=== PATIENT | male | born 1950 | race Caucasian/White ===

== ENCOUNTER 2022-11-12 08:00 | Outpatient (CLI) | payer MEDICARE, MEDICAID ==
[2022-11-12 20:06] LABS: BILIRUBIN,URINE NEGATIVE (NEGATIVE); GLUCOSE, URINE (UA) >=1000 mg/dL (NEGATIVE); KETONES,URINE (UA) NEGATIVE (NEGATIVE); LEUKOCYTE ESTERASE, URINE NEGATIVE (NEGATIVE); NITRITE,URINE NEGATIVE (NEGATIVE); OCCULT BLOOD,URINE NEGATIVE (NEGATIVE); PH,URINE 6.5 PH (5.0-7.5); PROTEIN,URINE NEGATIVE (NEGATIVE); UROBILINOGEN,URINE 0.2 (NORMAL) E.U./dL (NORMAL)
[2022-11-12 20:11] LABS: CLARITY,URINE CLEAR (CLEAR)
[2022-11-12 20:20] LABS: AMORPHOUS SEDIMENT,UR Rare /LPF; BACTERIA,URINE Rare /HPF (None Seen); RBC,URINE None Seen /HPF (0-5); SQUAMOUS EPITHELIAL CELL,UR NONE SEEN (<= Few); WBC,URINE 0-3 /HPF (0-3)
== END 2022-11-12 23:59 | disposition home or self-care (01) ==
LOC: LAB.S 08:00
PROVIDERS: ATTEND Internal Medicine
DX: R35.0 Frequency of micturition (principal)
CPT/HCPCS: 81001; 87086

== ENCOUNTER 2023-12-14 08:00 | Outpatient (CLI) | payer MEDICAID, MEDICARE | END 2023-12-14 23:59 | disposition home or self-care (01) | LOC: LAB.S 08:00 | PROVIDERS: ATTEND Physician Assistant | DX: R35.1 Nocturia (principal) | CPT/HCPCS: 87086 ==

== ENCOUNTER 2025-03-17 02:59 | Inpatient (IN) ==
[2025-03-17 03:23] LABS: HCT - HEMATOCRIT 24.1 % (42.0-52.0); HGB - HEMOGLOBIN 7.5 g/dL (14.0-18.0); MEAN PLATELET VOLUME 9.4 fL (7.4-11.4); NRBC ABSOLUTE COUNT (AUTO) 0.00 x10^3/uL; NUCLEATED RED BLOOD CELLS AUTO 0.0 /100WBC; PLT - PLATELET COUNT 701 10^3/uL (130-450); RED CELL DISTRIBUTION WIDTH 14.2 % (12.0-15.0)
--- NOTE | 2025-03-17 03:23 | ED Physician Documentation ---
History of Present Illness Stated complaint Stated Complaint: LEG PAIN Chief complaint Chief Complaint: Trauma Ext Additonal information Additional information: Mr. Tillman is a 75-year-old male who denies any previous diagnoses, states that he is otherwise healthy. No blood thinner use. Lives at assisted living facility/independent living nearby. He states that tonight he was getting up from going to the bathroom when he stood up from the toilet slipped backwards and fell. He states that he struck his right lower extremity, on the raised tile barrier of the shower nearby. He denies hitting his head, he did not lose consciousness. He is not endorsing any neck pain back pain, headache, visual changes. He is endorsing significant pain in his posterior right lower extremity with minimal manipulation. Patient states that his only significant medical problem lately has been ongoing diarrhea for very long time, which is why he was up going about him in the first place. He denies dark tarry stools, bloody stools. He denies any urination changes recently. Tonight he states that he otherwise had been in his baseline state of health, with no recent chest pain, shortness of breath, fever, chills, abdominal pain. He rates his pain when he moves his right lower extremity as a 8 out of 10. He has never injured this right lower extremity before. Patient was brought in by ambulance. They note that he was hypertensive, and had a blood sugar in the 200s but otherwise state that he had reassuring vital signs, was alert and oriented x 3, mentating normally with GCS of 15. Apparently at assisted living facility they attempted to stand him up, patient was unable to do so due to pain, therefore they called EMS. Review of Systems Status of ROS: See HPI Meds/Allgy Home Medications Ambulatory Orders Medication Instructions Recorded Confirmed No Known Home Medications 03/17/2502/21 Allergies Allergies Allergy/AdvReac Type Severity Reaction Status Date / Time No Known Drug Allergies Allergy Verified 03/17/25 03:20 [facility] Active Problems All Active Problems (Updated 03/17/25 @ 08:13 by Tylor Campbell MD) Cachexia (Acute) Anemia (Chronic) Leg pain, right (Acute) Ground-level fall (Acute) Medical History Medical History (Updated 03/17/25 @ 08:13 by Tylor Campbell MD) Insomnia Urinary incontinence Skin cancer No pertinent past medical history Surgical History Surgical History No pertinent past surgical history Social History Social History Smoking Status: Unknown if ever smoked Do you feel safe in your home environment?: Yes History of physical, verbal, emotional, or financial abuse?: No Exam Exam Vital Signs: Vital Signs x48h Temp Pulse Resp BP Pulse Ox 03/17/25 05:20 85 16 160/74 H 97 03/17/25 03:51 82 181/88 H 100 03/17/25 03:20 79 16 160/84 H 99 03/17/25 03:17 36.7 C 90 18 180/92 H 98 Constitutional Resting in examination bed no acute distress. Appears cachectic. No diaphoresis. Mildly pale. HENMT normocephalic, head/scalp atraumatic, external ears normal, EACs normal and TMs normal bilaterally Eyes PERRL, conjunctivae normal and visual acuity normal Neck/C-Spine cervical spine nontender, cervical full ROM noted and supple Chest inspection of chest normal and palpation of chest normal Respiratory Clear breath sounds bilaterally, no increased respiratory effort. No wheeze, no rhonchi Cardiovascular normal heart rate noted, regular rhythm noted, no murmur and peripheral pulses 2+ throughout No murmurs, regular rate and rhythm. Hypertensive. Normal S1-S2. Gastrointestinal abdomen soft to palpation, nontender to palpation and nontender to percussion Genitourinary no CVA tenderness Back/Pelvis spine normal to inspection, no thoracic spine tenderness, no lumbar spine tenderness, thoracic spine ROM normal, lumbar spine ROM normal and no paraspinal muscle tenderness noted Extremities Significant tenderness palpation in the posterior right hip, posterior right femur. No overlying skin changes, obvious swelling/deformities. The right leg is not foreshortened or externally/internally rotated. Neurovascular intact distal to the area of injury. Intact DP and PT pulses in bilateral lower extremities. 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 II-XII intact, no focal motor deficit noted, no sensory deficits noted and GCS 15 Psychiatry mental status grossly normal and oriented x3 Skin Mild pallor Results Vitals Vitals: Vital Signs - 24 hr 03/17/25 03:17 03/17/25 03:20 03/17/25 03:51 Temperature 36.7 C Temperature Source Temporal Artery Scan Pulse Rate 90 79 82 Respiratory Rate 18 16 Blood Pressure 180/92 H 160/84 H 181/88 H O2 Saturation 98 99 100 O2 Source Room air Room air Room air Pain Intensity 10 10 03/17/25 03:58 03/17/25 04:27 03/17/25 04:28 Temperature Temperature Source Pulse Rate Respiratory Rate Blood Pressure O2 Saturation O2 Source Pain Intensity 8 8 8 03/17/25 04:57 03/17/25 05:20 03/17/25 06:14 Temperature Temperature Source Pulse Rate 85 Respiratory Rate 16 Blood Pressure 160/74 H O2 Saturation 97 O2 Source Room air Pain Intensity 8 7 Oxygen O2 Source Room air Labs Labs: Laboratory Tests 03/17/25 03:17 WBC 9.0 RBC 3.27 L Hgb 7.5 L Hct 24.1 L MCV 73.7 L MCH 22.9 L MCHC 31.1 L RDW 14.2 Plt Count 701 H MPV 9.4 Neut # (Auto) 7.0 H Lymph # (Auto) 1.2 L [place] # (Auto) 0.3 Eos # (Auto) 0.1 Baso # (Auto) 0.0 Absolute Nucleated RBC 0.00 Nucleated RBC % 0.0 Sodium 135 Potassium 3.8 Chloride 100 L Carbon Dioxide 28 Anion Gap 7.0 BUN 13 Creatinine 0.5 L Estimated GFR (MDRD) 162 Glucose 256 H Calcium 10.8 H Iron < 10 L TIBC 361 % Saturation TNP Transferrin 258 Total Bilirubin 0.4 AST 15 ALT 17 Alkaline Phosphatase 103 Total Protein 7.2 Albumin 3.6 Globulin 3.6 Albumin/Globulin Ratio 1.0 PD Medical Decision Making ED course ED course: Assessment: Patient is a 75-year-old male arrives to the ER with concerns for significant pain in his right lower extremity after he sustained a ground-level fall at assisted living facility. He states he did not hit his head or lose consciousness, and mostly endorses pain in his posterior lateral right hip as well as his right posterior mid thigh. He states that he takes no medications, and tells me initially that he is healthy. On further questioning he states that he has had an unintentional precipitous drop in his weight, he states that 2 years ago he was 280 pounds, currently he weighs about 130 pounds. He thinks he lost roughly 30 to 50 pounds over the summer. He is endorsing chronic diarrh ea. Denies dark tarry stools or bloody stools. DDx: Includes but not limited to, femur fracture, femoral neck fracture, hip dislocation, acetabular fracture, pelvic ring fracture, skull fracture, tr aumatic subarachnoid hemorrhage, subdural hemorrhage, C-spine fracture, C-spine ligamentous injury, rib fracture, etc. Patient is cachectic, appears frail, pale. Considered failure to thrive, underl wu cancer, malnutrition, anemia. Workup: CBC with hemoglobin of 7.5, no leukocytosis, appears grossly anemic. Platelets 700. Iron less than 10, TIBC 361. Transferrin 258. CMP with grossly normal electrolytes apart from glucose 256. My bedside interpretation of the x-rays of his pelvis, femur, right knee are notable for significant arthritis in the right knee and diminished joint space, no evidence of fracture in the midshaft or hip, likely osteoarthritis in the right hip. At time of my signout pending formal reads from radiology. CT head and CT C-spine unremarkable per radiologist report. Prior to signout due to concern of possible underlying malignancy, failure to thrive, CT chest and abdomen were ordered. Treatment: Fentanyl, Dilaudid Discussion: So far his traumatic workup appears negative for acute injury, though he continues to endorse significant pain in his right leg. Patient was handed off to Dr. Oseguera, awaiting radiologic interpretation of his imaging. I am concerned about this patient's overall health, as he is pale, cachectic. He is endorsing unintentional weight loss, chronic diarrhea. I offered him a bedside rectal exam, which patient refused after I explained the benefits of doing so, to see if he is having GI bleeding. Therefore I ordered CTs of his chest and abdomen to look for potential mass, other sources of bleeding or anemia. Patient will likely need to be admitted for failure to thrive, though is pending further imaging results and workup. Patient handed off to Dr. Oseguera. Disposition: ER, pending further workup Discharge Plan Discharge Condition: Stable Clinical Impression: Ground-level fall, Leg pain, right, Anemia, Cachexia Prescriptions: No Action No Known Home Medications Print Language: Italian Stand Alone Forms: PCP List
[2025-03-17 03:41] LABS: ALT ALANINE AMINOTRANSFERASE 17.0 IU/L (10-60); AST ASPARTATE AMINOTRANSFERASE 15.0 IU/L (10-42); BUN - BLOOD UREA NITROGEN 13.0 mg/dL (6-20); CARBON DIOXIDE - CO2 28.0 mmol/L (21-32); CREATININE 0.5 mg/dL (0.6-1.3); GFR - MDRD 162.0 (>89)
[2025-03-17] MEDS: fentaNYL 100 MCG/2 ML VIAL IVP PRN (03:58)
[2025-03-17] MEDS ORDERED: HYDROmorphone 1 MG/ML CARPUJECT ONE (04:26)
[2025-03-17] MEDS: HYDROmorphone 0.5 MG/0.5 ML SYRINGE IVP STA ×2 (04:27→10:22)
[2025-03-17] MEDS: HYDROmorphone 1 MG/ML CARPUJECT IVP STA (06:14)
--- NOTE | 2025-03-17 08:03 | XRAY Report ---
PROCEDURE: XR Chest 1V INDICATIONS: mild traumatic chest pain after glf TECHNIQUE: One view of the chest was acquired. COMPARISON: None. FINDINGS: Surgical changes and devices: None. Lungs and pleura: No pleural effusions or pneumothorax. No consolidation. Mediastinum: Mediastinal contours appear normal. Heart size is normal. Bones and chest wall: No suspicious bony lesions. No displaced rib fracture. Overlying soft tissues appear unremarkable. IMPRESSION: No acute cardiopulmonary process. No displaced rib fracture or pneumothorax. Findings are concordant with preliminary interpretation provided by [facility]. Reviewed by: Ham Hawkins MD on 03/17/2025 8:00 AM PDT Approved by: Ham Hawkins MD on 03/17/2025 8:00 AM PDT Station ID: [email or web address]
--- NOTE | 2025-03-17 08:04 | XRAY Report ---
PROCEDURE: XR Femur 2+V RT INDICATIONS: right lower extremity pain afer glf TECHNIQUE: 1 views of the femur were acquired. COMPARISON: None. FINDINGS: 1 oblique view of the distal femur was obtained. There is no displaced femoral fracture in the [id number]. Vascular calcifications. IMPRESSION: No displaced femoral fracture in the [id number]. Findings are concordant with preliminary interpretation provided by [facility]. Reviewed by: Ham Hawkins MD on 03/17/2025 8:00 AM PDT Approved by: Ham Hawkins MD on 03/17/2025 8:00 AM PDT Station ID: [email or web address]
--- NOTE | 2025-03-17 08:06 | XRAY Report ---
PROCEDURE: XR Hip w/Pelvis 2-3V RT INDICATIONS: right lower extremity pain after fall TECHNIQUE: AP pelvis with lateral view(s) of the hip(s). COMPARISON: None. FINDINGS: Bones: Diffuse osseous demineralization. No dislocation. No displaced fracture. Moderate degenerative arthrosis of both hips. Normal alignment the pubic symphysis and bilateral sacroiliac joints. Degenerative disc disease in the inferior lumbar spine. Soft tissues: No suspicious soft tissue calcifications or masses. IMPRESSION: No displaced fracture. If there remains a high clinical concern for fracture, consider cross-sectional imaging. Moderate degenerative arthrosis of both hips. Reviewed by: Ham Hawkins MD on 03/17/2025 8:03 AM PDT Approved by: Ham Hawkins MD on 03/17/2025 8:03 AM PDT Station ID: [email or web address]
--- NOTE | 2025-03-17 08:07 | XRAY Report ---
PROCEDURE: XR Knee 4+V RT INDICATIONS: pain in RLE after fall TECHNIQUE: views of the knee(s) were acquired. COMPARISON: None. FINDINGS: Bones: Diffuse osseous demineralization. No fracture or dislocation. Tricompartmental degenerative arthrosis Soft tissues: Small knee joint effusion. Meniscal chondrocalcinosis and vascular calcifications.. IMPRESSION: No acute bony abnormality. Findings are concordant with preliminary interpretation provided by [facility]. Reviewed by: Ham Hawkins MD on 03/17/2025 8:04 AM PDT Approved by: Ham Hawkins MD on 03/17/2025 8:04 AM PDT Station ID: [email or web address]
--- NOTE | 2025-03-17 08:21 | CT Report ---
PROCEDURE: CT Head WO INDICATIONS: ground level fall TECHNIQUE: CT of the head was performed, without intravenous contrast. Reformats: Coronal and sagittal. For radiation dose reduction, the following was used: automated exposure control, adjustment of mA and/or kV according to patient size. COMPARISON: None. FINDINGS: Image quality: Diagnostic. CSF spaces: Basal cisterns are patent. No extra-axial fluid collections. Ventricles are normal in size and shape. Brain: No midline shift. No intracranial mass effect or hemorrhage. Wolfe- white matter interface is normal. Age appropriate volume loss and periventricular white matter hypoattenuation, likely chronic ischemic change. Right frontal ellington radiata encephalomalacia extends through the anterior limb and genu of the internal capsule. Skull and face: Calvarium and visualized facial bones are intact, without suspicious lesions. Sinuses: Visualized sinuses and mastoids are clear. IMPRESSION: No acute intracranial pathology. Findings are concordant with preliminary interpretation provided by [facility]. Reviewed by: Ham Hawkins MD on 03/17/2025 8:17 AM PDT Approved by: Ham Hawkins MD on 03/17/2025 8:17 AM PDT Station ID: [email or web address]
--- NOTE | 2025-03-17 08:24 | CT Report ---
PROCEDURE: CT Cervical Spine WO INDICATIONS: Ground level fall TECHNIQUE: Noncontrast images acquired from the skull base to the T4 level. Sagittal and coronal reformats were then constructed. For radiation dose reduction, the following was used: automated exposure control, adjustment of mA and/or kV according to patient size. COMPARISON: None. FINDINGS: Image quality: Excellent. Bones: No fractures or dislocations. Visualized superior ribs are intact. Degenerative grade 1 anterolisthesis of C4 on C5 and degenerative grade 1 retrolisthesis of C5 on C6. Degenerative grade 1 anterolisthesis of C7 on T1. Multilevel degenerative disc osteophyte complex these, which are most notable at C5-6 and result in mild spinal canal stenosis due to posteriorly directed osteophytosis. Moderate facet joint degenerative arthrosis at C2-3 on the left and C3-4 and C4-5 on the right. Soft tissues: Prevertebral soft tissues are normal in thickness. No paravertebral hematomas. No apical pneumothoraces. IMPRESSION: No acute, displaced fracture or traumatic subluxation. Findings are concordant with preliminary interpretation provided by [facility]. Reviewed by: Ham Hawkins MD on 03/17/2025 8:21 AM PDT Approved by: Ham Hawkins MD on 03/17/2025 8:21 AM PDT Station ID: [email or web address]
--- NOTE | 2025-03-17 09:20 | CT Report ---
PROCEDURE: CT Chest W INDICATIONS: 30 lb weight loss, cachectic, looking for cancer CONTRAST: Omni 300 100mL TECHNIQUE: After the administration of intravenous contrast, a CT scan of the chest was performed. Images were recorded and evaluated at appropriate window settings. Reformats: axial MIP of the chest, coronal and sagittal. For radiation dose reduction, the following was used: automated exposure control, adjustment of mA and/or kV according to patient size. COMPARISON: Correlation is made with the accompanying imaging. FINDINGS: Image quality: Diagnostic. Chest wall and lower neck: No thyroid nodule which requires sonographic follow up. No breast mass. No axillary or supraclavicular adenopathy by size. Lungs and pleura: No consolidation. No pleural effusions. No pneumothorax. No suspicious pulmonary nodules which require follow up. Mediastinum: Heart size is normal. No pericardial effusion. No large vessel abnormality. No mediastinal adenopathy by size criteria. Moderate to severe coronary calcification is seen. Bones: At the T11 level, there is a subacute appearing fracture anteriorly, with 40 to 50% loss of height anteriorly. At the T12 level, there is a significant appearing central compression deformity, with 50% loss of height centrally. Mild dextroconvex scoliotic curvature is seen. A few sites of bony sclerosis can be seen involving the ribs, right more than left. Upper Abdomen: Please see the accompanying abdominal CT report. IMPRESSION: No suspicious pulmonary masses are seen. No enlarged lymph nodes are seen. A few sites of bony sclerosis can be seen involving ribs, right more than left. Metastatic disease is suspected, although differential diagnosis includes prior fractures. Subacute appearing T11 and T12 compression deformities are seen. No karla findings of pathologic fracture are seen. Reviewed by: Joe Pineda MD on 03/17/2025 8:17 AM RAYNA Approved by: Joe Pineda MD on 03/17/2025 8:17 AM RAYNA Station ID: [email or web address]
--- NOTE | 2025-03-17 09:25 | CT Report ---
PROCEDURE: CT Abdomen/Pelvis W INDICATIONS: possible GI bleed/vs malignancy CONTRAST: Omni 300 100mL TECHNIQUE: After the administration of intravenous contrast, a CT scan of the abdomen and pelvis was performed. Images were recorded and evaluated at appropriate window settings. Reformats: coronal and sagittal. For radiation dose reduction, the following was used: automated exposure control, adjustment of mA and/or kV according to patient size. COMPARISON: Correlation is made with the accompanying imaging. FINDINGS: Image quality: Diagnostic. Lower chest: Please see the accompanying chest CT report. Liver: No solid mass. Gallbladder: Within normal limits. Biliary tree: No intrahepatic or extrahepatic dilation, accounting for age. Spleen: No splenomegaly. Pancreas: No pancreatic ductal dilation. Adrenals: No adrenal nodule. Kidneys and ureters: No hydronephrosis. No renal cystic lesion which requires follow up. No solid mass. Stomach, bowel and peritoneum: There is a rectal mass seen, with a prominent exophytic component, measuring at least 5.3 x 6.1 x 5.5 cm. Surrounding inflammatory change can be seen, yet without karla findings of perforation or abscess. Diverticulosis can be seen, without karla findings of active diverticulitis. Moderate generalized wall thickening can be seen throughout the colon. No dilated loops of small bowel are seen. The stomach is relatively decompressed at the time of this study, limiting its evaluation. Lymph nodes: No central or retroperitoneal adenopathy. Vessels: No infrarenal aortic aneurysm. Patent portal vein. Atherosclerotic calcification is seen. Hypertrophied pelvic vessels are seen, with hypertrophy of the left gonadal vein. PELVIS Reproductive organs: Unremarkable. Bladder: No abnormal wall thickening. Pelvic lymph nodes: No pelvic adenopathy by size criteria. Bones: No aggressive osseous abnormality. Subacute appearing fractures can be seen in T11 and T12. Degenerative changes are seen throughout, which are worst involving the lumbar spine. Other: No significant ventral or inguinal hernia. IMPRESSION: There is a rectal mass seen, with a prominent exophytic component, measuring up to 6.1 cm. This is highly suspicious for malignancy. No karla findings of metastatic disease can be seen. Generalized wall thickening can be seen throughout the colon, which is attributed to colitis. Hypertrophied pelvic vessels are seen, with hypertrophy of the left gonadal vein. Subacute appearing fractures of T11 and T12 can be seen, though without karla findings of pathologic fracture. Reviewed by: Joe Pineda MD on 03/17/2025 8:22 AM RAYNA Approved by: Joe Pineda MD on 03/17/2025 8:22 AM RAYNA Station ID: [email or web address]
[2025-03-17] MEDS: KETOROLAC 15 MG/ML VIAL IVP STA (10:22)
[2025-03-17 12:13] LABS: GLUCOSE, URINE (UA) 500 mg/dL (NEGATIVE); KETONES,URINE (UA) 15 mg/dL (NEGATIVE); OCCULT BLOOD,URINE TRACE-INTACT (NEGATIVE)
[2025-03-17 12:14] LABS: AMORPHOUS SEDIMENT,UR Few /LPF; SQUAMOUS EPITHELIAL CELL,UR RARE Squamous (<= Few)
--- NOTE | 2025-03-17 13:41 | ED Physician Documentation ---
ED Addendum Addendum Addendum: Care of the patient was assumed by me at change of shift. Pending further labs and CT reports. He was still having a lot of pain in his back and over towards the right hip area. X-rays and CT scan of the pelvis and right upper leg had not shown any fractures. Lumbar films showed a subacute T11 and T12 compression fractures. He states he had fallen a few weeks ago with some mild back pain but was not very debilitating. He is having significant pain in the hip and back now. He did receive multiple doses of pain medication over several hours. He is still unable to get up and walk with a walker due to the pain in the back and right thigh. He does have significant weight loss recently. He has ongoing diarrhea for weeks or months. CT scan did show some colitis. We can obtain a stool culture and look for bacterial causes. Also can check a stool calprotectin to wonder about autoimmune. Additionally his CT scan and showing a rectal mass approximately 6 cm in diameter. I talked with Dr. Mabry who is on for surgery who will come and evaluate the patient. If this is close enough at the rectum that it can be filled digitally then he can obtain a transrectal biopsy. The patient has significant anemia and is very low in iron. Presumption would be poor dietary intake as his sister and patient both state he has been mostly getting calories through protein supplements like Ensure or and his diet has been meager at [place]. At this point the patient is having a new fall with injury and likely either a worsening of a recent compression fracture or a new compression fracture. He will likely need to be hospitalized for intractable pain of this and co ncurrently further evaluation of the rectal mass and the anemia which would not in themselves necessitate hospitalization but can be done concurrently. I did discuss these findings and updates with the patient and also his sister who is in the room who is his power of tax attorney. Discharge Plan Discharge Patient Disposition: ED Place in Observation Condition: Stable Clinical Impression: Ground-level fall, Leg pain, right, Cachexia, Rectal mass, Intractable back pain Compression fracture of vertebral column Qualifiers: Encounter type: initial encounter Fracture of vertebra location: thoracic Thoracic vertebra fracture level: T12 Qualified Code(s): S22.080A - Wedge compression fracture of T11-T12 vertebra, initial encounter for closed fracture Anemia, iron deficiency Qualifiers: Iron deficiency anemia type: inadequate dietary iron intake Qualified Code(s): D50.8 - Other iron deficiency anemias Prescriptions: No Action No Known Home Medications Print Language: [place] Stand Alone Forms: PCP List
[2025-03-17] MEDS: oxyCODONE 5 MG TABLET PO STA (14:02)
[2025-03-17 15:17] LABS: ESTIMATED AVERAGE GLUCOSE 212 mg/dL (70-100); HEMOGLOBIN A1c% 9.0 % (4.27-6.07)
--- NOTE | 2025-03-17 16:36 | CONSULTATION NOTE ---
Referring Provider Name of Referring Provider:: Dr. Eliel Oseguera Consult Date: 03/17/25 Chief Complaint Chief Complaint Chief Complaint: Rectal mass very concerning for malignancy seen on CT scan - diarrhea History of Present Illness Admitted From Admitted From:: [facility] History Obtained From Records Reviewed: Yes History obtained from: Patient, chart. Dr. Oseguera Exam Limitations: Patient's profound deconditioning and weight loss History of Present Illness HPI Comment/Other: Dr. Eliel Oseguera asked that I see this unfortunate 75 year old male on consultation after a panscan CT revealed "There is a rectal mass seen, with a prominent exophytic component, measuring up to 6.1 cm. This is highly suspicious for malignancy. No karla findings of metastatic disease can be seen. Generalized wall thickening can be seen throughout the colon, which is attributed to colitis. Hypertrophied pelvic vessels are seen, with hypertrophy of the left gonadal vein. Subacute appearing fractures of T11 and T12 can be seen, though without karla findings of pathologic fracture." The patient states that he has lost about 150 pounds in the past year to year and a half going from 285 pounds to his 132 pounds today. He has noted a feeling of something in his rectum for much of this time with diarrhea and occasional blood per rectum. He denies any previous colon evaluation including colonoscopy, sigmoidoscopy, proctoscopy, barium enema or CT colonography. He states that he has been seen in the walk-in clinic in [place] occasionally with the most recent visit "a couple of months ago." Review of the chart shows a paucity of data but he has been seen by Karan Mora and Letty Thornton in the past. PFS Active Problems All Active Problems (Updated 03/17/25 @ 13:35 by Eliel Oseguera MD) Intractable back pain (Acute) Anemia, iron deficiency (Acute) Rectal mass (Acute) Compression fracture of vertebral column (Acute) Cachexia (Acute) Leg pain, right (Acute) Ground-level fall (Acute) Medical History Medical History (Updated 03/17/25 @ 13:35 by Eliel Oseguera MD) Insomnia Urinary incontinence Skin cancer No pertinent past medical history Surgical History Surgical History No pertinent past surgical history Social History Social History Smoking Status: Unknown if ever smoked Do you feel safe in your home environment?: Yes History of physical, verbal, emotional, or financial abuse?: No POLST Patient has POLST: No Meds/Allgy Home Medications Ambulatory Orders Medication Instructions Recorded Confirmed No Known Home Medications 03/17/2502/21 Allergies Allergies Allergy/AdvReac Type Severity Reaction Status Date / Time No Known Drug Allergies Allergy Verified 03/17/25 03:20 Results Lab Results 03/17/25 03:17 03/17/25 03:17 Other Lab Results: Lab Results x24hrs 03/17/25 03/17/25 Range/Units 11:25 03:17 WBC 9.0 (4.8-10.8) x10^3/uL RBC 3.27 L (4.70-6.10) 10^6/uL Hgb 7.5 L (14.0-18.0) g/dL Hct 24.1 L (42.0-52.0) % MCV 73.7 L (80.0-94.0) fL MCH 22.9 L (27.0-31.0) pg MCHC 31.1 L (32.0-36.0) g/dL RDW 14.2 (12.0-15.0) % Plt Count 701 H (130-450) 10^3/uL MPV 9.4 (7.4-11.4) fL Neut # (Auto) 7.0 H (1.5-6.6) 10^3/uL Lymph # (Auto) 1.2 L (1.5-3.5) 10^3/uL [place] # (Auto) 0.3 (0.0-1.0) 10^3/uL Eos # (Auto) 0.1 (0.0-0.7) 10^3/uL Baso # (Auto) 0.0 (0.0-0.1) 10^3/uL Absolute Nucleated RBC 0.00 x10^3/uL Nucleated RBC % 0.0 /100WBC Sodium 135 (135-145) mmol/L Potassium 3.8 (3.5-4.5) mmol/L Chloride 100 L (101-111) mmol/L Carbon Dioxide 28 (21-32) mmol/L Anion Gap 7.0 (6-13) BUN 13 (6-20) mg/dL Creatinine 0.5 L (0.6-1.3) mg/dL Estimated GFR (MDRD) 162 (>89) Glucose 256 H (74-104) mg/dL Estimat Average Glucose 212 H (70-100) mg/dL Hemoglobin A1c % 9.0 H (4.27-6.07) % Calcium 10.8 H (8.5-10.3) mg/dL Iron < 10 L (50-212) ug/dL TIBC 361 (250-450) ug/dL % Saturation TNP Transferrin 258 (203-362) mg/dL Total Bilirubin 0.4 (0.2-1.0) mg/dL AST 15 (10-42) IU/L ALT 17 (10-60) IU/L Alkaline Phosphatase 103 (42-121) IU/L Total Protein 7.2 (6.4-8.9) g/dL Albumin 3.6 (3.2-5.5) g/dL Globulin 3.6 (2.1-4.2) g/dL Albumin/Globulin Ratio 1.0 (1.0-2.2) Urine Color YELLOW Urine Clarity CLEAR (CLEAR) Urine pH 7.0 (5.0-7.5) PH Ur Specific [place] 1.010 (1.002-1.030) Urine Protein TRACE (NEGATIVE) mg/dL Urine Glucose (UA) 500 H (NEGATIVE) mg/dL Urine Ketones 15 H (NEGATIVE) mg/dL Urine Occult Blood TRACE-INTACT (NEGATIVE) Urine Nitrite NEGATIVE (NEGATIVE) Urine Bilirubin NEGATIVE (NEGATIVE) Urine Urobilinogen 0.2 (NORMAL) (NORMAL) E.U./dL Ur Leukocyte Esterase NEGATIVE (NEGATIVE) Urine RBC 0-5 (0-5) /HPF Urine WBC 4-5 (0-3) /HPF Ur Squamous Epith Cells RARE Squamous (<= Few) Amorphous Sediment Few /LPF Urine Bacteria Rare (None Seen) /HPF Urine Mucus Few Strands Ur Microscopic Review INDICATED Urine Culture Comments NOT INDICATED Review of Systems Going through a 14 point review of systems it became quickly apparent that my review of systems was diffusely positive but it was difficult getting the patient to talk. The review included CONSTITUTIONAL, HEENT, SKIN, CARDIOVASCULAR, RESPIRATORY, GASTROINTESTINAL, GENITOURINARY, NEUROLOGICAL, MUSCULOSKELETAL, HEMATOLOGIC, LYMPHATICS, PSYCHIATRIC, ENDOCRINOLOGIC, and ALLERGIES. Exam Exam Vital Signs: Vital Signs x48h Pulse Resp BP Pulse Ox 03/17/25 15:43 93 20 148/71 H 99 General: 75-year old profoundly cachectic male, appears much older than stated age, deconditioned, wearing adult diapers, uncomfortable HEENT: Normocephalic, atraumatic, extraocular movement intact, mucous membranes pink and dry, sclera anicteric and not injected, tongue midline Neck: Supple without pain on palpation, mass or bruit Cardiac: Regular rate and rhythm without rub, gallop, or murmur Chest: Clear to auscultation bilaterally Abdomen: Soft, nontender, normoactive bowel sounds, no hepatomegaly, no splenomegaly, scaphoid abdomen Genitourinary: Deferred Rectal: External examination reveals a pedunculated skin mass on his RIGHT buttock measuring 5 cm in diameter, skin thickening at the anus, mostly soft large fungating mass at 6 cm from the anal verge, with the aid of a water soluble lubricant I inserted a Ronguer next to my examing finger and I biopsied the mass Extremities: No gross neurovascular problem, no clubbing or cyanosis Gait: I did not have the patient get off the guerney but he is generally weak Psychiatric: Alert and oriented to person place and time, asks and answers questions appropriately, mood and affect appropriate but he is not interested in talking, uncomfortable Conclusion/Plan Problem List (1) Rectal mass: (2) Anemia, iron deficiency: Qualifiers: Iron deficiency anemia type: inadequate dietary iron intake Qualified Code(s): D50.8 - Other iron deficiency anemias (3) Cachexia: Plan This rectal mass is certainly malignant and is responsible for his weight loss and anemia. I have biopsied the mass and the patient tolerated the procedure well. This was done to expedite the diagnosis with minimal patient discomfort and waiting. Further treatment will obviously depend on the pathology, staging, comorbidities, potential treament options (with an eye to what the patient can tolerate and importantly what the patient wants). We will follow in the off chance that the patient's rectum obstructs and a diverting colostomy is desired. Note that typically if a patient has good nutrition and minimal comorbidities this would be treated with preoperative chemotherapy and radiation therapy prior to resection. This is not the case with this patient. As an aside this case should be placed on Tumor Board for discussion. I thank Dr. Oseguera very much for the opportunity to participate in this patient's care. Lab Results 03/17/25 03:17 03/17/25 03:17
--- NOTE | 2025-03-17 17:01 | ED Physician Documentation ---
ED Addendum Addendum Addendum: Care from Dr. Oseguera at 3 PM shift change. Briefly this is 75-year-old gentleman with intractable pain after a fall and also a new diagnosis of rectal mass which I am told the surgeon came and biopsied in the department. He was boarding his beds were full on the floor but I was notified approximately 5 PM that beds were opened up and spoke at that time with Dr. Hanson for observation. Discharge Plan Discharge Patient Disposition: ED Place in Observation Condition: Stable Clinical Impression: Ground-level fall, Leg pain, right, Cachexia, Rectal mass, Intractable back pain Compression fracture of vertebral column Qualifiers: Encounter type: initial encounter Fracture of vertebra location: thoracic Thoracic vertebra fracture level: T12 Qualified Code(s): S22.080A - Wedge compression fracture of T11-T12 vertebra, initial encounter for closed fracture Anemia, iron deficiency Qualifiers: Iron deficiency anemia type: inadequate dietary iron intake Qualified Code(s): D50.8 - Other iron deficiency anemias Prescriptions: No Action No Known Home Medications Print Language: Stateless Stand Alone Forms: PCP List
--- NOTE | 2025-03-17 17:03 | HISTORY & PHYSICAL EXAMINATION ---
Chief Complaint Chief Complaint Chief Complaint: Intractable pain History of Present Illness Admitted From Admitted From:: [facility] History Obtained From Records Reviewed: EMR History obtained from: Patient Exam Limitations: Poor historian History of Present Illness HPI Comment/Other: Patient is a 75-year-old male with no past medical history who presents after ground-level fall. He states he slipped on the floor, and landed on his buttocks. He has had pain in his right hip, right groin region since. When asked further about underlying medical conditions, he endorses chronic diarrhea which has worsened in the last few months. He also states that he has had a more than 100 pound weight loss over the last year. He does not see a primary care provider regularly. He has never had a colonoscopy. He is not up-to-date on any of his cancer screenings. Up until a few years ago, he lived with his nephew who he states suffers from mental health challenges. Patient endorses no past medical history. He states he takes no medications. He has no known drug allergies. He has never had any surgeries. He drinks beer occasionally. He denies any tobacco use. He smokes marijuana almost daily. 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 His next of kin and DPOA that he wants us to contact is his sister, Oscar Stiles. Her number is [phone]. Meds/Allgy Home Medications Ambulatory Orders Medication Instructions Recorded Confirmed No Known Home Medications 03/17/2502/21 Allergies Allergies Allergy/AdvReac Type Severity Reaction Status Date / Time No Known Drug Allergies Allergy Verified 03/17/25 03:20 [facility] Active Problems All Active Problems (Updated 03/17/25 @ 18:10 by Randy Hanson MD) Closed T12 fracture (Acute) Closed T11 fracture (Acute) Intractable back pain (Acute) Anemia, iron deficiency (Acute) Rectal mass (Acute) Compression fracture of vertebral column (Acute) Cachexia (Acute) Leg pain, right (Acute) Ground-level fall (Acute) Medical History Medical History (Updated 03/17/25 @ 18:10 by Randy Hanson MD) Insomnia Urinary incontinence Skin cancer No pertinent past medical history Surgical History Surgical History No pertinent past surgical history Social History Social History Smoking Status: Unknown if ever smoked Do you feel safe in your home environment?: Yes History of physical, verbal, emotional, or financial abuse?: No POLST Patient has POLST: No Review of Systems Constitutional Reports: Fatigue, Chills, Malaise, Weakness, Night sweats, Poor appetite and Weight loss; Denies: Fever Eyes Denies: Pain, Irritation, Blurry vision, Vision loss or Diplopia Ears, nose, mouth, and throat Denies: Ear pain, Hearing loss, Tinnitus, Nose bleeds or Nasal discharge Cardiovascular Denies: Irregular heart rate, chest pain, palpitations, edema, Syncope or shortness of breath with exertion Respiratory Denies: Shortness of breath, Cough or Sputum production Gastrointestinal Reports: Poor appetite, Diarrhea, Rectal pain and Change in stool character; Denies: Abdominal pain, Abdominal distention, Nausea, Vomiting, Heartburn or Constipation Genitourinary Denies: Painful urination, Urinary frequency or Urinary urgency Musculoskeletal Reports: Back pain and Extremity pain; Denies: Extremity swelling or Joint pain Integumentary/Breast Denies: Rash, Itching, Dryness, Redness or Skin pain Neurological Reports: General weakness and Dizziness; Denies: Headache, Weakness in extremities, Numbness in extremities or Abnormal gait Psychiatric Denies: Depression, Anxiety, Mood swings or Panic attacks Endocrine Reports: Fatigue; Denies: Excessive urination or Excessive thirst Hematologic/Lymphatic Reports: Anemia and Easy bruising; Denies: Easy bleeding Allergic/Immunologic Denies: Hives, Tongue swelling or Facial swelling Prior Level of Functionality: Lives in assisted living facility. Uses walker. Exam Exam Vital Signs: Vital Signs x48h Pulse Resp BP Pulse Ox 03/17/25 17:31 92 19 157/85 H 99 03/17/25 15:43 93 20 148/71 H 99 Constitutional abnormal general appearance (disheveled), (chronically ill), (appears older than stated age) and (frail appearing), no apparent distress, abnormal body habitus (cachectic) and (thin) and level of alertness abnormal HENMT normocephalic, head/scalp atraumatic and hearing grossly normal bilaterally Temporal wasting. Cachectic appearance. Multiple seborrheic keratosis noted on scalp and forehead. Eyes PERRL, EOMs intact bilaterally and conjunctivae normal Neck/C-Spine visual inspection normal, trachea midline and cervical spine nontender Chest inspection of chest normal Respiratory breath sounds equal bilaterally, normal respiratory effort, clear to auscultation bilaterally, no wheezes, no rales and no retractions Cardiovascular normal heart rate noted, regular rhythm noted, no gallop, no rub and no murmur Gastrointestinal abdomen normal to inspection, abdomen soft to palpation, nontender to palpation and normoactive bowel sounds Genitourinary no CVA tenderness Back/Pelvis thoracic spine tenderness noted and lumbar spine tenderness noted Extremities normal to inspection, normal to palpation, no tenderness and full ROM Neurology no movement abnormality noted and no focal motor deficit noted Psychiatry mental status grossly normal, oriented x3, thought process abnormality noted (confused), cooperative, affect normal and psychomotor abnormality noted (slow) Skin Right buttock has a mass, 4-5 cm in appearace, pedunculated, grape like, skin colored. Full rectal exam deferred per patient's request. Conclusion/Plan Problem List (1) Intractable back pain: (2) Ground-level fall: (3) Closed T11 fracture: Qualifiers: Encounter type: initial encounter Fracture morphology: unspecified fracture morphology Qualified Code(s): S22.089A - Unspecified fracture of T11- T12 vertebra, initial encounter for closed fracture (4) Closed T12 fracture: Plan: Patient presented with intractable back pain after ground level fall. Subacute appearing T11 and T12 compression deformities are seen. Concern for pathological fractures (multiple areas of bony sclerosis are noted in the ribs, concerning for metastates). In the ER, despite 4 doses of IV Dilaudid, he continues to have severe pain. Continue multimodal pain control. Scheduled Tylenol, oxycodone for moderate pain, Dilaudid for severe pain. Palliative care consult - this patient will likely need [facility] pain management strategies. Qualifiers: Encounter type: initial encounter Fracture morphology: unspecified fracture morphology Qualified Code(s): S22.089A - Unspecified fracture of T11- T12 vertebra, initial encounter for closed fracture (5) Cachexia: (6) Rectal mass: (7) Anemia, iron deficiency: Plan: Patient presents with unexplained weight loss, cachexia, chronic diarrhea. Has large rectal mass. Biopsied by general surgery. Pathology pending. 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 Palliative care has been consulted for pain management. Qualifiers: Iron deficiency anemia type: inadequate dietary iron intake Qualified Code(s): D50.8 - Other iron deficiency anemias Lab Results 03/17/25 03:17 03/17/25 03:17 Diagnostic Imaging Results Diagnostic Imaging Results: positive Final report reviewed Core Measures Anticipated LOS I expect patient to be DC'd or transferred within 96 hours.: Yes DVT/VTE - Prophylaxis VTE/DVT Device ordered at admit?: Yes VTE/DVT Prophylaxis med ordered at admit?: No Not Ordered - Medical Reason: Contraindicated Stroke - Rehab Assessment Rehab services assessment to be ordered?: No Not Ordered - Medical Reason: Not indicated AMI - Statin at Admit Aspirin Prescribed on Admit: No Not Ordered - Medical Reason: Not indicated
[2025-03-17] MEDS ORDERED: ONDANSETRON ODT 4 MG TABLET TL PRN (17:26)
[2025-03-17] MEDS ORDERED: SODIUM CHLORIDE FLUSH 0.9% 10 ML SYRINGE IVP PRN (17:26)
[2025-03-17] MEDS ORDERED: ONDANSETRON 4 MG/2 ML VIAL IVP PRN (17:26)
[2025-03-17] MEDS: LACTATED RINGERS 1,000 ML IV SCH (18:01)
[2025-03-17] MEDS ORDERED: KETOROLAC 15 MG/ML VIAL IVP SCH (19:00)
[2025-03-17] MEDS: ACETAMINOPHEN 500 MG TABLET PO SCH (21:39)
[2025-03-17] MEDS: INSULIN LISPRO 300 UNIT/3 ML PEN SUBQ SCH (21:41)
[2025-03-18] MEDS: SODIUM CHLORIDE FLUSH 0.9% 10 ML SYRINGE IVP SCH (01:02)
[2025-03-18] MEDS: HYDROmorphone 0.5 MG/0.5 ML SYRINGE IVP PRN (02:10)
--- NOTE | 2025-03-18 07:32 | PROVIDER PROGRESS NOTE ---
Subjective General Admit Date: 03/17/25 Exam Exam Vital Signs: Vital Signs x48h Temp Pulse Resp BP Pulse Ox 03/18/25 04:28 98.1 F 77 18 138/68 H 98 03/17/25 23:57 98.4 F 89 18 143/81 H 97 Impression/Plan Problem List (1) Intractable back pain: (2) Ground-level fall: (3) Closed T11 fracture: Qualifiers: Encounter type: initial encounter Fracture morphology: unspecified fracture morphology Qualified Code(s): S22.089A - Unspecified fracture of T11- T12 vertebra, initial encounter for closed fracture (4) Closed T12 fracture: Qualifiers: Encounter type: initial encounter Fracture morphology: unspecified fracture morphology Qualified Code(s): S22.089A - Unspecified fracture of T11- T12 vertebra, initial encounter for closed fracture (5) Cachexia: (6) Rectal mass: (7) Anemia, iron deficiency: Qualifiers: Iron deficiency anemia type: inadequate dietary iron intake Qualified Code(s): D50.8 - Other iron deficiency anemias Plan 75 y/o M admitted after ground level fall for back pain, found to have rectal mass on CT. 1. GLF, back pain - T11, T12 fractures (subacute in nature) with 40-50% height loss and significant pain - patient also has possible sclerotic lesions in ribs bilaterally R>L (mets vs old fractures) 2. Rectal mass - biopsied in ED, path pending, suspect malignancy - no obvious metastatic disease on imaging - he has had chronic diarrhea, but does not have obstructive symptoms at this time - typical treatment for a rectal cancer involves neoadjuvant chemotherapy, but patient is very debilitated at this time. 3. Anemia - likely due to #1
[2025-03-18 08:02] LABS: MEAN PLATELET VOLUME 9.9 fL (7.4-11.4); PLT - PLATELET COUNT 590.0 10^3/uL (130-450); RED CELL DISTRIBUTION WIDTH 14.3 % (12.0-15.0)
[2025-03-18 08:08] LABS: HCT - HEMATOCRIT 19.4 % (42.0-52.0); HGB - HEMOGLOBIN 6.1 g/dL (14.0-18.0)
[2025-03-18 08:21] LABS: ALT ALANINE AMINOTRANSFERASE 12.0 IU/L (10-60); AST ASPARTATE AMINOTRANSFERASE 11.0 IU/L (10-42); BUN - BLOOD UREA NITROGEN 13.0 mg/dL (6-20); CARBON DIOXIDE - CO2 28.0 mmol/L (21-32); CREATININE 0.4 mg/dL (0.6-1.3); GFR - MDRD 209.0 (>89)
--- NOTE | 2025-03-18 08:47 | Palliative Care ---
HPI Visit Location: other location (inpatient) Chief Complaint Chief Complaint: weakness; anemia; rectal mass; weight loss History Obtained From Records Reviewed: ED; Hospitalist; imaging; labs History obtained from: patient; supplemented by sister Exam Limitations: patient with severe STM defictis History of Present Illness HPI: This is a 75-year-old gentleman who has had very little medical care, and presents to palliative care for support. Patient presented to the emergency room, when he had fallen, and fell backwards. His most significant pain per his report is his right leg, with weightbearing, also though noted grimacing when moved him in bed, mostly his subacute thoracic compression fractures. Patient does admit to memory issues, and is somewhat challenged to put together a code piece of history. Patient had been living in [place], had been having more and more weight loss, inertia, not able to make meals or follow through on eating. His sister convinced him to go to [facility] to be able to get better care and feeding. He has been there about 2 months, reports he has been having weight loss over a few years, but more acutely over this last year. Patient reports his most bothersome symptom has been diarrhea, has noted he has had dark stools, but is not noted any blood. He was quite surprised he was going to be needing a blood transfusion. Patient with very poor recall of what happened yesterday in the emergency room, discussed that they had discovered a rectal mass and had done biopsy, with most likely a cancer diagnosis. We also discussed the role of a blood transfusion, to be able to "fill them up", as he is quite low, most likely adding to his weakness and his lethargy. Patient denies any acute pain, other than when he had a collision with the bathroom floor, when asked about his weight loss. He reports for a while he was happy because he been obese most of his life, PEDIATRIC NURSE would be asking how he is losing although his weight, but does understand he is in poor health and fragile now. Was able to meet with his sister later, reports he has been having deterioration in his health, both patient and sister are aware of his memory issues, but sister concern regarding his lack of insight. He reports he has seen a "Dr. Negron" at [facility], has only been prescribed loperamide, and has been waiting over a month for a GI referral. Is very much interested in helping him get established with a primary care through [place]. Patient reports he has been drinking lots of Ensure, has not been eating, has had anorexia. He reports he does drink 1-2 beers daily, sisters never seen him drunk or feels that is problematic at this point. 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 Meds/Allgy Home Medications Ambulatory Orders Medication Instructions Recorded Confirmed loperamide 2 mg tablet 2 mg PO PRN PRN loose stool 03/18/25 03/18/25 Allergies Allergies Allergy/AdvReac Type Severity Reaction Status Date / Time No Known Drug Allergies Allergy Verified 03/17/25 03:20 Palliative Care Performance Status Performance status: Patient has been declining over several years and more acutely over the last several months, with the hope of placement and [facility] he would do better with nutrition and oversight. Patient has had a couple falls there already including 1 that brought him to the ED. Palliative Care Discussion: Discussion included helping patient navigate through current situation, and discern understanding. We did discuss about the seriousness of his illness, and we are currently "in the twilight zone" as we work through what we call staging for his rectal mass. Had initial conversation with him by himself, to help parse this out, then follow-up with his sister regarding concerns of his current situation. He did say he is starting to realize how sick he is. He has never been much to pursue any health care, he reports this is related to he feels pretty good "most of the time". He is able to verbalize though his health has deteriorated and is hopeful to be able to feel better. He is somewhat distressed by his declining cognitive status as well. His sister has been helping him navigate, and is his DPOA. Counseling regarding the role of palliative care, the need to get a establish with primary care provider/oncology. Will need to get PCP or oncology to facilitate palliative care referral. Also discussed if patient needing after evaluation transition to SNF, for rehab stay to continue to get stronger. We are hoping that transfusion will help, but patient is quite fragile and debilitated. Patient recently just transition caseworkers from [facility] to [place], whom they have not had contact with yet. Reassured if went to SNF for skilled stay, would be able to keep apt. at [place]. Impression Impression: This is a 75-year-old gentleman who presents with failure to thrive, with weight loss, cognitive and functional decline, history of falls, and now with rectal mass. Patient presents with severe anemia, most likely contributing to his weakness and symptom burden. Patient minimally connected to healthcare, longstanding history of this. Palliative care providing support and establishing rapport to support patient through serious illness trajectory. Vitals Vital Signs 03/17/25 03:17 03/17/25 03:20 03/17/25 03:51 03/17/25 05:20 03/17/25 15:43 03/17/25 17:31 03/17/25 18:00 03/17/25 18:47 03/17/25 20:00 03/17/25 23:57 03/18/25 04:28 03/18/25 07:58 03/18/25 11:40 03/18/25 11:45 03/18/25 12:05 03/18/25 15:56 03/18/25 16:50 03/18/25 18:13 Height 5 ft 7 in 5 ft 7 in 5 ft 7 in Weight 132 lb 4.438 oz 119 lb 0.794 oz 119 lb 0.794 oz BMI 18.7 BP 180/92 H 160/84 H 181/88 H 160/74 H 148/71 H 157/85 H 172/96 H 140/77 H 143/81 H 138/68 H 137/74 H 135/60 H 129/56 L 132/66 H 136/64 H 171/86 H Respiration 18 16 16 20 19 17 18 18 18 16 18 20 20 18 14 Pulse 90 79 82 85 93 92 95 85 89 77 81 76 77 77 79 74 Temp 98.1 F 98.1 F 98.2 F 98.4 F 98.1 F 98.8 F 98.4 F 98.1 F 98.1 F 98.1 F 98.1 F Temp Source Temporal Artery Scan Temporal Artery Scan Temporal Artery Sc an Temporal Artery Scan Temporal Artery Scan Temporal Artery Scan Temporal Arter y Scan Temporal Artery Scan Temporal Artery Scan Temporal Artery Scan Temporal Artery Scan Pulse Oximetry 98 99 100 97 99 99 100 96 97 98 98 98 98 97 98 10 0 PFSH Active Problems All Active Problems (Updated 03/18/25 @ 18:46 by FORTINO Saldana) Counseling regarding advanced care planning and goals of care (Acute) Closed T12 fracture (Acute) Closed T11 fracture (Acute) Intractable back pain (Acute) Anemia, iron deficiency (Acute) Rectal mass (Acute) Compression fracture of vertebral column (Acute) Cachexia (Acute) Leg pain, right (Acute) Ground-level fall (Acute) Medical History Medical History (Updated 03/18/25 @ 18:46 by FORTINO Saldana) Insomnia Urinary incontinence Skin cancer No pertinent past medical history Surgical History Surgical History No pertinent past surgical history Social History Social History (Updated 03/18/25 @ 18:25 by FORTINO Saldana) Smoking Status: Unknown if ever smoked Do you dip or chew tobacco?: No Do you vape?: No Living arrangement: Assisted living Living Condition: Alone Support Person: Yes Living Situation Details: Recently moved to [place]; is there under Medicaid Has a Durable Power of Bulk Sealer Operator for Health Care?: Yes Name / Relationship: Carmina Ribeiro [phone] DPOA on file?: Yes Level: Independent Physical - Functional Details: Functional status has been declining Do you feel safe in your home environment?: Yes History of physical, verbal, emotional, or financial abuse?: No ETOH Use: Beer Frequency: Daily Number of drinks/day: 1 Substance Use: cannabis (any form) Retired: 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 POLST Patient has POLST: No Review of Systems Status of ROS: See HPI Constitutional Reports: Fatigue, Weakness, Weight loss and Change in sleep pattern Ears, nose, mouth, and throat Reports: Hearing loss Cardiovascular Reports: shortness of breath with exertion; Denies: edema Respiratory Reports: Shortness of breath Gastrointestinal Reports: Diarrhea and Feeling full early Musculoskeletal Reports: Joint pain (right knee pain) Integumentary/Breast Reports: Dryness Neurological Reports: Pre-existing deficit, Memory problems and Behavioral changes Psychiatric Reports: Depression Endocrine Reports: Fatigue Hematologic/Lymphatic Reports: Anemia Exam Exam Vital Signs: Vital Signs x48h Temp Pulse Resp BP Pulse Ox 03/18/25 07:58 98.8 F 81 16 137/74 H 98 03/18/25 04:28 98.1 F 77 18 138/68 H 98 Constitutional Cachetic in appearance; able to engage in conversation HENMT dentition abnormal Eyes no scleral icterus Respiratory mild breathlessness with conversation Gastrointestinal no ascites Back/Pelvis Painful with movement in bed Extremities Difficulty with moving right knee/leg Psychiatry orientation abnormal (disoriented to time) and memory abnormal (short term memory loss) Skin Pale Assessment & Plan Assessment & Plan (1) Rectal mass: Code(s): K62.89 - Other specified diseases of anus and rectum Plan: Patient will need further staging and workup, did reach out to cancer navigator, will also need PCP to help navigate.Counseling to sister and patient regarding often "the what next" as far as evaluation, treatment options most likely limited given his ECOG and frailty, but could possible receive modified tx for palliation. Patient denies any obstructive symptoms currently. (2) Anemia, iron deficiency: Code(s): D50.9 - Iron deficiency anemia, unspecified Plan: Counseling regarding role of transfusion for supporting quality of life, as well as improving symptoms. Patient needing very simple explanations and rationale, appreciates effort of team. Qualifiers: Iron deficiency anemia type: inadequate dietary iron intake Qualified Code(s): D50.8 - Other iron deficiency anemias (3) Leg pain, right: Assessment: Patient pain is multifactorial, but perceives most acute pain in his right knee. Patient would benefit from physical therapy evaluation, in agreement with acetaminophen 100,000 mg 3 times daily scheduled, as well as oxycodone as needed 5 mg every 4-6 hours. Patient denies any rectal pain or discomfort. Code(s): M79.604 - Pain in right leg (4) Ground-level fall: Assessment: This is most likely multifactorial, given his anemia, muscle wasting, difficulty with balance, and cognitive status. Patient may benefit either from SNF stay or home health services on discharge for physical therapy and Occupational Therapy. Code(s): W18.30XA - Fall on same level, unspecified, initial encounter (5) Cachexia: Assessment: Patient with significant weight loss, cachexia, resulting in most likely nutritional deficiencies as well as muscle mass loss. Patient with very little interest in eating, though does report sometimes ravenous and has severe hunger attacks. 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 (6) Counseling regarding advanced care planning and goals of care: Assessment: Reviewed patient's understanding of illness, given his cognitive deficits has been difficult for him to navigate, but does understand the seriousness of his current condition. Patient does have good support from his sister, who does have DPOA and can help him with decision making, of note patient most likely does not have full decision-making capacity, but cannot do so with support from his sister. Code(s): Z71.89 - Other specified counseling Plan: Would recommend OT evaluation for cognitive status. Plan Palliative care will follow course, and transition to outpatient setting. Sister did provide copy of DPOA, will further pursue POLST with next visit.
[2025-03-18] MEDS ORDERED: ENOXAPARIN 40 MG/0.4 ML SYRINGE SUBQ SCH (09:00)
--- NOTE | 2025-03-18 09:27 | PROVIDER PROGRESS NOTE ---
Subjective Subjective Subjective: Patient is a 75-year-old male with no past medical history who presents with pain after a fall. He has had progressive weakness, failure to thrive, chronic diarrhea, as well as over 100 pound weight loss in the last year. Found to have rectal mass, which was biopsied. Persistent anemia. This morning, he states that he is feeling better. His pain is now localized to his right leg, as opposed to his back. He is receiving oxycodone as needed. He only required 1 dose of IV Dilaudid overnight. Will see if he can manage with just enteral pain medications today. He denies any blood in his stool recently. He does state that he has had some dark stools at home. He appreciated palliative care consultation in conversation. He is understandably overwhelmed with everything going on, but states that he will take it one day at a time. Current Medications Current Medications Current Medications: Current Medications Generic Name Dose Route Start Last Admin Trade Name Freq PRN Reason Stop Dose Admin Acetaminophen 1,000 mg 03/17/25 22:00 03/18/25 05:54 Acetaminophen 500 Mg Tablet PO 1,000 mg TID JUJU Administration Lactated Ringer's 1,000 mls @ 100 mls/hr 03/17/25 18:00 03/18/25 04:39 Lr IV 100 mls/hr .Q10H JUJU Administration Insulin Human Lispro 1 - 5 unit 03/17/25 21:00 03/18/25 09:24 Insulin Lispro 300 Unit/3 Ml Pen SUBQ 2 unit 0800,1200,1700,2100 JUJU Administration Protocol Ondansetron HCl 4 mg 03/17/25 17: Ondansetron Odt 4 Mg Tablet TL Q6HR PRN Nausea / Vomiting Ondansetron HCl 4 mg 03/17/25 17:26 Ondansetron 4 Mg/2 Ml Vial IVP Q6HR PRN Nausea / Vomiting Oxycodone HCl 5 mg 03/17/25 17:26 Oxycodone 5 Mg Tablet PO Q4HR PRN Pain 5 to 7 Sodium Chloride 10 ml 03/17/25 17:26 Sodium Chloride Flush 0.9% 10 Ml Syringe IVP PRN PRN NEEDED PER PROVIDER ORDERS Sodium Chloride 10 ml 03/18/25 01:00 03/18/25 01:02 Sodium Chloride Flush 0.9% 10 Ml Syringe IVP 10 ml 0100,0900,1700 JUJU Administration Objective Vital Signs/Intake & Output Reviewed Vital Signs: Yes Vital Signs: Vital Signs x48h Temp Pulse Resp BP Pulse Ox 03/18/25 07:58 98.8 F 81 16 137/74 H 98 03/18/25 04:28 98.1 F 77 18 138/68 H 98 Intake & Output: Intake & Output 03/15/25 03/16/25 03/17/25 03/18/25 23:59 23:59 23:59 23:59 Intake Total 50 / 50 1000 / 1000 Output Total 250 / 250 150 / 150 Balance -200 / -200 850 / 850 Weight (kg) 54 kg 54 kg Objective Comments/Other: Constitutional abnormal general appearance (disheveled), (chronically ill), (appears older than stated age) and (frail appearing), no apparent distress, abnormal body habitus (cachectic) and (thin) and level of alertness abnormal HENMT normocephalic, head/scalp atraumatic and hearing grossly normal bilaterally Temporal wasting. Cachectic appearance. Multiple seborrheic keratosis noted on scalp and forehead. Eyes PERRL, EOMs intact bilaterally and conjunctivae normal Neck/C-Spine visual inspection normal, trachea midline and cervical spine nontender Chest inspection of chest normal Respiratory breath sounds equal bilaterally, normal respiratory effort, clear to auscultation bilaterally, no wheezes, no rales and no retractions Cardiovascular normal heart rate noted, regular rhythm noted, no gallop, no rub and no murmur Gastrointestinal abdomen normal to inspection, abdomen soft to palpation, nontender to palpation and normoactive bowel sounds Genitourinary no CVA tenderness Back/Pelvis thoracic spine tenderness noted and lumbar spine tenderness noted Extremities normal to inspection, normal to palpation, no tenderness and full ROM Neurology no movement abnormality noted and no focal motor deficit noted Psychiatry mental status grossly normal, oriented x3, thought process abnormality noted (confused), cooperative, affect normal and psychomotor abnormality noted (slow) Skin Right buttock has a mass, 4-5 cm in appearace, pedunculated, grape like, skin colored. Full rectal exam deferred per patient's request. Lab Results 03/18/25 07:41 03/18/25 07:41 Other Labs: Lab Results x24hrs 03/18/25 03/18/25 03/18/25 Range/Units 08:33 07:42 07:41 WBC 9.8 (4.8-10.8) x10^3/uL RBC 2.67 L (4.70-6.10) 10^6/uL Hgb 6.1 L* (14.0-18.0) g/dL Hct 19.4 L* (42.0-52.0) % MCV 72.7 L (80.0-94.0) fL MCH 22.8 L (27.0-31.0) pg MCHC 31.4 L (32.0-36.0) g/dL RDW 14.3 (12.0-15.0) % Plt Count 590 H (130-450) 10^3/uL MPV 9.9 (7.4-11.4) fL Sodium 135 (135-145) mmol/L Potassium 3.3 L (3.5-4.5) mmol/L Chloride 102 (101-111) mmol/L Carbon Dioxide 28 (21-32) mmol/L Anion Gap 5.0 L (6-13) BUN 13 (6-20) mg/dL Creatinine 0.4 L (0.6-1.3) mg/dL Estimated GFR (MDRD) 209 (>89) Glucose 215 H (74-104) mg/dL POC Whole Bld Glucose 199 (70-100) mg/dL Estimat Average Glucose (70-100) mg/dL Hemoglobin A1c % (4.27-6.07) % Calcium 9.9 (8.5-10.3) mg/dL Magnesium 1.7 (1.7-2.3) mg/dL Total Bilirubin 0.4 (0.2-1.0) mg/dL AST 11 (10-42) IU/L ALT 12 (10-60) IU/L Alkaline Phosphatase 80 (42-121) IU/L Total Protein 5.9 L (6.4-8.9) g/dL Albumin 3.0 L (3.2-5.5) g/dL Globulin 2.9 (2.1-4.2) g/dL Albumin/Globulin Ratio 1.0 (1.0-2.2) Carcinoembryonic Ag 76.0 ng/mL Urine Color Urine Clarity (CLEAR) Urine pH (5.0-7.5) PH Ur Specific [place] (1.002-1.030) Urine Protein (NEGATIVE) mg/dL Urine Glucose (UA) (NEGATIVE) mg/dL Urine Ketones (NEGATIVE) mg/dL Urine Occult Blood (NEGATIVE) Urine Nitrite (NEGATIVE) Urine Bilirubin (NEGATIVE) Urine Urobilinogen (NORMAL) E.U./dL Ur Leukocyte Esterase (NEGATIVE) Urine RBC (0-5) /HPF Urine WBC (0-3) /HPF Ur Squamous Epith Cells (<= Few) Amorphous Sediment /LPF Urine Bacteria (None Seen) /HPF Urine Mucus Ur Microscopic Review Urine Culture Comments 03/17/25 03/17/25 03/17/25 Range/Units 21:36 11:25 03:17 WBC (4.8-10.8) x10^3/uL RBC (4.70-6.10) 10^6/uL Hgb (14.0-18.0) g/dL Hct (42.0-52.0) % MCV (80.0-94.0) fL MCH (27.0-31.0) pg MCHC (32.0-36.0) g/dL RDW (12.0-15.0) % Plt Count (130-450) 10^3/uL MPV (7.4-11.4) fL Sodium (135-145) mmol/L Potassium (3.5-4.5) mmol/L Chloride (101-111) mmol/L Carbon Dioxide (21-32) mmol/L Anion Gap (6-13) BUN (6-20) mg/dL Creatinine (0.6-1.3) mg/dL Estimated GFR (MDRD) (>89) Glucose (74-104) mg/dL POC Whole Bld Glucose 275 (70-100) mg/dL Estimat Average Glucose 212 H (70-100) mg/dL Hemoglobin A1c % 9.0 H (4.27-6.07) % Calcium (8.5-10.3) mg/dL Magnesium (1.7-2.3) mg/dL Total Bilirubin (0.2-1.0) mg/dL AST (10-42) IU/L ALT (10-60) IU/L Alkaline Phosphatase (42-121) IU/L Total Protein (6.4-8.9) g/dL Albumin (3.2-5.5) g/dL Globulin (2.1-4.2) g/dL Albumin/Globulin Ratio (1.0-2.2) Carcinoembryonic Ag ng/mL Urine Color YELLOW Urine Clarity CLEAR (CLEAR) Urine pH 7.0 (5.0-7.5) PH Ur Specific [place] 1.010 (1.002-1.030) Urine Protein TRACE (NEGATIVE) mg/dL Urine Glucose (UA) 500 H (NEGATIVE) mg/dL Urine Ketones 15 H (NEGATIVE) mg/dL Urine Occult Blood TRACE-INTACT (NEGATIVE) Urine Nitrite NEGATIVE (NEGATIVE) Urine Bilirubin NEGATIVE (NEGATIVE) Urine Urobilinogen 0.2 (NORMAL) (NORMAL) E.U./dL Ur Leukocyte Esterase NEGATIVE (NEGATIVE) Urine RBC 0-5 (0-5) /HPF Urine WBC 4-5 (0-3) /HPF Ur Squamous Epith Cells RARE Squamous (<= Few) Amorphous Sediment Few /LPF Urine Bacteria Rare (None Seen) /HPF Urine Mucus Few Strands Ur Microscopic Review INDICATED Urine Culture Comments NOT INDICATED Assessment/Plan Problem List (1) Anemia, iron deficiency: Qualifiers: Iron deficiency anemia type: inadequate dietary iron intake Qualified Code(s): D50.8 - Other iron deficiency anemias (2) Rectal mass: (3) Cachexia: Impression: Patient presents with unexplained weight loss, cachexia, chronic diarrhea. Has large rectal mass. Biopsied by general surgery. Pathology pending. 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 This morning, patient's hemoglobin has dropped from 7.5 on admission to 6.1. 1 unit packed red blood cells ordered, will have to on hold if needed. Iron studies reviewediron levels less than 10, TIBC 361, transferrin is 258, and ferritin levels of 35. Consistent with iron deficiency anemia although slight elevation in ferritin may be attributed to anemia of chronic disease. One unit PRBCs ordered. Continue to trend. Transfuse for hemoblogin >7. General surgery will follow peripherally - per their documentation, they will follow in the off chance that the patient's rectum obstructs and a diverting colostomy is desired. Typically treated with neoadjuvant chemotherapy but patient has a very poor ECOG performance status and will likely not be a candidate for chemotherapy. (4) Intractable back pain: (5) Ground-level fall: (6) Closed T11 fracture: Qualifiers: Encounter type: initial encounter Fracture morphology: unspecified fracture morphology Qualified Code(s): S22.089A - Unspecified fracture of T11- T12 vertebra, initial encounter for closed fracture (7) Closed T12 fracture: Impression: Patient presented with intractable back pain after ground level fall. Subacute appearing T11 and T12 compression deformities are seen. Concern for pathological fractures (multiple areas of bony sclerosis are noted in the ribs, concerning for metastates). In the ER, despite 4 doses of IV Dilaudid, he continues to have severe pain. Continue multimodal pain control. Scheduled Tylenol, oxycodone ordered for moderate pain. He only received one dose of IV pain medications overnight. Palliative care consult - this patient will likely need jail pain management strategies as well as going assistance with this new probable cancer diagnosis. Appreciate time and reccomendations. PT also consulted. Qualifiers: Encounter type: initial encounter Fracture morphology: unspecified fracture morphology Qualified Code(s): S22.089A - Unspecified fracture of T11- T12 vertebra, initial encounter for closed fracture
[2025-03-18] MEDS: POTASSIUM CHLORIDE 20 MEQ TABLET PO ONE (11:11)
--- NOTE | 2025-03-18 11:43 | PHARMACY PROGRESS NOTE ---
Best Possible Medication History Admit Date and Time: 03/17/25 1701 Home Medications Medication Instructions Recorded Confirmed Type loperamide 2 mg tablet 2 mg PO PRN PRN loose stool 03/18/25 03/18/25 History Processed by: Pharmacy (Medication reconciliation completed by pharmacy techAdrienne green) Medications reviewed in ED?: No Medication History completed: Yes Patient Interview: Completed Secondary Source(s): Insurance records [facility] Statement: As the person ultimately responsible for medication therapy, providers are able to order a medication from an existing home medication list in [facility] via the "Reconcile Routine" prior to Confirmation of that medication by family support worker. Such practice is discouraged except when the physician, in their clinical judgment, deems that a medical need exists for a medication without regard to previous use.
[2025-03-18 16:30] LABS: HCT - HEMATOCRIT 26.7 % (42.0-52.0); HGB - HEMOGLOBIN 8.2 g/dL (14.0-18.0)
[2025-03-18] MEDS: oxyCODONE 5 MG TABLET PO PRN (17:07)
[2025-03-18] MEDS: PANTOPRAZOLE 40 MG TABLET PO SCH (17:07)
[2025-03-18] MEDS: MULTIVITAMIN W/MINERALS TABLET PO SCH (17:07)
[2025-03-18] MEDS: INSULIN LISPRO 300 UNIT/3 ML PEN SUBQ SCH (17:24)
[2025-03-18] MEDS: DOCUSATE SODIUM 250 MG CAPSULE PO SCH (21:31)
[2025-03-19 04:45] LABS: HCT - HEMATOCRIT 24.0 % (42.0-52.0); HGB - HEMOGLOBIN 7.6 g/dL (14.0-18.0); MEAN PLATELET VOLUME 10.3 fL (7.4-11.4); PLT - PLATELET COUNT 633.0 10^3/uL (130-450); RED CELL DISTRIBUTION WIDTH 14.6 % (12.0-15.0)
[2025-03-19 05:03] LABS: ALT ALANINE AMINOTRANSFERASE 11.0 IU/L (10-60); AST ASPARTATE AMINOTRANSFERASE 11.0 IU/L (10-42); BUN - BLOOD UREA NITROGEN 14.0 mg/dL (6-20); CARBON DIOXIDE - CO2 28.0 mmol/L (21-32); CREATININE 0.4 mg/dL (0.6-1.3); GFR - MDRD 209.0 (>89)
--- NOTE | 2025-03-19 08:48 | PROVIDER PROGRESS NOTE ---
Subjective Prog Note Date Prog Note Date: 03/19/25 Prog Note Time: 08:48 Subjective Subjective: Patient doing reasonably well this morning. Has been eating breakfast. Difficulty with his dentition and eating martins this morning. His blood sugars have been quite elevated. Receiving more insulin today. Worked with PT today. Discussed with them his management. He continues to be quite debilitated. They are recommending SNF for discharge, but notes that he has severe mobility issues with his right lower extremity, he was unable to bear weight. Because of this we got repeat imaging of his right lower extremity. Pending read, but no overt displaced fracture. No overt fracture seen on CT abdomen pelvis from the last few days which includes his right hip. Patient denies any fevers or chills. Denies any karla rectal bleeding. Feeling reasonably well. Current Medications Current Medications Current Medications: Current Medications Generic Name Dose Route Start Last Admin Trade Name Freq PRN Reason Stop Dose Admin Acetaminophen 1,000 mg 03/17/25 22:00 03/19/25 06:32 Acetaminophen 500 Mg Tablet PO 1,000 mg TID JUJU Administration Docusate Sodium 250 - 500 mg 03/18/25 21:00 03/18/25 21:31 Docusate Sodium 250 Mg Capsule PO Not Given DAILY JUJU Lactated Ringer's 1,000 mls @ 100 mls/hr 03/17/25 18:00 03/19/25 05:43 Lr IV 100 mls/hr .Q10H JUJU Administration Insulin Glargine-yfgn 10 unit 03/19/25 09:00 Insulin Glargine-Yfgn 300 Unit/3 Ml Pen SUBQ QDBREAKFAST JUJU Insulin Human Lispro 1 - 9 unit 03/18/25 17:00 03/18/25 21:33 Insulin Lispro 300 Unit/3 Ml Pen SUBQ 7 unit 0800,1200,1700,2100 JUJU Administration Protocol Multivitamins/Minerals 1 tab 03/18/25 17:00 03/18/25 17:07 Multivitamin W/Minerals Tablet PO 1 tab DAILYWM JUJU Administration Ondansetron HCl 4 mg 03/17/25 17:26 Ondansetron Odt 4 Mg Tablet TL Q6HR PRN Nausea / Vomiting Ondansetron HCl 4 mg 03/17/25 17:26 Ondansetron 4 Mg/2 Ml Vial IVP Q6HR PRN Nausea / Vomiting Oxycodone HCl 5 mg 03/17/25 17:26 03/19/25 00:20 Oxycodone 5 Mg Tablet PO 5 mg Q4HR PRN Administration Pain 5 to 7 Pantoprazole Sodium 40 mg 03/18/25 16:00 03/19/25 06:31 Pantoprazole 40 Mg Tablet PO 40 mg BIDAC JUJU Administration Polyethylene Glycol 17 gm 03/19/25 09:00 Polyethylene Glycol 3350 17 Gm Packet PO DAILY JUJU Sodium Chloride 10 ml 03/17/25 17:26 Sodium Chloride Flush 0.9% 10 Ml Syringe IVP PRN PRN NEEDED PER PROVIDER ORDERS Sodium Chloride 10 ml 03/18/25 01:00 03/19/25 00:14 Sodium Chloride Flush 0.9% 10 Ml Syringe IVP 10 ml 0100,0900,1700 JUJU Administration Objective Vital Signs/Intake & Output Reviewed Vital Signs: Yes Vital Signs: Vital Signs x48h Temp Pulse Resp BP Pulse Ox 03/19/25 08:00 36.4 C L 107 H 18 175/99 H 98 03/19/25 04:00 36.3 C L 107 H 16 188/111 H 99 Intake & Output: Intake & Output 03/16/25 03/17/25 03/18/25 03/19/25 23:59 23:59 23:59 23:59 Intake Total 50 / 50 3187 / 3187 1000 / 1000 Output Total 250 / 250 1010 / 1010 1100 / 1100 Balance -200 / -200 2177 / 2177 -100 / -100 Weight (kg) 54 kg 54 kg Objective Comments/Other: GEN: Frail, cachectic. HEENT: NC/AT, normal appearance of external ears and nose. Hearing baseline. Cardiac: Regular rate and rhythm, no murmurs. Pulm: Lungs CTA bilaterally, no cough, no wheezes. Normal effort on room air Abdomen: Soft, nontender, nondistended. Neuro: Face symmetric, CN II through XII intact grossly. No focal deficits. Psych: Mood euthymic, affect congruent. Poor insight. Lab Results 03/19/25 04:07 03/19/25 04:07 Other Labs: Lab Results x24hrs 03/19/25 03/19/25 03/18/25 Range/Units 07:34 04:07 20:52 WBC 11.5 H (4.8-10.8) x10^3/uL RBC 3.22 L (4.70-6.10) 10^6/uL Hgb 7.6 L (14.0-18.0) g/dL Hct 24.0 L (42.0-52.0) % MCV 74.5 L (80.0-94.0) fL MCH 23.6 L (27.0-31.0) pg MCHC 31.7 L (32.0-36.0) g/dL RDW 14.6 (12.0-15.0) % Plt Count 633 H (130-450) 10^3/uL MPV 10.3 (7.4-11.4) fL Sodium 135 (135-145) mmol/L Potassium 3.5 (3.5-4.5) mmol/L Chloride 100 L (101-111) mmol/L Carbon Dioxide 28 (21-32) mmol/L Anion Gap 7.0 (6-13) BUN 14 (6-20) mg/dL Creatinine 0.4 L (0.6-1.3) mg/dL Estimated GFR (MDRD) 209 (>89) Glucose 382 H (74-104) mg/dL POC Whole Bld Glucose 386 303 (70-100) mg/dL Calcium 10.0 (8.5-10.3) mg/dL Magnesium 1.7 (1.7-2.3) mg/dL Ferritin (23.9-336.2) ng/mL Total Bilirubin 0.3 (0.2-1.0) mg/dL AST 11 (10-42) IU/L ALT 11 (10-60) IU/L Alkaline Phosphatase 92 (42-121) IU/L Total Protein 6.1 L (6.4-8.9) g/dL Albumin 3.0 L (3.2-5.5) g/dL Globulin 3.1 (2.1-4.2) g/dL Albumin/Globulin Ratio 1.0 (1.0-2.2) Carcinoembryonic Ag ng/mL Blood Type Blood Type Recheck Antibody Screen Crossmatch IS Only 03/18/25 03/18/25 03/18/25 Range/Units 16:41 16:22 11:19 WBC (4.8-10.8) x10^3/uL RBC (4.70-6.10) 10^6/uL Hgb 8.2 L (14.0-18.0) g/dL Hct 26.7 L (42.0-52.0) % MCV (80.0-94.0) fL MCH (27.0-31.0) pg MCHC (32.0-36.0) g/dL RDW (12.0-15.0) % Plt Count (130-450) 10^3/uL MPV (7.4-11.4) fL Sodium (135-145) mmol/L Potassium (3.5-4.5) mmol/L Chloride (101-111) mmol/L Carbon Dioxide (21-32) mmol/L Anion Gap (6-13) BUN (6-20) mg/dL Creatinine (0.6-1.3) mg/dL Estimated GFR (MDRD) (>89) Glucose (74-104) mg/dL POC Whole Bld Glucose 241 240 (70-100) mg/dL Calcium (8.5-10.3) mg/dL Magnesium (1.7-2.3) mg/dL Ferritin (23.9-336.2) ng/mL Total Bilirubin (0.2-1.0) mg/dL AST (10-42) IU/L ALT (10-60) IU/L Alkaline Phosphatase (42-121) IU/L Total Protein (6.4-8.9) g/dL Albumin (3.2-5.5) g/dL Globulin (2.1-4.2) g/dL Albumin/Globulin Ratio (1.0-2.2) Carcinoembryonic Ag ng/mL Blood Type Blood Type Recheck Antibody Screen Crossmatch IS Only 03/18/25 03/18/25 Range/Units 08:33 07:41 WBC (4.8-10.8) x10^3/uL RBC (4.70-6.10) 10^6/uL Hgb (14.0-18.0) g/dL Hct (42.0-52.0) % MCV (80.0-94.0) fL MCH (27.0-31.0) pg MCHC (32.0-36.0) g/dL RDW (12.0-15.0) % Plt Count (130-450) 10^3/uL MPV (7.4-11.4) fL Sodium (135-145) mmol/L Potassium (3.5-4.5) mmol/L Chloride (101-111) mmol/L Carbon Dioxide (21-32) mmol/L Anion Gap (6-13) BUN (6-20) mg/dL Creatinine (0.6-1.3) mg/dL Estimated GFR (MDRD) (>89) Glucose (74-104) mg/dL POC Whole Bld Glucose (70-100) mg/dL Calcium (8.5-10.3) mg/dL Magnesium (1.7-2.3) mg/dL Ferritin 35.2 (23.9-336.2) ng/mL Total Bilirubin (0.2-1.0) mg/dL AST (10-42) IU/L ALT (10-60) IU/L Alkaline Phosphatase (42-121) IU/L Total Protein (6.4-8.9) g/dL Albumin (3.2-5.5) g/dL Globulin (2.1-4.2) g/dL Albumin/Globulin Ratio (1.0-2.2) Carcinoembryonic Ag 76.0 ng/mL Blood Type O POSITIVE Blood Type Recheck O POSITIVE Antibody Screen NEGATIVE Crossmatch IS Only See Detail Assessment/Plan Problem List (1) Rectal mass: (2) Cachexia: Impression: Stable, pending pathology. Presented with unplanned unexplained weight loss, cachexia, chronic diarrhea. Found to have a large rectal mass which was biopsied by general surgery on 03/17. 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 Continues to have bowel function. Possibility he may need diverting colostomy if he obstructs from his rectal mass given its size. - Iron deficiency anemia as below - Pending pathology from biopsy - Will need outpatient follow-up with oncology - Continue daily miralax - Surgery following peripherally. (3) Anemia, iron deficiency: Impression: Hemoglobin stable. Has not required transfusion since 12/16. Had an episode of anemia requiring transfusion on 03/18. Found to have iron deficiency, ferritin 35. Likely mix of MAGDALENA and anemia of chronic disease. - Monitor hemoglobin in a.m., transfuse for Hgb less than 7 - Started oral iron Qualifiers: Iron deficiency anemia type: inadequate dietary iron intake Qualified Code(s): D50.8 - Other iron deficiency anemias (4) Counseling regarding advanced care planning and goals of care: (5) Intractable back pain: (6) Closed T11 fracture: Qualifiers: Encounter type: initial encounter Fracture morphology: unspecified fracture morphology Qualified Code(s): S22.089A - Unspecified fracture of T11- T12 vertebra, initial encounter for closed fracture (7) Leg pain, right: (8) Ground-level fall: (9) Closed T12 fracture: Impression: Presented following a ground-level fall. Has persistent right hip pain as well as persistent back pain. Found on imaging to have subacute appearing T11 and T12 compression deformities. Multiple areas of bony sclerosis of the ribs. Possible metastatic lesions in the spine contributing to his compression fractures. When working with PT on 03/19, he was unable to bear weight to his right lower extremity. Repeated imaging does not show any overt fractures. - Repeat x-ray of hips today - Continue scheduled Tylenol, as needed oxycodone - Lidocaine patch - Await final read of right hip x-ray, but WBAT for now - PT recommending SNF Qualifiers: Encounter type: initial encounter Fracture morphology: unspecified fracture morphology Qualified Code(s): S22.089A - Unspecified fracture of T11- T12 vertebra, initial encounter for closed fracture
[2025-03-19] MEDS: INSULIN GLARGINE-YFGN 300 UNIT/3 ML PEN SUBQ SCH (08:55)
[2025-03-19] MEDS: INSULIN LISPRO 300 UNIT/3 ML PEN SUBQ SCH ×4 (09:30→19:09)
--- NOTE | 2025-03-19 12:59 | PT Plan of Care ---
PT Plan of Care Physical Therapy Plan of Care: Diagnosis Diagnosis GLF c T11-12 compression fx's Diagnosis rectal mass Referring Provider Randy Hanson Patient Status Inpatient Chief Complaint Chief Complaint pain, limited mobility Onset of Chief Complaint [place] Medical History (Updated 03/18/25 @ 18:46 by FORTINO Saldana) Insomnia Urinary incontinence Skin cancer No pertinent past medical history Surgical History (Updated 03/17/25 @ 03:21 by Myriam Chance RN) No pertinent past surgical history Balance/ Functional Results Sitting Balance Fair Standing Balance Poor Assessment Assessment Pt is a 75yo M referred for PT eval d/t GLF with intractable back pain. Found to have T11-12 compression fx's and rectal mass. At baseline pt is ambulatory with SPC but has had increased falls recently. Please see med record for further hx, cleared for eval by hospitalist. Upon PT eval, pt agreeable to participate though reports concerns about pain. Some pain at rest, moderate pain with bed mobility and severe pain when standing. Requires modAx1 overall for supine to sit and STS transfers. Requires FWW and unable to WB on RLE, keeping R foot elevated off ground and reports 7-9/10 pain. D/t pain, HTN and tachycardia, pt assisted to supine with modAx1-2. PT advised nsg use 2 person assist for transfers and no ambulation yet. Spoke with hospitalist regarding pain severity and requested WBing update. Given pain, limited mobility, and WBing limitations, pt will benefit from continued PT in acute setting to progress activity tolerance. When medically clear, PT rec dc to SNF with FWW vs wc use pending WBing status. Goals Improve bed mobility to: Modified Independent Improve supine to sit to: Modified Independent Improve sit to stand to: Minimal Assist Improve pivot transfer ability Minimal Assist to: Improve sit to supine to: Contact Guard Improve gait ability to: CGA Assistive Device Used: Front Wheeled Walker Improve Sitting Balance to: Good Improve Standing Balance to: Fair PT Plan of Care Frequency 1-2x/day Duration Until discharge Discharge Recommendations Discharge Location Group Home Facility Other tbd Transport Needs at Discharge B.[facility] Other BLS d/t inability to sit upright, subacute fx's
--- NOTE | 2025-03-19 17:00 | Palliative Care ---
Vitals Vital Signs 03/17/25 03:17 03/17/25 03:20 03/17/25 03:51 03/17/25 05:20 03/17/25 15:43 03/17/25 17:31 03/17/25 18:00 03/17/25 18:47 03/17/25 20:00 03/17/25 23:57 03/18/25 04:28 03/18/25 07:58 03/18/25 11:40 03/18/25 11:45 03/18/25 12:05 03/18/25 15:56 03/18/25 16:50 03/18/25 18:13 03/18/25 20:00 03/19/25 00:00 03/19/25 04:00 03/19/25 08:00 03/19/25 11:00 03/19/25 12:00 03/19/25 15:54 03/19/25 17:00 Height 5 ft 7 in 5 ft 7 in 5 ft 7 in 5 ft 7 in Weight 132 lb 4.438 oz 119 lb 0.794 oz 119 lb 0.794 oz 119 lb 0.794 oz BMI 18.7 18.7 BP 180/92 H 160/84 H 181/88 H 160/74 H 148/71 H 157/85 H 172/96 H 140/77 H 143/81 H 138/68 H 137/74 H 135/60 H 129/56 L 132/66 H 136/64 H 171/86 H 160/85 H 170/93 H 188/111 H 175/99 H 152/96 H 126/76 172/86 H Respiration 18 16 16 20 19 17 18 18 18 16 18 20 20 18 14 16 1 6 16 18 18 16 Pulse 90 79 82 85 93 92 95 85 89 77 81 76 77 77 79 74 87 95 107 H 107 H 114 H 95 96 Temp 98.1 F 98.1 F 98.2 F 98.4 F 98.1 F 98.8 F 98.4 F 98.1 F 98.1 F 98.1 F 98.1 F 97.9 F 98.1 F 97.3 F L 97.5 F L 97.9 F 98.6 F Temp Source Temporal Artery Scan Temporal Artery Scan Temporal Artery Sc an Temporal Artery Scan Temporal Artery Scan Temporal Artery Scan Temporal Arter y Scan Temporal Artery Scan Temporal Artery Scan Temporal Artery Scan Temporal Artery Scan Temporal Artery Scan Temporal Artery Scan Temporal Artery Scan Temporal Artery Scan Temporal Artery Scan Temporal Artery Scan Pulse Oximetry 98 99 100 97 99 99 100 96 97 98 98 98 98 97 98 10 0 98 97 99 98 97 97 Meds/Allgy Home Medications Ambulatory Orders Medication Instructions Recorded Confirmed loperamide 2 mg tablet 2 mg PO PRN PRN loose stool 03/18/25 03/18/25 Allergies Allergies Allergy/AdvReac Type Severity Reaction Status Date / Time No Known Drug Allergies Allergy Verified 03/17/25 03:20 CC HPI Visit Location: other location ([facility]) Chief Complaint Chief Complaint: right hip pain; weakness; rectal mass; depression History Obtained From Records Reviewed: hospitalist; labs; imaging History obtained from: patient Exam Limitations: STM deficits though improved from yesterday Palliative Care Performance Status Performance status: Patient has been declining over several years and more acutely over the last several months, with the hope of placement and [place] he would do better with nutrition and oversight. Patient has had a couple falls there already including 1 that brought him to the ED. Patient aware he is not "in condition" to be able to care for himself at [facility], has not been out of be here, pain with weight bearing has seen PT. Discussed with patient most likely path would be for SNF for rehab until stronger. Palliative Care Discussion: Met with patient one-on-one today. Reviewed again information and addressed questions as patient is feeling a little clearer today, though does admit still with cognitive deficits. Reports his quality of life has been fairly dramatically altered over the last couple years, could not tell me exactly any specific events, suspect both possible dementia component and or depression. He has very poor short-term memory/recall regarding what led him up to his current state. Counseling provided regarding questions about presumed cancer, we discussed the continuum of care and the concern regarding his fragile state. We discussed if patient wanting to move forward on treatment options, would need to see medical oncology and navigate options and reviewed the continuum of care including comfort care. Attempted to call his sister, confirmed number in chart and on whiteboard, is saying phone number not available. He though did say he talked to her earlier, and she was not planning on coming in. Will try again tomorrow.Would like to complete POLST before patient transitions to SNF, but would like sister to participate in conversation. Surrogate decision maker discussion done?: Yes PFSH Active Problems All Active Problems (Updated 03/18/25 @ 18:46 by FORTINO Saldana) Counseling regarding advanced care planning and goals of care (Acute) Closed T12 fracture (Acute) Closed T11 fracture (Acute) Intractable back pain (Acute) Anemia, iron deficiency (Acute) Rectal mass (Acute) Compression fracture of vertebral column (Acute) Cachexia (Acute) Leg pain, right (Acute) Ground-level fall (Acute) Medical History Medical History (Updated 03/18/25 @ 18:46 by FORTINO Saldana) Insomnia Urinary incontinence Skin cancer No pertinent past medical history Surgical History Surgical History No pertinent past surgical history Social History Social History (Updated 03/18/25 @ 18:25 by FORTINO Saldana) Smoking Status: Unknown if ever smoked Do you dip or chew tobacco?: No Do you vape?: No Living arrangement: Assisted living Living Condition: Alone Support Person: Yes Living Situation Details: Recently moved to [facility]; is there under Medicaid Has a Durable Power of Automotive Accessory Installer for Health Care?: Yes Name / Relationship: Carmina Ribeiro [phone] DPOA on file?: Yes Level: Independent Home Mobility Equipment: Cane Physical - Functional Details: Functional status has been declining Do you feel safe in your home environment?: Yes History of physical, verbal, emotional, or financial abuse?: No ETOH Use: Beer Frequency: Daily Number of drinks/day: 1 Substance Use: cannabis (any form) Retired: 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 POLST Patient has POLST: No Review of Systems Status of ROS: See HPI Constitutional Reports: Fatigue, Weakness, Changes in appetite or eating habits, Poor appetite and Weight loss; Denies: Fever or Chills Ears, nose, mouth, and throat Reports: Hearing loss, Hoarseness and Other (poor dentition) Cardiovascular Reports: shortness of breath when lying down; Denies: edema Respiratory Reports: SOB with exertion; Denies: Cough Gastrointestinal Reports: Diarrhea Musculoskeletal Reports: Joint pain (right hip pain), Limited range of motion, Stiffness, Muscle pain and Muscle weakness Neurological Reports: Memory problems Psychiatric Reports: Depression, Anxiety, Loss of interest and Memory loss Endocrine Reports: Fatigue and Other (patient not aware any blood sugar problems prior to admit) Hematologic/Lymphatic Reports: Anemia Exam Exam Vital Signs: Vital Signs x48h Temp Pulse Pulse Resp BP BP Pulse Ox 03/19/25 15:54 98.6 F 96 16 172/86 H 97 03/19/25 12:00 97.9 F 95 18 126/76 97 03/19/25 11:00 114 H 152/96 H Constitutional Cachetic in appearance; able to engage in conversation [facility] dentition abnormal Eyes no scleral icterus Respiratory mild breathlessness with conversation Gastrointestinal no ascites Back/Pelvis Painful with movement in bed Extremities Difficulty with moving right knee/leg Psychiatry orientation abnormal (disoriented to time) and memory abnormal (short term memory loss) Skin Pale Impression Impression: This is a 75-year-old gentleman who presents with failure to thrive, with weight loss, cognitive and functional decline, history of falls, and now with rectal mass. Patient presented with severe anemia still low, most likely contributing to his weakness and symptom burden. Patient feeling a "little clearer" after transfusion, fluids, and able to eat better here. Patient minimally connected to healthcare, longstanding history of this. Patient beginning to come to some understanding of the seriousness of his situation. Palliative care providing support and establishing rapport to support patient through serious illness trajectory. Assessment & Plan Assessment & Plan (1) Rectal mass: Code(s): K62.89 - Other specified diseases of anus and rectum Plan: Patient will need further staging and workup, did reach out to cancer navigator, she is available Tuesday for assistance, will also need PCP to help navigate. Reviewed again the implications and broad stroke overview of what staging, and next steps for considering if treatment options, also introduced concerns with his poor health treatment may be limited and the choice of supportive / hospice care as options too. Patient is very fatalistic in his presentation and distrust of the medical system in our conversation. (2) Leg pain, right: Assessment: Patient pain is multifactorial, but perceives most acute pain in his right hip vs knee today. Had another hip xray done, curious of outcome.. Patient will benefit from working physical therapy , in agreement with acetaminophen 1,000 mg 3 times daily scheduled, as well as oxycodone as needed 5 mg every 4-6 hours. Patient denies any rectal pain or discomfort. Code(s): M79.604 - Pain in right leg Plan: Counseling with patient regarding needing to ask for PRN oxycodone, setting expectations will not take away pain, goal to decrease "turn down the volume" and to have him be able to move more comfortably in the bed, he is hoping to be able to transfer to chair soon for meals, dislikes scrunching to eat on abd. (3) Ground-level fall: Assessment: This is most likely multifactorial, given his anemia, muscle wasting, difficulty with balance, and cognitive status. Patient may benefit either from SNF stay or home health services on discharge for physical therapy and Occupational Therapy. Code(s): W18.30XA - Fall on same level, unspecified, initial encounter (4) Cachexia: Assessment: Patient with significant weight loss, cachexia, resulting in most likely nutritional deficiencies as well as muscle mass loss. Patient with very little interest in eating though appreciates hospital food here and particularly whole milk, though does report sometimes ravenous and has severe hunger attacks. 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 Follow up with hospitalist on recommendation. (5) Counseling regarding advanced care planning and goals of care: Assessment: Reviewed patient's understanding of illness, given his cognitive deficits has been difficult for him to navigate, but does understand the seriousness of his current condition. Patient does have good support from his sister, who does have DPOA and can help him with decision making, of note patient most likely does not have full decision-making capacity, but cannot do so with support from his sister. Code(s): Z71.89 - Other specified counseling Plan: Would recommend OT evaluation for cognitive status. Will try and meet with sister patient tomorrow for further goals of care and to complete POLST for discharge. Plan Palliative care will follow course, and transition to outpatient setting. Sister did provide copy of DPOA, will further pursue POLST with next visit.
[2025-03-19] MEDS: MIRTAZAPINE 15 MG TABLET PO SCH (21:23)
[2025-03-20 04:41] LABS: HCT - HEMATOCRIT 24.5 % (42.0-52.0); HGB - HEMOGLOBIN 7.4 g/dL (14.0-18.0); MEAN PLATELET VOLUME 10.4 fL (7.4-11.4); NRBC ABSOLUTE COUNT (AUTO) 0.00 x10^3/uL; NUCLEATED RED BLOOD CELLS AUTO 0.0 /100WBC; PLT - PLATELET COUNT 658 10^3/uL (130-450); RED CELL DISTRIBUTION WIDTH 15.1 % (12.0-15.0)
--- NOTE | 2025-03-20 07:31 | PROVIDER PROGRESS NOTE ---
Subjective Prog Note Date Prog Note Date: 03/20/25 Prog Note Time: 07:28 Subjective Subjective: WBC inexplicably elevated this morning. 16.7 up from 11.5 yesterday.. Neutrophilic predominance at 14.2. Has remained afebrile. Tmax 37. Notably has been on scheduled Tylenol. BP 152/92. Pulse 95. Blood glucoses have normalized somewhat today. Feel like he is on a good regimen. Of note he has quite painful right hip with evidence of degenerative changes. His x-ray from yesterday still not read. On rereview today, I do question whether there is an anterior fracture seen on the lateral view. Interestingly not present on his CT scan on my read. I will call Ortho today. He is nonweightbearing for now to the right lower extremity. I met with the patient and his sister at bedside today. I described my concern that he likely has metastatic cancer, complicated by pathologic fracture, now with severe deconditioning and cachexia. His path to the meaningful recovery from this disease process is quite narrow. He would need to get stronger at rehab, have viable oncologic treatment options, tolerated those well, not have progression of his disease in the meantime necessitating diverting colostomy, and even then if he has metastatic disease these treatments would only be palliative. I made a fairly strong recommendation for consideration of transitioning to comfort measures only. His sister was visibly shaken by this information. She is still processing his acute decompensation. They both feel that he is historically a "healthy" william. She openly invited ongoing dialogue, and said that she would be back tomorrow. [facility] conversations ongoing. Current Medications Current Medications Current Medications: Current Medications Generic Name Dose Route Start Last Admin Trade Name Yanivq PRN Reason Stop Dose Admin Acetaminophen 1,000 mg 03/17/25 22:00 03/20/25 06:18 Acetaminophen 500 Mg Tablet PO 1,000 mg TID JUJU Administration Docusate Sodium 250 - 500 mg 03/18/25 21:00 03/19/25 08:52 Docusate Sodium 250 Mg Capsule PO 250 mg DAILY JUJU Administration Ferrous Sulfate 325 mg 03/20/25 08:00 Ferrous Sulfate 325 Mg Tablet PO DAILYWM JUJU Insulin Glargine-yfgn 20 unit 03/20/25 08:00 Insulin Glargine-Yfgn 300 Unit/3 Ml Pen SUBQ QDBREAKFAST JUJU Insulin Human Lispro 10 unit 03/19/25 17:00 03/19/25 19:08 Insulin Lispro 300 Unit/3 Ml Pen SUBQ 10 unit TIDWM JUJU Administration Insulin Human Lispro 3 - 11 unit 03/19/25 17:00 03/19/25 21:22 Insulin Lispro 300 Unit/3 Ml Pen SUBQ 7 unit 0800,1200,1700,2100 JUJU Administration Protocol Lidocaine 1 patch 03/20/25 09:00 Lidocaine Patch 4% TOP DAILY JUJU Mirtazapine 15 mg 03/19/25 21:00 03/19/25 21:23 Mirtazapine 15 Mg Tablet PO 15 mg QPM JUJU Administration Multivitamins/Minerals 1 tab 03/18/25 17:00 03/19/25 08:53 Multivitamin W/Minerals Tablet PO 1 tab DAILYWM JUJU Administration Ondansetron HCl 4 mg 03/17/25 17:26 Ondansetron Odt 4 Mg Tablet TL Q6HR PRN Nausea / Vomiting Ondansetron HCl 4 mg 03/17/25 17:26 Ondansetron 4 Mg/2 Ml Vial IVP Q6HR PRN Nausea / Vomiting Oxycodone HCl 5 mg 03/17/25 17:26 03/20/25 06:25 Oxycodone 5 Mg Tablet PO 5 mg Q4HR PRN Administration Pain 5 to 7 Pantoprazole Sodium 40 mg 03/18/25 16:00 03/20/25 06:18 Pantoprazole 40 Mg Tablet PO 40 mg BIDAC JUJU Administration Polyethylene Glycol 17 gm 03/19/25 09:00 03/19/25 08:54 Polyethylene Glycol 3350 17 Gm Packet PO 17 gm DAILY JUJU Administration Sodium Chloride 10 ml 03/17/25 17:26 Sodium Chloride Flush 0.9% 10 Ml Syringe IVP PRN PRN NEEDED PER PROVIDER ORDERS Sodium Chloride 10 ml 03/18/25 01:00 03/19/25 23:35 Sodium Chloride Flush 0.9% 10 Ml Syringe IVP 10 ml 0100,0900,1700 JUJU Administration Objective Vital Signs/Intake & Output Reviewed Vital Signs: Yes Vital Signs: Vital Signs x48h Temp Pulse Resp BP Pulse Ox 03/20/25 04:09 36.7 C 95 16 152/92 H 97 03/19/25 23:38 36.7 C 98 16 142/83 H 97 Intake & Output: Intake & Output 03/17/25 03/18/25 03/19/25 03/20/25 23:59 23:59 23:59 23:59 Intake Total 50 / 50 3187 / 3187 2426 / 2426 Output Total 250 / 250 1010 / 1010 1750 / 1750 375 / 375 Balance -200 / -200 2177 / 2177 676 / 676 -375 / -375 Weight (kg) 54 kg 54 kg 54 kg Objective Comments/Other: GEN: Frail, cachectic. HEENT: NC/AT, normal appearance of external ears and nose. Hearing baseline. Cardiac: Regular rate and rhythm, no murmurs. Pulm: Lungs CTA bilaterally, no cough, no wheezes. Normal effort on room air Abdomen: Soft, nontender, nondistended. Neuro: Face symmetric, CN II through XII intact grossly. No focal deficits. Psych: Mood euthymic, affect congruent. Poor insight. Lab Results 03/20/25 04:07 03/20/25 04:07 Other Labs: Lab Results x24hrs 03/20/25 03/19/25 03/19/25 Range/Units 04:07 20:58 16:40 WBC 16.7 H (4.8-10.8) x10^3/uL RBC 3.21 L (4.70-6.10) 10^6/uL Hgb 7.4 L (14.0-18.0) g/dL Hct 24.5 L (42.0-52.0) % MCV 76.3 L (80.0-94.0) fL MCH 23.1 L (27.0-31.0) pg MCHC 30.2 L (32.0-36.0) g/dL RDW 15.1 H (12.0-15.0) % Plt Count 658 H (130-450) 10^3/uL MPV 10.4 (7.4-11.4) fL Neut # (Auto) 14.2 H (1.5-6.6) 10^3/uL Lymph # (Auto) 1.5 (1.5-3.5) 10^3/uL [place] # (Auto) 0.7 (0.0-1.0) 10^3/uL Eos # (Auto) 0.2 (0.0-0.7) 10^3/uL Baso # (Auto) 0.1 (0.0-0.1) 10^3/uL Absolute Nucleated RBC 0.00 x10^3/uL Nucleated RBC % 0.0 /100WBC POC Whole Bld Glucose 230 333 (70-100) mg/dL 03/19/25 03/19/25 Range/Units 11:47 07:34 WBC (4.8-10.8) x10^3/uL RBC (4.70-6.10) 10^6/uL Hgb (14.0-18.0) g/dL Hct (42.0-52.0) % MCV (80.0-94.0) fL MCH (27.0-31.0) pg MCHC (32.0-36.0) g/dL RDW (12.0-15.0) % Plt Count (130-450) 10^3/uL MPV (7.4-11.4) fL Neut # (Auto) (1.5-6.6) 10^3/uL Lymph # (Auto) (1.5-3.5) 10^3/uL [place] # (Auto) (0.0-1.0) 10^3/uL Eos # (Auto) (0.0-0.7) 10^3/uL Baso # (Auto) (0.0-0.1) 10^3/uL Absolute Nucleated RBC x10^3/uL Nucleated RBC % /100WBC POC Whole Bld Glucose 405 386 (70-100) mg/dL Assessment/Plan Problem List (1) Rectal mass: (2) Cachexia: Impression: Stable, pending pathology. No acute changes. Presented with unplanned unexplained weight loss, cachexia, chronic diarrhea. Found to have a large rectal mass which was biopsied by general surgery on 03/17. 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 Continues to have bowel function. Possibility he may need diverting colostomy if he obstructs from his rectal mass given its size. - Ongoing goals of care conversation, plan to meet with family again on 03/21 - Will need POLST completed - Iron deficiency anemia as below - Pending pathology from biopsy - Will need outpatient follow-up with oncology - Continue daily miralax - Surgery following peripherally. (3) Type 2 diabetes mellitus: Impression: Improved on regimen below. His blood glucoses have remained in range today. T2DM is a new diagnosis for this patient. A1c was elevated on admission at 9.0. Blood sugars have remained persistently elevated in the 200-300 range. Started him on long-acting and mealtime insulin today 03/19. Have been increasing dosage as his blood sugars have remained difficult to control. Received glargine 10 units every morning today - Glargine 15 units every morning - Lispro before every meal 10 units with MD REYNOSO - Starting mirtazapine 03/19, tolerating well. - Ideally would not discharge on insulin, consider SGLT2i plus metformin (4) Anemia, iron deficiency: Impression: Hemoglobin has been downtrending. Last transfusion 03/18. Had an episode of anemia requiring transfusion on 03/18. Found to have iron deficiency, ferritin 35. Likely mix of MAGDALENA and anemia of chronic disease. - Monitor hemoglobin in a.m., transfuse for Hgb less than 7 - Continue iron supplementation Qualifiers: Iron deficiency anemia type: inadequate dietary iron intake Qualified Code(s): D50.8 - Other iron deficiency anemias (5) Intractable back pain: (6) Closed T11 fracture: Qualifiers: Encounter type: initial encounter Fracture morphology: unspecified fracture morphology Qualified Code(s): S22.089A - Unspecified fracture of T11- T12 vertebra, initial encounter for closed fracture (7) Leg pain, right: (8) Ground-level fall: (9) Closed T12 fracture: Impression: Still pending read from his x-ray yesterday, but it does appear that there is an acute fracture to his right femur. Presented following a ground-level fall. Has persistent right hip pain as well as persistent back pain. Found on imaging to have subacute appearing T11 and T12 compression deformities. Multiple areas of bony sclerosis of the ribs. Possible metastatic lesions in the spine contributing to his compression fractures. When working with PT on 03/19, he was unable to bear weight to his right lower extremity. Repeated imaging does not show any overt fractures. - I will reach out to orthopedics tomorrow morning regarding suspected femur fracture - Follow-up formal read of hip x-ray - Continue scheduled Tylenol, as needed oxycodone - Lidocaine patch - Nonweightbearing to the right lower extremity - PT recommending SNF, Pending choicing Qualifiers: Encounter type: initial encounter Fracture morphology: unspecified fracture morphology Qualified Code(s): S22.089A - Unspecified fracture of T11- T12 vertebra, initial encounter for closed fracture (10) Leukocytosis: Impression: Patient with leukocytosis for 2 days in a row now. Unclear etiology. Has not fevered. Not septic otherwise. Eating and drinking well. Denies dysuria. No ronchi on exam. This may just be secondary to his malignancy, but it feels unusual that it would pop up now. - Will get a UA, blood cultures with tomorrow's labs, chest x-ray - Monitor off antibiotics (11) Counseling regarding advanced care planning and goals of care:
[2025-03-20 08:49] LABS: BUN - BLOOD UREA NITROGEN 20.0 mg/dL (6-20); CARBON DIOXIDE - CO2 26.0 mmol/L (21-32); CREATININE 0.3 mg/dL (0.6-1.3); GFR - MDRD 291.0 (>89)
[2025-03-20] MEDS: INSULIN GLARGINE-YFGN 300 UNIT/3 ML PEN SUBQ SCH ×2 (09:21→09:34)
[2025-03-20] MEDS: FERROUS SULFATE 325 MG TABLET PO SCH (09:24)
[2025-03-20] MEDS: INSULIN LISPRO 300 UNIT/3 ML PEN SUBQ SCH (11:33)
--- NOTE | 2025-03-20 14:43 | MISCELLANEOUS PROVIDER NOTE ---
Miscellaneous Provider Note - Note: Met briefly with patient and sister, patient is feeling much more comfortable sitting up in chair. Patient still with needing extra emphasis on information share, sister aware she will be asked to make decisions regarding next steps for placement etc. Please contact her directly in context of choicing SNFs ets. They are hoping he will end up in [facility] to be able to provide more support and visit. We discussed process with NON LICENSED OPERATOR to choice, and facility needs to have openings and "fit". Did have conversaton today with oncology team at [facility], aware of patient and pending pathology, patient is quite frail, in context of this immunotherapy would be more likely an option, if an option based on multiple factors. Available for further support and conversation, sister and will be back tomorrow. Agreed to follow up with next plan.
[2025-03-21 03:22] LABS: CRYSTALS,URINE 0-2 Triple Phosphate /LPF; GLUCOSE, URINE (UA) NEGATIVE (NEGATIVE); KETONES,URINE (UA) NEGATIVE (NEGATIVE); OCCULT BLOOD,URINE NEGATIVE (NEGATIVE); SQUAMOUS EPITHELIAL CELL,UR RARE Squamous (<= Few)
[2025-03-21 05:29] LABS: HCT - HEMATOCRIT 23.3 % (42.0-52.0); HGB - HEMOGLOBIN 7.3 g/dL (14.0-18.0); MEAN PLATELET VOLUME 10.3 fL (7.4-11.4); NRBC ABSOLUTE COUNT (AUTO) 0.00 x10^3/uL; NUCLEATED RED BLOOD CELLS AUTO 0.0 /100WBC; PLT - PLATELET COUNT 603 10^3/uL (130-450); RED CELL DISTRIBUTION WIDTH 15.7 % (12.0-15.0)
[2025-03-21 05:48] LABS: BUN - BLOOD UREA NITROGEN 23.0 mg/dL (6-20); CARBON DIOXIDE - CO2 26.0 mmol/L (21-32); CREATININE 0.4 mg/dL (0.6-1.3); GFR - MDRD 209.0 (>89)
--- NOTE | 2025-03-21 07:47 | ADVANCE CARE PLANNING NOTE ---
Advance Care Planning Planning Encounter Date: 03/21/25 Time: 14:28 Diagnosis for Encounter (1) Rectal mass: (2) Cachexia: (3) Type 2 diabetes mellitus: (4) Anemia, iron deficiency: Qualifiers: Iron deficiency anemia type: inadequate dietary iron intake Qualified Code(s): D50.8 - Other iron deficiency anemias (5) Intractable back pain: (6) Closed T11 fracture: Qualifiers: Encounter type: initial encounter Fracture morphology: unspecified fra cture morphology Qualified Code(s): S22.089A - Unspecified fracture of T11-T12 vertebra, initial encounter for closed fracture (7) Leg pain, right: (8) Ground-level fall: (9) Closed T12 fracture: Qualifiers: Encounter type: initial encounter Fracture morphology: unspecified fracture morphology Qualified Code(s): S22.089A - Unspecified fracture of T11- T12 vertebra, initial encounter for closed fracture (10) Leukocytosis: (11) Counseling regarding advanced care planning and goals of care: Encounter Additional Discussion: Had nice conversation with the patient, his sister and [id number] at bedside as well. We reviewed again his extensive case. He has a large rectal mass. He has had profound weight loss over the last year. He has otherwise unexplained anemia. His large mass was biopsied by general surgery on 03/17. At the time of our conversation pathology was pending. His CEA is elevated to 76. There is concern that this represents metastatic can cer. He has findings which are concerning for bony metastases on his imaging. No clear lymph node involvement otherwise. He has a seemingly pathological fracture of his right femur, but unclear if this is due to malnutrition versus malignant involvement. With his deconditioning, there is concern that he would not tolerate chemotherapy which would be neoadjuvant prior to treating any malignancy. Targeted therapies may be an option for him after brief conversation between palliative and oncology. This will be dependent on his pathology. Unfortunately his pathology came back as nondiagnostic for any particular malignancy. I tried to describe the patient's possible treatment past broadly. A full treatment path would involve going to rehab and getting stronger to the point where he can come in for chemotherapy neoadjuvantly followed by possible resection depending on whether there is metastatic spread. He may or may not tolerate that and any malignancy could potentially spread in the interim. Alternative pathway was discussed including hospice care. The patient could be kept comfortable, round level once. He would not be in the hospital as much. His symptoms could be manage. His biggest concern right now is pain in his right hip, described below. He did discuss possible DWD. He was unfamiliar with any [place] laws regarding this. Patient does have a right intertrochanteric femur fracture. Regardless of whether he chooses a treatment or palliative approach, treatment of this fracture will help his quality of life. He is agreeable to pursuing operative repair of his fracture. He agrees regardless that resuscitative measures are likely not beneficial to him. We discussed this at length. He is DNR during this hospitalization and filled out a POLST with palliative care following my visit. Selective treatments otherwise. He wishes to pursue ongoing workup. - POLST completed, DNR selective treatment - Patient is DNR this hospitalization - Working with orthopedics to repair hip fracture - Will plan to discharge to SNF for ongoing rehabilitation - Continue treating profound malnutrition - Will need further workup for differentiation of his rectal mass. Code Status: Do Not Attempt Resuscitation Time spent on advance care plannin
--- NOTE | 2025-03-21 07:53 | PROVIDER PROGRESS NOTE ---
Subjective Prog Note Date Prog Note Date: 03/21/25 Prog Note Time: 07:47 Subjective Subjective: WBC down trended from yesterday 13.4 down from 16.7. His urine does not look infected. Chest x-ray has an unusual consolidation along the right middle lobe and demonstrate some bony sclerotic changes, but these look more malignant than infectious. He has no cough or shortness of breath. He has an unusual nodule in the left perihilar region as well. Was not demonstrated on the CT scan from a couple days ago, suspect it is just an en face vessel. Pending formal read. His vital signs remained stable. Blood pressure 150/82. Normal respiratory rate and pulse. Satting high 90s on room air. Has remained afebrile. He does have a clear fracture in his right femur. Discussed his case with orthopedic surgery today. They are actually amenable to attempting repair even if it may be a palliative repair. Tentatively plan for tomorrow. No results from pathology yet. Long conversation with the patient today again explaining his condition and broadly describing the possible treatment pathways. See separate ACP note. Current Medications Current Medications Current Medications: Current Medications Generic Name Dose Route Start Last Admin Trade Name Romie PRN Reason Stop Dose Admin Acetaminophen 1,000 mg 03/17/25 22:00 03/21/25 06:20 Acetaminophen 500 Mg Tablet PO 1,000 mg TID JUJU Administration Docusate Sodium 250 - 500 mg 03/18/25 21:00 03/20/25 09:20 Docusate Sodium 250 Mg Capsule PO Not Given DAILY JUJU Ferrous Sulfate 325 mg 03/20/25 08:00 03/20/25 09:24 Ferrous Sulfate 325 Mg Tablet PO 325 mg DAILYWM JUJU Administration Insulin Glargine-yfgn 15 unit 03/20/25 09:00 03/20/25 09:21 Insulin Glargine-Yfgn 300 Unit/3 Ml Pen SUBQ 15 unit [id number] JUJU Administration Insulin Human Lispro 10 unit 03/19/25 17:00 03/20/25 17:04 Insulin Lispro 300 Unit/3 Ml Pen SUBQ 10 unit TIDWM JUJU Administration Insulin Human Lispro 1 - 9 unit 03/20/25 12:00 03/20/25 21:11 Insulin Lispro 300 Unit/3 Ml Pen SUBQ 3 unit 0800,1200,1700,2100 JUJU Administration Protocol Lidocaine 1 patch 10/29/25 09:00 03/20/25 09:23 Lidocaine Patch 4% TOP 1 patch DAILY JUJU Administration Mirtazapine 15 mg 03/19/25 21:00 03/20/25 21:33 Mirtazapine 15 Mg Tablet PO Not Given QPM JUJU Multivitamins/Minerals 1 tab 03/18/25 17:00 03/20/25 09:24 Multivitamin W/Minerals Tablet PO 1 tab DAILYWM JUJU Administration Ondansetron HCl 4 mg 03/17/25 17:26 Ondansetron Odt 4 Mg Tablet TL Q6HR PRN Nausea / Vomiting Ondansetron HCl 4 mg 03/17/25 17:26 Ondansetron 4 Mg/2 Ml Vial IVP Q6HR PRN Nausea / Vomiting Oxycodone HCl 5 mg 03/17/25 17:26 03/21/25 05:17 Oxycodone 5 Mg Tablet PO 5 mg Q4HR PRN Administration Pain 5 to 7 Pantoprazole Sodium 40 mg 03/18/25 16:00 03/21/25 06:20 Pantoprazole 40 Mg Tablet PO 40 mg BIDAC JUJU Administration Polyethylene Glycol 17 gm 03/19/25 09:00 03/20/25 09:20 Polyethylene Glycol 3350 17 Gm Packet PO Not Given DAILY JUJU Sodium Chloride 10 ml 03/17/25 17:26 Sodium Chloride Flush 0.9% 10 Ml Syringe IVP PRN PRN NEEDED PER PROVIDER ORDERS Sodium Chloride 10 ml 03/18/25 01:00 03/20/25 23:32 Sodium Chloride Flush 0.9% 10 Ml Syringe IVP 10 ml 0100,0900,1700 JUJU Administration Objective Vital Signs/Intake & Output Reviewed Vital Signs: Yes Vital Signs: Vital Signs x48h Temp Pulse Resp BP Pulse Ox 03/21/25 00:00 36.6 C 89 16 150/82 H 98 Intake & Output: Intake & Output 03/18/25 03/19/25 03/20/25 03/21/25 23:59 23:59 23:59 23:59 Intake Total 3187 / 3187 2426 / 2426 970 / 970 Output Total 1010 / 1010 1750 / 1750 675 / 675 200 / 200 Balance 2177 / 2177 676 / 676 295 / 295 -200 / -200 Weight (kg) 54 kg 54 kg Objective Comments/Other: GEN: Frail, cachectic. HEENT: NC/AT, normal appearance of external ears and nose. Hearing baseline. Cardiac: Regular rate and rhythm, no murmurs. Pulm: Lungs CTA bilaterally, no cough, no wheezes. Normal effort on room air Abdomen: Soft, nontender, nondistended. Neuro: Face symmetric, CN II through XII intact grossly. No focal deficits. Psych: Mood euthymic, affect congruent. Poor insight. Lab Results 03/21/25 05:19 03/21/25 05:19 Other Labs: Lab Results x24hrs 03/21/25 03/21/25 03/20/25 Range/Units 05:19 02:52 16:48 WBC 13.4 H (4.8-10.8) x10^3/uL RBC 3.11 L (4.70-6.10) 10^6/uL Hgb 7.3 L (14.0-18.0) g/dL Hct 23.3 L (42.0-52.0) % MCV 74.9 L (80.0-94.0) fL MCH 23.5 L (27.0-31.0) pg MCHC 31.3 L (32.0-36.0) g/dL RDW 15.7 H (12.0-15.0) % Plt Count 603 H (130-450) 10^3/uL MPV 10.3 (7.4-11.4) fL Neut # (Auto) 10.9 H (1.5-6.6) 10^3/uL Lymph # (Auto) 1.5 (1.5-3.5) 10^3/uL Pine # (Auto) 0.6 (0.0-1.0) 10^3/uL Eos # (Auto) 0.3 (0.0-0.7) 10^3/uL Baso # (Auto) 0.1 (0.0-0.1) 10^3/uL Absolute Nucleated RBC 0.00 x10^3/uL Nucleated RBC % 0.0 /100WBC Sodium 136 (135-145) mmol/L Potassium 3.7 (3.5-4.5) mmol/L Chloride 104 (101-111) mmol/L Carbon Dioxide 26 (21-32) mmol/L Anion Gap 6.0 (6-13) BUN 23 H (6-20) mg/dL Creatinine 0.4 L (0.6-1.3) mg/dL Estimated GFR (MDRD) 209 (>89) Glucose 156 H (74-104) mg/dL POC Whole Bld Glucose 168 (70-100) mg/dL Calcium 9.7 (8.5-10.3) mg/dL Urine Color YELLOW Urine Clarity CLEAR (CLEAR) Urine pH 6.0 (5.0-7.5) PH Ur Specific Hamilton 1.015 (1.002-1.030) Urine Protein 30 H (NEGATIVE) mg/dL Urine Glucose (UA) NEGATIVE (NEGATIVE) mg/dL Urine Ketones NEGATIVE (NEGATIVE) mg/dL Urine Occult Blood NEGATIVE (NEGATIVE) Urine Nitrite NEGATIVE (NEGATIVE) Urine Bilirubin NEGATIVE (NEGATIVE) Urine Urobilinogen 0.2 (NORMAL) (NORMAL) E.U./dL Ur Leukocyte Esterase NEGATIVE (NEGATIVE) Urine RBC 0-5 (0-5) /HPF Urine WBC 0-3 (0-3) /HPF Ur Squamous Epith Cells RARE Squamous (<= Few) Urine Crystals 0-2 Triple Phosphate /LPF Urine Bacteria Rare (None Seen) /HPF Urine Culture Comments NOT INDICATED 03/20/25 03/20/25 03/20/25 Range/Units 11:18 07:49 04:07 WBC (4.8-10.8) x10^3/uL RBC (4.70-6.10) 10^6/uL Hgb (14.0-18.0) g/dL Hct (42.0-52.0) % MCV (80.0-94.0) fL MCH (27.0-31.0) pg MCHC (32.0-36.0) g/dL RDW (12.0-15.0) % Plt Count (130-450) 10^3/uL MPV (7.4-11.4) fL Neut # (Auto) (1.5-6.6) 10^3/uL Lymph # (Auto) (1.5-3.5) 10^3/uL Pine # (Auto) (0.0-1.0) 10^3/uL Eos # (Auto) (0.0-0.7) 10^3/uL Baso # (Auto) (0.0-0.1) 10^3/uL Absolute Nucleated RBC x10^3/uL Nucleated RBC % /100WBC Sodium 134 L (135-145) mmol/L Potassium 3.3 L (3.5-4.5) mmol/L Chloride 102 (101-111) mmol/L Carbon Dioxide 26 (21-32) mmol/L Anion Gap 6.0 (6-13) BUN 20 (6-20) mg/dL Creatinine 0.3 L (0.6-1.3) mg/dL Estimated GFR (MDRD) 291 (>89) Glucose 140 H (74-104) mg/dL POC Whole Bld Glucose 187 169 (70-100) mg/dL Calcium 10.0 (8.5-10.3) mg/dL Urine Color Urine Clarity (CLEAR) Urine pH (5.0-7.5) PH Ur Specific Hamilton (1.002-1.030) Urine Protein (NEGATIVE) mg/dL Urine Glucose (UA) (NEGATIVE) mg/dL Urine Ketones (NEGATIVE) mg/dL Urine Occult Blood (NEGATIVE) Urine Nitrite (NEGATIVE) Urine Bilirubin (NEGATIVE) Urine Urobilinogen (NORMAL) E.U./dL Ur Leukocyte Esterase (NEGATIVE) Urine RBC (0-5) /HPF Urine WBC (0-3) /HPF Ur Squamous Epith Cells (<= Few) Urine Crystals /LPF Urine Bacteria (None Seen) /HPF Urine Culture Comments Assessment/Plan Problem List (1) Rectal mass: (2) Cachexia: Impression: Stable. Effectively unchanged. See ACP note from 03/21. Extensive conversations with the patient. Biopsy returned 03/21 intriguingly is negative for neoplasm. Presented with unplanned unexplained weight loss, cachexia, chronic diarrhea. Found to have a large rectal mass which was biopsied by general surgery on 03/17. CT shows bony sclerosis thought to be metastases. Continues to have bowel function. Possibility he may need diverting colostomy if he obstructs from his rectal mass given its size. He appears cachectic. His biopsy returned as negative for neoplasm on 03/21. CEA was elevated at 76. - POLST completed with palliative care on 03/21 - Will need further workup outpatient once he is stronger - Treat fracture as below and discharge to SNF for further rehab - Iron deficiency anemia as below - Continue daily miralax - Surgery following peripherally. (3) Malnutrition: Impression: Patient has severe protein calorie malnutrition present on arrival likely secondary to his increased metabolic demand from his cancer as well as poor diet in the community. He reports not liking the food at [facility] that much. He has signs of obvious muscle wasting, loss of subcutaneous fat. Temporal wasting. He reported up to 80 pounds of weight loss over the last couple of years unplanned. At least 14% of verifiable weight loss over the last year. - Appreciate nutrition involvement - Likely continue low protein supplementation - Will need increased protein following surgery Qualifiers: Malnutrition type: protein-calorie malnutrition Protein-calorie malnutrition severity: severe Qualified Code(s): E43 - Unspecified severe protein-calorie malnutrition (4) Type 2 diabetes mellitus: Impression: Blood glucose may be a little overcontrolled today. BG around 110. Backing off on prandial insulin. Patient is eating well. T2DM is a new diagnosis for this patient. A1c was elevated on admission at 9.0. Blood sugars have remained persistently elevated in the 200-300 range. Started him on long-acting and mealtime insulin today 03/19. Have been increasing dosage as his blood sugars have remained difficult to control. Received glargine 10 units every morning today - Glargine 15 units every morning - Lispro 5 units before every meal with MD REYNOSO - Starting mirtazapine 03/19, tolerating well. - Ideally would not discharge on insulin, consider SGLT2i plus metformin Qualifiers: Diabetes mellitus correction insulin use: without terminal operations manager use Diabetes mellitus complication status: with hyperglycemia Qualified Code(s): E11.65 - Type 2 diabetes mellitus with hyperglycemia (5) Anemia, iron deficiency: Impression: Not requiring transfusion, but I fear that he may be nearing it. Last transfusion 03/18. No overt rectal bleeding. Has been started on iron supplementation. Had an episode of anemia requiring transfusion on 03/18. Found to have iron deficiency, ferritin 35. Likely mix of MAGDALENA and anemia of chronic disease. - Monitor hemoglobin in a.m., transfuse for Hgb less than 7 - Continue iron supplementation Qualifiers: Iron deficiency anemia type: inadequate dietary iron intake Qualified Code(s): D50.8 - Other iron deficiency anemias (6) Intractable back pain: (7) Closed T11 fracture: Qualifiers: Encounter type: initial encounter Fracture morphology: unspecified fracture morphology Qualified Code(s): S22.089A - Unspecified fracture of T11- T12 vertebra, initial encounter for closed fracture (8) Leg pain, right: (9) Closed right hip fracture: Qualifiers: Encounter type: sequela Qualified Code(s): S72.001S - Fracture of unspecified part of neck of right femur, sequela (10) Ground-level fall: (11) Closed T12 fracture: Impression: Patient has a right intertrochanteric femur fracture. Discussed his case with orthopedic surgery on 03/21. Dr. Moya believes that patient may benefit from operative repair, likely posting. Presented following a ground-level fall. Has persistent right hip pain as well as persistent back pain. Found on imaging to have subacute appearing T11 and T12 compression deformities. Multiple areas of bony sclerosis of the ribs. Possible metastatic lesions in the spine contributing to his compression fractures. When working with PT on 03/19, he was unable to bear weight to his right lower extremity. On review of his imaging, he likely had a nondisplaced fracture that is now more displaced. And comminuted making it more apparent. - I have not confirmed him for surgery tomorrow, will make him n.p.o. at midnight - Continue scheduled Tylenol with as needed oxycodone, minimally controlling patient's pain - Lidocaine patch available as needed - NWB to the right lower extremity - Proceed with discharge to SNF for rehab postoperatively. Qualifiers: Encounter type: initial encounter Fracture morphology: unspecified fracture morphology Qualified Code(s): S22.089A - Unspecified fracture of T11- T12 vertebra, initial encounter for closed fracture (12) Leukocytosis: Impression: Leukocytosis downtrended off antibiotics. 16.7-13.4. Unclear etiology overall. He is not febrile. No other vital signs abnormalities. Urine without evidence of infection. Chest x-ray without consolidation. - Continue to monitor off antibiotics - Follow-up blood cultures from 03/21 (13) Counseling regarding advanced care planning and goals of care:
--- NOTE | 2025-03-21 08:04 | XRAY Report ---
PROCEDURE: XR Chest 1V INDICATIONS: Leukocytosis, no dyspnea or hypoxia TECHNIQUE: One view of the chest was acquired. COMPARISON: Chest CT on 03/17/2025 FINDINGS: Surgical changes and devices: None Lungs and pleura: No pleural effusions or pneumothorax. No consolidation. Mediastinum: Mediastinal contours appear normal. Heart size is normal. Bones and chest wall: No suspicious bony lesions. Overlying soft tissues appear unremarkable. IMPRESSION: No acute cardiopulmonary process. Reviewed by: Ham Hawkins MD on 03/21/2025 8:01 AM PDT Approved by: Ham Hawkins MD on 03/21/2025 8:01 AM PDT Station ID: [id number]
--- NOTE | 2025-03-21 09:04 | XRAY Report ---
PROCEDURE: XR Hip w/Pelvis 2-3V RT INDICATIONS: GLF, hip pain, unable to bear weight TECHNIQUE: AP pelvis with lateral view(s) of the hip(s). COMPARISON: None. FINDINGS/IMPRESSION: Comminuted, foreshortened intertrochanteric fracture of the right femur. Reviewed by: Aristeo Braxton MD on 03/21/2025 9:00 AM PDT Approved by: Aristeo Braxton MD on 03/21/2025 9:00 AM PDT Station ID: [id number]
--- NOTE | 2025-03-21 14:39 | Palliative Care ---
Vitals Vital Signs 03/17/25 03:17 03/17/25 03:20 03/17/25 03:51 03/17/25 05:20 03/17/25 15:43 03/17/25 17:31 03/17/25 18:00 03/17/25 18:47 03/17/25 20:00 03/17/25 23:57 03/18/25 04:28 03/18/25 07:58 03/18/25 11:40 03/18/25 11:45 03/18/25 12:05 03/18/25 15:56 03/18/25 16:50 03/18/25 18:13 03/18/25 20:00 03/19/25 00:00 03/19/25 04:00 03/19/25 08:00 03/19/25 11:00 03/19/25 12:00 03/19/25 15:54 03/19/25 17:00 03/19/25 20:53 03/19/25 23:38 03/20/25 04:09 03/20/25 07:55 03/20/25 12:25 03/20/25 16:03 03/20/25 20:44 03/21/25 00:00 03/21/25 08:00 03/21/25 14:38 Height 5 ft 7 in 5 ft 7 in 5 ft 7 in 5 ft 7 in 5 ft 7 in Weight 132 lb 4.438 oz 119 lb 0.794 oz 119 lb 0.794 oz 119 lb 0.794 oz 119 lb 0.794 oz BMI 18.7 18.7 18.7 BP 180/92 H 160/84 H 181/88 H 160/74 H 148/71 H 157/85 H 172/96 H 140/77 H 143/81 H 138/68 H 137/74 H 135/60 H 129/56 L 132/66 H 136/64 H 171/86 H 160/85 H 170/93 H 188/111 H 175/99 H 152/96 H 126/76 172/86 H 146/78 H 142/83 H 152/92 H 154/77 H 121/59 L 96/58 L 139/84 H 150/82 H 131/69 H Respiration 18 16 16 20 19 17 18 18 18 16 18 20 20 18 14 16 1 6 16 18 18 16 16 16 16 20 20 20 16 16 20 Pulse 90 79 82 85 93 92 95 85 89 77 81 76 77 77 79 74 87 95 107 H 107 H 114 H 95 96 94 98 95 90 88 91 82 89 81 Temp 98.1 F 98.1 F 98.2 F 98.4 F 98.1 F 98.8 F 98.4 F 98.1 F 98.1 F 98.1 F 98.1 F 97.9 F 98.1 F 97.3 F L 97.5 F L 97.9 F 98.6 F 98.2 F 98.1 F 9 8.1 F 98.1 F 97.9 F 98.8 F 97.9 F 97.9 F 98.1 F Temp Source Temporal Artery Scan Temporal Artery Scan Temporal Artery Sc an Temporal Artery Scan Temporal Artery Scan Temporal Artery Scan Temporal Arter y Scan Temporal Artery Scan Temporal Artery Scan Temporal Artery Scan Temporal Artery Scan Temporal Artery Scan Temporal Artery Scan Temporal Artery Scan Temporal Artery Scan Temporal Artery Scan Temporal Artery Scan Temporal Elly ry Scan Temporal Artery Scan Temporal Artery Scan Temporal Artery Scan Temporal Artery Scan Temporal Artery Scan Temporal Artery Scan Temporal Artery Scan Temporal Artery Scan Pulse Oximetry 98 99 100 97 99 99 100 96 97 98 98 98 98 97 98 10 0 98 97 99 98 97 97 98 97 97 98 97 98 98 98 97 Meds/Allgy Home Medications Ambulatory Orders Medication Instructions Recorded Confirmed loperamide 2 mg tablet 2 mg PO PRN PRN loose stool 03/18/25 03/18/25 Allergies Allergies Allergy/AdvReac Type Severity Reaction Status Date / Time No Known Drug Allergies Allergy Verified 03/17/25 03:20 CC HPI Visit Location: other location (inpatient) Chief Complaint Chief Complaint: right hip pain, depression; ACP; Rectal Mass History Obtained From Records Reviewed: hospitalist; labs; imaging History obtained from: patient; hospitalist Exam Limitations: patient severely hard of hearing; mild cog deficits History of Present Illness HPI: This is a 75-year-old gentleman who has had very little medical care, and presents to palliative care for support. Patient presented to the emergency room, when he had fallen, and fell backwards. His most significant pain per his report is his right leg, in further work up has been found to have a fracture. Decision to be made with recommendation is my understanding for surgery or not. Patient also overwhelmed with new cancer diagnosis, poor prognosis, worrying about being a burden and suffering. Patient reports can only hear about 10% of what is said without close conversation and facial reading. Sister is at bedside with her to assist with navigating care, their understanding is that if surgery, need to move forward, patient needing explaination of the moving parts. Patients biggest quality of life issues is his right hip pain, "pills don't work". Patient is also faced with pursuing further information regarding cancer diagnosis vs focus on comfort. Patient expressing does not want to suffer, and "wants it over with". We tracked back how this is like being "hit with a truck" he has been feeling poorly, still struggling with memory issues and understanding, and aware of the seriousness of his condition but not the nuances. His sister has been supporting him and tracking the information trying to help him understand and navigate these next steps. Patient had been living in [place], had been having more and more weight loss, inertia, not able to make meals or follow through on eating. His sister convinced him to go to [place] to be able to get better care and feeding. He has been there about 2 months, reports he has been having weight loss over a few years, but more acutely over this last year. Patient reports his most bothersome symptom has been diarrhea, has noted he has had dark stools, but is not noted any blood. He was quite surprised he was going to be needing a blood transfusion. . Palliative Care Performance Status Performance status: Patient has been declining over several years and more acutely over the last several months, with the hope of placement and [place] he would do better with nutrition and oversight. Patient has had a couple falls there already including 1 that brought him to the ED. Patient aware he is not "in condition" to be able to care for himself at [place], has not been out of be here, pain with weight bearing. Discussion regarding placement would be SNF, [facility] have an opening. Palliative Care Discussion: Discussion focused on further working through understanding current decisions needing to be made. Patient "wanted to wait a few days", sister and myself reiterated this would be best made now, patient's biggest quality of life issue is his right hip pain, and discussed most relief would be with surgery. This would also provide some support in the context of future decision making, if his pain were relieved, would better be able to take the next step and discussing end-of-life wishes and plans versus further follow-up and exploration regarding his new cancer diagnosis. Sister in support of surgery, after much discussion and patient and able to get questions answered, in agreement for a "yes" on the surgery. We discussed next steps as far as further decisions, can wait until surgery over, and chance to continue to assimilate information, and adjust to the emotional components related to making a decision around end-of-life. Did discuss in the context of what hospice does, which is focusing on living until you , with the goal for best quality of life in remaining time he has, and at any point can choose to focus on comfort. Discussion also focused on at this time to see what next steps bring. Dr. Arcos had introduced the POLST, sister requesting some help of follow-up filling this out. Provided another opportunity to talk about goals of care, which is to focus on quality of life, spending time with family and when that decision is made for end-of-life, patient is fearful of suffering, we discussed the goal would be for comfortable and respectful . This was written out, sister cosigned given patient's mild cognitive deficits, family was provided opportunity to ask questions and education on the continuum of care was provided [facility] Active Problems All Active Problems (Updated 03/21/25 @ 14:57 by FORTINO Saldana) Closed right hip fracture (Acute) Leukocytosis (Acute) Type 2 diabetes mellitus (Acute) Counseling regarding advanced care planning and goals of care (Acute) Closed T12 fracture (Acute) Closed T11 fracture (Acute) Intractable back pain (Acute) Anemia, iron deficiency (Acute) Rectal mass (Acute) Compression fracture of vertebral column (Acute) Cachexia (Acute) Leg pain, right (Acute) Ground-level fall (Acute) Medical History Medical History (Updated 03/21/25 @ 14:57 by FORTINO Saldana) Insomnia Urinary incontinence Skin cancer No pertinent past medical history Surgical History Surgical History No pertinent past surgical history Social History Social History (Updated 03/18/25 @ 18:25 by FORTINO Saldana) Smoking Status: Unknown if ever smoked Do you dip or chew tobacco?: No Do you vape?: No Living arrangement: Assisted living Living Condition: Alone Support Person: Yes Living Situation Details: Recently moved to [place]; is there under Medicaid Has a Durable Power of Operating Engineer Apprentice for Health Care?: Yes Name / Relationship: Carmina Ribeiro [phone] DPOA on file?: Yes Level: Independent Home Mobility Equipment: Cane Physical - Functional Details: Functional status has been declining Do you feel safe in your home environment?: Yes History of physical, verbal, emotional, or financial abuse?: No ETOH Use: Beer Frequency: Daily Number of drinks/day: 1 Substance Use: cannabis (any form) Retired: Yes 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 Adding to complicated picture, now know right hip fracture which is adding to the severity of his pain. Patient presented with severe anemia still low, most likely contributing to his weakness and symptom burden. Patient feeling a "little clearer" after transfusion, fluids, and able to eat better here. Patient minimally connected to healthcare, longstanding history of this. Patient beginning to come to some understanding of the seriousness of his situation. Palliative care providing support and establishing rapport to support patient through serious illness trajectory. Provided follow up family meeting. Assessment & Plan Assessment & Plan (1) Rectal mass: Code(s): K62.89 - Other specified diseases of anus and rectum (2) Cachexia: Code(s): R64 - Cachexia (3) Closed right hip fracture: Code(s): S72.001A - Fracture of unspecified part of neck of right femur, initial encounter for closed fracture Qualifiers: Encounter type: sequela Qualified Code(s): S72.001S - Fracture of unspecified part of neck of right femur, sequela (4) Counseling regarding advanced care planning and goals of care: Code(s): Z71.89 - Other specified counseling Plan Communicated with hospitalist outcome of family meeting. POLST completed. Will have PC follow through hospitalization for further support on goals of care.
[2025-03-22 05:20] LABS: HCT - HEMATOCRIT 23.9 % (42.0-52.0); HGB - HEMOGLOBIN 7.5 g/dL (14.0-18.0); MEAN PLATELET VOLUME 10.2 fL (7.4-11.4); NRBC ABSOLUTE COUNT (AUTO) 0.00 x10^3/uL; NUCLEATED RED BLOOD CELLS AUTO 0.0 /100WBC; PLT - PLATELET COUNT 586 10^3/uL (130-450); RED CELL DISTRIBUTION WIDTH 16.1 % (12.0-15.0)
[2025-03-22 05:40] LABS: BUN - BLOOD UREA NITROGEN 22.0 mg/dL (6-20); CARBON DIOXIDE - CO2 27.0 mmol/L (21-32); CREATININE 0.5 mg/dL (0.6-1.3); GFR - MDRD 162.0 (>89)
--- NOTE | 2025-03-22 07:21 | PROVIDER PROGRESS NOTE ---
Subjective General Admit Date: 03/18/25 Other Other Information/Narrative: 75 yo M admitted with metastatic cancer, likely from a rectal mass, and R hip fx. Was originally seen by my colleague days ago with bedside biopsy of his rectal mass which turned out to be non-diagnostic. We were contacted to see if we could repeat an examination and biopsy of the mass for tissue diagnosis so that he can be referred for oncologic evaluation and treatment. Review of Systems Status of ROS: 10 or more systems reviewed and unremarkable except as noted in history and below Exam Exam Vital Signs: Vital Signs x48h Temp Pulse Resp BP Pulse Ox 03/21/25 23:45 36.7 C 81 18 142/71 H 96 Constitutional no apparent distress HENMT normocephalic and head/scalp atraumatic Eyes conjunctivae normal and no scleral icterus Neck/C-Spine visual inspection normal Respiratory normal respiratory effort Cardiovascular normal heart rate noted and regular rhythm noted Gastrointestinal abdomen normal to inspection and abdomen soft to palpation Extremities normal to inspection Neurology GCS 15 Psychiatry cooperative and affect normal Skin skin color normal Impression/Plan Problem List (1) Rectal mass: Plan: - Coordinate with ortho for rectal biopsy today under anesthesia - If unable to perform today will discuss possible flex sig w/ biopsy this weekend - Rest of care per primary (2) Cachexia: (3) Type 2 diabetes mellitus: Qualifiers: Diabetes mellitus nursing home insulin use: without nursing home use Diabetes mellitus complication status: with hyperglycemia Qualified Code(s): E11.65 - Type 2 diabetes mellitus with hyperglycemia (4) Anemia, iron deficiency: Qualifiers: Iron deficiency anemia type: inadequate dietary iron intake Qualified Code(s): D50.8 - Other iron deficiency anemias (5) Intractable back pain: (6) Closed T11 fracture: Qualifiers: Encounter type: initial encounter Fracture morphology: unspecified fracture morphology Qualified Code(s): S22.089A - Unspecified fracture of T11- T12 vertebra, initial encounter for closed fracture (7) Leg pain, right: (8) Ground-level fall: (9) Closed T12 fracture: Qualifiers: Encounter type: initial encounter Fracture morphology: unspecified fracture morphology Qualified Code(s): S22.089A - Unspecified fracture of T11- T12 vertebra, initial encounter for closed fracture (10) Leukocytosis: (11) Counseling regarding advanced care planning and goals of care:
[2025-03-22] MEDS: DEXTROSE 5%-0.45% NACL 1,000 ML IV STA (08:01)
--- NOTE | 2025-03-22 08:02 | PROVIDER PROGRESS NOTE ---
Subjective Prog Note Date Prog Note Date: 03/22/25 Prog Note Time: 08:01 Subjective Subjective: No acute events overnight. Blood sugars remained stable. Fasting blood sugar 159. In range. Patient doing reasonably well this morning. He still in some pain from his right hip. His pathology came back as negative yesterday. Discussed with general surgery, they will take him for proctoscopic exam and rebiopsy. Discussed with the patient, his sister and POA. Plan for surgery today around noon. He has been started on IV fluids. Anticoagulation on hold. If he is not going to procedure today, we will release his diet and resume on VTE ppx today. Current Medications Current Medications Current Medications: Current Medications Generic Name Dose Route Start Last Admin Trade Name Yanivq PRN Reason Stop Dose Admin Acetaminophen 1,000 mg 03/17/25 22:00 03/22/25 06:11 Acetaminophen 500 Mg Tablet PO 1,000 mg TID JUJU Administration Docusate Sodium 250 - 500 mg 03/18/25 21:00 03/21/25 08:38 Docusate Sodium 250 Mg Capsule PO Not Given DAILY JUJU Ferrous Sulfate 325 mg 03/20/25 08:00 03/21/25 09:45 Ferrous Sulfate 325 Mg Tablet PO 325 mg DAILYWM JUJU Administration Dextrose/Sodium Chloride 1,000 mls @ 100 mls/hr 03/22/25 06:59 D5.45ns IV 03/22/25 16:58 .Q10H STA Insulin Glargine-yfgn 15 unit 03/20/25 09:00 03/21/25 09:46 Insulin Glargine-Yfgn 300 Unit/3 Ml Pen SUBQ 15 unit [id number] JUJU Administration Insulin Human Lispro 1 - 9 unit 03/20/25 12:00 03/21/25 21:06 Insulin Lispro 300 Unit/3 Ml Pen SUBQ 1 unit 0800,1200,1700,2100 JUJU Administration Protocol Insulin Human Lispro 5 unit 03/22/25 08:00 Insulin Lispro 300 Unit/3 Ml Pen SUBQ TIDWM JUJU Lidocaine 1 patch 03/20/25 09:00 03/21/25 09:44 Lidocaine Patch 4% TOP 1 patch DAILY JUJU Administration Mirtazapine 15 mg 03/19/25 21:00 03/21/25 21:03 Mirtazapine 15 Mg Tablet PO 15 mg QPM JUJU Administration Multivitamins/Minerals 1 tab 03/18/25 17:00 03/21/25 09:45 Multivitamin W/Minerals Tablet PO 1 tab DAILYWM JUJU Administration Ondansetron HCl 4 mg 03/17/25 17:26 Ondansetron Odt 4 Mg Tablet TL Q6HR PRN Nausea / Vomiting Ondansetron HCl 4 mg 03/17/25 17:26 Ondansetron 4 Mg/2 Ml Vial IVP Q6HR PRN Nausea / Vomiting Oxycodone HCl 5 mg 03/17/25 17:26 03/21/25 05:17 Oxycodone 5 Mg Tablet PO 5 mg Q4HR PRN Administration Pain 5 to 7 Pantoprazole Sodium 40 mg 03/18/25 16:00 03/22/25 06:11 Pantoprazole 40 Mg Tablet PO 40 mg BIDAC JUJU Administration Polyethylene Glycol 17 gm 03/19/25 09:00 03/21/25 08:38 Polyethylene Glycol 3350 17 Gm Packet PO Not Given DAILY JUJU Sodium Chloride 10 ml 03/17/25 17:26 Sodium Chloride Flush 0.9% 10 Ml Syringe IVP PRN PRN NEEDED PER PROVIDER ORDERS Sodium Chloride 10 ml 03/18/25 01:00 03/21/25 23:56 Sodium Chloride Flush 0.9% 10 Ml Syringe IVP 10 ml 0100,0900,1700 JUJU Administration Objective Vital Signs/Intake & Output Reviewed Vital Signs: Yes Vital Signs: Vital Signs x48h Temp Pulse Resp BP Pulse Ox 03/21/25 00:00 36.6 C 89 16 150/82 H 98 Intake & Output: Intake & Output 03/19/25 03/20/25 03/21/25 03/22/25 23:59 23:59 23:59 23:59 Intake Total 2426 / 2426 970 / 970 1577 / 1577 Output Total 1750 / 1750 675 / 675 1100 / 1100 375 / 375 Balance 676 / 676 295 / 295 477 / 477 -375 / -375 Weight (kg) 54 kg 54 kg Objective Comments/Other: GEN: Frail, cachectic. HEENT: NC/AT, normal appearance of external ears and nose. Hearing baseline. Cardiac: Regular rate and rhythm, no murmurs. Pulm: Lungs CTA bilaterally, no cough, no wheezes. Normal effort on room air Abdomen: Soft, nontender, nondistended. Neuro: Face symmetric, CN II through XII intact grossly. No focal deficits. Psych: Mood euthymic, affect congruent. Poor insight. Lab Results 03/22/25 05:09 03/22/25 05:09 Other Labs: Lab Results x24hrs 03/22/25 03/22/25 03/21/25 Range/Units 07:45 05:09 21:03 WBC 11.6 H (4.8-10.8) x10^3/uL RBC 3.14 L (4.70-6.10) 10^6/uL Hgb 7.5 L (14.0-18.0) g/dL Hct 23.9 L (42.0-52.0) % MCV 76.1 L (80.0-94.0) fL MCH 23.9 L (27.0-31.0) pg MCHC 31.4 L (32.0-36.0) g/dL RDW 16.1 H (12.0-15.0) % Plt Count 586 H (130-450) 10^3/uL MPV 10.2 (7.4-11.4) fL Neut # (Auto) 9.3 H (1.5-6.6) 10^3/uL Lymph # (Auto) 1.3 L (1.5-3.5) 10^3/uL [place] # (Auto) 0.6 (0.0-1.0) 10^3/uL Eos # (Auto) 0.2 (0.0-0.7) 10^3/uL Baso # (Auto) 0.1 (0.0-0.1) 10^3/uL Absolute Nucleated RBC 0.00 x10^3/uL Nucleated RBC % 0.0 /100WBC Sodium 138 (135-145) mmol/L Potassium 3.8 (3.5-4.5) mmol/L Chloride 105 (101-111) mmol/L Carbon Dioxide 27 (21-32) mmol/L Anion Gap 6.0 (6-13) BUN 22 H (6-20) mg/dL Creatinine 0.5 L (0.6-1.3) mg/dL Estimated GFR (MDRD) 162 (>89) Glucose 159 H (74-104) mg/dL POC Whole Bld Glucose 154 156 (70-100) mg/dL Calcium 10.0 (8.5-10.3) mg/dL 03/21/25 03/21/25 03/20/25 Range/Units 16:52 11:35 20:51 WBC (4.8-10.8) x10^3/uL RBC (4.70-6.10) 10^6/uL Hgb (14.0-18.0) g/dL Hct (42.0-52.0) % MCV (80.0-94.0) fL MCH (27.0-31.0) pg MCHC (32.0-36.0) g/dL RDW (12.0-15.0) % Plt Count (130-450) 10^3/uL MPV (7.4-11.4) fL Neut # (Auto) (1.5-6.6) 10^3/uL Lymph # (Auto) (1.5-3.5) 10^3/uL [place] # (Auto) (0.0-1.0) 10^3/uL Eos # (Auto) (0.0-0.7) 10^3/uL Baso # (Auto) (0.0-0.1) 10^3/uL Absolute Nucleated RBC x10^3/uL Nucleated RBC % /100WBC Sodium (135-145) mmol/L Potassium (3.5-4.5) mmol/L Chloride (101-111) mmol/L Carbon Dioxide (21-32) mmol/L Anion Gap (6-13) BUN (6-20) mg/dL Creatinine (0.6-1.3) mg/dL Estimated GFR (MDRD) (>89) Glucose (74-104) mg/dL POC Whole Bld Glucose 117 110 200 (70-100) mg/dL Calcium (8.5-10.3) mg/dL Assessment/Plan Problem List (1) Rectal mass: (2) Cachexia: Impression: Present on arrival. Persistent. Presented with unplanned unexplained weight loss, cachexia, chronic diarrhea. Found to have a large rectal mass which was biopsied by general surgery on 03/17. CT shows bony sclerosis thought to be metastases. Continues to have bowel function. Possibility he may need diverting colostomy if he obstructs from his rectal mass given its size. He appears cachectic. His biopsy returned as negative for neoplasm on 03/21. CEA was elevated at 75. POLST completed with palliative care on 03/21, DNR/selective intervention - Repeat biopsy with general surgery today, Will need follow-up with oncology to review pathology - Treat fracture as below and discharge to SNF for further rehab - Iron deficiency anemia as below - Transition to daily fiber supplement from daily miralax, felt that miralax was causing too loose of stool - Surgery following peripherally - Palliative care is following as well, appreciate their insights and recommendation. - Should continue following with palliative postdischarge, added to discharge instructions (3) Type 2 diabetes mellitus: Impression: Blood glucose remained stable on below regimen. Patient is eating well. T2DM is a new diagnosis for this patient. A1c was elevated on admission at 9.0. Blood sugars have remained persistently elevated in the 200-300 range. Started him on long-acting and mealtime insulin today 03/19. Have been increasing dosage as his blood sugars have remained difficult to control. Received glargine 10 units every morning today - Glargine 15 units every morning - Lispro 5 units before every meal with SSI - Starting mirtazapine 03/19, tolerating well. 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 No signs of active bleeding. Had an episode of anemia requiring transfusion on 03/18. Found to have iron deficiency, ferritin 35. Likely mix of MAGDALENA and anemia of chronic disease. - Monitor hemoglobin in a.m., transfuse for Hgb less than 7 - Continue oral iron supplementation Qualifiers: Iron deficiency anemia type: inadequate dietary iron intake Qualified Code(s): D50.8 - Other iron deficiency anemias (5) Closed T11 fracture: Qualifiers: Encounter type: initial encounter Fracture morphology: unspecified fracture morphology Qualified Code(s): S22.089A - Unspecified fracture of T11- T12 vertebra, initial encounter for closed fracture (6) Closed right hip fracture: Qualifiers: Encounter type: sequela Qualified Code(s): S72.001S - Fracture of unspecified part of neck of right femur, sequela (7) Ground-level fall: (8) Closed T12 fracture: Impression: Patient has a right intertrochanteric femur fracture. Discussed his case with orthopedic surgery on 03/21. Dr. Moya believes that patient may benefit from operative repair, likely posting. Presented following a ground-level fall. Has persistent right hip pain as well as persistent back pain. Found on imaging to have subacute appearing T11 and T12 compression deformities. Multiple areas of bony sclerosis of the ribs. Possible metastatic lesions in the spine contributing to his compression fractures. When working with PT on 03/19, he was unable to bear weight to his right lower extremity. On review of his imaging, he likely had a nondisplaced fracture that is now more displaced. And comminuted making it more apparent. - Discussed with surgery 03/22, they will take him to surgery today. - Continue scheduled Tylenol with as needed oxycodone, minimally controlling patient's pain - Lidocaine patch available as needed - NWB to the right lower extremity - PT to reevaluate after surgery, Likely will need discharge to SNF. - Resume VTE prophylaxis after surgery given likely malignancy and increased risk of VTE Qualifiers: Encounter type: initial encounter Fracture morphology: unspecified fracture morphology Qualified Code(s): S22.089A - Unspecified fracture of T11- T12 vertebra, initial encounter for closed fracture (9) Leukocytosis: Impression: Leukocytosis downtrended off antibiotics. 16.7 > 11.6. Unclear etiology overall. He is not febrile. No other vital signs abnormalities. Urine without evidence of infection. Chest x-ray without consolidation. Although may be consistent with malignancy related leukocytosis. - Continue to monitor off antibiotics - Follow-up blood cultures from 03/21, NGTD (10) Counseling regarding advanced care planning and goals of care: (11) Malnutrition: Impression: Persistent, patient has good appetite as above. Patient has severe protein calorie malnutrition present on arrival likely secondary to his increased metabolic demand from his cancer as well as poor diet in the community. He reports not liking the food at [facility] that much. He has signs of obvious muscle wasting, loss of subcutaneous fat. Temporal wasting. He reported up to 80 pounds of weight loss over the last couple of years unplanned. At least 14% of verifiable weight loss over the last year. - Appreciate nutrition involvement - Likely continue protein supplementation - Remeron as above - Will need increased protein following surgery Qualifiers: Malnutrition type: protein-calorie malnutrition Protein-calorie malnutrition severity: severe Qualified Code(s): E43 - Unspecified severe protein-calorie malnutrition
[2025-03-22] MEDS: INSULIN LISPRO 300 UNIT/3 ML PEN SUBQ SCH (08:10)
--- NOTE | 2025-03-22 09:04 | CONSULTATION NOTE ---
Chief Complaint Chief Complaint Chief Complaint: Right hip pain History of Present Illness History of Present Illness HPI Comment/Other: Patient is a 75-year-old male who has been falling recently secondary to having metastatic rectal cancer. Recently he fell and was brought to the emergency room and he was admitted for the cancer and subsequently x-rays were obtained and he has a displaced right intertrochanteric hip fracture. The patient states that he has pain in the groin area and on the outside of the hip he is unable to straight leg raise he does not have any numbness or tingling. Meds/Allgy Home Medications Ambulatory Orders Medication Instructions Recorded Confirmed loperamide 2 mg tablet 2 mg PO PRN PRN loose stool 03/18/25 03/18/25 Allergies Allergies Allergy/AdvReac Type Severity Reaction Status Date / Time No Known Drug Allergies Allergy Verified 03/17/25 03:20 PFSH Active Problems All Active Problems (Updated 03/22/25 @ 09:03 by Eddy Moya DO) Closed intertrochanteric fracture of right hip (Acute) Malnutrition (Acute) Closed right hip fracture (Acute) Leukocytosis (Acute) Type 2 diabetes mellitus (Acute) Counseling regarding advanced care planning and goals of care (Acute) Closed T12 fracture (Acute) Closed T11 fracture (Acute) Intractable back pain (Acute) Anemia, iron deficiency (Acute) Rectal mass (Acute) Compression fracture of vertebral column (Acute) Cachexia (Acute) Leg pain, right (Acute) Ground-level fall (Acute) Medical History Medical History (Updated 03/22/25 @ 09:03 by Eddy Moya DO) Insomnia Urinary incontinence Skin cancer No pertinent past medical history Surgical History Surgical History No pertinent past surgical history Social History Social History (Updated 03/18/25 @ 18:25 by FORTINO Saldana) Smoking Status: Unknown if ever smoked Do you dip or chew tobacco?: No Do you vape?: No Living arrangement: Assisted living Living Condition: Alone Support Person: Yes Living Situation Details: Recently moved to [place]; is there under Medicaid Has a Durable Power of Program Supervisor for Health Care?: Yes Name / Relationship: Carmina Ribeiro [phone] DPOA on file?: Yes Level: Independent Home Mobility Equipment: Cane Physical - Functional Details: Functional status has been declining Do you feel safe in your home environment?: Yes History of physical, verbal, emotional, or financial abuse?: No ETOH Use: Beer Frequency: Daily Number of drinks/day: 1 Substance Use: cannabis (any form) Retired: Yes 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 POLST Patient has POLST: No Results Lab Results 03/22/25 05:09 03/22/25 05:09 Other Lab Results: Lab Results x24hrs 03/22/25 03/22/25 03/21/25 Range/Units 07:45 05:09 21:03 WBC 11.6 H (4.8-10.8) x10^3/uL RBC 3.14 L (4.70-6.10) 10^6/uL Hgb 7.5 L (14.0-18.0) g/dL Hct 23.9 L (42.0-52.0) % MCV 76.1 L (80.0-94.0) fL MCH 23.9 L (27.0-31.0) pg MCHC 31.4 L (32.0-36.0) g/dL RDW 16.1 H (12.0-15.0) % Plt Count 586 H (130-450) 10^3/uL MPV 10.2 (7.4-11.4) fL Neut # (Auto) 9.3 H (1.5-6.6) 10^3/uL Lymph # (Auto) 1.3 L (1.5-3.5) 10^3/uL [place] # (Auto) 0.6 (0.0-1.0) 10^3/uL Eos # (Auto) 0.2 (0.0-0.7) 10^3/uL Baso # (Auto) 0.1 (0.0-0.1) 10^3/uL Absolute Nucleated RBC 0.00 x10^3/uL Nucleated RBC % 0.0 /100WBC Sodium 138 (135-145) mmol/L Potassium 3.8 (3.5-4.5) mmol/L Chloride 105 (101-111) mmol/L Carbon Dioxide 27 (21-32) mmol/L Anion Gap 6.0 (6-13) BUN 22 H (6-20) mg/dL Creatinine 0.5 L (0.6-1.3) mg/dL Estimated GFR (MDRD) 162 (>89) Glucose 159 H (74-104) mg/dL POC Whole Bld Glucose 154 156 (70-100) mg/dL Calcium 10.0 (8.5-10.3) mg/dL 03/21/25 03/21/25 03/20/25 Range/Units 16:52 11:35 20:51 WBC (4.8-10.8) x10^3/uL RBC (4.70-6.10) 10^6/uL Hgb (14.0-18.0) g/dL Hct (42.0-52.0) % MCV (80.0-94.0) fL MCH (27.0-31.0) pg MCHC (32.0-36.0) g/dL RDW (12.0-15.0) % Plt Count (130-450) 10^3/uL MPV (7.4-11.4) fL Neut # (Auto) (1.5-6.6) 10^3/uL Lymph # (Auto) (1.5-3.5) 10^3/uL [place] # (Auto) (0.0-1.0) 10^3/uL Eos # (Auto) (0.0-0.7) 10^3/uL Baso # (Auto) (0.0-0.1) 10^3/uL Absolute Nucleated RBC x10^3/uL Nucleated RBC % /100WBC Sodium (135-145) mmol/L Potassium (3.5-4.5) mmol/L Chloride (101-111) mmol/L Carbon Dioxide (21-32) mmol/L Anion Gap (6-13) BUN (6-20) mg/dL Creatinine (0.6-1.3) mg/dL Estimated GFR (MDRD) (>89) Glucose (74-104) mg/dL POC Whole Bld Glucose 117 110 200 (70-100) mg/dL Calcium (8.5-10.3) mg/dL Exam Exam Vital Signs: Vital Signs x48h Temp Pulse Resp BP Pulse Ox 03/22/25 08:00 37.0 C 82 14 94/57 L 96 Physical exam directed towards the right hip reveals tenderness to palpation of the right hip he is unable to straight leg raise he has a shortened and externally rotated hip he has good distal pulses good sensation. Conclusion/Plan Problem List (1) Rectal mass: (2) Cachexia: (3) Type 2 diabetes mellitus: Qualifiers: Diabetes mellitus prison insulin use: without prison use Diabetes mellitus complication status: with hyperglycemia Qualified Code(s): E11.65 - Type 2 diabetes mellitus with hyperglycemia (4) Anemia, iron deficiency: Qualifiers: Iron deficiency anemia type: inadequate dietary iron intake Qualified Code(s): D50.8 - Other iron deficiency anemias (5) Intractable back pain: (6) Closed T11 fracture: Qualifiers: Encounter type: initial encounter Fracture morphology: unspecified fracture morphology Qualified Code(s): S22.089A - Unspecified fracture of T11- T12 vertebra, initial encounter for closed fracture (7) Closed right hip fracture: Qualifiers: Encounter type: sequela Qualified Code(s): S72.001S - Fracture of unspecified part of neck of right femur, sequela (8) Leg pain, right: (9) Ground-level fall: (10) Closed T12 fracture: Qualifiers: Encounter type: initial encounter Fracture morphology: unspecified fracture morphology Qualified Code(s): S22.089A - Unspecified fracture of T11- T12 vertebra, initial encounter for closed fracture (11) Leukocytosis: (12) Counseling regarding advanced care planning and goals of care: (13) Malnutrition: Qualifiers: Malnutrition type: protein-calorie malnutrition Protein-calorie malnutrition severity: severe Qualified Code(s): E43 - Unspecified severe protein-calorie malnutrition (14) Closed intertrochanteric fracture of right hip: Plan: I reviewed the x-rays and the patient does have a displaced right intertrochanteric hip fracture. I have recommended intramedullary nail fixation for the right hip and we have this scheduled for today at noon. Lab Results 03/22/25 05:09 03/22/25 05:09
[2025-03-22] MEDS ORDERED: BUPIVACAINE 0.25% PF 30 ML VIAL ONE (13:06)
--- NOTE | 2025-03-22 14:12 | ANESTHESIA PROCEDURE NOTE ---
Pre-Anesthesia VS, & Labs Diagnosis Surgical Diagnosis:: right hip fracture and rectal mass Procedure Procedure: Right IM nailing and biopsy of rectal mass Vitals Vital Signs: Temp Pulse Resp BP Pulse Ox 37.0 C 82 14 94/57 L 96 03/22/25 08:00 03/22/25 08:00 03/22/25 08:00 03/22/25 08:00 03/22/25 08:00 NPO NPO: >8 hours Lab Results Current Lab Results: Laboratory Tests 03/22/25 11:43: POC Whole Bld Glucose 161 03/22/25 07:45: POC Whole Bld Glucose 154 03/22/25 05:09: WBC 11.6 H, RBC 3.14 L, Hgb 7.5 L, Hct 23.9 L, MCV 76.1 L, MCH 23.9 L, MCHC 31.4 L, RDW 16.1 H, Plt Count 586 H, MPV 10.2, Neut # (Auto) 9.3 H, Lymph # (Auto) 1.3 L, Nance # (Auto) 0.6, Eos # (Auto) 0.2, Baso # (Auto) 0.1, Absolute Nucleated RBC 0.00, Nucleated RBC % 0.0, Sodium 138, Potassium 3.8, Chloride 105, Carbon Dioxide 27, Anion Gap 6.0, BUN 22 H, Creatinine 0.5 L, Estimated GFR (MDRD) 162, Glucose 159 H, Calcium 10.0 03/21/25 21:03: POC Whole Bld Glucose 156 03/21/25 16:52: POC Whole Bld Glucose 117 03/21/25 11:35: POC Whole Bld Glucose 110 03/21/25 07:51: POC Whole Bld Glucose 161 03/21/25 05:19: WBC 13.4 H, RBC 3.11 L, Hgb 7.3 L, Hct 23.3 L, MCV 74.9 L, MCH 23.5 L, MCHC 31.3 L, RDW 15.7 H, Plt Count 603 H, MPV 10.3, Neut # (Auto) 10.9 H , Lymph # (Auto) 1.5, Nance # (Auto) 0.6, Eos # (Auto) 0.3, Baso # (Auto) 0.1, Absolute Nucleated RBC 0.00, Nucleated RBC % 0.0, Sodium 136, Potassium 3.7, Chloride 104, Carbon Dioxide 26, Anion Gap 6.0, BUN 23 H, Creatinine 0.4 L, Estimated GFR (MDRD) 209, Glucose 156 H, Calcium 9.7 03/20/25 20:51: POC Whole Bld Glucose 200 03/20/25 16:48: POC Whole Bld Glucose 168 03/20/25 11:18: POC Whole Bld Glucose 187 03/20/25 07:49: POC Whole Bld Glucose 169 03/20/25 04:07: WBC 16.7 H, RBC 3.21 L, Hgb 7.4 L, Hct 24.5 L, MCV 76.3 L, MCH 23.1 L, MCHC 30.2 L, RDW 15.1 H, Plt Count 658 H, MPV 10.4, Neut # (Auto) 14.2 H , Lymph # (Auto) 1.5, Nance # (Auto) 0.7, Eos # (Auto) 0.2, Baso # (Auto) 0.1, Absolute Nucleated RBC 0.00, Nucleated RBC % 0.0, Sodium 134 L, Potassium 3.3 L, Chloride 102, Carbon Dioxide 26, Anion Gap 6.0, BUN 20, Creatinine 0.3 L, Estimated GFR (MDRD) 291, Glucose 140 H, Calcium 10.0 03/19/25 20:58: POC Whole Bld Glucose 230 03/19/25 16:40: POC Whole Bld Glucose 333 03/19/25 11:47: POC Whole Bld Glucose 405 03/19/25 07:34: POC Whole Bld Glucose 386 03/19/25 04:07: WBC 11.5 H, RBC 3.22 L, Hgb 7.6 L, Hct 24.0 L, MCV 74.5 L, MCH 23.6 L, MCHC 31.7 L, RDW 14.6, Plt Count 633 H, MPV 10.3, Sodium 135, Potassium 3.5, Chloride 100 L, Carbon Dioxide 28, Anion Gap 7.0, BUN 14, Creatinine 0.4 L, Estimated GFR (MDRD) 209, Glucose 382 H, Calcium 10.0, Magnesium 1.7, Total Bilirubin 0.3, AST 11, ALT 11, Alkaline Phosphatase 92, Total Protein 6.1 L, A lbumin 3.0 L, Globulin 3.1, Albumin/Globulin Ratio 1.0 03/18/25 20:52: POC Whole Bld Glucose 303 03/18/25 16:41: POC Whole Bld Glucose 241 03/18/25 16:22: Hgb 8.2 L, Hct 26.7 L 03/18/25 11:19: POC Whole Bld Glucose 240 03/18/25 08:33: Carcinoembryonic Ag 76.0, Blood Type O POSITIVE, Antibody Screen NEGATIVE, Crossmatch IS Only See Detail 03/18/25 07:42: POC Whole Bld Glucose 199 03/18/25 07:41: WBC 9.8, RBC 2.67 L, Hgb 6.1 L*, Hct 19.4 L*, MCV 72.7 L, MCH 22.8 L, MCHC 31.4 L, RDW 14.3, Plt Count 590 H, MPV 9.9, Sodium 135, Potassium 3.3 L, Chloride 102, Carbon Dioxide 28, Anion Gap 5.0 L, BUN 13, Creatinine 0.4 L, Estimated GFR (MDRD) 209, Glucose 215 H, Calcium 9.9, Magnesium 1.7, Ferritin 35.2, Total Bilirubin 0.4, AST 11, ALT 12, Alkaline Phosphatase 80, Total Protein 5.9 L, Albumin 3.0 L, Globulin 2.9, Albumin/Globulin Ratio 1.0, Blood Type Recheck O POSITIVE 03/17/25 21:36: POC Whole Bld Glucose 275 03/17/25 03:17: WBC 9.0, RBC 3.27 L, Hgb 7.5 L, Hct 24.1 L, MCV 73.7 L, MCH 22.9 L, MCHC 31.1 L, RDW 14.2, Plt Count 701 H, MPV 9.4, Neut # (Auto) 7.0 H, Lymph # (Auto) 1.2 L, Nance # (Auto) 0.3, Eos # (Auto) 0.1, Baso # (Auto) 0.0, Absolute Nucleated RBC 0.00, Nucleated RBC % 0.0, Sodium 135, Potassium 3.8, Chloride 100 L, Carbon Dioxide 28, Anion Gap 7.0, BUN 13, Creatinine 0.5 L, Estimated GFR (MDRD) 162, Glucose 256 H, Estimat Average Glucose 212 H, Hemoglobin A1c % 9.0 H , Calcium 10.8 H, Iron < 10 L, TIBC 361, % Saturation TNP, Transferrin 258, Total Bilirubin 0.4, AST 15, ALT 17, Alkaline Phosphatase 103, Total Protein 7.2, Albumin 3.6, Globulin 3.6, Albumin/Globulin Ratio 1.0 Lab results reviewed: Yes 03/22/25 05:09 03/22/25 05:09 Meds/Allgy Home Medications Ambulatory Orders Medication Instructions Recorded Confirmed loperamide 2 mg tablet 2 mg PO PRN PRN loose stool 03/18/25 03/18/25 Allergies Allergies Allergy/AdvReac Type Severity Reaction Status Date / Time No Known Drug Allergies Allergy Verified 03/17/25 03:20 PFSH Active Problems All Active Problems Closed intertrochanteric fracture of right hip (Acute) Malnutrition (Acute) Closed right hip fracture (Acute) Leukocytosis (Acute) Type 2 diabetes mellitus (Acute) Counseling regarding advanced care planning and goals of care (Acute) Closed T12 fracture (Acute) Closed T11 fracture (Acute) Intractable back pain (Acute) Anemia, iron deficiency (Acute) Rectal mass (Acute) Compression fracture of vertebral column (Acute) Cachexia (Acute) Leg pain, right (Acute) Ground-level fall (Acute) Medical History Medical History Insomnia Urinary incontinence Skin cancer No pertinent past medical history Surgical History Surgical History No pertinent past surgical history Social History Social History Smoking Status: Unknown if ever smoked Do you dip or chew tobacco?: No Do you vape?: No Living arrangement: Assisted living Living Condition: Alone Support Person: Yes Living Situation Details: Recently moved to [place]; is there under Medicaid Has a Durable Power of Reliability Technician for Health Care?: Yes Name / Relationship: Carmina Ribeiro [phone] DPOA on file?: Yes Level: Independent Home Mobility Equipment: Cane Physical - Functional Details: Functional status has been declining Do you feel safe in your home environment?: Yes History of physical, verbal, emotional, or financial abuse?: No ETOH Use: Beer Frequency: Daily Number of drinks/day: 1 Substance Use: cannabis (any form) Retired: 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 Patient has POLST: No POLST CPR Status: Attempt Resuscitation (CPR) Level of Medical Intervention: Full Treatment Anesthesia Exam (Expanded) Exam General: Alert, Oriented x3 and Cooperative Dental: Dentures full Upper and Partials Lower Mouth Openin Fingerbreadth Neck Mobility: Reduced Mallampati classification: III Thyromental Distance: 4-6 cm Exam Exam Vital Signs: Vital Signs x48h Temp Pulse Resp BP Pulse Ox 03/22/25 08:00 37.0 C 82 14 94/57 L 96 Plan Plan Anesthesia Type: General Consent for Procedure(s) Verified and Reviewed: Yes Code Status: Attempt Resuscitation ASA Classification ASA classification: 4-Incapacitating disease Is this case an emergency?: Yes
[2025-03-22] MEDS ORDERED: HYDROmorphone 0.5 MG/0.5 ML SYRINGE IVP PRN (14:13)
[2025-03-22] MEDS ORDERED: ONDANSETRON 4 MG/2 ML VIAL IVP PRN (14:13)
[2025-03-22] MEDS ORDERED: ATROPINE ABBOJECT 1 MG/10 ML SYRINGE IVP PRN (14:13)
[2025-03-22] MEDS ORDERED: MORPHINE 2 MG/ML CARPUJECT IVP PRN (14:13)
[2025-03-22] MEDS ORDERED: NALOXONE 0.4 MG/ML VIAL IVP PRN (14:13)
[2025-03-22] MEDS ORDERED: fentaNYL 100 MCG/2 ML VIAL IVP PRN (14:13)
[2025-03-22] MEDS ORDERED: PROPOFOL 200 MG/20 ML VIAL IVP ONE (14:17)
[2025-03-22] MEDS ORDERED: fentaNYL 100 MCG/2 ML VIAL ONE ×2 (14:17→15:03)
[2025-03-22] MEDS ORDERED: PHENYLEPHRINE 10 MG/ML VIAL ONE (14:24)
[2025-03-22] MEDS ORDERED: HYDROmorphone 1 MG/ML CARPUJECT ONE (14:51)
[2025-03-22] MEDS ORDERED: ONDANSETRON 4 MG/2 ML VIAL ONE (15:23)
[2025-03-22] MEDS ORDERED: LABETALOL 20 MG/4 ML SYRINGE IVP ONE (16:27)
[2025-03-22] MEDS: LABETALOL 20 MG/4 ML SYRINGE IVP ONE (16:30)
[2025-03-22] MEDS: LACTATED RINGERS 1,000 ML IV SCH (16:34)
[2025-03-22] MEDS ORDERED: LABETALOL 20 MG/4 ML SYRINGE IVP PRN (16:35)
--- NOTE | 2025-03-22 16:48 | ANESTHESIA POST OP EVALUATION ---
Anesthesia Post Eval Post Anesthesia Eval Vitals: Last Vital Signs Temp 36.4 C L 03/22/25 16:30 Pulse 68 03/22/25 16:40 Resp 14 03/22/25 16:40 BP 164/91 H 03/22/25 16:40 Pulse Ox 93 03/22/25 16:40 CV Function Including HR & BP: Stable Pain Control: Satisfactory Nausea & Vomiting: Negative Mental Status: Baseline Respiratory Status: Airway Patent Hydration Status: Satisfactory Anesthesia Complications: None
[2025-03-22] MEDS ORDERED: SODIUM CHLORIDE FLUSH 0.9% 10 ML SYRINGE IVP PRN (17:10)
[2025-03-23] MEDS: SODIUM CHLORIDE FLUSH 0.9% 10 ML SYRINGE IVP SCH (01:03)
[2025-03-23 05:47] LABS: HCT - HEMATOCRIT 20.4 % (42.0-52.0); MEAN PLATELET VOLUME 9.8 fL (7.4-11.4); NRBC ABSOLUTE COUNT (AUTO) 0.00 x10^3/uL; NUCLEATED RED BLOOD CELLS AUTO 0.0 /100WBC; PLT - PLATELET COUNT 561 10^3/uL (130-450); RED CELL DISTRIBUTION WIDTH 16.2 % (12.0-15.0)
[2025-03-23 05:50] LABS: HGB - HEMOGLOBIN 6.3 g/dL (14.0-18.0)
[2025-03-23 06:07] LABS: BUN - BLOOD UREA NITROGEN 18.0 mg/dL (6-20); CARBON DIOXIDE - CO2 27.0 mmol/L (21-32); CREATININE 0.4 mg/dL (0.6-1.3); GFR - MDRD 209.0 (>89)
--- NOTE | 2025-03-23 08:46 | PROVIDER PROGRESS NOTE ---
Subjective Prog Note Date Prog Note Date: 03/23/25 Prog Note Time: 08:45 Subjective Subjective: Clinically stable. Was able to tolerate both of his procedures yesterday. Had repeat biopsy completed with good sampling and direct visual observation and proctoscopy. Additionally had his hip repair yesterday, minimal blood loss noted from this during procedure (estimated 50 cc). He did have more bleeding from his biopsy yesterday. This morning his hemoglobin is again less than 7. He is receiving an additional transfusion this morning. Will recheck later this afternoon and possibly give a second unit. Vital signs otherwise stable. His BP is 114/56 this morning. Pulse 77. Afebrile and satting well on room air. He feels great. His pain is improved dramatically in his right hip. Unfortunately no PT is planned to see today. Will remove his weightbearing precautions. Will remain standby assist with the nursing staff. He is having some residual urinary retention this morning. He received a straight cath x 1 for 589 cc retained. Current Medications Current Medications Current Medications: Current Medications Generic Name Dose Route Start Last Admin Trade Name Romie PRN Reason Stop Dose Admin Acetaminophen 1,000 mg 03/17/25 22:00 03/23/25 05:54 Acetaminophen 500 Mg Tablet PO 1,000 mg TID [facility] Administration Docusate Sodium 250 - 500 mg 03/18/25 21:00 03/22/25 08:09 Docusate Sodium 250 Mg Capsule PO Not Given DAILY [facility] Enoxaparin Sodium 40 mg 03/23/25 09:00 Enoxaparin 40 Mg/0.4 Ml Syringe SUBQ DAILY [facility] Ferrous Sulfate 325 mg 03/20/25 08:00 03/22/25 08:05 Ferrous Sulfate 325 Mg Tablet PO 325 mg DAILYWM JUJU Administration Insulin Glargine-yfgn 15 unit 03/20/25 09:00 03/22/25 08:11 Insulin Glargine-Yfgn 300 Unit/3 Ml Pen SUBQ Not Given QDBREAKFAST [facility] Insulin Human Lispro 1 - 9 unit 03/20/25 12:00 03/22/25 20:33 Insulin Lispro 300 Unit/3 Ml Pen SUBQ Not Given 0800,1200,1700,2100 [facility] Protocol Insulin Human Lispro 5 unit 03/22/25 08:00 03/22/25 17:10 Insulin Lispro 300 Unit/3 Ml Pen SUBQ Not Given TIDWM JUJU Labetalol HCl 5 mg 03/22/25 16:35 Labetalol 20 Mg/4 Ml Syringe IVP 03/23/25 16:35 Q5M PRN SBP >180 Lidocaine 1 patch 03/20/25 09:00 03/22/25 08:08 Lidocaine Patch 4% TOP 1 patch DAILY [facility] Administration Mirtazapine 15 mg 03/19/25 21:00 03/22/25 20:22 Mirtazapine 15 Mg Tablet PO 15 mg QPM [facility]UJU Administration Multivitamins/Minerals 1 tab 03/18/25 17:00 03/22/25 08:05 Multivitamin W/Minerals Tablet PO 1 tab DAILYWM JUJU Administration Ondansetron HCl 4 mg 03/17/25 17:26 Ondansetron Odt 4 Mg Tablet TL Q6HR PRN Nausea / Vomiting Ondansetron HCl 4 mg 03/17/25 17:26 Ondansetron 4 Mg/2 Ml Vial IVP Q6HR PRN Nausea / Vomiting Oxycodone HCl 5 mg 03/17/25 17:26 03/23/25 05:54 Oxycodone 5 Mg Tablet PO 5 mg Q4HR PRN Administration Pain 5 to 7 Pantoprazole Sodium 40 mg 03/18/25 16:00 03/23/25 05:54 Pantoprazole 40 Mg Tablet PO 40 mg BIDAC JUJU Administration Polyethylene Glycol 17 gm 03/19/25 09:00 03/22/25 08:09 Polyethylene Glycol 3350 17 Gm Packet PO Not Given DAILY [facility]U Sodium Chloride 10 ml 03/17/25 17:26 Sodium Chloride Flush 0.9% 10 Ml Syringe IVP PRN PRN NEEDED PER PROVIDER ORDERS Sodium Chloride 10 ml 03/18/25 01:00 03/23/25 01:02 Sodium Chloride Flush 0.9% 10 Ml Syringe IVP 10 ml 0100,0900,1700 [facility]UJU Administration Sodium Chloride 10 ml 03/22/25 17:10 Sodium Chloride Flush 0.9% 10 Ml Syringe IVP PRN PRN NEEDED PER PROVIDER ORDERS Sodium Chloride 10 ml 03/23/25 01:00 03/23/25 01:03 Sodium Chloride Flush 0.9% 10 Ml Syringe IVP Not Given 0100,0900,1700 JUJU Objective Vital Signs/Intake & Output Reviewed Vital Signs: Yes Vital Signs: Vital Signs x48h Temp Pulse Resp BP Pulse Ox 03/23/25 07:52 36.6 C 77 16 114/56 L 97 03/23/25 07:32 36.6 C 75 16 106/56 L 98 03/23/25 07:31 36.6 C 16 106/56 L 98 03/23/25 03:25 36.8 C 82 14 154/71 H 96 Intake & Output: Intake & Output 03/20/25 03/21/25 03/22/25 03/23/25 23:59 23:59 23:59 23:59 Intake Total 970 / 970 1577 / 1577 1867 / 1867 100 / 100 Output Total 675 / 675 1100 / 1100 1200 / 1200 575 / 575 Balance 295 / 295 477 / 477 667 / 667 -475 / -475 Weight (kg) 54 kg Objective Comments/Other: GEN: Frail, cachectic. NAD. Sleepy this morning. HEENT: NC/AT, normal appearance of external ears and nose. Hearing baseline. Cardiac: Regular rate and rhythm, no murmurs. Pulm: Lungs CTA bilaterally, no cough, no wheezes. Normal effort on room air Abdomen: Soft, nontender, nondistended. Extremities: Dressing intact RLE, CDI. Moves all extremities equally. Improved pain in R hip. Neuro: Face symmetric, CN II through XII intact grossly. No focal deficits. Psych: Mood euthymic, affect congruent. Poor insight. Lab Results 03/23/25 05:35 03/23/25 05:35 Other Labs: Lab Results x24hrs 03/23/25 03/22/25 03/22/25 Range/Units 05:35 20:24 17:06 WBC 9.2 (4.8-10.8) x10^3/uL RBC 2.72 L (4.70-6.10) 10^6/uL Hgb 6.3 L* (14.0-18.0) g/dL Hct 20.4 L (42.0-52.0) % MCV 75.0 L (80.0-94.0) fL MCH 23.2 L (27.0-31.0) pg MCHC 30.9 L (32.0-36.0) g/dL RDW 16.2 H (12.0-15.0) % Plt Count 561 H (130-450) 10^3/uL MPV 9.8 (7.4-11.4) fL Neut # (Auto) 7.5 H (1.5-6.6) 10^3/uL Lymph # (Auto) 1.1 L (1.5-3.5) 10^3/uL Thurston # (Auto) 0.6 (0.0-1.0) 10^3/uL Eos # (Auto) 0.0 (0.0-0.7) 10^3/uL Baso # (Auto) 0.1 (0.0-0.1) 10^3/uL Absolute Nucleated RBC 0.00 x10^3/uL Nucleated RBC % 0.0 /100WBC Sodium 137 (135-145) mmol/L Potassium 4.0 (3.5-4.5) mmol/L Chloride 104 (101-111) mmol/L Carbon Dioxide 27 (21-32) mmol/L Anion Gap 6.0 (6-13) BUN 18 (6-20) mg/dL Creatinine 0.4 L (0.6-1.3) mg/dL Estimated GFR (MDRD) 209 (>89) Glucose 169 H (74-104) mg/dL POC Whole Bld Glucose 150 134 (70-100) mg/dL Calcium 9.5 (8.5-10.3) mg/dL Blood Type O POSITIVE Antibody Screen NEGATIVE Crossmatch IS Only See Detail 03/22/25 Range/Units 11:43 WBC (4.8-10.8) x10^3/uL RBC (4.70-6.10) 10^6/uL Hgb (14.0-18.0) g/dL Hct (42.0-52.0) % MCV (80.0-94.0) fL MCH (27.0-31.0) pg MCHC (32.0-36.0) g/dL RDW (12.0-15.0) % Plt Count (130-450) 10^3/uL MPV (7.4-11.4) fL Neut # (Auto) (1.5-6.6) 10^3/uL Lymph # (Auto) (1.5-3.5) 10^3/uL [place] # (Auto) (0.0-1.0) 10^3/uL Eos # (Auto) (0.0-0.7) 10^3/uL Baso # (Auto) (0.0-0.1) 10^3/uL Absolute Nucleated RBC x10^3/uL Nucleated RBC % /100WBC Sodium (135-145) mmol/L Potassium (3.5-4.5) mmol/L Chloride (101-111) mmol/L Carbon Dioxide (21-32) mmol/L Anion Gap (6-13) BUN (6-20) mg/dL Creatinine (0.6-1.3) mg/dL Estimated GFR (MDRD) (>89) Glucose (74-104) mg/dL POC Whole Bld Glucose 161 (70-100) mg/dL Calcium (8.5-10.3) mg/dL Blood Type Antibody Screen Crossmatch IS Only Assessment/Plan Problem List (1) Rectal mass: (2) Cachexia: Impression: Re-biopsied 03/22. Some bleeding during procedure. No ongoing rectal bleeding. Anemia as below Presented with unplanned unexplained weight loss, cachexia, chronic diarrhea. Found to have a large rectal mass which was biopsied by general surgery on 03/17 and again 03/22. 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 CT shows bony sclerosis thought to be metastases. No evident nodes. Continues to have bowel function. Possibility he may need diverting colostomy if he obstructs from his rectal mass given its size. Keeping stools soft. Patient requests fiber supplement as he feels miralax causes too much diarrhea. He's been counseled on maintaining adequate hydration. He appears cachectic. His biopsy returned as negative for neoplasm on 03/21. CEA was elevated at 76. POLST completed with palliative care on 03/21, DNR/selective intervention - Will need follow-up with oncology to review pathology - Iron deficiency anemia as below - Daily fiber supplement - Surgery following peripherally - Palliative care is following as well, appreciate their insights and recommendation. - Should continue following with palliative postdischarge, added to discharge instructions (3) Type 2 diabetes mellitus: Impression: Blood glucose continue to be stable on below regimen. Patient is eating well, ate full breakfast 03/23. T2DM is a new diagnosis for this patient. A1c was elevated on admission at 9.0. Blood sugars have remained persistently elevated in the 200-300 range. Started him on long-acting and mealtime insulin today 03/19. Have been increasing dosage as his blood sugars have remained difficult to control. Received glargine 10 units every morning today - Glargine 15 units every morning - Lispro 5 units before every meal with MD REYNOSO - Ideally would not discharge on insulin, consider SGLT2i plus metformin, but if pt going to SNF, insulin may be fine. 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 Hemoglobin 6.3. No signs of active bleeding from his rectum or from his surgical wound Had an episode of anemia requiring transfusion on 03/18. Found to have iron deficiency, ferritin 35. Likely mix of MAGDALENA and anemia of chronic disease. - Transfusing 1 unit PRBC this morning - Repeat CBC at 1300 and in a.m., transfuse Hgb less than 7 - Will need weekly hemoglobin monitoring at [facility] - Continue oral iron supplementation Qualifiers: Iron deficiency anemia type: inadequate dietary iron intake Qualified Code(s): D50.8 - Other iron deficiency anemias (5) Closed T11 fracture: Qualifiers: Encounter type: initial encounter Fracture morphology: unspecified fracture morphology Qualified Code(s): S22.089A - Unspecified fracture of T11- T12 vertebra, initial encounter for closed fracture (6) Closed right hip fracture: Qualifiers: Encounter type: sequela Qualified Code(s): S72.001S - Fracture of unspecified part of neck of right femur, sequela (7) Ground-level fall: (8) Closed T12 fracture: Impression: Tolerated procedure well with minimal blood loss. s/p operative repair on 03/22. Op note pending, but reportedly minimal blood loss (50 cc) with good result. Patient has a right intertrochanteric femur fracture. Discussed his case with orthopedic surgery on 03/21. Dr. Moya believes that patient may benefit from operative repair, likely posting. Presented following a ground-level fall. Has persistent right hip pain as well as persistent back pain. Found on imaging to have subacute appearing T11 and T12 compression deformities. Multiple areas of bony sclerosis of the ribs. Possible metastatic lesions in the spine contributing to his compression fractures. When working with PT on 03/19, he was unable to bear weight to his right lower extremity. On review of his imaging, he likely had a nondisplaced fracture that is now more displaced. And comminuted making it more apparent. - Weightbearing as tolerated per my discussion with surgery - Will need PT reeval on 03/24 - Otherwise med ready for SNF, insurance authorization pending at [facility] - Continue scheduled Tylenol with as needed oxycodone - Lidocaine patch available as needed - Continue VTE prophylaxis with Lovenox while in house, transition to 162 mg ASA daily thereafter Qualifiers: Encounter type: initial encounter Fracture morphology: unspecified fracture morphology Qualified Code(s): S22.089A - Unspecified fracture of T11- T12 vertebra, initial encounter for closed fracture (9) Leukocytosis: Impression: Leukocytosis downtrended off antibiotics. 16.7 > 9.2. Unclear etiology overall. He is not febrile. No other vital signs abnormalities. Urine without evidence of infection. Chest x-ray without consolidation. Consider may be malignancy related versus related to his fracture in his leg. Further commutation of that may have mobilized more neutrophils. - Continue to monitor off antibiotics - Follow-up blood cultures from 03/21, [facility] - CBC as above (10) Counseling regarding advanced care planning and goals of care: (11) Malnutrition: Impression: Increased protein need following surgery. His wounds are healing expectedly 24 hours after surgery. Patient has severe protein calorie malnutrition present on arrival likely secondary to his increased metabolic demand from his cancer as well as poor diet in the community. He reports not liking the food at [place] that much. He has signs of obvious muscle wasting, loss of subcutaneous fat. Temporal wasting. He reported up to 80 pounds of weight loss over the last couple of years unplanned. At least 14% of verifiable weight loss over the last year. - Appreciate nutrition involvement - Continue protein supplements. - Remeron started 03/19, tolerating well Qualifiers: Malnutrition type: protein-calorie malnutrition Protein-calorie malnutrition severity: severe Qualified Code(s): E43 - Unspecified severe protein-calorie malnutrition
[2025-03-23] MEDS: ENOXAPARIN 40 MG/0.4 ML SYRINGE SUBQ SCH (08:51)
--- NOTE | 2025-03-23 10:31 | PROVIDER PROGRESS NOTE ---
Subjective General Admit Date: 03/18/25 Procedure Date: 03/22/25 Post Op Days: 1 Procedure Performed: Flexible sigmoidoscopy with biopsy of rectal mass Other Other Information/Narrative: Doing well this morning, states he is having pain from his hip fracture but otherwise doing well. No bloody bowel movements overnight and no rectal pain this AM. Review of Systems Status of ROS: 10 or more systems reviewed and unremarkable except as noted in history and below Exam Exam Vital Signs: Vital Signs x48h Temp Pulse Resp BP BP Pulse Ox 03/23/25 07:52 36.5 C 80 16 115/59 L 95 03/23/25 07:52 36.6 C 77 16 114/56 L 97 03/23/25 07:32 36.6 C 75 16 106/56 L 98 03/23/25 07:31 36.6 C 16 106/56 L 98 03/23/25 03:25 36.8 C 82 14 154/71 H 96 Constitutional no apparent distress HENMT normocephalic and head/scalp atraumatic Eyes conjunctivae normal and no scleral icterus Neck/C-Spine visual inspection normal Respiratory normal respiratory effort Cardiovascular normal heart rate noted and regular rhythm noted Gastrointestinal abdomen normal to inspection and abdomen soft to palpation Extremities Right hip dressing in place Neurology GCS 15 Psychiatry cooperative and affect normal Skin skin color normal Impression/Plan Problem List (1) Rectal mass: Plan: 75 yo M who presented with a right hip fracture and was discovered to have rectal mass on CT and underwent bedside rectal mass biopsy with pathology returning as non-diagnostic. He subsequently underwent R hip IM nail yesterday with ortho and immediately after the procedure I performed a flex sig with r ectal mass biopsy, the mass was noted to have some bleeding after biopsy so Gel foam was placed in the rectum. Doing well this morning with no rectal pain and no bloody BM overnight, Hgb down to 6.3 so recieving blood this AM. - Await pathology results - Diet as tolerated - Pain control as needed - Rest of care per primary - Surgery will follow peripherally for path results
[2025-03-23 13:13] LABS: HCT - HEMATOCRIT 25.4 % (42.0-52.0); HGB - HEMOGLOBIN 7.9 g/dL (14.0-18.0); MEAN PLATELET VOLUME 10.3 fL (7.4-11.4); PLT - PLATELET COUNT 657.0 10^3/uL (130-450); RED CELL DISTRIBUTION WIDTH 16.1 % (12.0-15.0)
--- NOTE | 2025-03-23 13:17 | XRAY Report ---
PROCEDURE: [place] OR C-Arm Procedure INDICATIONS: RIGHT HIP NAIL TECHNIQUE: Intraoperative views of the right hip were acquired. COMPARISON: None. FINDINGS/IMPRESSION: Intraoperative views of the right hip during ORIF. Please refer to operative note. Reviewed by: Giovanny Reyes MD on 03/23/2025 1:13 PM PDT Approved by: Giovanny Reyes MD on 03/23/2025 1:13 PM PDT Station ID: [id number]
[2025-03-24 06:23] LABS: HCT - HEMATOCRIT 23.9 % (42.0-52.0); HGB - HEMOGLOBIN 7.3 g/dL (14.0-18.0); MEAN PLATELET VOLUME 10.1 fL (7.4-11.4); NRBC ABSOLUTE COUNT (AUTO) 0.00 x10^3/uL; NUCLEATED RED BLOOD CELLS AUTO 0.0 /100WBC; PLT - PLATELET COUNT 580 10^3/uL (130-450); RED CELL DISTRIBUTION WIDTH 16.0 % (12.0-15.0)
[2025-03-24 06:43] LABS: BUN - BLOOD UREA NITROGEN 16.0 mg/dL (6-20); CARBON DIOXIDE - CO2 27.0 mmol/L (21-32); CREATININE 0.4 mg/dL (0.6-1.3); GFR - MDRD 209.0 (>89)
[2025-03-24] MEDS: PSYLLIUM PACKET PO SCH (08:45)
--- NOTE | 2025-03-24 10:04 | PROVIDER PROGRESS NOTE ---
Subjective Prog Note Date Prog Note Date: 03/24/25 Prog Note Time: 09:52 Subjective Subjective: No acute events overnight. Patient remains clinically stable. His hemoglobin is remaining stable this morning. Patient is feeling okay this morning. He says that his pain is improved. He was able to sleep somewhat better last night. He states "I am able to not really think about my leg", which is the first time for him this hospitalization. Discussed his case with orthopedic surgery, they feel he is improving expectedly. Discussed with general surgery, they are following peripherally. Patient denies any fevers/chills, chest pain, dyspnea, abdominal pain, nausea or vomiting. Patient and nursing both deny any hematochezia. Current Medications Current Medications Current Medications: Current Medications Generic Name Dose Route Start Last Admin Trade Name Romie PRN Reason Stop Dose Admin Acetaminophen 1,000 mg 03/17/25 22:00 03/24/25 06:28 Acetaminophen 500 Mg Tablet PO 1,000 mg TID JUJU Administration Docusate Sodium 250 - 500 mg 03/18/25 21:00 03/24/25 08:43 Docusate Sodium 250 Mg Capsule PO 500 mg DAILY JUJU Administration Enoxaparin Sodium 40 mg 03/23/25 09:00 03/24/25 08:44 Enoxaparin 40 Mg/0.4 Ml Syringe SUBQ 40 mg DAILY JUJU Administration Ferrous Sulfate 325 mg 03/20/25 08:00 03/24/25 08:44 Ferrous Sulfate 325 Mg Tablet PO 325 mg DAILYWM JUJU Administration Insulin Glargine-yfgn 15 unit 03/20/25 09:00 03/24/25 08:47 Insulin Glargine-Yfgn 300 Unit/3 Ml Pen SUBQ 15 unit [id number] JUJU Administration Insulin Human Lispro 1 - 9 unit 03/20/25 12:00 03/24/25 08:48 Insulin Lispro 300 Unit/3 Ml Pen SUBQ 3 unit 0800,1200,1700,2100 JUJU Administration Protocol Insulin Human Lispro 5 unit 03/22/25 08:00 03/24/25 08:48 Insulin Lispro 300 Unit/3 Ml Pen SUBQ 5 unit TIDWM JUJU Administration Lidocaine 1 patch 03/20/25 09:00 03/24/25 08:44 Lidocaine Patch 4% TOP 1 patch DAILY JUJU Administration Mirtazapine 15 mg 03/19/25 21:00 03/23/25 21:00 Mirtazapine 15 Mg Tablet PO 15 mg QPM JUJU Administration Multivitamins/Minerals 1 tab 03/18/25 17:00 03/24/25 08:44 Multivitamin W/Minerals Tablet PO 1 tab DAILYWM JUJU Administration Ondansetron HCl 4 mg 03/17/25 17:26 Ondansetron Odt 4 Mg Tablet TL Q6HR PRN Nausea / Vomiting Ondansetron HCl 4 mg 03/17/25 17:26 Ondansetron 4 Mg/2 Ml Vial IVP Q6HR PRN Nausea / Vomiting Oxycodone HCl 5 mg 03/17/25 17:26 03/23/25 23:51 Oxycodone 5 Mg Tablet PO 5 mg Q4HR PRN Administration Pain 5 to 7 Pantoprazole Sodium 40 mg 03/18/25 16:00 03/24/25 06:28 Pantoprazole 40 Mg Tablet PO 40 mg BIDAC JUJU Administration Polyethylene Glycol 17 gm 03/19/25 09:00 03/24/25 08:45 Polyethylene Glycol 3350 17 Gm Packet PO Not Given DAILY JUJU Psyllium Hydrophilic Mucilloid 1 packet 03/24/25 09:00 03/24/25 08:45 Psyllium Packet PO Not Given DAILY JUJU Sodium Chloride 10 ml 03/17/25 17:26 Sodium Chloride Flush 0.9% 10 Ml Syringe IVP PRN PRN NEEDED PER PROVIDER ORDERS Sodium Chloride 10 ml 03/18/25 01:00 03/24/25 08:45 Sodium Chloride Flush 0.9% 10 Ml Syringe IVP 10 ml 0100,0900,1700 JUJU Administration Sodium Chloride 10 ml 03/22/25 17:10 Sodium Chloride Flush 0.9% 10 Ml Syringe IVP PRN PRN NEEDED PER PROVIDER ORDERS Sodium Chloride 10 ml 03/23/25 01:00 03/24/25 08:49 Sodium Chloride Flush 0.9% 10 Ml Syringe IVP 10 ml 0100,0900,1700 JUJU Administration Objective Vital Signs/Intake & Output Reviewed Vital Signs: Yes Vital Signs: Vital Signs x48h Temp Pulse Resp BP Pulse Ox 03/24/25 08:00 36.7 C 87 18 129/77 97 Intake & Output: Intake & Output 03/21/25 03/22/25 03/23/2503/24/25 23:59 23:59 23:59 22:59 Intake Total 1577 / 1577 1867 / 1867 1860 / 1860 200 / 200 Output Total 1100 / 1100 1200 / 1200 875 / 875 1925 / 1925 Balance 477 / 477 667 / 667 985 / 985 -1725 / -1725 Weight (kg) 54 kg Objective Comments/Other: GEN: Frail, cachectic. NAD. Rouses easily. HEENT: NC/AT, normal appearance of external ears and nose. Hearing baseline. Cardiac: Regular rate and rhythm, no murmurs. Pulm: Lungs CTA bilaterally, no cough, no wheezes. Normal effort on room air Abdomen: Soft, nontender, nondistended. Extremities: Dressing intact RLE, CDI. Moves all extremities equally. Improved pain in R hip. Neuro: Face symmetric, CN II through XII intact grossly. No focal deficits. Psych: Mood euthymic, affect congruent. Reasonable historian. Judgment intact. Lab Results 03/24/25 05:47 03/24/25 05:47 Other Labs: Lab Results x24hrs 03/24/25 03/24/25 03/23/25 Range/Units 07:42 05:47 20:55 WBC 8.8 (4.8-10.8) x10^3/uL RBC 3.11 L (4.70-6.10) 10^6/uL Hgb 7.3 L (14.0-18.0) g/dL Hct 23.9 L (42.0-52.0) % MCV 76.8 L (80.0-94.0) fL MCH 23.5 L (27.0-31.0) pg MCHC 30.5 L (32.0-36.0) g/dL RDW 16.0 H (12.0-15.0) % Plt Count 580 H (130-450) 10^3/uL MPV 10.1 (7.4-11.4) fL Neut # (Auto) 6.7 H (1.5-6.6) 10^3/uL Lymph # (Auto) 1.1 L (1.5-3.5) 10^3/uL [place] # (Auto) 0.7 (0.0-1.0) 10^3/uL Eos # (Auto) 0.2 (0.0-0.7) 10^3/uL Baso # (Auto) 0.1 (0.0-0.1) 10^3/uL Absolute Nucleated RBC 0.00 x10^3/uL Nucleated RBC % 0.0 /100WBC Sodium 133 L (135-145) mmol/L Potassium 4.2 (3.5-4.5) mmol/L Chloride 102 (101-111) mmol/L Carbon Dioxide 27 (21-32) mmol/L Anion Gap 4.0 L (6-13) BUN 16 (6-20) mg/dL Creatinine 0.4 L (0.6-1.3) mg/dL Estimated GFR (MDRD) 209 (>89) Glucose 181 H (74-104) mg/dL POC Whole Bld Glucose 187 230 (70-100) mg/dL Calcium 10.0 (8.5-10.3) mg/dL Crossmatch IS Only 03/23/25 03/23/25 03/23/25 Range/Units 16:43 13:04 11:59 WBC 8.5 (4.8-10.8) x10^3/uL RBC 3.21 L (4.70-6.10) 10^6/uL Hgb 7.9 L (14.0-18.0) g/dL Hct 25.4 L (42.0-52.0) % MCV 79.1 L (80.0-94.0) fL MCH 24.6 L (27.0-31.0) pg MCHC 31.1 L (32.0-36.0) g/dL RDW 16.1 H (12.0-15.0) % Plt Count 657 H (130-450) 10^3/uL MPV 10.3 (7.4-11.4) fL Neut # (Auto) (1.5-6.6) 10^3/uL Lymph # (Auto) (1.5-3.5) 10^3/uL [place] # (Auto) (0.0-1.0) 10^3/uL Eos # (Auto) (0.0-0.7) 10^3/uL Baso # (Auto) (0.0-0.1) 10^3/uL Absolute Nucleated RBC x10^3/uL Nucleated RBC % /100WBC Sodium (135-145) mmol/L Potassium (3.5-4.5) mmol/L Chloride (101-111) mmol/L Carbon Dioxide (21-32) mmol/L Anion Gap (6-13) BUN (6-20) mg/dL Creatinine (0.6-1.3) mg/dL Estimated GFR (MDRD) (>89) Glucose (74-104) mg/dL POC Whole Bld Glucose 275 201 (70-100) mg/dL Calcium (8.5-10.3) mg/dL Crossmatch IS Only 03/23/25 Range/Units 05:35 WBC (4.8-10.8) x10^3/uL RBC (4.70-6.10) 10^6/uL Hgb (14.0-18.0) g/dL Hct (42.0-52.0) % MCV (80.0-94.0) fL MCH (27.0-31.0) pg MCHC (32.0-36.0) g/dL RDW (12.0-15.0) % Plt Count (130-450) 10^3/uL MPV (7.4-11.4) fL Neut # (Auto) (1.5-6.6) 10^3/uL Lymph # (Auto) (1.5-3.5) 10^3/uL [place] # (Auto) (0.0-1.0) 10^3/uL Eos # (Auto) (0.0-0.7) 10^3/uL Baso # (Auto) (0.0-0.1) 10^3/uL Absolute Nucleated RBC x10^3/uL Nucleated RBC % /100WBC Sodium (135-145) mmol/L Potassium (3.5-4.5) mmol/L Chloride (101-111) mmol/L Carbon Dioxide (21-32) mmol/L Anion Gap (6-13) BUN (6-20) mg/dL Creatinine (0.6-1.3) mg/dL Estimated GFR (MDRD) (>89) Glucose (74-104) mg/dL POC Whole Bld Glucose (70-100) mg/dL Calcium (8.5-10.3) mg/dL Crossmatch IS Only See Detail Assessment/Plan Problem List (1) Rectal mass: (2) Cachexia: Impression: Stable, pending biopsy. No ongoing rectal bleeding. Presented with unplanned unexplained weight loss, cachexia, chronic diarrhea. Found to have a large rectal mass which was biopsied by general surgery on 03/17 and again 03/22. 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 CT shows bony sclerosis thought to be metastases. No evident nodes. Continues to have bowel function. Possibility he may need diverting colostomy if he obstructs from his rectal mass given its size. Keeping stools soft. Patient requests fiber supplement as he feels miralax causes too much diarrhea. He's been counseled on maintaining adequate hydration. He appears cachectic. His biopsy returned as negative for neoplasm on 03/21. CEA was elevated at 76. POLST completed with palliative care on 03/21, DNR/selective intervention - Will need follow-up with oncology to review pathology - Iron deficiency anemia as below - Daily fiber supplement - Surgery following peripherally - Palliative care is following as well, appreciate their insights and recommendation. - Should continue following with palliative postdischarge, added to discharge instructions (3) Type 2 diabetes mellitus: Impression: Blood glucoses were higher last night as his long-acting insulin had not been given periprocedurally. Under better control today. Blood glucose back down below 200. Received 8 units with breakfast. Creatinine remains normal to low at 0.4. T2DM is a new diagnosis for this patient. A1c was elevated on admission at 9.0. Blood sugars have remained persistently elevated in the 200-300 range. Started him on long-acting and mealtime insulin today 03/19. Have been increasing dosage as his blood sugars have remained difficult to control. Received glargine 10 units every morning today - Glargine 15 units every morning - Lispro 5 units before every meal with MD REYNOSO - Counseled patient that we would likely continue insulin. Will need to follow- up with a primary care doctor after he gets out of rehab. Depending on goals of care. Qualifiers: Diabetes mellitus correction insulin use: without continuous churn buttermaker use Diabetes mellitus complication status: with hyperglycemia Qualified Code(s): E11.65 - Type 2 diabetes mellitus with hyperglycemia (4) Anemia, iron deficiency: Impression: Hemoglobin stable this morning. Hemoglobin 7.3. No signs of active bleeding. Recurrent anemia on 03/23, suspect a contribution of ABLA. Hemoglobin 6.3. No signs of active bleeding from his rectum or from his surgical wound Had an episode of anemia requiring transfusion on 03/18. Found to have iron deficiency, ferritin 35. Likely mix of MAGDALENA and anemia of chronic disease. - Repeat CBC AM, transfuse for Hgb<7. - Will need weekly hemoglobin monitoring at [facility] - Continue oral iron supplementation Qualifiers: Iron deficiency anemia type: inadequate dietary iron intake Qualified Code(s): D50.8 - Other iron deficiency anemias (5) Closed T11 fracture: Qualifiers: Encounter type: initial encounter Fracture morphology: unspecified fracture morphology Qualified Code(s): S22.089A - Unspecified fracture of T11- T12 vertebra, initial encounter for closed fracture (6) Closed right hip fracture: Qualifiers: Encounter type: sequela Qualified Code(s): S72.001S - Fracture of unspecified part of neck of right femur, sequela (7) Ground-level fall: (8) Closed T12 fracture: Impression: Improving pain after surgery, persistent but less severe. Will work with PT today. Discussed with ortho 03/24, improving expectedly. Patient has a right intertrochanteric femur fracture. Discussed his case with orthopedic surgery on 03/21. Dr. Moya believes that patient may benefit from operative repair, likely posting. Presented following a ground-level fall. Has persistent right hip pain as well as persistent back pain. Found on imaging to have subacute appearing T11 and T12 compression deformities. Multiple areas of bony sclerosis of the ribs. Possible metastatic lesions in the spine contributing to his compression fractures. When working with PT on 03/19, he was unable to bear weight to his right lower extremity. On review of his imaging, he likely had a nondisplaced fracture that is now more displaced. And comminuted making it more apparent. - Weightbearing as tolerated - Will need PT reeval on 03/24 - Otherwise med ready for SNF, insurance authorization pending at [facility] - Continue scheduled Tylenol with as needed oxycodone - Lidocaine patch available as needed - Continue VTE prophylaxis with Lovenox while in house, transition to 162 mg ASA daily thereafter Qualifiers: Encounter type: initial encounter Fracture morphology: unspecified fracture morphology Qualified Code(s): S22.089A - Unspecified fracture of T11- T12 vertebra, initial encounter for closed fracture (9) Leukocytosis: Impression: Leukocytosis downtrended off antibiotics. 16.7 > 8.8. Unclear etiology overall. He is not febrile. No other vital signs abnormalities. Urine without evidence of infection. Chest x-ray without consolidation. Consider may be malignancy related versus related to his fracture in his leg. Further commutation of that may have mobilized more neutrophils. - Continue to monitor off antibiotics - Follow-up blood cultures from 03/21, NGTD - CBC as above (10) Counseling regarding advanced care planning and goals of care: (11) Malnutrition: Impression: Has had a generally good appetite since have known him on 03/19. Tolerating regular diet. Wounds are healing appropriately. Patient has severe protein calorie malnutrition present on arrival likely secondary to his increased metabolic demand from his cancer as well as poor diet in the community. He reports not liking the food at [place] that much. He has signs of obvious muscle wasting, loss of subcutaneous fat. Temporal wasting. He reported up to 80 pounds of weight loss over the last couple of years unplanned. At least 14% of verifiable weight loss over the last year. - Appreciate nutrition involvement - Continue protein supplements. - Remeron started 03/19, tolerating well Qualifiers: Malnutrition type: protein-calorie malnutrition Protein-calorie malnutrition severity: severe Qualified Code(s): E43 - Unspecified severe protein-calorie malnutrition
--- NOTE | 2025-03-24 16:22 | PT Plan of Care ---
PT Inpatient Plan of Care DIAGNOSIS Diagnosis: T11 and T12 compressions fx's; R intertrochanteric femur fx; rectal mass Diagnosis: rectal mass Referring Provider: Johnathon Dumont Patient Status: Inpatient CHIEF COMPLAINT Chief Complaint: mid back and R LE pain Onset of Chief Complaint: [facility] on 03/17/25 MEDICAL/SURGICAL HISTORY Medical History Insomnia Urinary incontinence Skin cancer No pertinent past medical history Surgical History No pertinent past surgical history BALANCE/FUNCTIONAL RESULTS Sitting Balance: Fair Standing Balance: Poor ASSESSMENT Assessment: The pt is a 75 y/o who arrived to the ED from [facility] on 03/17/25 after a GLF, he was hospitalized with a rectal mass and compression fx's of T11 and T12. Later a R intertrochanteric femoral fx was noted. He is s/p IM nailing by Dr Moya on 03/22/25 and is WBAT. The purpose of this note is to re-evaluate the pt as he is now post-op. Please see chart for complete medical hx. The pt was received resting comfortably supine in bed and presented today with decreased B UE and LE strength, decreased activity tolerance, and impaired balance all of which limited his tolerance during functional mobility and increase his fall risk. His overall tolerance throughout this assessment was limited by weakness, fatigue, and pain. At this time recommend continued skilled PT intervention while in the acute setting and DC to SNF for further rehab once pt medically stable as he is functioning significantly below his baseline level of Ramin. This plan was discussed with the pt and he was in agreement with this. At the end of the session the pt was sitting up in a chair with call light in reach, chair alarm in place and on, and all needs met. RN, PEST CONTROL CHEMICAL TECHNICIAN, and MD updated on pt's status and DC rec. PATIENT/FAMILY GOALS Patient/Family Goals: To get stronger and not fall any more GOALS Improve supine to sit to:: Minimal Assist Improve sit to stand to:: Minimal Assist Improve pivot transfer ability to:: Minimal Assist Improve sit to supine to:: Minimal Assist Improve gait ability to:: Mod A Advance Assistive Device to:: Front Wheeled Walker Increase distance walked to (in feet):: 10 Improve Sitting Balance to:: Good PLAN Frequency: 1-2x/day Duration: Until discharge DISCHARGE RECOMMENDATIONS Discharge Location: [facility] Facility Support/Services Needed: With assist Other Discharge Equipment: TBD as pt progresses Transport Needs at Discharge: Wheelchair van Other: BLS d/t inability to sit upright, subacute fx's
[2025-03-25 04:43] LABS: HCT - HEMATOCRIT 23.3 % (42.0-52.0); HGB - HEMOGLOBIN 7.1 g/dL (14.0-18.0); MEAN PLATELET VOLUME 10.1 fL (7.4-11.4); NRBC ABSOLUTE COUNT (AUTO) 0.00 x10^3/uL; NUCLEATED RED BLOOD CELLS AUTO 0.0 /100WBC; PLT - PLATELET COUNT 651 10^3/uL (130-450); RED CELL DISTRIBUTION WIDTH 16.4 % (12.0-15.0)
[2025-03-25 04:58] LABS: BUN - BLOOD UREA NITROGEN 19.0 mg/dL (6-20); CARBON DIOXIDE - CO2 28.0 mmol/L (21-32); CREATININE 0.5 mg/dL (0.6-1.3); GFR - MDRD 162.0 (>89)
[2025-03-25 14:06] LABS: HCT - HEMATOCRIT 25.3 % (42.0-52.0); HGB - HEMOGLOBIN 7.8 g/dL (14.0-18.0); MEAN PLATELET VOLUME 9.9 fL (7.4-11.4); PLT - PLATELET COUNT 679.0 10^3/uL (130-450); RED CELL DISTRIBUTION WIDTH 16.5 % (12.0-15.0)
--- NOTE | 2025-03-25 16:17 | PROVIDER PROGRESS NOTE ---
Subjective Prog Note Date Prog Note Date: 03/25/25 Prog Note Time: 16:17 Subjective Subjective: Patient doing about the same today. He is with his family when I meet him today at bedside. They are talking amicably. Patient's pain is improved. Continues to intervally improve in a stepwise fashion. Discussed with case management today, continues to await authorization for discharge to [facility]. Avoidable day. Discussed with orthopedic surgery today, patient improving appropriately. No acute changes to his plan. Discussed with palliative care today, they are continuing to follow along. They agree they will follow him as he discharges from the hospital as well. I discussed this with his family today, they had many questions about what palliative care entails. Hemoglobin was 7.1 today, no decision to transfuse today given the threshold and otherwise clinical stability, will monitor again in a.m. Current Medications Current Medications Current Medications: Current Medications Generic Name Dose Route Start Last Admin Trade Name Freq PRN Reason Stop Dose Admin Acetaminophen 1,000 mg 03/17/25 22:00 03/25/25 14:15 Acetaminophen 500 Mg Tablet PO 1,000 mg TID JUJU Administration Docusate Sodium 250 - 500 mg 03/18/25 21:00 03/25/25 07:56 Docusate Sodium 250 Mg Capsule PO 500 mg DAILY JUJU Administration Enoxaparin Sodium 40 mg 03/23/25 09:00 03/25/25 07:58 Enoxaparin 40 Mg/0.4 Ml Syringe SUBQ 40 mg DAILY JUJU Administration Ferrous Sulfate 325 mg 03/20/25 08:00 03/25/25 07:57 Ferrous Sulfate 325 Mg Tablet PO 325 mg DAILYWM JUJU Administration Insulin Glargine-yfgn 15 unit 03/20/25 09:00 03/25/25 08:03 Insulin Glargine-Yfgn 300 Unit/3 Ml Pen SUBQ 15 unit [id number] JUJU Administration Insulin Human Lispro 1 - 9 unit 03/20/25 12:00 03/25/25 12:37 Insulin Lispro 300 Unit/3 Ml Pen SUBQ Not Given 0800,1200,1700,2100 [facility] Protocol Insulin Human Lispro 5 unit 03/22/25 08:00 03/25/25 12:38 Insulin Lispro 300 Unit/3 Ml Pen SUBQ 5 unit TIDWM JUJU Administration Lidocaine 1 patch 03/20/25 09:00 03/25/25 07:58 Lidocaine Patch 4% TOP 1 patch DAILY JUJU Administration Mirtazapine 15 mg 03/19/25 21:00 03/24/25 21:31 Mirtazapine 15 Mg Tablet PO 15 mg QPM JUJU Administration Multivitamins/Minerals 1 tab 03/18/25 17:00 03/25/25 07:57 Multivitamin W/Minerals Tablet PO 1 tab DAILYWM JUJU Administration Ondansetron HCl 4 mg 03/17/25 17:26 Ondansetron Odt 4 Mg Tablet TL Q6HR PRN Nausea / Vomiting Ondansetron HCl 4 mg 03/17/25 17:26 Ondansetron 4 Mg/2 Ml Vial IVP Q6HR PRN Nausea / Vomiting Oxycodone HCl 5 mg 03/17/25 17:26 03/25/25 12:41 Oxycodone 5 Mg Tablet PO 5 mg Q4HR PRN Administration Pain 5 to 7 Pantoprazole Sodium 40 mg 03/18/25 16:00 03/25/25 06:46 Pantoprazole 40 Mg Tablet PO 40 mg BIDAC JUJU Administration Polyethylene Glycol 17 gm 03/19/25 09:00 03/25/25 07:57 Polyethylene Glycol 3350 17 Gm Packet PO Not Given DAILY JUJU Psyllium Hydrophilic Mucilloid 1 packet 03/24/25 09:00 03/25/25 07:59 Psyllium Packet PO 1 packet DAILY JUJU Administration Sodium Chloride 10 ml 03/17/25 17:26 Sodium Chloride Flush 0.9% 10 Ml Syringe IVP PRN PRN NEEDED PER PROVIDER ORDERS Sodium Chloride 10 ml 03/18/25 01:00 03/25/25 07:57 Sodium Chloride Flush 0.9% 10 Ml Syringe IVP 10 ml 0100,0900,1700 JUJU Administration Sodium Chloride 10 ml 03/22/25 17:10 Sodium Chloride Flush 0.9% 10 Ml Syringe IVP PRN PRN NEEDED PER PROVIDER ORDERS Sodium Chloride 10 ml 03/23/25 01:00 03/25/25 07:59 Sodium Chloride Flush 0.9% 10 Ml Syringe IVP Not Given 0100,0900,1700 JUJU Objective Vital Signs/Intake & Output Reviewed Vital Signs: Yes Vital Signs: Vital Signs x48h Temp Pulse Resp BP Pulse Ox 03/24/25 08:00 36.7 C 87 18 129/77 97 Intake & Output: Intake & Output 03/22/25 03/23/25 03/24/25 03/25/25 23:59 23:59 22:59 23:59 Intake Total 1866 / 1867 1860 / 1860 186 / 1862 577 / 577 Output Total 1200 / 1200 875 / 875 2200 / 2200 950 / 950 Balance 667 / 667 985 / 985 -338 / -338 -373 / -373 Objective Comments/Other: GEN: Frail, cachectic. NAD. Sitting in chair. Discussing with family. Eating lunch. HEENT: NC/AT, normal appearance of external ears and nose. Hearing baseline. Cardiac: Regular rate and rhythm, no murmurs. Pulm: Lungs CTA bilaterally, no cough, no wheezes. Normal effort on room air Abdomen: Soft, nontender, nondistended. Extremities: Dressing intact RLE, CDI. Moves all extremities equally. Continues to have intervally improved pain in his right hip Neuro: Face symmetric, CN II through XII intact grossly. No focal deficits. Psych: Mood euthymic, affect congruent. Reasonable historian. Judgment intact. Lab Results 03/25/25 13:55 03/25/25 04:22 Other Labs: Lab Results x24hrs 03/25/25 03/25/25 03/25/25 Range/Units 13:55 11:42 07:36 WBC 9.5 (4.8-10.8) x10^3/uL RBC 3.22 L (4.70-6.10) 10^6/uL Hgb 7.8 L (14.0-18.0) g/dL Hct 25.3 L (42.0-52.0) % MCV 78.6 L (80.0-94.0) fL MCH 24.2 L (27.0-31.0) pg MCHC 30.8 L (32.0-36.0) g/dL RDW 16.5 H (12.0-15.0) % Plt Count 679 H (130-450) 10^3/uL MPV 9.9 (7.4-11.4) fL Neut # (Auto) (1.5-6.6) 10^3/uL Lymph # (Auto) (1.5-3.5) 10^3/uL [place] # (Auto) (0.0-1.0) 10^3/uL Eos # (Auto) (0.0-0.7) 10^3/uL Baso # (Auto) (0.0-0.1) 10^3/uL Absolute Nucleated RBC x10^3/uL Nucleated RBC % /100WBC Sodium (135-145) mmol/L Potassium (3.5-4.5) mmol/L Chloride (101-111) mmol/L Carbon Dioxide (21-32) mmol/L Anion Gap (6-13) BUN (6-20) mg/dL Creatinine (0.6-1.3) mg/dL Estimated GFR (MDRD) (>89) Glucose (74-104) mg/dL POC Whole Bld Glucose 106 125 (70-100) mg/dL Calcium (8.5-10.3) mg/dL 03/25/25 03/24/25 03/24/25 Range/Units 04:22 19:28 16:46 WBC 11.9 H (4.8-10.8) x10^3/uL RBC 2.99 L (4.70-6.10) 10^6/uL Hgb 7.1 L (14.0-18.0) g/dL Hct 23.3 L (42.0-52.0) % MCV 77.9 L (80.0-94.0) fL MCH 23.7 L (27.0-31.0) pg MCHC 30.5 L (32.0-36.0) g/dL RDW 16.4 H (12.0-15.0) % Plt Count 651 H (130-450) 10^3/uL MPV 10.1 (7.4-11.4) fL Neut # (Auto) 9.5 H (1.5-6.6) 10^3/uL Lymph # (Auto) 1.4 L (1.5-3.5) 10^3/uL [place] # (Auto) 0.6 (0.0-1.0) 10^3/uL Eos # (Auto) 0.2 (0.0-0.7) 10^3/uL Baso # (Auto) 0.1 (0.0-0.1) 10^3/uL Absolute Nucleated RBC 0.00 x10^3/uL Nucleated RBC % 0.0 /100WBC Sodium 134 L (135-145) mmol/L Potassium 4.4 (3.5-4.5) mmol/L Chloride 102 (101-111) mmol/L Carbon Dioxide 28 (21-32) mmol/L Anion Gap 4.0 L (6-13) BUN 19 (6-20) mg/dL Creatinine 0.5 L (0.6-1.3) mg/dL Estimated GFR (MDRD) 162 (>89) Glucose 115 H (74-104) mg/dL POC Whole Bld Glucose 154 156 (70-100) mg/dL Calcium 10.0 (8.5-10.3) mg/dL Assessment/Plan Problem List (1) Rectal mass: (2) Cachexia: Impression: Stable, pending biopsy results. No gross ongoing rectal bleeding. Anemia as below. Presented with unplanned unexplained weight loss, cachexia, chronic diarrhea. Found to have a large rectal mass which was biopsied by general surgery on 03/17 and again 03/22. 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 CT shows bony sclerosis thought to be metastases. No evident nodes. Continues to have bowel function. Possibility he may need diverting colostomy if he obstructs from his rectal mass given its size. Keeping stools soft. Patient requests fiber supplement as he feels miralax causes too much diarrhea. He's been counseled on maintaining adequate hydration. He appears cachectic. His biopsy returned as negative for neoplasm on 03/21. CEA was elevated at 76. POLST completed with palliative care on 03/21, DNR/selective intervention - Will need follow-up with oncology to review pathology - Discussed with general surgery 03/25, they opt that we can reach out to [place] to see about preliminary path if patient remains admitted - Iron deficiency anemia as below - Daily fiber supplement - Surgery following peripherally - Palliative care is following as well, appreciate their insights and recommendation. - Should continue following with palliative postdischarge, added to discharge instructions (3) Type 2 diabetes mellitus: Impression: Blood glucoses remain stable, somewhat tightly controlled. Dropped from 154 to 115 overnight. T2DM is a new diagnosis for this patient. A1c was elevated on admission at 9.0. Blood sugars have remained persistently elevated in the 200-300 range. Started him on long-acting and mealtime insulin today 03/19. Have been increasing dosage as his blood sugars have remained difficult to control. Received glargine 10 units every morning today - Backing down on every morning glargine to 12 units every morning - Lispro 5 units before every meal with MD REYNOSO - Counseled patient that we would likely continue insulin. Will need to follow- up with a primary care doctor after he gets out of rehab. Depending on goals of care. Qualifiers: Diabetes mellitus complication status: with hyperglycemia Diabetes mellitus occupational medicine specialist insulin use: without fdc use Qualified Code(s): E11.65 - Type 2 diabetes mellitus with hyperglycemia (4) Anemia, iron deficiency: Impression: Hemoglobin mildly reduced as of this morning to 7.1. No signs of active bleeding. Vital signs otherwise stable. Not tachycardic. Normotensive. Recurrent anemia on 03/23, suspect a contribution of ABLA. Hemoglobin 6.3. No signs of active bleeding from his rectum or from his surgical wound Had an episode of anemia requiring transfusion on 03/18. Found to have iron deficiency, ferritin 35. Likely mix of MAGDALENA and anemia of chronic disease. - Trended hemoglobin this afternoon and it came up to 7.8. No longer trending CBC daily. - Will need weekly hemoglobin monitoring at [facility] - Continue oral iron supplementation Qualifiers: Iron deficiency anemia type: inadequate dietary iron intake Qualified Code(s): D50.8 - Other iron deficiency anemias (5) Closed T11 fracture: Qualifiers: Encounter type: initial encounter Fracture morphology: unspecified fracture morphology Qualified Code(s): S22.089A - Unspecified fracture of T11- T12 vertebra, initial encounter for closed fracture (6) Closed right hip fracture: Qualifiers: Encounter type: sequela Qualified Code(s): S72.001S - Fracture of unspecified part of neck of right femur, sequela (7) Ground-level fall: (8) Closed T12 fracture: Impression: Continues to intervally improved. Not quite resolved. He is still requiring occasional doses of oxycodone. Continues on scheduled Tylenol. When working with PT on 03/19, he was unable to bear weight to his right lower extremity. On review of his imaging, he likely had a nondisplaced fracture that is now more displaced. And comminuted making it more apparent. Patient has a right intertrochanteric femur fracture that was present on arrival.. Discussed his case with orthopedic surgery on 03/21. Dr. Moya believes that patient may benefit from operative repair, likely posting. Presented following a ground-level fall. Has persistent right hip pain as well as persistent back pain. Found on imaging to have subacute appearing T11 and T12 compression deformities. Multiple areas of bony sclerosis of the ribs. Possible metastatic lesions in the spine contributing to his compression fractures. - Weightbearing as tolerated - Otherwise med ready for SNF, insurance authorization pending at [facility] - Continue scheduled Tylenol with as needed oxycodone - Lidocaine patch available as needed - Continue VTE prophylaxis with Lovenox while in house, transition to 162 mg ASA daily thereafter Qualifiers: Encounter type: initial encounter Fracture morphology: unspecified fracture morphology Qualified Code(s): S22.089A - Unspecified fracture of T11- T12 vertebra, initial encounter for closed fracture (9) Leukocytosis: Impression: Leukocytosis was slight increased on the morning of 03/25-11.9. Downtrended again on repeat in the afternoon. No other obvious signs of infection. Afebrile. Leukocytosis downtrended off antibiotics From 16.7. Unclear etiology overall. He is not febrile. No other vital signs abnormalities. Urine without evidence of infection. Chest x-ray without consolidation. Consider may be malignancy related versus related to his fracture in his leg. Further commutation of that may have mobilized more neutrophils. - Continue to monitor off antibiotics - Follow-up blood cultures from 03/21, NGTD (10) Counseling regarding advanced care planning and goals of care: (11) Malnutrition: Impression: Has had a generally good appetite since have known him on 03/19. Tolerating regular diet. Wounds are healing appropriately. Patient has severe protein calorie malnutrition present on arrival likely secondary to his increased metabolic demand from his cancer as well as poor diet in the community. He reports not liking the food at [employer] that much. He has signs of obvious muscle wasting, loss of subcutaneous fat. Temporal wasting. He reported up to 80 pounds of weight loss over the last couple of years unplanned. At least 14% of verifiable weight loss over the last year. - Appreciate nutrition involvement - Continue protein supplements. - Remeron started 03/19, tolerating well Qualifiers: Malnutrition type: protein-calorie malnutrition Protein-calorie malnutrition severity: severe Qualified Code(s): E43 - Unspecified severe protein-calorie malnutrition
--- NOTE | 2025-03-25 16:41 | MISCELLANEOUS PROVIDER NOTE ---
Miscellaneous Provider Note - Note: Check in with patient at about 7:30 AM. He was sleeping but roused easily. RN reporting that he is taking his oxycodone 2-3 times per day, often declining medication when offered stating he doesn't want to "get hooked." He is taking APAP regularly. He reports he is still having pain in the right leg around the hip and knee. He thought the pain would be a bit better by now. Hoping that it needs more time. I did give him some reassurance about this. Reports when he is at rest he has minimal pain, but when he moves at all, even turning in bed he has pain up 7/10. Pain was 7/10 while working with PT yesterday. Discussed accepting pain medication regularly with goal of getting more pain control for rehabilitation and improving function. He notes that he doesn't notice much relief from the oxycodone tablet. We discussed need to take regularly before considering increasing the dose. Nurse did offer him oxycodone while I was there and he accepted. He was noticing urge for BM, thinks it has been a few days since last. Team indicating he may d/c to [facility] today or tomorrow, awaiting insurance authorization. Patient was not able to relate any knowledge about this. Hopes to be able to get stronger, would like to be able to walk independently again, but admits he is not sure if he will be able. He mentions goal of being able [place], hasn't been able to see them since he had moved to [facility] prior to fall.
--- NOTE | 2025-03-25 22:26 | POST OP PROGRESS NOTE ---
Subjective General Admit Date: 03/18/25 Procedure Date: 03/22/25 Post Op Days: 3 Procedure Performed: IntraMedullary Samm Right Hip Wound Assessment Wound/Incisions: positive Healing well and Dressing dry and intact Ortho Surgical Progress Note Problem List Discharge Instructions: I think the patient is doing well over the past couple of days. He has improved and his pain is very minimal when just laying there and it is more prevalent when trying to ambulate but I do think he is improving and is stable for disch arge to the long term facility. Will follow-up with him in about 10 days for staple removal. He can continue to be weightbearing as tolerated at the long term facility Exam Exam Vital Signs: Vital Signs x48h Temp Pulse Resp BP Pulse Ox 03/25/25 16:00 36.5 C 84 18 129/73 98 Dressing is clean dry and intact no signs and symptoms of any infection.
[2025-03-26 05:04] LABS: HCT - HEMATOCRIT 21.8 % (42.0-52.0); MEAN PLATELET VOLUME 10.0 fL (7.4-11.4); NRBC ABSOLUTE COUNT (AUTO) 0.00 x10^3/uL; NUCLEATED RED BLOOD CELLS AUTO 0.0 /100WBC; PLT - PLATELET COUNT 632 10^3/uL (130-450); RED CELL DISTRIBUTION WIDTH 16.6 % (12.0-15.0)
[2025-03-26 05:16] LABS: HGB - HEMOGLOBIN 6.7 g/dL (14.0-18.0)
[2025-03-26 05:25] LABS: BUN - BLOOD UREA NITROGEN 20.0 mg/dL (6-20); CARBON DIOXIDE - CO2 29.0 mmol/L (21-32); CREATININE 0.4 mg/dL (0.6-1.3); GFR - MDRD 209.0 (>89)
[2025-03-26] MEDS: INSULIN GLARGINE-YFGN 300 UNIT/3 ML PEN SUBQ SCH (08:55)
--- NOTE | 2025-03-26 12:15 | PROVIDER PROGRESS NOTE ---
Subjective Subjective Subjective: Patient's pain is improved. Continues to intervally improve in a stepwise fashion. Discussed with case management today, continues to await authorization for discharge to [facility]. Avoidable day. Current Medications Current Medications Current Medications: Current Medications Generic Name Dose Route Start Last Admin Trade Name Freq PRN Reason Stop Dose Admin Acetaminophen 1,000 mg 03/17/25 22:00 03/26/25 06:18 Acetaminophen 500 Mg Tablet PO 1,000 mg TID JUJU Administration Docusate Sodium 250 - 500 mg 03/18/25 21:00 03/26/25 08:18 Docusate Sodium 250 Mg Capsule PO 500 mg DAILY JUJU Administration Enoxaparin Sodium 40 mg 03/23/25 09:00 03/26/25 08:19 Enoxaparin 40 Mg/0.4 Ml Syringe SUBQ 40 mg DAILY JUJU Administration Ferrous Sulfate 325 mg 03/20/25 08:00 03/26/25 08:18 Ferrous Sulfate 325 Mg Tablet PO 325 mg DAILYWM JUJU Administration Insulin Glargine-yfgn 12 unit 03/26/25 08:00 03/26/25 08:55 Insulin Glargine-Yfgn 300 Unit/3 Ml Pen SUBQ 12 unit [id number] JUJU Administration Insulin Human Lispro 1 - 9 unit 03/20/25 12:00 03/26/25 08:55 Insulin Lispro 300 Unit/3 Ml Pen SUBQ 3 unit 0800,1200,1700,2100 JUJU Administration Protocol Insulin Human Lispro 5 unit 03/22/25 08:00 03/26/25 08:54 Insulin Lispro 300 Unit/3 Ml Pen SUBQ 5 unit TIDWM JUJU Administration Lidocaine 1 patch 03/20/25 09:00 03/26/25 08:17 Lidocaine Patch 4% TOP 1 patch DAILY JUJU Administration Mirtazapine 15 mg 03/19/25 21:00 03/25/25 21:03 Mirtazapine 15 Mg Tablet PO 15 mg QPM JUJU Administration Multivitamins/Minerals 1 tab 03/18/25 17:00 03/26/25 08:18 Multivitamin W/Minerals Tablet PO 1 tab DAILYWM JUJU Administration Ondansetron HCl 4 mg 03/17/25 17:26 Ondansetron Odt 4 Mg Tablet TL Q6HR PRN Nausea / Vomiting Ondansetron HCl 4 mg 03/17/25 17:26 Ondansetron 4 Mg/2 Ml Vial IVP Q6HR PRN Nausea / Vomiting Oxycodone HCl 5 mg 03/17/25 17:26 03/25/25 12:41 Oxycodone 5 Mg Tablet PO 5 mg Q4HR PRN Administration Pain 5 to 7 Pantoprazole Sodium 40 mg 03/18/25 16:00 03/26/25 06:19 Pantoprazole 40 Mg Tablet PO 40 mg BIDAC JUJU Administration Polyethylene Glycol 17 gm 03/19/25 09:00 03/26/25 08:18 Polyethylene Glycol 3350 17 Gm Packet PO Not Given DAILY JUJU Psyllium Hydrophilic Mucilloid 1 packet 03/24/25 09:00 03/26/25 08:18 Psyllium Packet PO 1 packet DAILY JUJU Administration Sodium Chloride 10 ml 03/17/25 17:26 Sodium Chloride Flush 0.9% 10 Ml Syringe IVP PRN PRN NEEDED PER PROVIDER ORDERS Sodium Chloride 10 ml 03/18/25 01:00 03/26/25 08:17 Sodium Chloride Flush 0.9% 10 Ml Syringe IVP 10 ml 0100,0900,1700 JUJU Administration Sodium Chloride 10 ml 03/22/25 17:10 Sodium Chloride Flush 0.9% 10 Ml Syringe IVP PRN PRN NEEDED PER PROVIDER ORDERS Sodium Chloride 10 ml 03/23/25 01:00 03/26/25 08:55 Sodium Chloride Flush 0.9% 10 Ml Syringe IVP Not Given 0100,0900,1700 [facility] Objective Vital Signs/Intake & Output Reviewed Vital Signs: Yes Vital Signs: Vital Signs x48h Temp Pulse Resp BP Pulse Ox 03/26/25 09:30 98.2 F 75 18 160/89 H 97 Intake & Output: Intake & Output 03/23/25 03/24/25 03/25/25 03/26/25 23:59 22:59 23:59 23:59 Intake Total 1860 / 1860 1862 / 1862 589 / 589 Output Total 875 / 875 2200 / 2200 950 / 950 850 / 850 Balance 985 / 985 -338 / -338 -361 / -361 -850 / -850 Objective Comments/Other: GEN: Frail, cachectic. NAD. Sitting in chair. Discussing with family. Eating lunch. HEENT: NC/AT, normal appearance of external ears and nose. Hearing baseline. Cardiac: Regular rate and rhythm, no murmurs. Pulm: Lungs CTA bilaterally, no cough, no wheezes. Normal effort on room air Abdomen: Soft, nontender, nondistended. Extremities: Dressing intact RLE, CDI. Moves all extremities equally. Continues to have intervally improved pain in his right hip Neuro: Face symmetric, CN II through XII intact grossly. No focal deficits. Psych: Mood euthymic, affect congruent. Reasonable historian. Judgment intact. Lab Results 03/26/25 04:26 03/26/25 04:26 Other Labs: Lab Results x24hrs 03/26/25 03/26/25 03/26/25 Range/Units 11:40 08:06 04:26 WBC 9.9 (4.8-10.8) x10^3/uL RBC 2.78 L (4.70-6.10) 10^6/uL Hgb 6.7 L* (14.0-18.0) g/dL Hct 21.8 L (42.0-52.0) % MCV 78.4 L (80.0-94.0) fL MCH 24.1 L (27.0-31.0) pg MCHC 30.7 L (32.0-36.0) g/dL RDW 16.6 H (12.0-15.0) % Plt Count 632 H (130-450) 10^3/uL MPV 10.0 (7.4-11.4) fL Neut # (Auto) 8.1 H (1.5-6.6) 10^3/uL Lymph # (Auto) 1.0 L (1.5-3.5) 10^3/uL Butts # (Auto) 0.5 (0.0-1.0) 10^3/uL Eos # (Auto) 0.2 (0.0-0.7) 10^3/uL Baso # (Auto) 0.1 (0.0-0.1) 10^3/uL Absolute Nucleated RBC 0.00 x10^3/uL Nucleated RBC % 0.0 /100WBC Sodium 135 (135-145) mmol/L Potassium 4.2 (3.5-4.5) mmol/L Chloride 102 (101-111) mmol/L Carbon Dioxide 29 (21-32) mmol/L Anion Gap 4.0 L (6-13) BUN 20 (6-20) mg/dL Creatinine 0.4 L (0.6-1.3) mg/dL Estimated GFR (MDRD) 209 (>89) Glucose 253 H (74-104) mg/dL POC Whole Bld Glucose 194 219 (70-100) mg/dL Calcium 10.1 (8.5-10.3) mg/dL Blood Type Antibody Screen Crossmatch IS Only 03/25/25 03/25/25 03/25/25 Range/Units 20:45 16:40 13:55 WBC 9.5 (4.8-10.8) x10^3/uL RBC 3.22 L (4.70-6.10) 10^6/uL Hgb 7.8 L (14.0-18.0) g/dL Hct 25.3 L (42.0-52.0) % MCV 78.6 L (80.0-94.0) fL MCH 24.2 L (27.0-31.0) pg MCHC 30.8 L (32.0-36.0) g/dL RDW 16.5 H (12.0-15.0) % Plt Count 679 H (130-450) 10^3/uL MPV 9.9 (7.4-11.4) fL Neut # (Auto) (1.5-6.6) 10^3/uL Lymph # (Auto) (1.5-3.5) 10^3/uL Butts # (Auto) (0.0-1.0) 10^3/uL Eos # (Auto) (0.0-0.7) 10^3/uL Baso # (Auto) (0.0-0.1) 10^3/uL Absolute Nucleated RBC x10^3/uL Nucleated RBC % /100WBC Sodium (135-145) mmol/L Potassium (3.5-4.5) mmol/L Chloride (101-111) mmol/L Carbon Dioxide (21-32) mmol/L Anion Gap (6-13) BUN (6-20) mg/dL Creatinine (0.6-1.3) mg/dL Estimated GFR (MDRD) (>89) Glucose (74-104) mg/dL POC Whole Bld Glucose 233 139 (70-100) mg/dL Calcium (8.5-10.3) mg/dL Blood Type Antibody Screen Crossmatch IS Only 03/23/25 Range/Units 05:35 WBC (4.8-10.8) x10^3/uL RBC (4.70-6.10) 10^6/uL Hgb (14.0-18.0) g/dL Hct (42.0-52.0) % MCV (80.0-94.0) fL MCH (27.0-31.0) pg MCHC (32.0-36.0) g/dL RDW (12.0-15.0) % Plt Count (130-450) 10^3/uL MPV (7.4-11.4) fL Neut # (Auto) (1.5-6.6) 10^3/uL Lymph # (Auto) (1.5-3.5) 10^3/uL Butts # (Auto) (0.0-1.0) 10^3/uL Eos # (Auto) (0.0-0.7) 10^3/uL Baso # (Auto) (0.0-0.1) 10^3/uL Absolute Nucleated RBC x10^3/uL Nucleated RBC % /100WBC Sodium (135-145) mmol/L Potassium (3.5-4.5) mmol/L Chloride (101-111) mmol/L Carbon Dioxide (21-32) mmol/L Anion Gap (6-13) BUN (6-20) mg/dL Creatinine (0.6-1.3) mg/dL Estimated GFR (MDRD) (>89) Glucose (74-104) mg/dL POC Whole Bld Glucose (70-100) mg/dL Calcium (8.5-10.3) mg/dL Blood Type O POSITIVE Antibody Screen NEGATIVE Crossmatch IS Only See Detail Assessment/Plan Problem List (1) Rectal mass: (2) Cachexia: Impression: Stable, pending biopsy results. No gross ongoing rectal bleeding. Anemia as below. Presented with unplanned unexplained weight loss, cachexia, chronic diarrhea. Found to have a large rectal mass which was biopsied by general surgery on 03/17 and again 03/22. 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 CT shows bony sclerosis thought to be metastases. No evident nodes. Continues to have bowel function. Possibility he may need diverting colostomy if he obstructs from his rectal mass given its size. Keeping stools soft. Patient requests fiber supplement as he feels miralax causes too much diarrhea. He's been counseled on maintaining adequate hydration. He appears cachectic. His biopsy returned as negative for neoplasm on 03/21. CEA was elevated at 76. POLST completed with palliative care on 03/21, DNR/selective intervention - Will need follow-up with oncology to review pathology - Discussed with general surgery 03/25, they opt that we can reach out to [place] to see about preliminary path if patient remains admitted - Iron deficiency anemia as below - Daily fiber supplement - Surgery following peripherally - Palliative care is following as well, appreciate their insights and recommendation. - Should continue following with palliative postdischarge, added to discharge instructions (3) Type 2 diabetes mellitus: Impression: Blood glucoses remain stable, somewhat tightly controlled. Dropped from 154 to 115 overnight. T2DM is a new diagnosis for this patient. A1c was elevated on admission at 9.0. Blood sugars have remained persistently elevated in the 200-300 range. Started him on long-acting and mealtime insulin today 03/19. Have been increasing dosage as his blood sugars have remained difficult to control. Received glargine 10 units every morning today - Backing down on every morning glargine to 12 units every morning - Lispro 5 units before every meal with MD REYNOSO - Counseled patient that we would likely continue insulin. Will need to follow- up with a primary care doctor after he gets out of rehab. Depending on goals of care. 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 No signs of active bleeding. Vital signs otherwise stable. Not tachycardic. Normotensive. Found to have iron deficiency, ferritin 35. Likely mix of MAGDALENA and anemia of chronic disease. - Will need weekly hemoglobin monitoring at [facility] - Continue oral iron supplementation Qualifiers: Iron deficiency anemia type: inadequate dietary iron intake Qualified Code(s): D50.8 - Other iron deficiency anemias (5) Closed T11 fracture: Qualifiers: Encounter type: initial encounter Fracture morphology: unspecified fracture morphology Qualified Code(s): S22.089A - Unspecified fracture of T11- T12 vertebra, initial encounter for closed fracture (6) Closed right hip fracture: Qualifiers: Encounter type: sequela Qualified Code(s): S72.001S - Fracture of unspecified part of neck of right femur, sequela (7) Ground-level fall: (8) Closed T12 fracture: Impression: Continues to intervally improved. Not quite resolved. He is still requiring occasional doses of oxycodone. Continues on scheduled Tylenol. When working with PT on 03/19, he was unable to bear weight to his right lower extremity. On review of his imaging, he likely had a nondisplaced fracture that is now more displaced. And comminuted making it more apparent. Patient has a right intertrochanteric femur fracture that was present on arrival.. Discussed his case with orthopedic surgery on 03/21. Dr. Moya believes that patient may benefit from operative repair, likely posting. Presented following a ground-level fall. Has persistent right hip pain as well as persistent back pain. Found on imaging to have subacute appearing T11 and T12 compression deformities. Multiple areas of bony sclerosis of the ribs. Possible metastatic lesions in the spine contributing to his compression fractures. - Weightbearing as tolerated - Otherwise med ready for SNF, insurance authorization pending at [facility] - Continue scheduled Tylenol with as needed oxycodone - Lidocaine patch available as needed - Continue VTE prophylaxis with Lovenox while in house, transition to 162 mg ASA daily thereafter Qualifiers: Encounter type: initial encounter Fracture morphology: unspecified fracture morphology Qualified Code(s): S22.089A - Unspecified fracture of T11- T12 vertebra, initial encounter for closed fracture (9) Leukocytosis: Impression: Leukocytosis was slight increased on the morning of 11/3-11.9. Downtrended again on repeat in the afternoon. No other obvious signs of infection. Afebrile. Leukocytosis downtrended off antibiotics From 16.7. Unclear etiology overall. He is not febrile. No other vital signs abnormalities. Urine without evidence of infection. Chest x-ray without consolidation. Consider may be malignancy related versus related to his fracture in his leg. Further commutation of that may have mobilized more neutrophils. - Continue to monitor off antibiotics - Follow-up blood cultures from 03/21, NGTD (10) Counseling regarding advanced care planning and goals of care: (11) Malnutrition: Impression: Has had a generally good appetite since have known him on 03/19. Tolerating regular diet. Wounds are healing appropriately. Patient has severe protein calorie malnutrition present on arrival likely secondary to his increased metabolic demand from his cancer as well as poor diet in the community. He reports not liking the food at [place] that much. He has signs of obvious muscle wasting, loss of subcutaneous fat. Temporal wasting. He reported up to 80 pounds of weight loss over the last couple of years unplanned. At least 14% of verifiable weight loss over the last year. - Appreciate nutrition involvement - Continue protein supplements. - Remeron started 03/19, tolerating well Qualifiers: Malnutrition type: protein-calorie malnutrition Protein-calorie malnutrition severity: severe Qualified Code(s): E43 - Unspecified severe protein-calorie malnutrition
--- NOTE | 2025-03-26 16:53 | MISCELLANEOUS PROVIDER NOTE ---
Miscellaneous Provider Note - Note: Follow-up with patient, he is sitting up having finished dinner. He is bright and interactive. 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 Admits to difficulty placing STM and LTM events. Does have insight into his memory loss, but is able to remember he is going to [facility]. Asking me what this is like, also discussed what his goals should be. He would like to get stronger, be active, and regain some independence. He does understand they are waiting on follow-up from his biopsy still. He is still having some right hip pain, worse with weightbearing. He is reporting he knows his exercises, and is doing well and trying to engage in his ankle pumps etc. We discussed in the context of next steps, setting goals for exploring treatment options versus supportive care. Patient is in much better space as far as mood, engagement, he is receiving a transfusion. Awaiting placement with insurance pending. Plan to follow when comes to [facility], will be available to sister as DPOA if any decisional support needed. Will see patient formally tomorrow, pending discharge.
[2025-03-26 17:52] LABS: HCT - HEMATOCRIT 27.6 % (42.0-52.0); HGB - HEMOGLOBIN 8.5 g/dL (14.0-18.0)
[2025-03-27 04:58] LABS: HCT - HEMATOCRIT 26.9 % (42.0-52.0); HGB - HEMOGLOBIN 8.4 g/dL (14.0-18.0); MEAN PLATELET VOLUME 9.4 fL (7.4-11.4); NRBC ABSOLUTE COUNT (AUTO) 0.00 x10^3/uL; NUCLEATED RED BLOOD CELLS AUTO 0.0 /100WBC; PLT - PLATELET COUNT 661 10^3/uL (130-450); RED CELL DISTRIBUTION WIDTH 16.5 % (12.0-15.0)
[2025-03-27 05:16] LABS: BUN - BLOOD UREA NITROGEN 15.0 mg/dL (6-20); CARBON DIOXIDE - CO2 27.0 mmol/L (21-32); CREATININE 0.3 mg/dL (0.6-1.3); GFR - MDRD 291.0 (>89)
--- NOTE | 2025-03-27 12:17 | PROVIDER PROGRESS NOTE ---
Subjective Subjective Subjective: Patient's pain is improved. Continues to intervally improve in a stepwise fashion. He is eating and drinking more. Understands that he is going to rehab to get stronger. Discussed with case management today, continues to await authorization for discharge to [facility]. Avoidable day. Current Medications Current Medications Current Medications: Current Medications Generic Name Dose Route Start Last Admin Trade Name Freq PRN Reason Stop Dose Admin Acetaminophen 1,000 mg 03/17/25 22:00 03/27/25 06:17 Acetaminophen 500 Mg Tablet PO 1,000 mg TID JUJU Administration Docusate Sodium 250 - 500 mg 03/18/25 21:00 03/27/25 08:27 Docusate Sodium 250 Mg Capsule PO Not Given DAILY JUJU Ferrous Sulfate 325 mg 03/20/25 08:00 03/27/25 08:26 Ferrous Sulfate 325 Mg Tablet PO 325 mg DAILYWM JUJU Administration Insulin Glargine-yfgn 12 unit 03/26/25 08:00 03/27/25 08:29 Insulin Glargine-Yfgn 300 Unit/3 Ml Pen SUBQ 12 unit [id number] JUJU Administration Insulin Human Lispro 1 - 9 unit 03/20/25 12:00 03/27/25 08:28 Insulin Lispro 300 Unit/3 Ml Pen SUBQ 1 unit 0800,1200,1700,2100 JUJU Administration Protocol Insulin Human Lispro 5 unit 03/22/25 08:00 03/27/25 08:28 Insulin Lispro 300 Unit/3 Ml Pen SUBQ 5 unit TIDWM JUJU Administration Lidocaine 1 patch 03/20/25 09:00 03/27/25 08:26 Lidocaine Patch 4% TOP 1 patch DAILY JUJU Administration Mirtazapine 15 mg 03/19/25 21:00 03/26/25 21:21 Mirtazapine 15 Mg Tablet PO 15 mg QPM JUJU Administration Multivitamins/Minerals 1 tab 03/18/25 17:00 03/27/25 08:26 Multivitamin W/Minerals Tablet PO 1 tab DAILYWM JUJU Administration Ondansetron HCl 4 mg 03/17/25 17:26 Ondansetron Odt 4 Mg Tablet TL Q6HR PRN Nausea / Vomiting Ondansetron HCl 4 mg 03/17/25 17:26 Ondansetron 4 Mg/2 Ml Vial IVP Q6HR PRN Nausea / Vomiting Oxycodone HCl 5 mg 03/17/25 17:26 03/26/25 12:25 Oxycodone 5 Mg Tablet PO 5 mg Q4HR PRN Administration Pain 5 to 7 Pantoprazole Sodium 40 mg 03/18/25 16:00 03/27/25 06:17 Pantoprazole 40 Mg Tablet PO 40 mg BIDAC JUJU Administration Polyethylene Glycol 17 gm 03/19/25 09:00 03/27/25 08:27 Polyethylene Glycol 3350 17 Gm Packet PO Not Given DAILY JUJU Psyllium Hydrophilic Mucilloid 1 packet 03/24/25 09:00 03/27/25 08:27 Psyllium Packet PO 1 packet DAILY JUJU Administration Sodium Chloride 10 ml 03/17/25 17:26 Sodium Chloride Flush 0.9% 10 Ml Syringe IVP PRN PRN NEEDED PER PROVIDER ORDERS Sodium Chloride 10 ml 03/18/25 01:00 03/27/25 08:27 Sodium Chloride Flush 0.9% 10 Ml Syringe IVP 10 ml 0100,0900,1700 JUJU Administration Sodium Chloride 10 ml 03/22/25 17:10 Sodium Chloride Flush 0.9% 10 Ml Syringe IVP PRN PRN NEEDED PER PROVIDER ORDERS Sodium Chloride 10 ml 03/23/25 01:00 03/27/25 08:27 Sodium Chloride Flush 0.9% 10 Ml Syringe IVP Not Given 0100,0900,1700 JUJU Objective Vital Signs/Intake & Output Reviewed Vital Signs: Yes Vital Signs: Vital Signs x48h Temp Pulse Resp BP Pulse Ox 03/26/25 09:30 98.2 F 75 18 160/89 H 97 Intake & Output: Intake & Output 03/24/25 03/25/25 03/26/25 03/27/25 22:59 23:59 23:59 23:59 Intake Total 1862 / 1862 589 / 589 500 / 500 150 / 150 Output Total 2200 / 2200 950 / 950 1575 / 1575 800 / 800 Balance -338 / -338 -361 / -361 -1075 / -1075 -650 / -650 Objective Comments/Other: GEN: Frail, cachectic. NAD. Sitting in chair. HEENT: NC/AT, normal appearance of external ears and nose. Hearing baseline. Cardiac: Regular rate and rhythm, no murmurs. Pulm: Lungs CTA bilaterally, no cough, no wheezes. Normal effort on room air Abdomen: Soft, nontender, nondistended. Extremities: Dressing intact RLE, CDI. Moves all extremities equally. Continues to have intervally improved pain in his right hip Neuro: Face symmetric, CN II through XII intact grossly. No focal deficits. Psych: Mood euthymic, affect congruent. Reasonable historian. Judgment intact. Lab Results 03/27/25 04:45 03/27/25 04:45 Other Labs: Lab Results x24hrs 03/27/25 03/27/25 03/27/25 Range/Units 11:45 08:07 04:45 WBC 10.4 (4.8-10.8) x10^3/uL RBC 3.38 L (4.70-6.10) 10^6/uL Hgb 8.4 L (14.0-18.0) g/dL Hct 26.9 L (42.0-52.0) % MCV 79.6 L (80.0-94.0) fL MCH 24.9 L (27.0-31.0) pg MCHC 31.2 L (32.0-36.0) g/dL RDW 16.5 H (12.0-15.0) % Plt Count 661 H (130-450) 10^3/uL MPV 9.4 (7.4-11.4) fL Neut # (Auto) 8.2 H (1.5-6.6) 10^3/uL Lymph # (Auto) 1.3 L (1.5-3.5) 10^3/uL [place] # (Auto) 0.5 (0.0-1.0) 10^3/uL Eos # (Auto) 0.2 (0.0-0.7) 10^3/uL Baso # (Auto) 0.1 (0.0-0.1) 10^3/uL Absolute Nucleated RBC 0.00 x10^3/uL Nucleated RBC % 0.0 /100WBC Sodium 135 (135-145) mmol/L Potassium 4.3 (3.5-4.5) mmol/L Chloride 104 (101-111) mmol/L Carbon Dioxide 27 (21-32) mmol/L Anion Gap 4.0 L (6-13) BUN 15 (6-20) mg/dL Creatinine 0.3 L (0.6-1.3) mg/dL Estimated GFR (MDRD) 291 (>89) Glucose 183 H (74-104) mg/dL POC Whole Bld Glucose 286 177 (70-100) mg/dL Calcium 10.1 (8.5-10.3) mg/dL Blood Type Antibody Screen Crossmatch IS Only 03/26/25 03/26/25 03/26/25 Range/Units 20:40 17:44 16:46 WBC (4.8-10.8) x10^3/uL RBC (4.70-6.10) 10^6/uL Hgb 8.5 L (14.0-18.0) g/dL Hct 27.6 L (42.0-52.0) % MCV (80.0-94.0) fL MCH (27.0-31.0) pg MCHC (32.0-36.0) g/dL RDW (12.0-15.0) % Plt Count (130-450) 10^3/uL MPV (7.4-11.4) fL Neut # (Auto) (1.5-6.6) 10^3/uL Lymph # (Auto) (1.5-3.5) 10^3/uL [place] # (Auto) (0.0-1.0) 10^3/uL Eos # (Auto) (0.0-0.7) 10^3/uL Baso # (Auto) (0.0-0.1) 10^3/uL Absolute Nucleated RBC x10^3/uL Nucleated RBC % /100WBC Sodium (135-145) mmol/L Potassium (3.5-4.5) mmol/L Chloride (101-111) mmol/L Carbon Dioxide (21-32) mmol/L Anion Gap (6-13) BUN (6-20) mg/dL Creatinine (0.6-1.3) mg/dL Estimated GFR (MDRD) (>89) Glucose (74-104) mg/dL POC Whole Bld Glucose 156 234 (70-100) mg/dL Calcium (8.5-10.3) mg/dL Blood Type Antibody Screen Crossmatch IS Only 03/23/25 03/23/25 Range/Units 07:56 05:35 WBC (4.8-10.8) x10^3/uL RBC (4.70-6.10) 10^6/uL Hgb (14.0-18.0) g/dL Hct (42.0-52.0) % MCV (80.0-94.0) fL MCH (27.0-31.0) pg MCHC (32.0-36.0) g/dL RDW (12.0-15.0) % Plt Count (130-450) 10^3/uL MPV (7.4-11.4) fL Neut # (Auto) (1.5-6.6) 10^3/uL Lymph # (Auto) (1.5-3.5) 10^3/uL [place] # (Auto) (0.0-1.0) 10^3/uL Eos # (Auto) (0.0-0.7) 10^3/uL Baso # (Auto) (0.0-0.1) 10^3/uL Absolute Nucleated RBC x10^3/uL Nucleated RBC % /100WBC Sodium (135-145) mmol/L Potassium (3.5-4.5) mmol/L Chloride (101-111) mmol/L Carbon Dioxide (21-32) mmol/L Anion Gap (6-13) BUN (6-20) mg/dL Creatinine (0.6-1.3) mg/dL Estimated GFR (MDRD) (>89) Glucose (74-104) mg/dL POC Whole Bld Glucose 180 (70-100) mg/dL Calcium (8.5-10.3) mg/dL Blood Type O POSITIVE Antibody Screen NEGATIVE Crossmatch IS Only See Detail Assessment/Plan Problem List (1) Rectal mass: (2) Cachexia: Impression: Stable, pending biopsy results. No gross ongoing rectal bleeding. Anemia as below. Presented with unplanned unexplained weight loss, cachexia, chronic diarrhea. Found to have a large rectal mass which was biopsied by general surgery on 03/17 and again 03/22. CT shows bony sclerosis thought to be metastases. No evident nodes. Continues to have bowel function. Possibility he may need diverting colostomy if he obstructs from his rectal mass given its size. Keeping stools soft. Patient requests fiber supplement as he feels miralax causes too much diarrhea. He's been counseled on maintaining adequate hydration. POLST completed with palliative care on 03/21, DNR/selective intervention, Will need follow-up with oncology to review pathology. plate worker is working on getting him a PCP appointment in the next few weeks; once this is done, will reach out to them to ensure that an oncology referral will be made. General Surgery, palliative care following peripherally. (3) Type 2 diabetes mellitus: Impression: Blood glucoses remain stable, somewhat tightly controlled. New diagnosis for this patient. A1c was elevated on admission at 9.0. Started him on long-acting and mealtime insulin today, glargine to 12 units every morning, lispro 5 units before every meal with MD REYNOSO. Counseled patient that we would likely continue insulin. Will need to follow- up with a primary care doctor after he gets out of rehab. Qualifiers: Diabetes mellitus roasterman insulin use: without roasterman use Diabetes mellitus complication status: with hyperglycemia Qualified Code(s): E11.65 - Type 2 diabetes mellitus with hyperglycemia (4) Anemia, iron deficiency: Impression: Patient has required 2 units of blood during this stay. No signs of active bleeding. Vital signs otherwise stable. Not tachycardic. Normotensive. Found to have iron deficiency, ferritin 35. Likely mix of MAGDALENA and anemia of chronic disease. Continue oral iron supplementation. Likely will need IV iron infusions as outpatient. Will need weekly hemoglobin monitoring at [facility]. Qualifiers: Iron deficiency anemia type: inadequate dietary iron intake Qualified Code(s): D50.8 - Other iron deficiency anemias (5) Closed T11 fracture: Qualifiers: Encounter type: initial encounter Fracture morphology: unspecified fracture morphology Qualified Code(s): S22.089A - Unspecified fracture of T11- T12 vertebra, initial encounter for closed fracture (6) Closed right hip fracture: Qualifiers: Encounter type: sequela Qualified Code(s): S72.001S - Fracture of unspecified part of neck of right femur, sequela (7) Ground-level fall: (8) Closed T12 fracture: Impression: Continues to intervally improved. Not quite resolved. He is still requiring occasional doses of oxycodone. Continues on scheduled Tylenol. On 03/22, he had intramedullary kehinde placed in right hip. Surgical site healing well, weightbearing as tolerated, orthopedic surgery following peripherally. Continue VTE prophylaxis with Lovenox while in house, transition to 162 mg ASA daily thereafter. Qualifiers: Encounter type: initial encounter Fracture morphology: unspecified fracture morphology Qualified Code(s): S22.089A - Unspecified fracture of T11- T12 vertebra, initial encounter for closed fracture (9) Leukocytosis: Impression: Resolved. No other obvious signs of infection. Afebrile. Urine without evidence of infection. Chest x-ray without consolidation. Consider may be malignancy related versus related to his fracture in his leg. Continue to monitor off antibiotics. Follow-up blood cultures from 03/21, no growth to date. Qualifiers: Leukocytosis type: unspecified Qualified Code(s): D72.829 - Elevated white blood cell count, unspecified (10) Counseling regarding advanced care planning and goals of care: (11) Malnutrition: Impression: Has had a generally good appetite since have known him on 03/19. Tolerating regular diet. Wounds are healing appropriately. Patient has severe protein calorie malnutrition present on arrival likely secondary to his increased metabolic demand from his cancer as well as poor diet in the community. He reports not liking the food at [place] [facility] that much. He has signs of obvious muscle wasting, loss of subcutaneous fat. Temporal wasting. He reported up to 80 pounds of weight loss over the last couple of years unplanned. At least 14% of verifiable weight loss over the last year. Appreciate nutrition involvement, continue protein supplements, Remeron started 03/19, tolerating well. Qualifiers: Malnutrition type: protein-calorie malnutrition Protein-calorie malnutrition severity: severe Qualified Code(s): E43 - Unspecified severe protein-calorie malnutrition
--- NOTE | 2025-03-27 20:28 | Palliative Care ---
Vitals Vital Signs 03/17/25 03:17 03/17/25 03:20 03/17/25 03:51 03/17/25 05:20 03/17/25 15:43 03/17/25 17:31 03/17/25 18:00 03/17/25 18:47 03/17/25 20:00 03/17/25 23:57 03/18/25 04:28 03/18/25 07:58 03/18/25 11:40 03/18/25 11:45 03/18/25 12:05 03/18/25 15:56 03/18/25 16:50 03/18/25 18:13 03/18/25 20:00 03/19/25 00:00 03/19/25 04:00 03/19/25 08:00 03/19/25 11:00 03/19/25 12:00 03/19/25 15:54 03/19/25 17:00 03/19/25 20:53 03/19/25 23:38 03/20/25 04:09 03/20/25 07:55 03/20/25 12:25 03/20/25 16:03 03/20/25 20:44 03/21/25 00:00 03/21/25 08:00 03/21/25 14:38 03/21/25 16:00 03/21/25 23:45 03/22/25 08:00 03/22/25 16:18 03/22/25 16:25 03/22/25 16:30 03/22/25 16:35 03/22/25 16:40 03/22/25 16:54 03/22/25 17:24 03/22/25 18:24 03/22/25 19:24 03/22/25 23:24 03/23/25 03:25 03/23/25 07:31 03/23/25 07:32 03/23/25 07:52 03/23/25 07:52 03/23/25 11:24 03/23/25 17:35 03/24/25 00:25 03/24/25 08:00 03/24/25 16:00 03/25/25 00:00 03/25/25 04:16 03/25/25 08:00 03/25/25 16:00 03/25/25 23:53 03/26/25 09:30 03/26/25 13:31 03/26/25 13:42 03/26/25 13:49 03/26/25 16:05 03/26/25 17:18 03/26/25 23:39 03/27/25 13:41 03/27/25 15:40 03/27/25 20:28 Height 5 ft 7 in 5 ft 7 in 5 ft 7 in 5 ft 7 in 5 ft 7 in 5 ft 7 in Weight 132 lb 4.438 oz 119 lb 0.794 oz 119 lb 0.794 oz 119 lb 0.794 oz 119 lb 0.794 oz 119 l b 0.794 oz BMI 18.7 18.7 18.7 18.7 BP 180/92 H 160/84 H 181/88 H 160/74 H 148/71 H 157/85 H 172/96 H 140/77 H 143/81 H 138/68 H 137/74 H 135/60 H 129/56 L 132/66 H 136/64 H 171/86 H 160/85 H 170/93 H 188/111 H 175/99 H 152/96 H 126/76 172/86 H 146/78 H 142/83 H 152/92 H 154/77 H 121/59 L 96/58 L 139/84 H 150/82 H 131/69 H 105/63 142/71 H 94/57 L 180/79 H 202/82 H 150/76 H 167/74 H 164/91 H 161/76 H 152/68 H 124/58 L 1 12/58 L 126/55 L 154/71 H 106/56 L 106/56 L 114/56 L 115/59 L 114/49 L 123/64 14 8/76 H 129/77 128/62 152/80 H 151/83 H 130/69 129/73 132/62 H 160/89 H 166/90 H 166/90 H 137/78 H 133/70 H 138/78 H 140/72 H 138/73 H 119/62 Respiration 18 16 16 20 19 17 18 18 18 16 18 20 20 18 14 16 1 6 16 18 18 16 16 16 16 20 20 20 16 16 20 18 18 14 18 14 15 12 14 14 16 18 18 18 14 16 16 16 16 20 20 16 18 18 16 20 14 18 18 18 18 18 18 16 18 18 18 16 Pulse 90 79 82 85 93 92 95 85 89 77 81 76 77 77 79 74 87 95 107 H 107 H 114 H 95 96 94 98 95 90 88 91 82 89 81 87 81 82 87 83 73 64 68 70 70 83 85 77 82 75 77 80 82 81 76 87 82 81 84 77 84 79 75 98 101 H 95 90 88 77 7 7 89 Temp 98.1 F 98.1 F 98.2 F 98.4 F 98.1 F 98.8 F 98.4 F 98.1 F 98.1 F 98.1 F 98.1 F 97.9 F 98.1 F 97.3 F L 97.5 F L 97.9 F 98.6 F 98.2 F 98.1 F 9 8.1 F 98.1 F 97.9 F 98.8 F 97.9 F 97.9 F 98.1 F 98.1 F 98.1 F 98.6 F 97.7 F 97.5 F L 97.7 F 97.7 F 98.1 F 97.9 F 97.5 F L 98.2 F 97.9 F 97.9 F 97.9 F 97.7 F 98.1 F 97.7 F 98.1 F 98.1 F 98.1 F 98.2 F 97.7 F 97.9 F 97.7 F 97.9 F 98.2 F 98.1 F 98.1 F 97.9 F 98.1 F 97.7 F 98.6 F 98.2 F 98.8 F Temp Source Temporal Artery Scan Temporal Artery Scan Temporal Artery Sc an Temporal Artery Scan Temporal Artery Scan Temporal Artery Scan Temporal Arter y Scan Temporal Artery Scan Temporal Artery Scan Temporal Artery Scan Temporal Artery Scan Temporal Artery Scan Temporal Artery Scan Temporal Artery Scan Temporal Artery Scan Temporal Artery Scan Temporal Artery Scan Temporal Elly ry Scan Temporal Artery Scan Temporal Artery Scan Temporal Artery Scan Temporal Artery Scan Temporal Artery Scan Temporal Artery Scan Temporal Artery Scan Temporal Artery Scan Temporal Artery Scan Temporal Artery Scan Temporal Arter y Scan Temporal Artery Scan Temporal Artery Scan Temporal Artery Scan Temporal Artery Scan Temporal Artery Scan Temporal Artery Scan Temporal Artery Scan Temporal Artery Scan Temporal Artery Scan Temporal Artery Scan Temporal Artery Scan Temporal Artery Scan Temporal Artery Scan Temporal Artery Scan Tympanic Temporal Artery Scan Temporal Artery Scan Temporal Artery Scan Skin Temporal Artery Scan Skin Temporal Artery Scan Temporal Artery Scan Temporal Artery Scan Temporal Artery Scan Skin Temporal Artery Scan Pulse Oximetry 98 99 100 97 99 99 100 96 97 98 98 98 98 97 98 10 0 98 97 99 98 97 97 98 97 97 98 97 98 98 98 97 98 96 96 97 94 96 93 93 95 95 96 98 96 98 98 97 95 96 98 97 97 96 97 97 98 98 97 97 98 98 97 96 96 97 95 99 Meds/Allgy Home Medications Ambulatory Orders Medication Instructions Recorded Confirmed loperamide 2 mg tablet 2 mg PO PRN PRN loose stool 03/18/25 03/18/25 Allergies Allergies Allergy/AdvReac Type Severity Reaction Status Date / Time No Known Drug Allergies Allergy Verified 03/17/25 03:20 CC HPI Visit Location: other location (inpatient) Chief Complaint Chief Complaint: right hip pain; s/p hip anxiety; rectal mass; ACP History Obtained From Records Reviewed: hospitalist; labs History obtained from: patient Exam Limitations: STM deficits History of Present Illness HPI: This is a 75-year-old gentleman admitted for fall, rectal mass, and failure to thrive. After work up, was found to have a hip fracture, had repair on 03/22 with improvement of pain though still having significant discomfort. Concern with STM deficits and passivity, is not asking for pain medications, is most comfortable with sitting in chair, pain exacerbated with weight bearing and sitting upright in bed. Patient presents today with better clarity, able to pariticipate, seems to have some recall of events and current information given. Still with fluctuating insight to his current situation. Waiting on outcome of second biopsy from 03/22 to further follow up. Given his lack of medical care in navigating the system is presenting to be complicated. Would recommend for expediency, as is established with surgery to make the oncology referral. Patient yet to be ready to make second sent of decisions around treatment vs supportive/comfort care. He has responded well to mirtazipine and is eating better, as well as mood seems improved. Sister Carmina and , who are quite supportive are at the bedside. Patient did receive 1 PRBC last night, patient unable to "compare" how responded but does present brighter. He is able to tell us he understands he is going to the long-term for rehab, patient and family appropriately concerned regarding how this change in environment will impact his care. Transition is awaiting approval through insurance. Patient had been living in [place], had been having more and more weight loss, inertia, not able to make meals or follow through on eating. His sister convinced him to go to [place] to be able to get better care and feeding. He has been there about 2 months, reports he has been having weight loss over a few years, but more acutely over this last year. Patient reports his most bothersome symptom has been diarrhea, has noted he has had dark stools, but is not noted any blood. . Palliative Care Performance Status Performance status: Patient is a 75-year-old male who has been falling recently secondary to having metastatic rectal cancer. Recently he fell and was brought to the emergency room and he was admitted for the cancer and subsequently x-rays were obtained and he has a displaced right intertrochanteric hip fracture. The patient states that he has pain in the groin area and on the outside of the hip he is unable to straight leg raise he does not have any numbness or tingling. Patient working with PT, likes to sit in chair for meals, and is motiviated to walk again. Palliative Care Discussion: Met with family at bedside, Oscar and [id number], as well as patient. Patient does seem to be more positive and engaged in conversation today, has had repetitive information and appears to be retaining he is going to [facility] for rehab, steps needed for further workup regarding his rectal mass/cancer, as well as retaining some information regarding looking at treatment options in the future. Discussed with sister/DPOA, regarding navigating system. Reviewed awaiting insurance approval, but goal for patient to participate in physical therapy,, there is usually some kind of transition care meeting regarding after his first 10 to 14 days, and then will determine if patient making progress. We discussed in the context of his rectal mass, hoping to get referral from surgeon, and can follow him with palliative care at the [facility] when he comes for treatments or appointments. Recommended they reach out if have further questions as far as navigation. [facility] Active Problems All Active Problems (Updated 03/27/25 @ 12:16 by Randy Hanson MD) Closed intertrochanteric fracture of right hip (Acute) Malnutrition (Acute) Closed right hip fracture (Acute) Leukocytosis (Acute) Type 2 diabetes mellitus (Acute) Counseling regarding advanced care planning and goals of care (Acute) Closed T12 fracture (Acute) Closed T11 fracture (Acute) Intractable back pain (Acute) Anemia, iron deficiency (Acute) Rectal mass (Acute) Compression fracture of vertebral column (Acute) Cachexia (Acute) Leg pain, right (Acute) Ground-level fall (Acute) Medical History Medical History Insomnia Urinary incontinence Skin cancer No pertinent past medical history Surgical History Surgical History No pertinent past surgical history Social History Social History Smoking Status: Unknown if ever smoked Do you dip or chew tobacco?: No Do you vape?: No Living arrangement: Assisted living Living Condition: Alone Support Person: Yes Living Situation Details: Recently moved to [place]; is there under Medicaid Has a Durable Power of Competitive Intelligence Manager for Health Care?: Yes Name / Relationship: Carmina Ribeiro [phone] DPOA on file?: Yes Level: Independent Home Mobility Equipment: Cane Physical - Functional Details: Functional status has been declining Do you feel safe in your home environment?: Yes History of physical, verbal, emotional, or financial abuse?: No ETOH Use: Beer Frequency: Daily Number of drinks/day: 1 Substance Use: cannabis (any form) Retired: 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 POLST Patient has POLST: Yes POLST on file?: Yes POLST CPR Status: Do Not Attempt Resuscitation (DNAR) / Allow Natural Level of Medical Intervention: Selective Treatment Review of Systems Status of ROS: See HPI Constitutional Reports: Fatigue and Weight loss Ears, nose, mouth, and throat Reports: Hearing loss and Dentures Cardiovascular Reports: Decreased exercise tolerance Musculoskeletal Reports: Joint pain, Stiffness, Muscle aches and Muscle weakness Neurological Reports: Memory problems Psychiatric Reports: Depression, Anxiety, Hopelessness (improved) and Memory loss Endocrine Reports: Fatigue Hematologic/Lymphatic Reports: Anemia Exam Exam Vital Signs: Vital Signs x48h Temp Pulse Resp BP Pulse Ox 03/21/25 08:00 98.1 F 81 20 131/69 H 97 Patient appears bright an engaged; eating sitting in bed; normal respiratory effort, grimacing with movement but no acute distress; no LE edema Impression Impression: This is a 75-year-old gentleman who presents with failure to thrive, with weight loss, cognitive and functional decline, history of falls, and now with rectal mass. Adding to complicated picture, now know right hip fracture s/p repair. Patient presented with severe anemia, has now received two units total, still low, most likely contributing to his weakness and symptom burden. Patient eating better and affect brighter. Patient minimally connected to healthcare, longstanding history of this. Patient beginning to come to some understanding of the seriousness of his situation. Currently pending oncology referral, for further definitions of goals of care and if appropriate for treatment. Palliative care providing support and establishing rapport to support patient through serious illness trajectory. Provided follow up family meeting. Assessment & Plan Assessment & Plan (1) Rectal mass: Code(s): K62.89 - Other specified diseases of anus and rectum (2) Cachexia: Code(s): R64 - Cachexia (3) Closed right hip fracture: Code(s): S72.001A - Fracture of unspecified part of neck of right femur, initial encounter for closed fracture Qualifiers: Encounter type: sequela Qualified Code(s): S72.001S - Fracture of unspecified part of neck of right femur, sequela (4) Counseling regarding advanced care planning and goals of care: Code(s): Z71.89 - Other specified counseling (5) Type 2 diabetes mellitus: Code(s): E11.9 - Type 2 diabetes mellitus without complications Qualifiers: Diabetes mellitus rn long term care insulin use: without rn long term care use Diabetes mellitus complication status: with hyperglycemia Qualified Code(s): E11.65 - Type 2 diabetes mellitus with hyperglycemia Plan Patient to get scheduled with oncology, hopefully consult order able to come through surgeon. Recommend continuing with mirtazapine at bedtime, patient has had improvement with his appetite and intake. Regarding diabetes, given patient's home setting of [place], once patient stabilized as well as his blood sugars, would recommend considering oral regimen as it is difficult for insulin in that setting Patient also having difficulty remembering to ask for pain medications, would recommend discharging on scheduled 3 times daily oxycodone along with scheduled 3 times daily acetaminophen. Including of course bowel program, recommend 1 capful of MiraLAX and 2 senna at bedtime. Reviewed with patient and family, next step for goals of care, which is gathering information regarding rectal mass and most likely malignancy. Continue to weigh benefits and burdens for patient's care. Palliative care to follow patient after oncology established. Family to call if questions in meanwhile.
[2025-03-28 05:27] LABS: HCT - HEMATOCRIT 24.6 % (42.0-52.0); HGB - HEMOGLOBIN 7.8 g/dL (14.0-18.0); MEAN PLATELET VOLUME 9.6 fL (7.4-11.4); PLT - PLATELET COUNT 657.0 10^3/uL (130-450); RED CELL DISTRIBUTION WIDTH 17.2 % (12.0-15.0)
[2025-03-28 05:48] LABS: BUN - BLOOD UREA NITROGEN 18.0 mg/dL (6-20); CARBON DIOXIDE - CO2 26.0 mmol/L (21-32); CREATININE 0.4 mg/dL (0.6-1.3); GFR - MDRD 209.0 (>89)
--- NOTE | 2025-03-28 06:45 | OPERATIVE REPORT ---
Operative Report General Admit Date: 03/18/25 Procedure Data: Operation Date: 03/22/25 12:00 Proposed Procedures p INTRAMEDULLARY HIP NAILING(Right) - Eddy Moya DO s PROCTOSCOPY, POSSIBLE FLEX SIGMOIDOSCOPY, BIOPSY OF RECTAL MASS(Not Applicable) - Ambrose Goldsmith MD Actual Procedures p INTRAMEDULLARY HIP NAILING(Right) - Eddy Moya DO Pre-Op Diagnosis: INTERTROCHANTERIC HIP FRACTURE RIGHT s PROCTOSCOPY, POSSIBLE FLEX SIGMOIDOSCOPY, BIOPSY OF RECTAL MASS(Not Applicable) - Ambrose Goldsmith MD Pre-Op Diagnosis: RECTAL MASS, METASTATIC CANCER Anesthesia Type General Case Staff Anesthesia Provider: Georgina Lee Assisting Provider: Dennise Low Rep: CASSANDRA WILSON. Case Times Into Recovery: 03/22/25 16:18 Procedure Start: 03/22/25 15:00 Procedure End: 03/22/25 16:08 Time out: 03/22/25 14:59 Nail is a complicated procedure requiring the assistance of a physician welder assistant. NGA Calzada was used to help position the patient reduce the fracture and retraction while I inserted the hardware. Patient was taken to the operative suite and after undergoing a general anesthetic the right hip was prepped and draped in usual sterile fashion under physician guided fluoroscopy we made sure that the fracture was reduced and we also got our starting point and marked this with a marker. We then made about a 5 cm incision from the tip of the trope proximally we went down to the tensor fascia gracie and we divided this longitudinally and we could feel the tip of the truck and we put our guidepin in we confirmed on physician guided fluoroscopy that it was in the proper position and we inserted it across the fracture site we then drilled our original opening airline pilot hole. We then took a 10 mm kehinde inserted it across the fracture site down into the femur without any complication we then inserted a guidewire up into the femoral head and neck and once that was in the proper position confirmed on physician guided fluoroscopy we went ahead and measured for the lag screw and this was determined to be a 95 mm screw. OurSCREW 5MMX32.5MM TRIGEN LAG SCRW 100/95MM Pre-Op Diagnosis: Right hip intertrochanteric fracture Post Op Diagnosis: Right hip intertrochanteric fracture Procedure Note Indications: Right hip intertrochanteric fracture Complications: None Other Other Information/Narrative: The patient fell and sustained a right hip intratrochanteric fracture open reduction internal fixation with intramedullary Nail is a complicated procedure requiring the assistance of a physician welder assistant. NGA Calzada was used to help position the patient reduce the fracture and retraction while I inserted the hardware. Patient was taken to the operative suite and after undergoing a general anesthetic the right hip was prepped and draped in usual sterile fashion under physician guided fluoroscopy we made sure that the fracture was reduced and we also got our starting point and marked this with a marker. We then made about a 5 cm incision from the tip of the trope proximally we went down to the tensor fascia gracie and we divided this longitudinally and we could feel the tip of the truck and we put our guidepin in we confirmed on physician guided fluoroscopy that it was in the proper position and we inserted it across the fracture site we then drilled our original opening airline pilot hole. We then took a 10 mm kehinde inserted it across the fracture site down into the femur without any complication we then inserted a guidewire up into the femoral head and neck and once that was in the proper position confirmed on physician guided fluoroscopy we went ahead and measured for the lag screw and this was determined to be a 95 mm screw. At this time we turned our direction towards the distal locking screw and we made about a 1-1/2 cm incision we put the guide up against the femur and under physician guided fluoroscopy confirmed the length to be 32.5 mm and we inserted that screw. We made sure to get good x-rays in both the AP and lateral throughout the case and the fracture was well reduced and maintained alignment at that time all wounds were irrigated and the deep tissue was closed with 0 Vicryl the subcu with 2-0 Vicryl the lasha were used for the skin sterile dressing was applied and the patient was awakened and transferred stable to recovery room
--- NOTE | 2025-03-28 08:31 | PROVIDER PROGRESS NOTE ---
Current Medications Current Medications Current Medications: Current Medications Generic Name Dose Route Start Last Admin Trade Name Yanivq PRN Reason Stop Dose Admin Acetaminophen 1,000 mg 03/17/25 22:00 03/28/25 06:26 Acetaminophen 500 Mg Tablet PO 1,000 mg TID JUJU Administration Docusate Sodium 250 - 500 mg 03/18/25 21:00 03/28/25 08:08 Docusate Sodium 250 Mg Capsule PO Not Given DAILY [facility] Enoxaparin Sodium 40 mg 03/28/25 09:00 Enoxaparin 40 Mg/0.4 Ml Syringe SUBQ DAILY [facility] Ferrous Sulfate 325 mg 03/20/25 08:00 03/28/25 08:05 Ferrous Sulfate 325 Mg Tablet PO 325 mg DAILYWM JUJU Administration Insulin Glargine-yfgn 12 unit 03/26/25 08:00 03/28/25 08:07 Insulin Glargine-Yfgn 300 Unit/3 Ml Pen SUBQ 12 unit [id number] [facility] Administration Insulin Human Lispro 1 - 9 unit 03/20/25 12:00 03/28/25 08:06 Insulin Lispro 300 Unit/3 Ml Pen SUBQ 3 unit 0800,1200,1700,2100 JUJU Administration Protocol Insulin Human Lispro 5 unit 03/22/25 08:00 03/28/25 08:07 Insulin Lispro 300 Unit/3 Ml Pen SUBQ 5 unit TIDWM JUJU Administration Lidocaine 1 patch 03/20/25 09:00 03/28/25 08:05 Lidocaine Patch 4% TOP 1 patch DAILY JUJU Administration Mirtazapine 15 mg 03/19/25 21:00 03/27/25 21:28 Mirtazapine 15 Mg Tablet PO 15 mg QPM JUJU Administration Multivitamins/Minerals 1 tab 03/18/25 17:00 03/28/25 08:06 Multivitamin W/Minerals Tablet PO 1 tab DAILYWM JUJU Administration Ondansetron HCl 4 mg 03/17/25 17:26 Ondansetron Odt 4 Mg Tablet TL Q6HR PRN Nausea / Vomiting Ondansetron HCl 4 mg 03/17/25 17:26 Ondansetron 4 Mg/2 Ml Vial IVP Q6HR PRN Nausea / Vomiting Oxycodone HCl 5 mg 03/17/25 17:26 03/28/25 07:00 Oxycodone 5 Mg Tablet PO 5 mg Q4HR PRN Administration Pain 5 to 7 Pantoprazole Sodium 40 mg 03/18/25 16:00 03/28/25 06:26 Pantoprazole 40 Mg Tablet PO 40 mg BIDAC JUJU Administration Polyethylene Glycol 17 gm 03/19/25 09:00 03/28/25 08:08 Polyethylene Glycol 3350 17 Gm Packet PO Not Given DAILY JUJU Psyllium Hydrophilic Mucilloid 1 packet 03/24/25 09:00 03/28/25 08:08 Psyllium Packet PO Not Given DAILY JUJU Sodium Chloride 10 ml 03/17/25 17:26 Sodium Chloride Flush 0.9% 10 Ml Syringe IVP PRN PRN NEEDED PER PROVIDER ORDERS Sodium Chloride 10 ml 03/18/25 01:00 03/28/25 08:05 Sodium Chloride Flush 0.9% 10 Ml Syringe IVP 10 ml 0100,0900,1700 JUJU Administration Sodium Chloride 10 ml 03/22/25 17:10 Sodium Chloride Flush 0.9% 10 Ml Syringe IVP PRN PRN NEEDED PER PROVIDER ORDERS Sodium Chloride 10 ml 03/23/25 01:00 03/28/25 08:08 Sodium Chloride Flush 0.9% 10 Ml Syringe IVP 10 ml 0100,0900,1700 JUJU Administration Objective Vital Signs/Intake & Output Intake & Output: Intake & Output 03/25/25 03/26/25 03/27/25 03/28/25 23:59 23:59 23:59 23:59 Intake Total 589 / 589 500 / 500 606 / 606 Output Total 950 / 950 1575 / 1575 1025 / 1025 1000 / 1000 Balance -361 / -361 -1075 / -1075 -419 / -419 -1000 / -1000 Weight (kg) 54 kg Lab Results 03/28/25 04:50 03/28/25 04:50 Other Labs: Lab Results x24hrs 03/28/25 03/28/25 03/27/25 Range/Units 07:42 04:50 16:37 WBC 10.2 (4.8-10.8) x10^3/uL RBC 3.12 L (4.70-6.10) 10^6/uL Hgb 7.8 L (14.0-18.0) g/dL Hct 24.6 L (42.0-52.0) % MCV 78.8 L (80.0-94.0) fL MCH 25.0 L (27.0-31.0) pg MCHC 31.7 L (32.0-36.0) g/dL RDW 17.2 H (12.0-15.0) % Plt Count 657 H (130-450) 10^3/uL MPV 9.6 (7.4-11.4) fL Sodium 136 (135-145) mmol/L Potassium 3.8 (3.5-4.5) mmol/L Chloride 104 (101-111) mmol/L Carbon Dioxide 26 (21-32) mmol/L Anion Gap 6.0 (6-13) BUN 18 (6-20) mg/dL Creatinine 0.4 L (0.6-1.3) mg/dL Estimated GFR (MDRD) 209 (>89) Glucose 182 H (74-104) mg/dL POC Whole Bld Glucose 201 206 (70-100) mg/dL Calcium 10.1 (8.5-10.3) mg/dL Magnesium 1.8 (1.7-2.3) mg/dL 03/27/25 Range/Units 11:45 WBC (4.8-10.8) x10^3/uL RBC (4.70-6.10) 10^6/uL Hgb (14.0-18.0) g/dL Hct (42.0-52.0) % MCV (80.0-94.0) fL MCH (27.0-31.0) pg MCHC (32.0-36.0) g/dL RDW (12.0-15.0) % Plt Count (130-450) 10^3/uL MPV (7.4-11.4) fL Sodium (135-145) mmol/L Potassium (3.5-4.5) mmol/L Chloride (101-111) mmol/L Carbon Dioxide (21-32) mmol/L Anion Gap (6-13) BUN (6-20) mg/dL Creatinine (0.6-1.3) mg/dL Estimated GFR (MDRD) (>89) Glucose (74-104) mg/dL POC Whole Bld Glucose 286 (70-100) mg/dL Calcium (8.5-10.3) mg/dL Magnesium (1.7-2.3) mg/dL Assessment/Plan Problem List (1) Rectal mass: (2) Cachexia: (3) Closed right hip fracture: Qualifiers: Encounter type: sequela Qualified Code(s): S72.001S - Fracture of unspecified part of neck of right femur, sequela (4) Counseling regarding advanced care planning and goals of care: (5) Type 2 diabetes mellitus: Qualifiers: Diabetes mellitus examination proctor insulin use: without examination proctor use Diabetes mellitus complication status: with hyperglycemia Qualified Code(s): E11.65 - Type 2 diabetes mellitus with hyperglycemia
[2025-03-28] MEDS: ENOXAPARIN 40 MG/0.4 ML SYRINGE SUBQ SCH (09:46)
--- NOTE | 2025-03-28 10:04 | Discharge Summary ---
"Discharge Summary Admit Date: 03/17/25 Discharge Date: 03/28/25 Discharging Provider: Dr. Randy Hanson Primary Care Provider: None at this time, will follow up with [facility] Code Status: Do Not Attempt Resuscitation Discharge Facility Name: [facility] DIAGNOSES Discharge Diagnoses with Status of Each Condition: Rectal mass, cachexiastable, pending biopsy results, expected in 1-2 more days. No gross ongoing rectal bleeding. Continues with stable anemia. Continue ferrous sulfate, oral supplementation. Continues to have bowel function. Keep stools soft. Due to the size and location of this rectal mass, he may need a diverting colostomy if he is unable to maintain stool output. As such, please continue MiraLAX, docusate. He needs very close follow-up with oncology, general surgery, palliative care, and the new primary care provider. Social work is working on getting him a PCP appointment. The PCP or general surgery can then provide consults for oncology and palliative care. Type 2 diabetes mellitusnew diagnosis for this patient, A1c is elevated at 9.0. Continue glargine 12 units every morning, lispro 5 units before meals with moderate dose sliding scale insulin. Iron deficiency anemialikely due to slow and chronic bleed of rectal mass. Continue iron supplementation. Closed T11 fracture, closed T12 fracture, closed right hip fracturecontinue scheduled Tylenol. Continue oxycodone as needed. Received 6 days of DVT prophylaxis already. Please continue aspirin 162 mg daily for an additional 24 days. Follow-up with orthopedic surgery in the outpatient setting. Malnutritionwhile inpatient, his appetite has been improving. Continue regular diet with Ensure 3 times daily. Continue Remeron on discharge. HPI History of Present Illness: Patient is a 75-year-old male with no past medical history who presents after ground-level fall. He states he slipped on the floor, and landed on his buttocks. He has had pain in his right hip, right groin region since. When asked further about underlying medical conditions, he endorses chronic diarrhea which has worsened in the last few months. He also states that he has had a more than 100 pound weight loss over the last year. He does not see a primary care provider regularly. He has never had a colonoscopy. He is not up-to-date on any of his cancer screenings. Up until a few years ago, he lived with his nephew who he states suffers from mental health challenges. Patient endorses no past medical history. He states he takes no medications. He has no known drug allergies. He has never had any surgeries. He drinks beer occasionally. He denies any tobacco use. He smokes marijuana almost daily. 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 His next of kin and DPOA that he wants us to contact is his sister, Oscar Stiles. Her number is [phone]. CONSULTS | PROCEDURES Consultations: General surgery, orthopedic surgery Procedures: 03/17chest x-rayno acute cardiopulmonary process Femur x-ray03/17no displaced femoral fracture Hip and pelvis x-ray03/17no displaced fracture Knee x-ray03/17no acute bony abnormality Head CTno acute intracranial [id number]/[address]no displaced fracture or traumatic qsbeimnvuqc56/[address]/17bony sclerosis involving ribs, subacute appearing T11 and T12 compression deformities Abdomen/pelvis CT03/17 rectal mass measuring up to 6.1 cm, general wall thickening throughout colon Chest x-ray03/21no acute cardiopulmonary process Hip and pelvis x-ray03/21comminuted, foreshortened intertrochanteric fracture of the right femur Right hip sdseeka89/31 Rectal mass biopsy, flexible lldctklgaifwo35/31 Proctoscopy, rectal mass gauajv61/26 HOSPITAL COURSE Hospital Course: Patient is a 75-year-old male with no known past medical history who presented after ground-level fall. He states he slipped, and landed on his buttocks. He has pain in his right hip as well as his right groin region. He also endorsed ongoing diarrhea and significant unintentional weight loss he first got here. Imaging on admission showed a large rectal mass. General surgery biopsied this. Initial biopsy was inconclusive. Repeat biopsy was completed with a flexible sigmoidoscopy which remains pending. I spoke with [facility] pathology group, and they expect it within the next 1 to 2 days. After this, he will need close follow-up with oncology, palliative care, general surgery. PCP will have to provide these referrals. While here, he was found to have a right hip fracture. A right hip pinning was completed while here. During his stay, he was found to be anemic and required two units of packed red blood cells. His hemoglobin has been stable, and will be continued on oral supplementation. Plan is for SNF placement and further rehab before placement ALLERGIES Allergies Allergy/AdvReac Type Severity Reaction Status Date / Time No Known Drug Allergies Allergy Verified 03/17/25 03:20 MEDICATIONS Ambulatory Orders Medication Instructions Recorded Confirmed acetaminophen 500 mg tablet 1,000 mg (2 x 500 mg) PO T ID #90 03/28/25 (Tylenol Extra Strength) tabs aspirin 81 mg tablet 162 mg (2 x 81 mg) PO DAILY 24 03/28/25 days #48 tabs docusate sodium 250 mg capsule 250 - 500 mg (1 - 2 x 2 50 mg) PO 03/28/25 DAILY #30 caps ferrous sulfate 325 mg (65 mg 325 mg PO DAILYWM #30 ta bs 03/28/25 iron) tablet insulin glargine-yfgn 100 unit/mL 12 unit (0.12 mL) tian bcut 03/28/25 (3 mL) subcutaneous pen QDBREAKFAST #15 mL insulin lispro 100 unit/mL 1 - 9 unit (0.01 - 0.09 mL) subcut 03/28/25 subcutaneous pen (Humalog KwikPen 0800,1200,1700,2100 #15 mL (U-100) Insulin) insulin lispro 100 unit/mL 5 unit (0.05 mL) subcut TID WM #15 03/28/25 subcutaneous pen (Humalog KwikPen mL (U-100) Insulin) lidocaine 4 % topical patch 1 patch topical DAILY #30 ea 03/28/25 mirtazapine 15 mg tablet 15 mg PO QPM #30 tabs zlgofuvfjgmp-blysfwtp-wvse 1 tab PO DAILYWM #30 tabs 1 05/28/24 fumarate 19 mg-folic acid 400 mcg tablet (Therapeutic-M) oxycodone 5 mg tablet 5 mg PO Q4HR PRN Pain 5 to 7 #12 03/28/25 tabs pantoprazole 40 mg tablet,delayed 40 mg PO BIDAC #60 t abs 03/28/25 release PHYSICAL EXAM AT DISCHARGE Vital Signs: Vital Signs x48h Temp Pulse Resp BP Pulse Ox 03/28/25 13:54 97.7 F 95 18 128/73 97 GEN: Frail, cachectic. NAD. Sitting in chair. HEENT: NC/AT, normal appearance of external ears and nose. Hearing baseline. Cardiac: Regular rate and rhythm, no murmurs. Pulm: Lungs CTA bilaterally, no cough, no wheezes. Normal effort on room air Abdomen: Soft, nontender, nondistended. Extremities: Dressing intact RLE, CDI. Moves all extremities equally. Continues to have intervally improved pain in his right hip Neuro: Face symmetric, CN II through XII intact grossly. No focal deficits. Psych: Mood euthymic, affect congruent. Reasonable historian. Judgment intact. LABS 03/28/25 04:50 03/28/25 04:50 DIAGNOSTIC IMAGING Diagnostic Imaging Results: Final report reviewed FOLLOW UP Follow Up: Primary care provider. Appointment has been made at [facility] by social workers. Follow-up with palliative care. Follow-up with oncology. Follow-up with orthopedic surgery Follow-up with general surgery. TIME SPENT Time Spent in Discharge (Minutes): 35 Discharge Plan Discharge Patient Disposition: 03 [facility] DC/Xfer Condition: Stable Prescriptions: New acetaminophen [Tylenol Extra Strength] 500 mg Tablet 1,000 mg PO TID Qty: 90 0RF docusate sodium 250 mg Capsule 250 - 500 mg PO DAILY Qty: 30 0RF ferrous sulfate 325 mg (65 mg iron) Tablet 325 mg PO DAILYWM Qty: 30 0RF insulin glargine-yfgn 100 unit/mL (3 mL) Insulin Pen 12 unit subcut QDBREAKFAST Qty: 15 0RF insulin lispro [Humalog KwikPen Insulin] 100 unit/mL Insulin Pen 1 - 9 unit subcut 0800,1200,1700,2100 Qty: 15 0RF insulin lispro [Humalog KwikPen Insulin] 100 unit/mL Insulin Pen 5 unit subcut TIDWM Qty: 15 0RF lidocaine 4 % Adhesive Patch,Medicated 1 patch topical DAILY Qty: 30 0RF mirtazapine 15 mg Tablet 15 mg PO QPM Qty: 30 0RF Therapeutic-M 19 mg iron- 400 mcg Tablet 1 tab PO DAILYWM Qty: 30 0RF oxycodone 5 mg Tablet 5 mg PO Q4HR PRN (Reason: Pain 5 to 7) Qty: 12 0RF pantoprazole 40 mg Tablet,Delayed Release (Dr/Ec) 40 mg PO BIDAC Qty: 60 0RF aspirin 81 mg tablet 162 mg PO DAILY 24 Days Qty: 48 0RF Discontinued loperamide 2 mg tablet 2 mg PO PRN PRN (Reason: loose stool) Patient Comments: caregiver said a max of 8mg per day Activity Restrictions: Activity as Tolerated Diet: Regular Health Concerns: You came in because you had a fall and you were feeling quite weak. Your blood levels were found to be very low. On further examination, we noted a mass from your rectum. Initial biopsy was inconclusive. We repeated the biopsy, and I spoke with the pathology department who states that the final biopsy should be returning within the next few days. You will need close follow-up with a new primary care provider, which I understand the social group worker is helping set up. You will also follow-up closely with palliative care. I know you have already established a great relationship with Trish while you have been here. Additionally, you will need follow-up with surgery, and likely oncology. Your primary care provider will be the one that provides you with this referral so it is very important that you follow-up with them after rehab. We have started you on a few medications. First of all, I know insulin is new for you. Your A1c or diabetes numbers were very high. You will be requiring long-acting insulin at night, as well as insulin with meals, and the sliding scale insulin on top of that. Once you are getting released from rehab, they will walk you through how to administer this at home. I am also sending you home with some pain medications to be used as needed. For your hip fracture, you will continue 24 more days of 2 baby aspirins every day. This is to prevent any blood clots from forming as you will be less mobile than usual. Finally, we started you on an appetite stimulant called mirtazapine to help you eat a little bit more. I understand that this is all happening very fast. It can feel very overwhelming. I am glad you have the support of your sister to help you through these next few weeks, and all of the doctors appointments to come. We are glad you are feeling better. Thank you for letting us take care of you. Print Language: Lithuanian Patient Instructions: Surg Dc Stand Alone Forms: SNF Discharge, PCP List Follow-up Care: Eliel Hendrix MD [Provider Admit Priv/Credential, Surgery, General] Referral Note: Follow-up as needed for rectal mass/surgical needs Trish Mclaughlin ARNP [Provider Admit Priv/Credential, Palliative Care] Eddy Moya DO [Provider Admit Priv/Credential, Orthopedics] Referral Note: Follow-up regarding hip repair Ankita Paz MD [Provider Admit Priv/Credential, Oncology/Hematology] Referral Note: Follow-up to review pathology of your rectal mass Report called to and time (if no answer, doc. time of each call attempted): 1150 Cindi Vitals documented within 30 minutes of discharge?: Yes"
[2025-03-28 13:54] VITALS: BP 128/73; TEMP 97.7; O2SAT 97
== END 2025-03-28 13:59 | DRG 480 ==
LOC: ED 02:59 → MS3 02:59 → SUATTDRO 03-18 14:45
PROVIDERS: ADMIT Internal Medicine; ATTEND Student in an Organized Health Care Education/Training Program
PROC: HIPNAIL (2025-03-22 12:00)

== ENCOUNTER 2025-04-10 13:00 | Inpatient (IN) ==
--- NOTE | 2025-04-10 13:20 | ED Physician Documentation ---
History of Present Illness Stated complaint Stated Complaint: ABNORMAL LABS/DIARRHEA Chief complaint Chief Complaint: General History obtained from History obtained from: Patient History of Present Illness Timing: Prior to arrival Additonal information Additional information: Patient 75-year-old male presenting to the emergency department with abnormal labs with a hemoglobin of 6.3 at his facility. Patient has complicated medical history including recent diagnosis of metastatic rectal cancer following with oncology. Recent diagnosis of right hip intra trochanter Ariel fracture with procedure done on 03 28 and recent diagnosis of diabetes and anemia from poor nutritional intake. Patient was recently admitted on 103 after syncopal episode when majority of these findings were determined. He is currently on palliative care. He denies any increased fatigue or weakness. He is not on any blood thinners at this time. He does report some looser stools and describes them dark in color. He has no abdominal pain no fevers no chills no nausea or vomiting no hematemesis. He denies ever having any low hemoglobin prior to the last few months. Meds/Allgy Home Medications Ambulatory Orders Medication Instructions Recorded Confirmed acetaminophen 500 mg tablet 1,000 mg (2 x 500 mg) PO T ID #90 03/28/25 04/10/25 (Tylenol Extra Strength) tabs aspirin 81 mg tablet 162 mg (2 x 81 mg) PO DAILY 24 03/28/25 04/10/25 days #48 tabs docusate sodium 250 mg capsule 250 - 500 mg (1 - 2 x 2 50 mg) PO 03/28/25 04/10/25 DAILY #30 caps ferrous sulfate 325 mg (65 mg 325 mg PO DAILYWM #30 ta bs 03/28/25 04/10/25 iron) tablet insulin glargine-yfgn 100 unit/mL 12 unit (0.12 mL) tian bcut 03/28/25 04/10/25 (3 mL) subcutaneous pen QDBREAKFAST #15 mL insulin lispro 100 unit/mL 1 - 9 unit (0.01 - 0.09 mL) subcut 03/28/25 04/10/25 subcutaneous pen (Humalog KwikPen 0800,1200,1700,2100 #15 mL (U-100) Insulin) insulin lispro 100 unit/mL 5 unit (0.05 mL) subcut TID WM #15 03/28/25 04/10/25 subcutaneous pen (Humalog KwikPen mL (U-100) Insulin) lidocaine 4 % topical patch 1 patch topical DAILY #30 ea 03/28/25 04/10/25 mirtazapine 15 mg tablet 15 mg PO QPM #30 tabs 04/10/25 ossptkaeatii-btfyqawt-rgwn 1 tab PO DAILYWM #30 tabs 1 05/28/24 04/10/25 fumarate 19 mg-folic acid 400 mcg tablet (Therapeutic-M) oxycodone 5 mg tablet 5 mg PO Q4HR PRN Pain 5 to 7 #12 03/28/25 04/10/25 tabs pantoprazole 40 mg tablet,delayed 40 mg PO BIDAC #60 t abs 03/28/25 04/10/25 release Allergies Allergies Allergy/AdvReac Type Severity Reaction Status Date / Time No Known Drug Allergies Allergy Verified 04/10/25 13:04 PFS Active Problems All Active Problems (Updated 04/10/25 @ 17:39 by Avel Hylton DNP) ABLA (acute blood loss anemia) (Acute) Bloody stool (Acute) Guaiac positive stools (Acute) Anemia (Chronic) Post-operative state (Acute) Closed intertrochanteric fracture of right hip (Acute) Malnutrition (Acute) Closed right hip fracture (Acute) Type 2 diabetes mellitus (Acute) Counseling regarding advanced care planning and goals of care (Acute) Closed T12 fracture (Acute) Closed T11 fracture (Acute) Intractable back pain (Acute) Anemia, iron deficiency (Acute) Rectal mass (Acute) Compression fracture of vertebral column (Acute) Cachexia (Acute) Leg pain, right (Acute) Ground-level fall (Acute) Medical History Medical History (Updated 04/10/25 @ 17:39 by Avel Hylton DNP) Insomnia Urinary incontinence Skin cancer No pertinent past medical history Surgical History Surgical History (Updated 04/10/25 @ 15:06 by Marily Kilpatrick MA) Hx of flexible sigmoidoscopy (~03/22/25) [facility] DR. 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 Social History Social History (Updated 04/10/25 @ 13:07 by Luis Antonio Torres, RN, BSN) Smoking Status: Never smoker Do you dip or chew tobacco?: No Do you vape?: No Living arrangement: Assisted living Living Condition: Alone Support Person: Yes Living Situation Details: Recently moved to [place]; is there under Medicaid Has a Durable Power of Body Die Maker for Health Care?: Yes Name / Relationship: Carmina Ribeiro [phone] DPOA on file?: Yes Level: Independent Physical - Functional Details: Functional status has been declining Do you feel safe in your home environment?: Yes History of physical, verbal, emotional, or financial abuse?: No ETOH Use: Beer Frequency: Daily Number of drinks/day: 1 Substance Use: cannabis (any form) 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 POLST Patient has POLST: Yes POLST on file?: Yes POLST CPR Status: Do Not Attempt Resuscitation (DNAR) / Allow Natural Exam Exam Vital Signs: Vital Signs x48h Temp Pulse Pulse Resp BP BP Pulse Ox 04/10/25 16:16 37.7 C 80 14 141/70 H 97 04/10/25 15:55 37.7 C 73 14 141/70 H 97 04/10/25 13:00 37 C 80 16 125/64 98 Constitutional Patient chachetic HENMT Conjunctival pallor Respiratory breath sounds equal bilaterally, normal respiratory effort and clear to auscultation bilaterally Cardiovascular normal heart rate noted and regular rhythm noted Skin Patient pale appearing with some abnormal bruising to bilateral upper extremities. Results Vitals Vitals: Vital Signs - 24 hr 04/10/25 13:00 04/10/25 15:55 04/10/25 16:16 Temperature 37 C 37.7 C 37.7 C Temperature Source Temporal Artery Scan Temporal Artery Scan Temporal Artery Scan Pulse Rate 80 Pulse Rate [Monitoring electrodes] 73 80 Respiratory Rate 16 14 14 Blood Pressure 125/64 Blood Pressure [Right Brachial artery Automatic] 141/70 H 141/70 H O2 Saturation 98 97 97 O2 Source Room air Room air Room air Sedation scale 1-Arouses easily 0-Fully awake Pain Intensity 0 0 0 Oxygen O2 Source Room air Labs Labs: Microbiology 04/10/25 13:10 Occult Blood - Final Stool Laboratory Tests 04/10/25 04/10/25 13:30 13:45 WBC 9.2 RBC 2.67 L Hgb 6.4 L* Hct 21.9 L MCV 82.0 MCH 24.0 L MCHC 29.2 L RDW 18.2 H Plt Count 639 H MPV 10.4 Neut # (Auto) 7.2 H Lymph # (Auto) 1.2 L Dooly # (Auto) 0.5 Eos # (Auto) 0.2 Baso # (Auto) 0.1 Absolute Nucleated RBC 0.00 Nucleated RBC % 0.0 PT 11.5 INR 1.0 Sodium 143 Potassium 3.3 L Chloride 110 Carbon Dioxide 26 Anion Gap 7.0 BUN 20 Creatinine 0.4 L Estimated GFR (MDRD) 209 Glucose 86 Calcium 10.0 Total Bilirubin 0.2 AST 16 ALT 11 Alkaline Phosphatase 148 H Total Protein 6.3 L Albumin 2.9 L Globulin 3.4 Albumin/Globulin Ratio 0.9 L Blood Type O POSITIVE Antibody Screen NEGATIVE Crossmatch IS Only See Detail PD Medical Decision Making ED course Complexity details: reviewed old records and reviewed results ED course: Patient 75-year-old male presenting to the emergency department with low hemoglobin levels from assisted living facility rates current was exciting. Patient was recently seen here a few weeks ago after recent fall and syncopal episode fortunately was found to have concerning findings for rectal malignant cancer as well as of right anterior trochanteric fracture of his right hip as well as persistent anemia requiring multiple transfusions. Patient was eventually discharged home but over the last few days has had persistent black/dark-colored diarrhea and persistently low hemoglobin levels. He has some generalized fatigue weakness and lightheadedness. He has no hematemesis. He is not on blood thinners at this time. Patient labs here in the ED showed no significant leukocytosis hemoglobin of 6.4 here in the ED will obtain blood transfusion patient was consented for blood transfusion here in the ED.Patient agreeable to he has received blood transfusions in the past with no acute reactions. I did review with patient sister as he requested and she notes he still makes his own medical decisions and patient is able to repeat back to me how he is feeling. I reviewed with 's [facility] office who did reach out to Dr. Ambrose Arrieta who is on-call tomorrow they are agreeable to having patient have colonoscopy tomorrow and patient will be admitted overnight for multiple transfusions and bowel washout. I reviewed with patient and with sister who helps patient make decisions and they are agreeable with staying overnight. I reached out to nurse practitioner Avel bryant who will admit patient for bowel washout and colonoscopy tomorrow with IV blood transfusions here Discharge Plan Discharge Patient Disposition: [facility] DC/Xfer Condition: Stable Clinical Impression: Anemia, Guaiac positive stools, Bloody stool Prescriptions: No Action acetaminophen [Tylenol Extra Strength] 500 mg Tablet 1,000 mg PO TID Qty: 90 0RF docusate sodium 250 mg Capsule 250 - 500 mg PO DAILY Qty: 30 0RF ferrous sulfate 325 mg (65 mg iron) Tablet 325 mg PO DAILYWM Qty: 30 0RF insulin glargine-yfgn 100 unit/mL (3 mL) Insulin Pen 12 unit subcut QDBREAKFAST Qty: 15 0RF insulin lispro [Humalog KwikPen Insulin] 100 unit/mL Insulin Pen 1 - 9 unit subcut 0800,1200,1700,2100 Qty: 15 0RF insulin lispro [Humalog KwikPen Insulin] 100 unit/mL Insulin Pen 5 unit subcut TIDWM Qty: 15 0RF lidocaine 4 % Adhesive Patch,Medicated 1 patch topical DAILY Qty: 30 0RF mirtazapine 15 mg Tablet 15 mg PO QPM Qty: 30 0RF Therapeutic-M 19 mg iron- 400 mcg Tablet 1 tab PO DAILYWM Qty: 30 0RF oxycodone 5 mg Tablet 5 mg PO Q4HR PRN (Reason: Pain 5 to 7) Qty: 12 0RF pantoprazole 40 mg Tablet,Delayed Release (Dr/Ec) 40 mg PO BIDAC Qty: 60 0RF aspirin 81 mg tablet 162 mg PO DAILY 24 Days Qty: 48 0RF Print Language: Pashto
--- OUTSIDE RECORDS SUMMARY | 2025-04-10 13:22 | EXTERNAL MEDICAL SUMMARY RPT | Continuity of Care Document ---
Author Organization Emily Address [address] [place] [id number] Phone Problems date description facility 2025-03-17 17:06 Dorsalgia, unspecified [facility] 2025-03-17 18:01 Other iron deficiency [facility] 2025-03-17 18:01 Other specified diseases of michael s and rectum [facility] 2025-03-17 18:01 Dorsalgia, unspecified [facility] 2025-03-17 18:01 Cachexia [facility] 2025-03-17 18:16 Other iron deficiency [facility] 2025-03-17 18:16 Other specified diseases of michael s and rectum [facility] 2025-03-17 18:16 Dorsalgia, unspecified [facility] 2025-03-17 18:16 Cachexia [facility] 2025-03-17 19:02 Other iron deficiency [facility] 2025-03-17 19:02 Other specified diseases of michael s and rectum [facility] 2025-03-17 19:02 Dorsalgia, unspecified [facility] 2025-03-17 19:02 Cachexia [facility] 2025-03-17 19:39 Other iron deficiency [facility] 2025-03-17 19:39 Other specified diseases of michael s and rectum [facility] 2025-03-17 19:39 Dorsalgia, unspecified [facility] 2025-03-17 19:39 Cachexia [facility] 2025-03-18 09:02 Other iron deficiency [facility] 2025-03-18 09:02 Other specified diseases of michael s and rectum [facility] 2025-03-18 09:02 Dorsalgia, unspecified [facility] 2025-03-18 09:02 Cachexia [facility] 2025-03-18 11:34 Other iron deficiency anemias [facility] 2025-03-18 11:34 Other specified diseases of michael s and rectum [facility] 2025-03-18 11:34 Dorsalgia, unspecified [facility] 2025-03-18 11:34 Cachexia [facility] 2025-03-18 15:10 Other iron deficiency anemias [facility] 2025-03-18 15:10 Iron deficiency anemia, unspeci fied [facility] 2025-03-18 15:10 Other specified diseases of michael s and rectum [facility] 2025-03-18 15:10 Dorsalgia, unspecified [facility] 2025-03-18 15:10 Cachexia [facility] [facility] 2025-03-18 15:10 Unspecified fracture of T11-T12 vertebra, initial encounter for closed fracture [facility] 2025-03-18 15:10 Fall on same level, unspecified , initial encounter [facility] 2025-03-19 07:06 Other iron deficiency anemias [facility] 2025-03-19 07:06 Iron deficiency anemia, unspeci fied [employer] [facility] 2025-03-19 07:06 Other specified diseases of michael s and rectum [employer] [facility] 2025-03-19 07:06 Dorsalgia, unspecified [employer] [facility] 2025-03-19 07:06 [facility] 07:06 Cachexia [employer] 2025-03-19 07:06 Unspecified fracture of T11-T12 vertebra, initial encounter for closed fracture [facility] 2025-03-19 07:06 Fall on same level, unspecified , initial encounter [facility] 2025-03-19 07:06 Other specified counseling [facility] 2025-03-19 08:17 Other iron deficiency anemias [facility] 2025-03-19 08:17 Iron deficiency anemia, unspeci fied [employer] [facility] 2025-03-19 08:17 Other specified diseases of michael s and rectum [facility] 2025-03-19 08:17 Dorsalgia, unspecified [facility] 2025-03-19 08:17 [facility] 08:17 [facility] 08:17 Unspecified fracture of T11-T12 vertebra, [facility] 08:17 Fall on same level, unspecified , [facility] 08:17 Other specified counseling [facility] 2025-03-21 16:43 Other iron deficiency anemias [facility] 2025-03-21 16:43 Iron deficiency anemia, unspeci fied [facility] 2025-03-21 16:43 Elevated white blood cell count , [facility] 16:43 Type 2 diabetes [facility]ou t [facility] 16:43 Other specified diseases of michael s and rectum [facility] 16:43 Dorsalgia, unspecified [facility] 2025-03-21 16:43 [facility] 16:43 [facility] 16:43 Unspecified fracture of T11-T12 vertebra, initial encounter for closed fracture [facility] 2025-03-21 16:43 Fracture of unspecif ied part of neck of right femur, sequela [facility] 2025-03-21 16:43 Fall on same level, unspecified , [facility] 16:43 Other specified counseling [facility] 2025-03-21 18:12 Other iron deficiency anemias [facility] 2025-03-21 18:12 Iron deficiency anemia, unspeci fied [facility] 2025-03-21 18:12 Elevated white blood cell count , unspecified [facility] 2025-03-21 18:12 Type 2 diabetes mellitus with h yperglycemia [facility] 2025-03-21 18:12 Type 2 diabetes mellitus withou t complications [facility] 2025-03-21 18:12 Unspecified severe protein-spencer angelita malnutrition [facility] 2025-03-21 18:12 Other specified diseases of michael s and rectum [employer] 2025-03-21 18:12 Dorsalgia, unspecified [facility] 2025-03-21 18:12 [facility] 2025-03-21 18:12 Cachexia [facility] 2025-03-21 18:12 Unspecified fracture of T11-T12 vertebra, [facility] 18:12 Fracture of unspecif ied part of neck of right femur, sequela [facility] 2025-03-21 18:12 Fall on same level, unspecified , [facility] 18:12 Other specified counseling [facility] 2025-03-22 08:20 Other iron deficiency anemias [facility] 2025-03-22 08:20 Iron deficiency anemia, unspeci fied [facility] 2025-03-22 08:20 Elevated white blood cell count , [facility] 08:20 Type 2 diabetes mellitus with h yperglycemia [employer] 2025-03-22 08:20 Type 2 diabetes mellitus withou t complications [employer] [facility] 2025-03-22 08:20 Unspecified severe protein-spencer angelita malnutrition [facility] 2025-03-22 08:20 Other specified diseases of michael s and rectum [facility] 2025-03-22 08:20 Dorsalgia, unspecified [facility] 2025-03-22 08:20 [facility] 2025-03-22 08:20 Cachexia [facility] 2025-03-22 08:20 Unspecified fracture of T11-T12 vertebra, initial encounter for closed fracture [facility] [facility] 2025-03-22 08:20 Fracture of unspecif ied part of neck of right femur, sequela [facility] 2025-03-22 08:20 Fall on same level, unspecified , [facility] 08:20 Other specified counseling [facility] 2025-03-22 08:44 Other iron deficiency anemias [employer] 2025-03-22 08:44 Iron deficiency anemia, [facility]speci fied [facility]25-03-22 08:44 Elevated white blood cell count , unspecified [facility] 2025-03-22 08:44 Type 2 diabetes mellitus with h yperglycemia [facility] 2025-03-22 08:44 Type 2 diabetes mellitus withou t complications [facility] 2025-03-22 08:44 Unspecified severe protein-spencer angelita malnutrition [facility] 2025-03-22 08:44 Other specified diseases of michael s and rectum [facility] 2025-03-22 08:44 Dorsalgia, unspecified [facility] 2025-03-22 08:44 [facility]25-[facility]-22 08:44 Cachexia [facility] 2025-03-22 08:44 Unspecified fracture of T11-T12 vertebra, initial encounter for closed fracture [facility] 2025-03-22 08:44 Fracture of unspecif ied part of neck of right femur, sequela [facility] 2025-03-22 08:44 Fall on same level, unspecified , initial encounter [facility] 2025-03-22 08:44 Other specified counseling [facility] 2025-03-22 10:49 Myalgia, other site [facility] 2025-03-22 13:29 Other iron deficiency anemias [facility] 2025-03-22 13:29 Iron deficiency anemia, unspeci fied [facility] 2025-03-22 13:29 Elevated white blood cell count , unspecified [facility] 2025-03-22 13:29 Type 2 diabetes mellitus with h yperglycemia [facility] 2025-03-22 13:29 Type 2 diabetes mellitus withou t complications [facility] 2025-03-22 13:29 Unspecified severe protein-spencer angelita malnutrition [facility] 2025-03-22 13:29 Other specified diseases of micahel s and rectum [facility] 2025-03-22 13:29 Dorsalgia, unspecified [facility] 2025-03-22 13:29 Pain in right leg [facility] 2025-03-22 13:29 [facility] 13:29 Unspecified fracture of T11-T12 vertebra, initial encounter for closed fracture [facility] 2025-03-22 13:29 Fracture of unspecif ied part of neck of right femur, sequela [facility] 2025-03-22 13:29 Displaced intertroch anteric fracture of right femur, initial encounter for closed fracture [facility] 2025-03-22 13:29 Fall on same level, unspecified , [facility] 13:29 Other specified counseling [facility] 2025-03-22 14:30 Other iron deficiency anemias [employer] 2025-03-22 14:30 Iron deficiency anemia, unspeci fied [facility] 2025-03-22 14:30 Elevated white blood cell count , unspecified [facility] 14:30 Type 2 diabetes mellitus with h yperglycemia [facility] 2025-03-22 14:30 Type 2 diabetes mellitus withou t complications [facility] 2025-03-22 14:30 Unspecified severe protein-spencer angelita malnutrition [employer] [facility] 2025-03-22 14:30 Other specified diseases of michael s and rectum [employer] 2025-03-22 14:30 Dorsalgia, unspecified [facility] 2025-03-22 14:30 Pain in right leg [facility] [employer] 2025-03-22 14:30 Cachexia [facility] [facility] 2025-03-22 14:30 Unspecified fracture of T11-T12 vertebra, initial encounter for closed fracture [employer] 2025-03-22 14:30 Fracture of unspecif ied part of neck of right femur, sequela [employer] 2025-03-22 14:30 Displaced intertroch anteric fracture of right femur, initial encounter for closed fracture [facility] 2025-03-22 14:30 Fall on same level, unspecified , [facility] 14:30 Other specified counseling [facility] 2025-03-22 17:08 Other iron deficiency anemias [employer] 2025-03-22 17:08 Iron deficiency anemia, unspeci fied [employer] [facility] 2025-03-22 17:08 Elevated white blood cell count , [facility] 2025-03-22 17:08 Type 2 diabetes mellitus with h [facility]perglycemia [facility]25[facility]22 17:08 Type 2 diabetes mellitus withou t complications [facility]25-[facility]22 17:08 Unspecified severe protein-spencer angelita malnutrition [facility] 2025-03-22 17:08 Other specified diseases of michael s and rectum [facility] 2025-03-22 17:08 Dorsalgia, unspecified [facility] 2025-03-22 17:08 [facility] 2025-03-22 17:08 [facility]22 17:08 Unspecified fracture of T11-T12 vertebra, initial encounter [facility] closed [facility]22 17:08 Fracture of unspecif ied part of neck of right femur, sequela [facility]25-[facility]22 17:08 Displaced intertroch anteric fracture of right femur, initial encounter [facility] closed [facility]25-[facility]22 17:08 Fall on same level, unspecified , [facility]25-[facility]-22 17:08 Other specified counseling [employer] 2025-03-28 06:49 Other iron deficiency anemias [employer] 2025-03-28 06:49 Iron deficiency anemia, unspeci fied [employer] [facility] 2025-03-28 06:49 Elevated white blood cell count , unspecified [facility] 2025-03-28 06:49 Type 2 diabetes mellitus with h yperglycemia [facility] 2025-03-28 06:49 Type 2 diabetes mellitus withou t complications [facility]25-[facility]28 06:49 Unspecified severe protein-spencer angelita malnutrition [facility] 2025-03-28 06:49 Other specified diseases of michael s and rectum [facility] 2025-03-28 06:49 Dorsalgia, unspecified [employer] [facility] 2025-03-28 06:49 [facility]25-[facility]28 06:49 [facility] 2025-03-28 06:49 Unspecified fracture of T11-T12 vertebra, [facility] 2025-03-28 06:49 Fracture of unspecif ied part of neck of right femur, sequela [facility] 2025-[facility]28 06:49 Displaced intertroch anteric fracture of right femur, initial encounter [facility] 2025-03-28 06:49 Fall on same level, unspecified , [facility]25-[facility]28 06:49 Other specified counseling [facility] 2025-03-28 11:01 [facility] 11:01 Iron deficiency anemia, unspeci fied [facility] 2025-03-28 11:01 Elevated white blood cell count , unspecified [facility] 2025-03-28 11:01 Type 2 diabetes mellitus with h yperglycemia [facility] 2025-03-28 11:01 Type 2 diabetes mellitus withou t complications [facility] 2025-03-28 11:01 Unspecified severe protein-spencer angelita malnutrition [facility] 2025-03-28 11:01 Other specified diseases of michael s and rectum [facility] 2025-03-28 11:01 Dorsalgia, unspecified [facility] 2025-03-28 11:01 [facility] 2025-[facility]28 11:01 [facility]xia [facility]25-[facility]28 11:01 Unspecified fracture of T11-T12 vertebra, initial encounter for closed fracture [facility] 2025-03-28 11:01 Fracture of unspecif ied part of neck of right femur, sequela [facility] 2025-[facility]-28 11:01 Displaced intertroch anteric fracture of right femur, initial encounter [facility] closed [facility]25-[facility]28 11:01 Fall on same level, unspecified , [facility]25-[facility]-28 11:01 Other specified counseling [facility] 2025-03-28 11:34 Other iron deficiency anemias [facility] 2025-03-28 11:34 Iron deficiency anemia, unspeci fied [facility] 2025-03-28 11:34 Elevated white blood cell count , unspecified [facility] 2025-03-28 11:34 Type 2 diabetes mellitus with h yperglycemia [facility] 2025-03-28 11:34 Type 2 diabetes mellitus withou t complications [facility] 2025-03-28 11:34 Unspecified severe protein-spencer angelita malnutrition [facility] 2025-03-28 11:34 Other specified diseases of michael s and rectum [facility] 2025-03-28 11:34 Dorsalgia, unspecified [facility] 2025-03-28 11:34 [facility] 2025-03-28 11:34 Cachexia [facility] 2025-03-28 11:34 Unspecified fracture of T11-T12 vertebra, initial encounter for closed fracture [facility] 2025-03-28 11:34 Fracture of unspecif ied part of neck of right femur, sequela [facility] 2025-03-28 11:34 Displaced intertroch anteric fracture of right femur, initial encounter for closed fracture [facility] 2025-03-28 11:34 Fall on same level, unspecified , initial encounter [facility] 2025-03-28 11:34 Other specified counseling [facility] 2025-03-28 13:59 Other iron deficiency anemias [facility] 2025-03-28 13:59 [facility] 13:59 Elevated white blood cell count , unspecified [facility] 2025-03-28 13:59 Type 2 diabetes mellitus with h yperglycemia [facility] 2025-03-28 13:59 Type 2 diabetes mellitus withou t complications [facility] 2025-03-28 13:59 Unspecified severe protein-spencer angelita malnutrition [facility] 2025-03-28 13:59 Other specified diseases of michael s and rectum [facility] 2025-03-28 13:59 Dorsalgia, unspecified [facility] 2025-03-28 13:59 [facility] 2025-03-28 13:59 [facility]xia [facility] 2025-03-28 13:59 Unspecified fracture of T11-T12 vertebra, initial encounter for closed fracture [facility] 2025-03-28 13:59 Fracture of unspecif ied part of neck of right femur, sequela [facility] 2025-03-28 13:59 Displaced intertroch anteric fracture of right femur, initial encounter for closed fracture [facility] 2025-03-28 13:59 Fall on same level, unspecified , [facility] 2025-03-28 13:59 Other specified counseling [facility] 2025-03-29 04:45 Other iron deficiency [facility]ias [facility] 2025-03-29 04:45 Iron deficiency anemia, unspeci fied [facility] 2025-03-29 04:45 Elevated white blood cell count , unspecified [facility] 2025-03-29 04:45 Type 2 diabetes mellitus with h [facility]perglycemia [facility] 2025-03-29 04:45 Type 2 diabetes mellitus withou t complications [facility] 2025-03-29 04:45 Unspecified severe protein-spencer angelita malnutrition [facility] 2025-03-29 04:45 Other specified diseases of michael s and rectum [facility] 2025-03-29 04:45 [facility] 2025-03-29 04:45 Dorsalgia, unspecified [facility] 2025-03-29 04:45 [facility] 2025-03-29 04:45 Cachexia [facility] 2025-03-29 04:45 Unspecified fracture of T11-T12 vertebra, initial encounter for closed fracture [facility] 2025-03-29 04:45 Fracture of unspecif ied part of neck of right femur, sequela [facility] 2025-03-29 04:45 Displaced intertroch anteric fracture of right femur, initial encounter for closed fracture [facility] 2025-03-29 04:45 Fall on same level, unspecified , [facility]25-[facility]-29 04:45 Other specified counseling [employer] 2025-03-29 05:16 Other iron deficiency anemias [employer] 2025-03-29 05:16 Iron deficiency anemia, unspeci fied [facility] 2025-03-29 05:16 Elevated white blood cell count , unspecified [facility] 2025-03-29 05:16 Type 2 diabetes mellitus with h yperglycemia [facility] 2025-03-29 05:16 Type 2 diabetes mellitus withou t complications [facility] 2025-03-29 05:16 Unspecified severe protein-spencer angelita malnutrition [facility] 2025-03-29 05:16 Other specified diseases of michael s and rectum [facility] 2025-03-29 05:16 [facility]25-[facility]29 05:16 Dorsalgia, unspecified [facility] 2025-03-29 05:16 [facility] leg [facility] 2025-03-29 05:16 [facility]xia [facility] 2025-[facility]29 05:16 Unspecified fracture of T11-T12 vertebra, initial encounter for closed [facility] 2025-03[facility]29 05:16 Fracture of unspecif ied part of neck of right femur, sequela [facility] 2025-03-29 05:16 Displaced intertroch anteric fracture of right femur, initial encounter for closed fracture [facility] 2025-03-29 05:16 Fall on same level, unspecified , [facility] 2025-03-29 05:16 Other specified counseling [employer] 2025-04-01 09:09 Other iron deficiency anemias [employer] 2025-04-01 09:09 Iron deficiency anemia, unspeci fied [facility] 2025-[facility]-01 09:09 Elevated white blood cell count , unspecified [facility] 2025-04-01 09:09 Type 2 diabetes mellitus with h yperglycemia [employer] 2025-04-01 09:09 Type 2 diabetes mellitus withou t complications [facility] 2025-[facility]01 09:09 Unspecified severe protein-spencer angelita malnutrition [facility] 2025-04-01 09:09 Other specified diseases of michael s and rectum [facility] 2025-04-01 09:09 Dorsalgia, unspecified [facility] 2025-04-01 09:09 [facility] 2025-[facility]-01 09:09 [facility]xia [facility] 2025-04-01 09:09 Unspecified fracture of T11-T12 vertebra, initial encounter for closed [facility] 2025-04-01 09:09 Fracture of unspecif ied part of neck of right femur, sequela [facility] 2025-[facility]01 09:09 Displaced intertroch anteric fracture of right femur, initial encounter for closed [facility] 2025-04-01 09:09 Fall on same level, unspecified , [facility] 2025-[facility]-01 09:09 Other specified counseling [facility] [employer] 2025-04-02 11:09 Other iron [facility]02 11:09 Iron deficiency anemia, unspeci fied [facility] 2025-[facility]-02 11:09 Elevated white blood cell count , unspecified [facility] 2025-04-02 11:09 Type 2 diabetes mellitus with h yperglycemia [facility] 2025-04-02 11:09 Type 2 diabetes mellitus withou t complications [facility] 2025-[facility]-02 11:09 Unspecified severe protein-spencer angelita malnutrition [facility] 2025-04-02 11:09 Other specified diseases of michael s and [facility]25-04-02 11:09 [facility], [facility] 11:09 [facility] 11:09 [facility] 2025-04-02 11:09 Unspecified fracture of T11-T12 vertebra, initial encounter [facility]02 11:09 Fracture of unspecif ied part of neck of right femur, sequela [facility]02 11:09 Displaced intertroch anteric fracture of right femur, [facility] encounter [facility] 2025-04-02 11:09 Fall on same level, unspecified , [facility] 11:09 Other specified counseling [facility] 2025-04-02 11:10 [facility] 2025-04-02 11:10 Iron deficiency anemia, unspeci fied [facility] 2025-04-02 11:10 Elevated white blood cell count , unspecified [facility] 2025-04-02 11:10 Type 2 diabetes mellitus with h yperglycemia [facility]25-[facility]02 11:10 Type 2 diabetes mellitus withou t complications [facility]25-[facility]02 11:10 Unspecified severe protein-spencer angelita malnutrition [facility] 2025-[facility]-02 11:10 Other specified diseases of michael s and rectum [facility]25-[facility]02 11:10 Dorsalgia, unspecified [facility] 2025-04-02 11:10 [facility] in right [facility]02 11:10 [facility]02 11:10 Unspecified fracture of T11-T12 vertebra, initial encounter for closed fracture [facility] 2025-04-02 11:10 Fracture of unspecif ied part of neck of right femur, sequela [facility]25-[facility]02 11:10 Displaced intertroch anteric fracture of right femur, initial encounter for closed fracture [facility] 2025-04-02 11:10 Fall on same level, unspecified , [facility] 2025-[facility]-02 11:10 Other specified counseling [facility] 2025-04-04 10:01 Displaced intertroch anteric fracture of right femur, initial encounter [facility] closed fracture [facility] 2025-04-04 10:01 Other specified postprocedural states [facility] 2025-04-10 11:39 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) [facility] 2025-04-10 11:39 Type 2 diabetes mellitus with h yperglycemia [facility] 2025-04-10 11:39 Sarcopenia [facility] 2025-04-10 11:39 Cachexia [facility] 2025-04-10 13:04 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 NUCLEATED RED BLOOD CELLS AUTO 2025-03-17 03:17 [facility] 0.0 /100wbc (missing) BASOPHILS # (AUTO) 2025-03-17 03:17 [facility] 0.0 10 3/ul (missing) NRBC ABSOLUTE COUNT (AUTO) 2025-03-17 03:17 [facility] 0.00 x10 3/ul (missing) EOSINOPHILS # (AUTO) 2025-03-17 03:17 [facility] 0.1 10 3/ul (missing) MONOCYTES # (AUTO) 2025-03-17 03:17 [facility] 0.3 10 3/ul (missing) BILIRUBIN,TOTAL 2025-03-17 03:17 [facility] 0.4 mg/dl As of November 2022 testing method has changed, this may include reference ranges. CREATININE 2025-03-17 03:17 [facility] 0.5 mg/dl As of November 2022 testing method has changed, this may include reference ranges. ALBUMIN/GLOBULIN RATIO 2025-03-17 03:17 [facility] 1.0 (missing) (missing) LYMPHOCYTES # (AUTO) 2025-03-17 03:17 [facility] 1.2 10 3/ul (missing) CALCIUM 2025-03-17 03:17 [facility] 10.8 mg/dl As of November 2022 testing method has changed, this may include reference ranges. CHLORIDE 2025-03-17 03:17 [facility] 100 mmol/l As of November 2022 testing method has changed, this may include reference ranges. ALKALINE PHOSPHATASE 2025-03-17 03:17 [facility] 103 iu/l As of November 2022 testing method has changed, this may include reference ranges. BUN - BLOOD UREA NITROGEN 2025-03-17 03:17 [facility] 13 mg/dl As of November 2022 testing method has changed, this may include reference ranges. SODIUM 2025-03-17 03:17 [facility] 135 mmol/l (missing) RED CELL DISTRIBUTION WIDTH 2025-03-17 03:17 [facility] 14.2 % (missing) AST ASPARTATE AMINOTRANSFERASE 2025-03-17 03:17 [facility] 15 iu/l As of November 2022 testing method has changed, this may include reference ranges. GFR - MDRD 2025-03-17 03:17 [facility] 162 (missing) The IDMS-traceable MDRD Study Equation has been validated extensively in and populations between the ages of 18 and 70 with impaired kidney function (eGFR < 60 mL/min/1.73m2) and has shown good performance for patients with all common causes of kidney disease. Although this equation has not been validated for patients older than 70, an MDRD-derived eGFR may still be a useful tool for providers caring for patients older than 70. References: http://www.nkdep. nih.gov/lab-evalu ation/gfr/creatin ine-stand ardization, last updated July 2011. ALT ALANINE AMINOTRANSFERASE 2025-03-17 03:17 [facility] 17 iu/l As of November 2022 testing method has changed, this may include reference ranges. ESTIMATED AVERAGE GLUCOSE 2025-03-17 03:17 [facility] 212 mg/dl (missing) MEAN CORPUSCULAR HEMOGLOBIN 2025-03-17 03:17 [facility] 22.9 pg (missing) HCT - HEMATOCRIT 2025-03-17 03:17 [facility] 24.1 % (missing) GLUCOSE 2025-03-17 03:17 [facility] 256 mg/dl As of November 2022 testing method has changed, this may include reference ranges. TRANSFERRIN 2025-03-17 03:17 [facility] 258 mg/dl As of November 2022 testing method has changed, this may include reference ranges. CARBON DIOXIDE - CO2 2025-03-17 03:17 [facility] 28 mmol/l As of November 2022 testing method has changed, this may include reference ranges. RED BLOOD COUNT 2025-03-17 03:17 [facility] 3.27 10 6/ul (missing) GLOBULIN 2025-03-17 03:17 [facility] 3.6 g/dl (missing) ALBUMIN 2025-03-17 03:17 [facility] 3.6 g/dl As of November 2022 testing method has changed, this may include reference ranges. POTASSIUM 2025-03-17 03:17 [facility] 3.8 mmol/l As of November 2022 testing method has changed, this may include reference ranges. MEAN CORPUSCULAR HGB CONC 2025-03-17 03:17 [facility] 31.1 g/dl (missing) TOTAL IRON BINDING CAPACITY 2025-03-17 03:17 [facility] 361 ug/dl (missing) ANION GAP 2025-03-17 03:17 [facility] 7.0 (missing) (missing) NEUTROPHILS # (AUTO) 2025-03-17 03:17 [facility] 7.0 10 3/ul (missing) TOTAL PROTEIN 2025-03-17 03:17 [facility] 7.2 g/dl As of November 2022 testing method has changed, this may include reference ranges. HGB - HEMOGLOBIN 2025-03-17 03:17 [facility] 7.5 g/dl (missing) PLT - PLATELET COUNT 2025-03-17 03:17 [facility] 701 10 3/ul (missing) MEAN CORPUSCULAR VOLUME 2025-03-17 03:17 [facility] 73.7 fl (missing) HEMOGLOBIN A1c% 2025-03-17 03:17 [facility] 9.0 % The [place] [employer] (ADA) has made the following recommendations: Monitoring HbA1c in Diabetic Patients: A1c (NGSP%) Goal <8 Less Stringent Goal <7 General Goal <6.5 More Stringent Goal Diagnosis of Diabetes: A1c (NGSP%) Goal >6.5 Diabetic 5.7-6.4 Pre-Diabetic <5.7 Non-Diabetic WHITE BLOOD COUNT 2025-03-17 03:17 [facility] 9.0 x10 3/ul (missing) MEAN PLATELET VOLUME 2025-03-17 03:17 [facility] 9.4 fl (missing) % IRON SATURATION 2025-03-17 03:17 [facility] TNP % Unable to calculate. Analyte below the measurable range. Result panel 2 RBC,URINE 2025-03-17 11:25 [facility] 0-5 /hpf (missing) UROBILINOGEN,URIN E 2025-03-17 11:25 [facility] 0.2 (NORMAL) e.u./dl (missing) SPECIFIC GRAVITY,URINE 2025-03-17 11:25 [facility] 1.010 (missing) (missing) KETONES,URINE (UA) 2025-03-17 11:25 [facility] 15 mg/dl (missing) WBC,URINE 2025-03-17 11:25 [facility] 4-5 /hpf (missing) GLUCOSE, URINE (UA) 2025-03-17 11:25 [facility] 500 mg/dl (missing) PH,URINE 2025-03-17 11:25 [facility] 7.0 ph (missing) CLARITY,URINE 2025-03-17 11:25 [facility] CLEAR (missing) (missing) MUCUS,URINE 2025-03-17 11:25 [facility] Few Strands (missing) (missing) AMORPHOUS SEDIMENT,UR 2025-03-17 11:25 [facility] Few /lpf (missing) URINE MICROSCOPIC INDICATED? 2025-03-17 11:25 [facility] INDICATED (missing) (missing) LEUKOCYTE ESTERASE, URINE 2025-03-17 11:25 [facility] NEGATIVE (missing) (missing) NITRITE,URINE 2025-03-17 11:25 [facility] NEGATIVE (missing) (missing) BILIRUBIN,URINE 2025-03-17 11:25 [facility] NEGATIVE (missing) Bilirubin can be influenced by color interference. Please correlate positive results with clinical presentation UR CULTURE IF IND 2025-03-17 11:25 [facility] NOT INDICATED (missing) (missing) SQUAMOUS EPITHELIAL CELL,UR 2025-03-17 11:25 [facility] RARE Squamous (missing) (missing) BACTERIA,URINE 2025-03-17 11:25 [facility] Rare /hpf (missing) PROTEIN,URINE 2025-03-17 11:25 [facility] TRACE mg/dl (missing) OCCULT BLOOD,URINE 2025-03-17 11:25 [facility] TRACE-INTACT (missing) (missing) COLOR,URINE 2025-03-17 11:25 [facility] YELLOW (missing) URINE CLEAN CATCH Result panel 3 GLUCOSE, WHOLE BLOOD 2025-03-17 21:36 [facility] 275 (missing) (missing) Result panel 4 BILIRUBIN,TOTAL 2025-03-18 07:41 [facility] 0.4 mg/dl As of November 2022 testing method has changed, this may include reference ranges. CREATININE 2025-03-18 07:41 [facility] 0.4 mg/dl As of November 2022 testing method has changed, this may include reference ranges. ALBUMIN/GLOBULIN RATIO 2025-03-18 07:41 [facility] 1.0 (missing) (missing) MAGNESIUM 2025-03-18 07:41 [facility] 1.7 mg/dl As of November 2022 testing method has changed, this may include reference ranges. CHLORIDE 2025-03-18 07:41 [facility] 102 mmol/l As of November 2022 testing method has changed, this may include reference ranges. AST ASPARTATE AMINOTRANSFERASE 2025-03-18 07:41 [facility] 11 iu/l As of November 2022 testing method has changed, this may include reference ranges. ALT ALANINE AMINOTRANSFERASE 2025-03-18 07:41 [facility] 12 iu/l As of November 2022 testing method has changed, this may include reference ranges. BUN - BLOOD UREA NITROGEN 2025-03-18 07:41 [facility] 13 mg/dl As of November 2022 testing method has changed, this may include reference ranges. SODIUM 2025-03-18 07:41 [facility] 135 mmol/l (missing) RED CELL DISTRIBUTION WIDTH 2025-03-18 07:41 [facility] 14.3 % (missing) HCT - HEMATOCRIT 2025-03-18 07:41 [facility] 19.4 % Called to BRE Voss RN by Yris Morgan MLT([facility]) at 0807 03/18/25. Read back(Y/N)? Y RED BLOOD COUNT 2025-03-18 07:41 [facility] 2.67 10 6/ul (missing) GLOBULIN 2025-03-18 07:41 [facility] 2.9 g/dl (missing) GFR - MDRD 2025-03-18 07:41 [facility] 209 (missing) The IDMS-traceable MDRD Study Equation has been validated extensively in and populations between the ages of 18 and 70 with impaired kidney function (eGFR < 60 mL/min/1.73m2) and has shown good performance for patients with all common causes of kidney disease. Although this equation has not been validated for patients older than 70, an MDRD-derived eGFR may still be a useful tool for providers caring for patients older than 70. References: http://www.nkdep. nih.gov/lab-evalu ation/gfr/creatin ine-stand ardization, last updated July 2011. GLUCOSE 2025-03-18 07:41 [facility] 215 mg/dl As of November 2022 testing method has changed, this may include reference ranges. MEAN CORPUSCULAR HEMOGLOBIN 2025-03-18 07:41 [facility] 22.8 pg (missing) CARBON DIOXIDE - CO2 2025-03-18 07:41 [facility] 28 mmol/l As of November 2022 testing method has changed, this may include reference ranges. ALBUMIN 2025-03-18 07:41 [facility] 3.0 g/dl As of November 2022 testing method has changed, this may include reference ranges. POTASSIUM 2025-03-18 07:41 [facility] 3.3 mmol/l As of November 2022 testing method has changed, this may include reference ranges. MEAN CORPUSCULAR HGB CONC 2025-03-18 07:41 [facility] 31.4 g/dl (missing) FERRITIN 2025-03-18 07:41 [facility] 35.2 ng/ml (missing) ANION GAP 2025-03-18 07:41 [facility] 5.0 (missing) (missing) TOTAL PROTEIN 2025-03-18 07:41 [facility] 5.9 g/dl As of November 2022 testing method has changed, this may include reference ranges. PLT - PLATELET COUNT 2025-03-18 07:41 [facility] 590 10 3/ul (missing) HGB - HEMOGLOBIN 2025-03-18 07:41 [facility] 6.1 g/dl Called to BRE Voss RN by Yris Morgan MLT([facility]) at 0807 03/18/25. Read back(Y/N)? Y MEAN CORPUSCULAR VOLUME 2025-03-18 07:41 [facility] 72.7 fl (missing) ALKALINE PHOSPHATASE 2025-03-18 07:41 [facility] 80 iu/l As of November 2022 testing method has changed, this may include reference ranges. WHITE BLOOD COUNT 2025-03-18 07:41 [facility] 9.8 x10 3/ul (missing) MEAN PLATELET VOLUME 2025-03-18 07:41 [facility] 9.9 fl (missing) CALCIUM 2025-03-18 07:41 [facility] 9.9 mg/dl As of November 2022 testing method has changed, this may include reference ranges. Result panel 5 GLUCOSE, WHOLE BLOOD 2025-03-18 07:42 [facility] 199 (missing) (missing) Result panel 6 CEA - CARCINOEMBRYONIC ANTIGEN 2025-03-18 08:33 [facility] 76.0 ng/ml CEA Refer ence Range: Adult nonsmokers: <2.5 ng/mL Adult smokers: <5.0 ng/mL Result panel 7 GLUCOSE, WHOLE BLOOD 2025-03-18 11:19 [facility] 240 (missing) (missing) Result panel 8 HCT - HEMATOCRIT 2025-03-18 16:22 [facility] 26.7 % (missing) HGB - HEMOGLOBIN 2025-03-18 16:22 [facility] 8.2 g /dl (missing) Result panel 9 GLUCOSE, WHOLE BLOOD 2025-03-18 16:41 [facility] 241 (missing) RN notified. Result panel 10 GLUCOSE, WHOLE BLOOD 2025-03-18 20:52 [facility] 303 (missing) RN notified. Result panel 11 BILIRUBIN,TOTAL 2025-03-19 04:07 [facility] 0.3 mg/dl As of November 2022 testing method has changed, this may include reference ranges. CREATININE 2025-03-19 04:07 [facility] 0.4 mg/dl As of November 2022 testing method has changed, this may include reference ranges. ALBUMIN/GLOBULIN RATIO 2025-03-19 04:07 [facility] 1.0 (missing) (missing) MAGNESIUM 2025-03-19 04:07 [facility] 1.7 mg/dl As of November 2022 testing method has changed, this may include reference ranges. CALCIUM 2025-03-19 04:07 [facility] 10.0 mg/dl As of November 2022 testing method has changed, this may include reference ranges. MEAN PLATELET VOLUME 2025-03-19 04:07 [facility] 10.3 fl (missing) CHLORIDE 2025-03-19 04:07 [facility] 100 mmol/l As of November 2022 testing method has changed, this may include reference ranges. AST ASPARTATE AMINOTRANSFERASE 2025-03-19 04:07 [facility] 11 iu/l As of November 2022 testing method has changed, this may include reference ranges. ALT ALANINE AMINOTRANSFERASE 2025-03-19 04:07 [facility] 11 iu/l As of November 2022 testing method has changed, this may include reference ranges. WHITE BLOOD COUNT 2025-03-19 04:07 [facility] 11.5 x10 3/ul (missing) SODIUM 2025-03-19 04:07 [facility] 135 mmol/l (missing) BUN - BLOOD UREA NITROGEN 2025-03-19 04:07 [facility] 14 mg/dl As of November 2022 testing method has changed, this may include reference ranges. RED CELL DISTRIBUTION WIDTH 2025-03-19 04:07 [facility] 14.6 % (missing) GFR - MDRD 2025-03-19 04:07 [facility] 209 (missing) The IDMS-traceable MDRD Study Equation has been validated extensively in and populations between the ages of 18 and 70 with impaired kidney function (eGFR < 60 mL/min/1.73m2) and has shown good performance for patients with all common causes of kidney disease. Although this equation has not been validated for patients older than 70, an MDRD-derived eGFR may still be a useful tool for providers caring for patients older than 70. References: http://www.nkdep. nih.gov/lab-evalu ation/gfr/creatin ine-stand ardization, last updated July 2011. MEAN CORPUSCULAR HEMOGLOBIN 2025-03-19 04:07 [facility] 23.6 pg (missing) HCT - HEMATOCRIT 2025-03-19 04:07 [facility] 24.0 % (missing) CARBON DIOXIDE - CO2 2025-03-19 04:07 [facility] 28 mmol/l As of November 2022 testing method has changed, this may include reference ranges. ALBUMIN 2025-03-19 04:07 [facility] 3.0 g/dl As of November 2022 testing method has changed, this may include reference ranges. GLOBULIN 2025-03-19 04:07 [facility] 3.1 g/dl (missing) RED BLOOD COUNT 2025-03-19 04:07 [facility] 3.22 10 6/ul (missing) POTASSIUM 2025-03-19 04:07 [facility] 3.5 mmol/l As of November 2022 testing method has changed, this may include reference ranges. MEAN CORPUSCULAR HGB CONC 2025-03-19 04:07 [facility] 31.7 g/dl (missing) GLUCOSE 2025-03-19 04:07 [facility] 382 mg/dl As of November 2022 testing method has changed, this may include reference ranges. TOTAL PROTEIN 2025-03-19 04:07 [facility] 6.1 g/dl As of November 2022 testing method has changed, this may include reference ranges. PLT - PLATELET COUNT 2025-03-19 04:07 [facility] 633 10 3/ul (missing) ANION GAP 2025-03-19 04:07 [facility] 7.0 (missing) (missing) HGB - HEMOGLOBIN 2025-03-19 04:07 [facility] 7.6 g/dl (missing) MEAN CORPUSCULAR VOLUME 2025-03-19 04:07 [facility] 74.5 fl (missing) ALKALINE PHOSPHATASE 2025-03-19 04:07 [facility] 92 iu/l As of November 2022 testing method has changed, this may include reference ranges. Result panel 12 GLUCOSE, WHOLE BLOOD 2025-03-19 07:34 [facility] 386 (missing) RN notified. Result panel 13 GLUCOSE, WHOLE BLOOD 2025-03-19 11:47 [facility] 405 (missing) RN notified. Result panel 14 GLUCOSE, WHOLE BLOOD 2025-03-19 16:40 [facility] 333 (missing) RN notified. Result panel 15 GLUCOSE, WHOLE BLOOD 2025-03-19 20:58 [facility] 230 (missing) (missing) Result panel 16 NUCLEATED RED BLOOD CELLS AUTO 2025-03-20 04:07 [facility] 0.0 /100wbc (missing) NRBC ABSOLUTE COUNT (AUTO) 2025-03-20 04:07 [facility] 0.00 x10 3/ul (missing) BASOPHILS # (AUTO) 2025-03-20 04:07 [facility] 0.1 10 3/ul (missing) EOSINOPHILS # (AUTO) 2025-03-20 04:07 [facility] 0.2 10 3/ul (missing) CREATININE 2025-03-20 04:07 [facility] 0.3 mg/dl As of November 2022 testing method has changed, this may include reference ranges. MONOCYTES # (AUTO) 2025-03-20 04:07 [facility] 0.7 10 3/ul (missing) LYMPHOCYTES # (AUTO) 2025-03-20 04:07 [facility] 1.5 10 3/ul (missing) CALCIUM 2025-03-20 04:07 [facility] 10.0 mg/dl As of November 2022 testing method has changed, this may include reference ranges. MEAN PLATELET VOLUME 2025-03-20 04:07 [facility] 10.4 fl (missing) CHLORIDE 2025-03-20 04:07 [facility] 102 mmol/l As of November 2022 testing method has changed, this may include reference ranges. SODIUM 2025-03-20 04:07 [facility] 134 mmol/l (missing) NEUTROPHILS # (AUTO) 2025-03-20 04:07 [facility] 14.2 10 3/ul (missing) GLUCOSE 2025-03-20 04:07 [facility] 140 mg/dl As of November 2022 testing method has changed, this may include reference ranges. RED CELL DISTRIBUTION WIDTH 2025-03-20 04:07 [facility] 15.1 % (mi ssing) WHITE BLOOD COUNT 2025-03-20 04:07 [facility] 16.7 x10 3/ul (missing) BUN - BLOOD UREA NITROGEN 2025-03-20 04:07 [facility] 20 mg/dl As of Nov testing method has changed, this may include reference ranges. MEAN CORPUSCULAR HEMOGLOBIN 2025-03-20 04:07 [facility] 23.1 pg (missing) HCT - HEMATOCRIT 2025-03-20 04:07 [facility] 24.5 % (missing) CARBON DIOXIDE - CO2 2025-03-20 04:07 [facility] 26 mmol/l As of November 2022 testing method has changed, this may include reference ranges. GFR - MDRD 2025-03-20 04:07 [facility] 291 (fabiola g) The IDMS-traceable MDRD Study Equation has been validated extensively in and populations between the ages of 18 and 70 with impaired kidney function (eGFR < 60 mL/min/1.73m2) and has shown good performance for patients with all common causes of kidney disease. Although this equation has not been validated for patients older than 70, an MDRD-derived eGFR may still be a useful tool for providers caring for patients older than 70. References: http://www.nkdep.n ih.gov/lab-evaluat ion/gfr/creatinine -stand ardization, last updated July 2011. RED BLOOD COUNT 2025-03-20 04:07 [facility] 3.21 10 6/ul (missing) POTASSIUM 2025-03-20 04:07 [facility] 3.3 mmol/l As of November 2022 testing method has changed, this may include reference ranges. MEAN CORPUSCULAR HGB CONC 2025-03-20 04:07 [facility] 30.2 g/dl (missing) ANION GAP 2025-03-20 04:07 [facility] 6.0 (missing ) (missing) PLT - PLATELET COUNT 2025-03-20 04:07 [facility] 658 10 3/ul (missing) HGB - HEMOGLOBIN 2025-03-20 04:07 [facility] 7.4 g /dl (missing) MEAN CORPUSCULAR VOLUME 2025-03-20 04:07 [facility] 76.3 fl (missing) Result panel 17 GLUCOSE, WHOLE BLOOD 2025-03-20 07:49 [facility] 169 (missing) RN notified. Result panel 18 GLUCOSE, WHOLE BLOOD 2025-03-20 11:18 [facility] 187 (missing) RN notified. Result panel 19 GLUCOSE, WHOLE BLOOD 2025-03-20 16:48 [facility] 168 (missing) (missing) Result panel 20 GLUCOSE, WHOLE BLOOD 2025-03-20 20:51 [facility] 200 (missing) RN notified. Result panel 21 CRYSTALS,URINE 2025-03-21 02:52 [facility] 0-2 Triple Phosphate /lpf (missing) WBC,URINE 2025-03-21 02:52 [facility] 0-3 /hpf (missing) RBC,URINE 2025-03-21 02:52 [facility] 0-5 /hpf (missing) UROBILINOGEN,URINE 2025-03-21 02:52 [facility] 0.2 (NORMAL) e.u./dl (missing) SPECIFIC GRAVITY,URINE 2025-03-21 02:52 [facility] 1.015 (missing) (missing) PROTEIN,URINE 2025-03-21 02:52 [facility] 30 mg/dl (missing) PH,URINE 2025-03-21 02:52 [facility] 6.0 ph (missing) CLARITY,URINE 2025-03-21 02:52 [facility] CLEAR (missing) (missing) LEUKOCYTE ESTERASE, URINE 2025-03-21 02:52 [facility] NEGATIVE (missing) (missing) NITRITE,URINE 2025-03-21 02:52 [facility] NEGATIVE (missing) (missing) OCCULT BLOOD,URINE 2025-03-21 02:52 [facility] NEGATIVE (missing) (missing) BILIRUBIN,URINE 2025-03-21 02:52 [facility] NEGATIVE (missing) Bilirubin can be influenced by color interference. Please correlate positive results with clinical presentation GLUCOSE, URINE (UA) 2025-03-21 02:52 [facility] NEGATIVE mg/dl (missing) KETONES,URINE (UA) 2025-03-21 02:52 [facility] NEGATIVE mg/dl (missing) UR CULTURE IF IND 2025-03-21 02:52 [facility] NOT INDICATED (missing) (missing) SQUAMOUS EPITHELIAL CELL,UR 2025-03-21 02:52 [facility] RARE Squamous (missing) (missing) BACTERIA,URINE 2025-03-21 02:52 [facility] Rare /hpf (missing) COLOR,URINE 2025-03-21 02:52 [facility] YELLOW (missing) URINE CLEAN CATCH Result panel 22 NUCLEATED RED BLOOD CELLS AUTO 2025-03-21 05:19 [facility] 0.0 /100wbc (missing) NRBC ABSOLUTE COUNT (AUTO) 2025-03-21 05:19 [facility] 0.00 x10 3/ul (missing) BASOPHILS # (AUTO) 2025-03-21 05:19 [facility] 0.1 10 3/ul (missing) EOSINOPHILS # (AUTO) 2025-03-21 05:19 [facility] 0.3 10 3/ul (missing) CREATININE 2025-03-21 05:19 [facility] 0.4 mg/dl As of November 2022 testing method has changed, this may include reference ranges. MONOCYTES # (AUTO) 2025-03-21 05:19 [facility] 0.6 10 3/ul (missing) LYMPHOCYTES # (AUTO) 2025-03-21 05:19 [facility] 1.5 10 3/ul (missing) MEAN PLATELET VOLUME 2025-03-21 05:19 [facility] 10.3 fl (missing) NEUTROPHILS # (AUTO) 2025-03-21 05:19 [facility] 10.9 10 3/ul (missing) CHLORIDE 2025-03-21 05:19 [facility] 104 mmol/l As of November 2022 testing method has changed, this may include reference ranges. WHITE BLOOD COUNT 2025-03-21 05:19 [facility] 13.4 x10 3/ul (missing) SODIUM 2025-03-21 05:19 [facility] 136 mmol/l (missing) RED CELL DISTRIBUTION WIDTH 2025-03-21 05:19 [facility] 15.7 % (missing) GLUCOSE 2025-03-21 05:19 [facility] 156 mg/dl As of November 2022 testing method has changed, this may include reference ranges. GFR - MDRD 2025-03-21 05:19 [facility] 209 (missing) The IDMS-traceable MDRD Study Equation has been validated extensively in and populations between the ages of 18 and 70 with impaired kidney function (eGFR < 60 mL/min/1.73m2) and has shown good performance for patients with all common causes of kidney disease. Although this equation has not been validated for patients older than 70, an MDRD-derived eGFR may still be a useful tool for providers caring for patients older than 70. References: http://www.nkdep .nih.gov/lab-de luation/gfr/crea tinine-stand ardization, last updated July 2011. BUN - BLOOD UREA NITROGEN 2025-03-21 05:19 [facility] 23 mg/dl As of November 2022 testing method has changed, this may include reference ranges. HCT - HEMATOCRIT 2025-03-21 05:19 [facility] 23.3 % (missing) MEAN CORPUSCULAR HEMOGLOBIN 2025-03-21 05:19 [facility] 23.5 pg (missing) CARBON DIOXIDE - CO2 2025-03-21 05:19 [facility] 26 mmol/l As of November 2022 testing method has changed, this may include reference ranges. RED BLOOD COUNT 2025-03-21 05:19 [facility] 3.11 10 6/ul (missing) POTASSIUM 2025-03-21 05:19 [facility] 3.7 mmol/l As of November 2022 testing method has changed, this may include reference ranges. MEAN CORPUSCULAR HGB CONC 2025-03-21 05:19 [facility] 31.3 g/dl (missing) ANION GAP 2025-03-21 05:19 [facility] 6.0 (missing) (missing) PLT - PLATELET COUNT 2025-03-21 05:19 [facility] 603 10 3/ul (missing) HGB - HEMOGLOBIN 2025-03-21 05[facility] 7.3 g/dl (missing) MEAN CORPUSCULAR VOLUME 2025-03-21 05:19 [facility] 74.9 fl (missing) CALCIUM 2025-03-21 05:19 [facility] 9.7 mg/dl As of November 2022 testing method has changed, this may include reference ranges. CULTURE, BLOOD #1 2025-03-21 05:19 [facility] NG1DNO GROWTH AFTER 1 DAY (missing) (missing) CULTURE, BLOOD #1 [facility]25-03-21 [facility] AFTER 2 DAYS (missing) (missing) CULTURE, BLOOD #1 2025-03-21 05[facility]19 [facility] NG5DNO [facility] AFTER 5 DAYS (missing) (missing) Result panel 23 GLUCOSE, WHOLE BLOOD 2025-03-21 07:51 [facility] 161 (missing) (missing) Result panel 24 GLUCOSE, WHOLE BLOOD 2025-03-21 11:35 [facility] 110 (missing) RN notified. Result panel 25 GLUCOSE, WHOLE BLOOD 2025-03-21 16:52 [facility] 117 (missing) (missing) Result panel 26 GLUCOSE, WHOLE BLOOD 2025-03-21 21:03 [facility] 156 (missing) (missing) Result panel 27 NUCLEATED RED BLOOD CELLS AUTO 2025-03-22 05:09 [facility] 0.0 /100wbc (missing) NRBC ABSOLUTE COUNT (AUTO) 2025-03-22 05:09 [facility] 0.00 x10 3/ul (missing) BASOPHILS # (AUTO) 2025-03-22 05:09 [facility] 0.1 10 3/ul (missing) EOSINOPHILS # (AUTO) 2025-03-22 05:09 [facility] 0.2 10 3/ul (missing) CREATININE 2025-03-22 05:09 [facility] 0.5 mg/dl As of November 2022 testing method has changed, this may include reference ranges. MONOCYTES # (AUTO) 2025-03-22 05:09 [facility] 0.6 10 3/ul (missing) LYMPHOCYTES # (AUTO) 2025-03-22 05:09 [facility] 1.3 10 3/ul (missing) CALCIUM 2025-03-22 05:09 [facility] 10.0 mg/dl As of November 2022 testing method has changed, this may include reference ranges. MEAN PLATELET VOLUME 2025-03-22 05:09 [facility] 10.2 fl (missing) CHLORIDE 2025-03-22 05:09 [facility] 105 mmol/l As of November 2022 testing method has changed, this may include reference ranges. WHITE BLOOD COUNT 2025-03-22 05:09 [facility] 11.6 x10 3/ul (missing) SODIUM 2025-03-22 05:09 [facility] 138 mmol/l (missing) GLUCOSE 2025-03-22 05:09 [facility] 159 mg/dl As of November 2022 testing method has changed, this may include reference ranges. RED CELL DISTRIBUTION WIDTH 2025-03-22 05:09 [facility] 16.1 % (missing) GFR - MDRD 2025-03-22 05:09 [facility] 162 (missing) The IDMS-traceable MDRD Study Equation has been validated extensively in and populations between the ages of 18 and 70 with impaired kidney function (eGFR < 60 mL/min/1.73m2) and has shown good performance for patients with all common causes of kidney disease. Although this equation has not been validated for patients older than 70, an MDRD-derived eGFR may still be a useful tool for providers caring for patients older than 70. References: http://www.nkdep .nih.gov/lab-de luation/gfr/crea tinine-stand ardization, last updated July 2011. BUN - BLOOD UREA NITROGEN 2025-03-22 05:09 [facility] 22 mg/dl As of November 2022 testing method has changed, this may include reference ranges. HCT - HEMATOCRIT 2025-03-22 05:09 [facility] 23.9 % (missing) MEAN CORPUSCULAR HEMOGLOBIN 2025-03-22 05:09 [facility] 23.9 pg (missing) CARBON DIOXIDE - CO2 2025-03-22 05:09 [facility] 27 mmol/l As of November 2022 testing method has changed, this may include reference ranges. RED BLOOD COUNT 2025-03-22 05:09 [facility] 3.14 10 6/ul (missing) POTASSIUM 2025-03-22 05:09 [facility] 3.8 mmol/l As of November 2022 testing method has changed, this may include reference ranges. MEAN CORPUSCULAR HGB CONC 2025-03-22 05:09 [facility] 31.4 g/dl (missing) PLT - PLATELET COUNT 2025-03-22 05:09 [facility] 586 10 3/ul (missing) ANION GAP 2025-03-22 05:09 [facility] 6.0 (missing) (missing) HGB - HEMOGLOBIN 2025-03-22 05:09 [facility] 7.5 g/dl (missing) MEAN CORPUSCULAR VOLUME 2025-03-22 05:09 [facility] 76.1 fl (missing) NEUTROPHILS # (AUTO) 2025-03-22 05:09 [facility] 9.3 10 3/ul (missing) CULTURE, BLOOD #2 2025-03-22 05:09 [facility] NG1DNO GROWTH AFTER 1 DAY (missing) (missing) CULTURE, BLOOD #2 2025-03-22 05:09 [facility] NG2DNO GROWTH AFTER 2 DAYS (missing) (missing) CULTURE, BLOOD #2 2025-03-22 05:09 [facility] NG5DNO GROWTH AFTER 5 DAYS (missing) (missing) Result panel 28 GLUCOSE, WHOLE BLOOD 2025-03-22 07:45 [facility] 154 (missing) RN notified. Result panel 29 GLUCOSE, WHOLE BLOOD 2025-03-22 11:43 [facility] 161 (missing) (missing) Result panel 30 GLUCOSE, WHOLE BLOOD 2025-03-22 17:06 [facility] 134 (missing) (missing) Result panel 31 GLUCOSE, WHOLE BLOOD 2025-03-22 20:24 [facility] 150 (missing) RN notified. Result panel 32 NUCLEATED RED BLOOD CELLS AUTO 2025-03-23 05:35 [facility] 0.0 /100wbc (missing) EOSINOPHILS # (AUTO) 2025-03-23 05:35 [facility] 0.0 10 3/ul (missing) NRBC ABSOLUTE COUNT (AUTO) 2025-03-23 05:35 [facility] 0.00 x10 3/ul (missing) BASOPHILS # (AUTO) 2025-03-23 05:35 [facility] 0.1 10 3/ul (missing) CREATININE 2025-03-23 05:35 [facility] 0.4 mg/dl As of November 2022 testing method has changed, this may include reference ranges. MONOCYTES # (AUTO) 2025-03-23 05:35 [facility] 0.6 10 3/ul (missing) LYMPHOCYTES # (AUTO) 2025-03-23 05:35 [facility] 1.1 10 3/ul (missing) CHLORIDE 2025-03-23 05:35 [facility] 104 mmol/l As of November 2022 testing method has changed, this may include reference ranges. SODIUM 2025-03-23 05:35 [facility] 137 mmol/l (missing) RED CELL DISTRIBUTION WIDTH 2025-03-23 05:35 [facility] 16.2 % (mi ssing) GLUCOSE 2025-03-23 05:35 [facility] 169 mg/dl As of November 2022 testing method has changed, this may include reference ranges. BUN - BLOOD UREA NITROGEN 2025-03-23 05:35 [facility] 18 mg/dl As of Nov testing method has changed, this may include reference ranges. RED BLOOD COUNT 2025-03-23 05:35 [facility] 2.72 10 6/ul (missing) HCT - HEMATOCRIT 2025-03-23 05:35 [facility] 20.4 % (missing) GFR - MDRD 2025-03-23 05:35 [facility] 209 (missin g) The IDMS-traceable MDRD Study Equation has been validated extensively in and populations between the ages of 18 and 70 with impaired kidney function (eGFR < 60 mL/min/1.73m2) and has shown good performance for patients with all common causes of kidney disease. Although this equation has not been validated for patients older than 70, an MDRD-derived eGFR may still be a useful tool for providers caring for patients older than 70. References: http://www.nkdep.n ih.gov/lab-evaluat ion/gfr/creatinine -stand ardization, last updated July 2011. MEAN CORPUSCULAR HEMOGLOBIN 2025-03-23 05:35 [facility] 23.2 pg (missing) CARBON DIOXIDE - CO2 2025-03-23 05:35 [facility] 27 mmol/l As of November 2022 testing method has changed, this may include reference ranges. MEAN CORPUSCULAR HGB CONC 2025-03-23 05:35 [facility] 30.9 g/dl (missing) POTASSIUM 2025-03-23 05:35 [facility] 4.0 mmol/l As of November 2022 testing method has changed, this may include reference ranges. PLT - PLATELET COUNT 2025-03-23 05:35 [facility] 561 10 3/ul (missing) ANION GAP 2025-03-23 05:35 [facility] 6.0 (missing ) (missing) HGB - HEMOGLOBIN 2025-03-23 05:35 [facility] 6.3 g /dl Called to JELLY AguilarMS RN) by Xin Pantoja MLT([facility]) at 0547 03/23/25. Read back(Y/N)? Y NEUTROPHILS # (AUTO) 2025-03-23 05:35 [facility] 7.5 10 3/ul (missing) MEAN CORPUSCULAR VOLUME 2025-03-23 05:35 [facility] 75.0 fl (missing) WHITE BLOOD COUNT 2025-03-23 05:35 [facility] 9.2 x10 3/ul (missing) CALCIUM 2025-03-23 05:35 [facility] 9.5 mg/dl As of November 2022 testing method has changed, this may include reference ranges. MEAN PLATELET VOLUME 2025-03-23 05:35 [facility] 9.8 fl (missing) Result panel 33 GLUCOSE, WHOLE BLOOD 2025-03-23 07:56 [facility] 180 (missing) Suspected error Result panel 34 GLUCOSE, WHOLE BLOOD 2025-03-23 11:59 [facility] 201 (missing) (missing) Result panel 35 MEAN PLATELET VOLUME 2025-03-23 13:04 [facility] 10.3 fl (missing) RED CELL DISTRIBUTION WIDTH 2025-03-23 13:04 [facility] 16.1 % (missing) MEAN CORPUSCULAR HEMOGLOBIN 2025-03-23 13:04 [facility] 24.6 pg (missing) HCT - HEMATOCRIT 2025-03-23 13:04 [facility] 25.4 % (missing) RED BLOOD COUNT 2025-03-23 13:04 [facility] 3.21 10 6/ul (missing) MEAN CORPUSCULAR HGB CONC 2025-03-23 13:04 [facility] 31 .1 g/dl (missing) PLT - PLATELET COUNT 2025-03-23 13:04 [facility] 657 10 3/ul (missing) HGB - HEMOGLOBIN 2025-03-23 13:04 [facility] 7.9 g /dl (missing) MEAN CORPUSCULAR VOLUME 2025-03-23 13:04 [facility] 79.1 fl (missing) WHITE BLOOD COUNT 2025-03-23 13:04 [facility] 8.5 x10 3/ul (missing) Result panel 36 GLUCOSE, WHOLE BLOOD 2025-03-23 16:43 [facility] 275 (missing) RN notified. Result panel 37 GLUCOSE, WHOLE BLOOD 2025-03-23 20:55 [facility] 230 (missing) RN notified. Result panel 38 NUCLEATED RED BLOOD CELLS AUTO 2025-03-24 05:47 [facility] 0.0 /100wbc (missing) NRBC ABSOLUTE COUNT (AUTO) 2025-03-24 05:47 [facility] 0.00 x10 3/ul (missing) BASOPHILS # (AUTO) 2025-03-24 05:47 [facility] 0.1 10 3/ul (missing) EOSINOPHILS # (AUTO) 2025-03-24 05:47 [facility] 0.2 10 3/ul (missing) CREATININE 2025-03-24 05:47 [facility] 0.4 mg/dl As of November 2022 testing method has changed, this may include reference ranges. MONOCYTES # (AUTO) 2025-03-24 05:47 [facility] 0.7 10 3/ul (missing) LYMPHOCYTES # (AUTO) 2025-03-24 05:47 [facility] 1.1 10 3/ul (missing) CALCIUM 2025-03-24 05:47 [facility] 10.0 mg/dl As of November 2022 testing method has changed, this may include reference ranges. MEAN PLATELET VOLUME 2025-03-24 05:47 [facility] 10.1 fl (missing) CHLORIDE 2025-03-24 05:47 [facility] 102 mmol/l As of November 2022 testing method has changed, this may include reference ranges. SODIUM 2025-03-24 05:47 [facility] 133 mmol/l (missing) BUN - BLOOD UREA NITROGEN 2025-03-24 05:47 [facility] 16 mg/dl As of Nov testing method has changed, this may include reference ranges. RED CELL DISTRIBUTION WIDTH 2025-03-24 05:47 [facility] 16.0 % (mi ssing) GLUCOSE 2025-03-24 05:47 [facility] 181 mg/dl As of November 2022 testing method has changed, this may include reference ranges. GFR - MDRD 2025-03-24 05:47 [facility] 209 (missin g) The IDMS-traceable MDRD Study Equation has been validated extensively in and populations between the ages of 18 and 70 with impaired kidney function (eGFR < 60 mL/min/1.73m2) and has shown good performance for patients with all common causes of kidney disease. Although this equation has not been validated for patients older than 70, an MDRD-derived eGFR may still be a useful tool for providers caring for patients older than 70. References: http://www.nkdep.n ih.gov/lab-evaluat ion/gfr/creatinine -stand ardization, last updated July 2011. MEAN CORPUSCULAR HEMOGLOBIN 2025-03-24 05:47 [facility] 23.5 pg (missing) HCT - HEMATOCRIT 2025-03-24 05:47 [facility] 23.9 % (missing) CARBON DIOXIDE - CO2 2025-03-24 05:47 [facility] 27 mmol/l As of November 2022 testing method has changed, this may include reference ranges. RED BLOOD COUNT 2025-03-24 05:47 [facility] 3.11 10 6/ul (missing) MEAN CORPUSCULAR HGB CONC 2025-03-24 05:47 [facility] 30.5 g/dl (missing) ANION GAP 2025-03-24 05:47 [facility] 4.0 (missing ) (missing) POTASSIUM 2025-03-24 05:47 [facility] 4.2 mmol/l As of November 2022 testing method has changed, this may include reference ranges. PLT - PLATELET COUNT 2025-03-24 05:47 [facility] 580 10 3/ul (missing) NEUTROPHILS # (AUTO) 2025-03-24 05:47 [facility] 6.7 10 3/ul (missing) HGB - HEMOGLOBIN 2025-03-24 05:47 [facility] 7.3 g /dl (missing) MEAN CORPUSCULAR VOLUME 2025-03-24 05:47 [facility] 76.8 fl (missing) WHITE BLOOD COUNT 2025-03-24 05:47 [facility] 8.8 x10 3/ul (missing) Result panel 39 GLUCOSE, WHOLE BLOOD 2025-03-24 07:42 [facility] 187 (missing) (missing) Result panel 40 GLUCOSE, WHOLE BLOOD 2025-03-24 11:22 [facility] 124 (missing) (missing) Result panel 41 GLUCOSE, WHOLE BLOOD 2025-03-24 16:46 [facility] 156 (missing) (missing) Result panel 42 GLUCOSE, WHOLE BLOOD 2025-03-24 19:28 [facility] 154 (missing) RN notified. Result panel 43 NUCLEATED RED BLOOD CELLS AUTO 2025-03-25 04:22 [facility] 0.0 /100wbc (missing) NRBC ABSOLUTE COUNT (AUTO) 2025-03-25 04[facility] [facility] 0.00 x10 3/ul (missing) BASOPHILS # (AUTO) 2025-03-25 04:22 [facility] 0.1 10 3/ul (missing) EOSINOPHILS # (AUTO) 2025-03-25 04:22 [facility] 0.2 10 3/ul (missing) CREATININE 2025-03-25 04:22 [facility] 0.5 mg/dl As of November 2022 testing method has changed, this may include reference ranges. MONOCYTES # (AUTO) 2025-03-25 04:22 [facility] 0.6 10 3/ul (missing) LYMPHOCYTES # (AUTO) 2025-03-25 04:22 [facility] 1.4 10 3/ul (missing) CALCIUM 2025-03-25 04:22 [facility] 10.0 mg/dl As of November 2022 testing method has changed, this may include reference ranges. MEAN PLATELET VOLUME 2025-03-25 04:22 [facility] 10.1 fl (missing) CHLORIDE 2025-03-25 04:22 [facility] 102 mmol/l As of November 2022 testing method has changed, this may include reference ranges. WHITE BLOOD COUNT 2025-03-25 04:22 [facility] 11.9 x10 3/ul (missing) GLUCOSE 2025-03-25 04:22 [facility] 115 mg/dl As of November 2022 testing method has changed, this may include reference ranges. SODIUM 2025-03-25 04:22 [facility] 134 mmol/l (missing) RED CELL DISTRIBUTION WIDTH 2025-03-25 04:22 [facility] 16.4 % (mi ssing) GFR - MDRD 2025-03-25 04:22 [facility] 162 (in g) The IDMS-traceable MDRD Study Equation has been validated extensively in and populations between the ages of 18 and 70 with impaired kidney function (eGFR < 60 mL/min/1.73m2) and has shown good performance for patients with all common causes of kidney disease. Although this equation has not been validated for patients older than 70, an MDRD-derived eGFR may still be a useful tool for providers caring for patients older than 70. References: http://www.nkdep.n ih.gov/lab-evaluat ion/gfr/creatinine -stand ardization, last updated July 2011. BUN - BLOOD UREA NITROGEN 2025-03-25 04:22 [facility] 19 mg/dl As of Nov testing method has changed, this may include reference ranges. RED BLOOD COUNT 2025-03-25 04:22 [facility] 2.99 10 6/ul (missing) HCT - HEMATOCRIT 2025-03-25 04:22 [facility] 23.3 % (missing) MEAN CORPUSCULAR HEMOGLOBIN 2025-03-25 04[facility]22 [facility] 23.7 pg (missing) CARBON DIOXIDE - CO2 2025-03-25 04:22 [facility] 28 mmol/l As of November 2022 testing method has changed, this may include reference ranges. MEAN CORPUSCULAR HGB CONC 2025-03-25 04:22 [facility] 30.5 g/dl (missing) ANION GAP 2025-03-25 04:22 [facility] 4.0 (missing ) (missing) POTASSIUM 2025-03-25 04:22 [facility] 4.4 mmol/l As of November 2022 testing method has changed, this may include reference ranges. PLT - PLATELET COUNT 2025-03-25 04:22 [facility] 651 10 3/ul (missing) HGB - HEMOGLOBIN 2025-03-25 04:22 [facility] 7.1 g /dl (missing) MEAN CORPUSCULAR VOLUME 2025-03-25 04:22 [facility] 77.9 fl (missing) NEUTROPHILS # (AUTO) 2025-03-25 04:22 [facility] 9.5 10 3/ul (missing) Result panel 44 GLUCOSE, WHOLE BLOOD 2025-03-25 07:36 [facility] 125 (missing) RN notified. Result panel 45 GLUCOSE, WHOLE BLOOD 2025-03-25 11:42 [facility] 106 (missing) RN notified. Result panel 46 RED CELL DISTRIBUTION WIDTH 2025-03-25 13:55 [facility] 16.5 % (missing) MEAN CORPUSCULAR HEMOGLOBIN 2025-03-25 13:55 [facility] 24.2 pg (missing) HCT - HEMATOCRIT 2025-03-25 13:55 [facility] 25.3 % (missing) RED BLOOD COUNT 2025-03-25 13:55 [facility] 3.22 10 6/ul (missing) MEAN CORPUSCULAR HGB CONC 2025-03-25 13:55 [facility] 30 .8 g/dl (missing) PLT - PLATELET COUNT 2025-03-25 13:55 [facility] 679 10 3/ul (missing) HGB - HEMOGLOBIN 2025-03-25 13:55 [facility] 7.8 g /dl (missing) MEAN CORPUSCULAR VOLUME 2025-03-25 13:55 [facility] 78.6 fl (missing) WHITE BLOOD COUNT 2025-03-25 13:55 [facility] 9.5 x10 3/ul (missing) MEAN PLATELET VOLUME 2025-03-25 13:55 [facility] 9.9 fl (missing) Result panel 47 GLUCOSE, WHOLE BLOOD 2025-03-25 16:40 [facility] 139 (missing) RN notified. Result panel 48 GLUCOSE, WHOLE BLOOD 2025-03-25 20:45 [facility] 233 (missing) RN notified. Result panel 49 NUCLEATED RED BLOOD CELLS AUTO 2025-03-26 04:24 [facility] 0.0 /100wbc (missing) NRBC ABSOLUTE COUNT (AUTO) 2025-03-26 04:24 [facility] 0.00 x10 3/ul (missing) BASOPHILS # (AUTO) 2025-03-26 04:24 [facility] 0.1 10 3/ul (missing) EOSINOPHILS # (AUTO) 2025-03-26 04:24 [facility] 0.2 10 3/ul (missing) CREATININE 2025-03-26 04:24 [facility] 0.4 mg/dl As of November 2022 testing method has changed, this may include reference ranges. MONOCYTES # (AUTO) 2025-03-26 04:24 [facility] 0.5 10 3/ul (missing) LYMPHOCYTES # (AUTO) 2025-03-26 04:24 [facility] 1.0 10 3/ul (missing) MEAN PLATELET VOLUME 2025-03-26 04:24 [facility] 10.0 fl (missing) CALCIUM 2025-03-26 04:24 [facility] 10.1 mg/dl As of November 2022 testing method has changed, this may include reference ranges. CHLORIDE 2025-03-26 04:24 [facility] 102 mmol/l As of November 2022 testing method has changed, this may include reference ranges. SODIUM 2025-03-26 04:24 [facility] 135 mmol/l (missing) RED CELL DISTRIBUTION WIDTH 2025-03-26 04:24 [facility] 16.6 % (mi ssing) RED BLOOD COUNT 2025-03-26 04:24 [facility] 2.78 10 6/ul (missing) BUN - BLOOD UREA NITROGEN 2025-03-26 04:24 [facility] 20 mg/dl As of Nov testing method has changed, this may include reference ranges. GFR - MDRD 2025-03-26 04: [facility] 209 (fabiola reese) The IDMS-traceable MDRD Study Equation has been validated extensively in and populations between the ages of 18 and 70 with impaired kidney function (eGFR < 60 mL/min/1.73m2) and has shown good performance for patients with all common causes of kidney disease. Although this equation has not been validated for patients older than 70, an MDRD-derived eGFR may still be a useful tool for providers caring for patients older than 70. References: http://www.nkdep.n ih.gov/lab-evaluat ion/gfr/creatinine -stand ardization, last updated July 2011. HCT - HEMATOCRIT 2025-03-26 04:24 [facility] 21.8 % (missing) MEAN CORPUSCULAR HEMOGLOBIN 2025-03-26 04:24 [facility] 24.1 pg (missing) GLUCOSE 2025-03-26 04:24 [facility] 253 mg/dl As of November 2022 testing method has changed, this may include reference ranges. CARBON DIOXIDE - CO2 2025-03-26 04:24 [facility] 29 mmol/l As of November 2022 testing method has changed, this may include reference ranges. MEAN CORPUSCULAR HGB CONC 2025-03-26 04:24 [facility] 30.7 g/dl (missing) ANION GAP 2025-03-26 04:24 [facility] 4.0 (missing ) (missing) POTASSIUM 2025-03-26 04:24 [facility] 4.2 mmol/l As of November 2022 testing method has changed, this may include reference ranges. HGB - HEMOGLOBIN 2025-03-26 04:24 [facility] 6.7 g /dl Called to / LAZ Manzano RN by Bridget Maria at 0514 03/26/25. Read back(Y/N)?Y PLT - PLATELET COUNT 2025-03-26 04:24 [facility] 632 10 3/ul (missing) MEAN CORPUSCULAR VOLUME 2025-03-26 04:24 [facility] 78.4 fl (missing) NEUTROPHILS # (AUTO) 2025-03-26 04:24 [facility] 8.1 10 3/ul (missing) WHITE BLOOD COUNT 2025-03-26 04:24 [facility] 9.9 x10 3/ul (missing) Result panel 50 GLUCOSE, WHOLE BLOOD 2025-03-26 08:06 [facility] 219 (missing) RN notified. Result panel 51 GLUCOSE, WHOLE BLOOD 2025-03-26 11:40 [facility] 194 (missing) RN notified. Result panel 52 GLUCOSE, WHOLE BLOOD 2025-03-26 16:46 [facility] 234 (missing) RN notified. Result panel 53 HCT - HEMATOCRIT 2025-03-26 17:44 [facility] 27.6 % (missing) HGB - HEMOGLOBIN 2025-03-26 17:44 [facility] 8.5 g /dl (missing) Result panel 54 GLUCOSE, WHOLE BLOOD 2025-03-26 20:40 [facility] 156 (missing) (missing) Result panel 55 NUCLEATED RED BLOOD CELLS AUTO 2025-03-27 04:45 [facility] 0.0 /100wbc (missing) NRBC ABSOLUTE COUNT (AUTO) 2025-03-27 04:45 [facility] 0.00 x10 3/ul (missing) BASOPHILS # (AUTO) 2025-03-27 04:45 [facility] 0.1 10 3/ul (missing) EOSINOPHILS # (AUTO) 2025-03-27 04:45 [facility] 0.2 10 3/ul (missing) CREATININE 2025-03-27 04:45 [facility] 0.3 mg/dl As of November 2022 testing method has changed, this may include reference ranges. MONOCYTES # (AUTO) 2025-03-27 04:45 [facility] 0.5 10 3/ul (missing) LYMPHOCYTES # (AUTO) 2025-03-27 04:45 [facility] 1.3 10 3/ul (missing) CALCIUM 2025-03-27 04:45 [facility] 10.1 mg/dl As of November 2022 testing method has changed, this may include reference ranges. WHITE BLOOD COUNT 2025-03-27 04:45 [facility] 10.4 x10 3/ul (missing) CHLORIDE 2025-03-27 04:45 [facility] 104 mmol/l As of November 2022 testing method has changed, this may include reference ranges. SODIUM 2025-03-27 04:45 [facility] 135 mmol/l (missing) BUN - BLOOD UREA NITROGEN 2025-03-27 04:45 [facility] 15 mg/dl As of Nov testing method has changed, this may include reference ranges. RED CELL DISTRIBUTION WIDTH 2025-03-27 04:45 [facility] 16.5 % (mi ssing) GLUCOSE 2025-03-27 04:45 [facility] 183 mg/dl As of November 2022 testing method has changed, this may include reference ranges. MEAN CORPUSCULAR HEMOGLOBIN 2025-03-27 04:45 [facility] 24.9 pg (missing) HCT - HEMATOCRIT 2025-03-27 04:45 [facility] 26.9 % (missing) CARBON DIOXIDE - CO2 2025-03-27 04:45 [facility] 27 mmol/l As of November 2022 testing method has changed, this may include reference ranges. GFR - MDRD 2025-03-27 04:45 [facility] 291 (missin g) The IDMS-traceable MDRD Study Equation has been validated extensively in and populations between the ages of 18 and 70 with impaired kidney function (eGFR < 60 mL/min/1.73m2) and has shown good performance for patients with all common causes of kidney disease. Although this equation has not been validated for patients older than 70, an MDRD-derived eGFR may still be a useful tool for providers caring for patients older than 70. References: http://www.nkdep.n .gov/lab-evaluat ion/gfr/creatinine -stand ardization, last updated July 2011. RED BLOOD COUNT 2025-03-27 04:45 [facility] 3.38 10 6/ul (missing) MEAN CORPUSCULAR HGB CONC 2025-03-27 04:45 [facility] 31.2 g/dl (missing) ANION GAP 2025-03-27 04:[facility] 4.0 (missing ) (missing) POTASSIUM 2025-03-27 04:45 [facility] 4.3 mmol/l As of November 2022 testing method has changed, this may include reference ranges. PLT - PLATELET COUNT 2025-03-27 04:45 [facility] 661 10 3/ul (missing) MEAN CORPUSCULAR VOLUME 2025-03-27 04:45 [facility] 79.6 fl (missing) NEUTROPHILS # (AUTO) 2025-03-27 04:45 [facility] 8.2 10 3/ul (missing) HGB - HEMOGLOBIN 2025-03-27 04:45 [facility] 8.4 g /dl (missing) MEAN PLATELET VOLUME 2025-03-27 04:45 [facility] 9.4 fl (missing) Result panel 56 GLUCOSE, WHOLE BLOOD 2025-03-27 08:07 [facility] 177 (missing) (missing) Result panel 57 GLUCOSE, WHOLE BLOOD 2025-03-27 11:45 [facility] 286 (missing) RN notified. Result panel 58 GLUCOSE, WHOLE BLOOD 2025-03-27 16:37 [facility] 206 (missing) RN notified. Result panel 59 GLUCOSE, WHOLE BLOOD 2025-03-27 20:56 [facility] 198 (missing) (missing) Result panel 60 CREATININE 2025-03-28 04:50 [facility] 0.4 mg/dl As of November 2022 testing method has changed, this may include reference ranges. MAGNESIUM 2025-03-28 04:50 [facility] 1.8 mg/dl As of November 2022 testing method has changed, this may include reference ranges. CALCIUM 2025-03-28 04:50 [facility] 10.1 mg/dl As of November 2022 testing method has changed, this may include reference ranges. WHITE BLOOD COUNT 2025-03-28 04:50 [facility] 10.2 x10 3/ul (missing) CHLORIDE 2025-03-28 04:50 [facility] 104 mmol/l As of November 2022 testing method has changed, this may include reference ranges. SODIUM 2025-03-28 04:50 [facility] 136 mmol/l (missing) RED CELL DISTRIBUTION WIDTH 2025-03-28 04:50 [facility] 17.2 % (mi ssing) BUN - BLOOD UREA NITROGEN 2025-03-28 04:50 [facility] 18 mg/dl As of Nov testing method has changed, this may include reference ranges. GLUCOSE 2025-03-28 04:50 [facility] 182 mg/dl As of November 2022 testing method has changed, this may include reference ranges. GFR - MDRD 2025-03-28 04:50 [facility] 209 (in g) The IDMS-traceable MDRD Study Equation has been validated extensively in and populations between the ages of 18 and 70 with impaired kidney function (eGFR < 60 mL/min/1.73m2) and has shown good performance for patients with all common causes of kidney disease. Although this equation has not been validated for patients older than 70, an MDRD-derived eGFR may still be a useful tool for providers caring for patients older than 70. References: http://www.nkdep.n [place].gov/lab-evaluat ion/gfr/creatinine -stand ardization, last updated July 2011. HCT - HEMATOCRIT 2025-03-28 04:50 [facility] 24.6 % (missing) MEAN CORPUSCULAR HEMOGLOBIN 2025-03-28 04:50 [facility] 25.0 pg (missing) CARBON DIOXIDE - CO2 2025-03-28 04:50 [facility] 26 mmol/l As of November 2022 testing method has changed, this may include reference ranges. RED BLOOD COUNT 2025-03-28 04:50 [facility] 3.12 10 6/ul (missing) POTASSIUM 2025-03-28 04:50 [facility] 3.8 mmol/l As of November 2022 testing method has changed, this may include reference ranges. MEAN CORPUSCULAR HGB CONC 2025-03-28 04:50 [facility] 31.7 g/dl (missing) ANION GAP 2025-03-28 04:50 [facility] 6.0 (missing ) (missing) PLT - PLATELET COUNT 2025-03-28 04:50 [facility] 657 10 3/ul (missing) HGB - HEMOGLOBIN 2025-03-28 04:50 [facility] 7.8 g /dl (missing) MEAN CORPUSCULAR VOLUME 2025-03-28 04:50 [facility] 78.8 fl (missing) MEAN PLATELET VOLUME 2025-03-28 04:50 [facility] 9.6 fl (missing) Result panel 61 GLUCOSE, WHOLE BLOOD 2025-03-28 07:42 [facility] 201 (missing) (missing) Result panel 62 GLUCOSE, WHOLE BLOOD 2025-03-28 11:56 [facility] 282 (missing) (missing) Result panel 63 NUCLEATED RED BLOOD CELLS AUTO 2025-04-10 11:00 [facility] 0.0 /100wbc (missing) BASOPHILS # (AUTO) 2025-04-10 11:00 [facility] 0.0 10 3/ul (missing) NRBC ABSOLUTE COUNT (AUTO) 2025-04-10 11:00 [facility] 0.00 x10 3/ul (missing) EOSINOPHILS # (AUTO) 2025-04-10 11:00 [facility] 0.2 10 3/ul (missing) MONOCYTES # (AUTO) 2025-04-10 11:00 [facility] 0.4 10 3/ul (missing) CREATININE 2025-04-10 11:00 [facility] 0.4 mg/dl As of November 2022 testing method has changed, this may include reference ranges. LYMPHOCYTES # (AUTO) 2025-04-10 11:00 [facility] 1.0 10 3/ul (missing) MEAN PLATELET VOLUME 2025-04-10 11:00 [facility] 10.5 fl (missing) CHLORIDE 2025-04-10 11:00 [facility] 109 mmol/l As of November 2022 testing method has changed, this may include reference ranges. GLUCOSE 2025-04-10 11:00 [facility] 125 mg/dl As of November 2022 testing method has changed, this may include reference ranges. SODIUM 2025-04-10 11:00 [facility] 142 mmol/l (missing) RED CELL DISTRIBUTION WIDTH 2025-04-10 11:00 [facility] 18.1 % (mi ssing) BUN - BLOOD UREA NITROGEN 2025-04-10 11:00 [facility] 19 mg/dl As of Nov testing method has changed, this may include reference ranges. RED BLOOD COUNT 2025-04-10 11:00 [facility] 2.65 10 6/ul (missing) GFR - MDRD 2025-04-10 11:00 [facility] 209 (fabiola reese) The IDWV-traceable MDRD Study Equation has been validated extensively in and populations between the ages of 18 and 70 with impaired kidney function (eGFR < 60 mL/min/1.73m2) and has shown good performance for patients with all common causes of kidney disease. Although this equation has not been validated for patients older than 70, an MDRD-derived eGFR may still be a useful tool for providers caring for patients older than 70. References: http://www.nkdep.n ih.gov/lab-evaluat ion/gfr/creatinine -stand ardization, last updated July 2011. HCT - HEMATOCRIT 2025-04-10 11:00 [facility] 21.4 % (missing) MEAN CORPUSCULAR HEMOGLOBIN 2025-04-10 11:00 [facility] 23.8 pg (missing) CARBON DIOXIDE - CO2 2025-04-10 11:00 [facility] 25 mmol/l As of November 2022 testing method has changed, this may include reference ranges. MEAN CORPUSCULAR HGB CONC 2025-04-10 11:00 [facility] 29.4 g/dl (missing) POTASSIUM 2025-04-10 11:00 [facility] 3.3 mmol/l As of November 2022 testing method has changed, this may include reference ranges. HGB - HEMOGLOBIN 2025-04-10 11:00 [facility] 6.3 g /dl Called to SURYA Crum RN [facility] by Karuna Drew M.T.([facility]) at 1154 04/10/25. Read back(Y/N)?Y PLT - PLATELET COUNT 2025-04-10 11:00 [facility] 680 10 3/ul (missing) NEUTROPHILS # (AUTO) 2025-04-10 11:00 [facility] 7.8 10 3/ul (missing) ANION GAP 2025-04-10 11:00 [facility] 8.0 (missing ) (missing) MEAN CORPUSCULAR VOLUME 2025-04-10 11:00 [facility] 80.8 fl (missing) WHITE BLOOD COUNT 2025-04-10 11:00 [facility] 9.6 x10 3/ul (missing) CALCIUM 2025-04-10 11:00 [facility] 9.8 mg/dl As of November 2022 testing method has changed, this may include reference ranges. Social History date description facility
[2025-04-10 13:59] LABS: HCT - HEMATOCRIT 21.9 % (42.0-52.0); MEAN PLATELET VOLUME 10.4 fL (7.4-11.4); NRBC ABSOLUTE COUNT (AUTO) 0.00 x10^3/uL; NUCLEATED RED BLOOD CELLS AUTO 0.0 /100WBC; PLT - PLATELET COUNT 639 10^3/uL (130-450); RED CELL DISTRIBUTION WIDTH 18.2 % (12.0-15.0)
[2025-04-10 14:02] LABS: HGB - HEMOGLOBIN 6.4 g/dL (14.0-18.0)
[2025-04-10 14:03] LABS: INR 1.0 (0.8-1.2); PT - PROTHROMBIN TIME 11.5 secs (9.9-12.6)
[2025-04-10 14:16] LABS: ALT ALANINE AMINOTRANSFERASE 11.0 IU/L (10-60); AST ASPARTATE AMINOTRANSFERASE 16.0 IU/L (10-42); BUN - BLOOD UREA NITROGEN 20.0 mg/dL (6-20); CARBON DIOXIDE - CO2 26.0 mmol/L (21-32); CREATININE 0.4 mg/dL (0.6-1.3); GFR - MDRD 209.0 (>89)
--- NOTE | 2025-04-10 16:52 | CONSULTATION NOTE ---
Referring Provider Name of Referring Provider:: Peyton Miller PA-C Consult Date: 04/10/25 Chief Complaint Chief Complaint Chief Complaint: Profound anemia - melena History of Present Illness Admitted From Admitted From:: RESIDENTIAL History Obtained From Records Reviewed: Yes History obtained from: Chart primarily, patient secondarily Exam Limitations: Patient's mentation is quite depressed difficult to enter into long in-dept History of Present Illness HPI Comment/Other: This is a unfortunate 75-year-old male who I initially saw back on March 17, 2025. Is called in consultation after the patient had a profound weight loss as well as a rectal mass that was seen on CT scan that was clearly palpable by my finger. On March 17, 2025 I performed biopsies which unfortunately returned simply rectal mucosa and fragments of fecal matter. He was subsequently seen by my colleague and partner Dr. Ambrose Goldsmith on March 22, 2025 whereupon the patient had a flexible sigmoidoscopy and multiple biopsies were done which returned the diagnosis of a tubulovillous adenoma with high-grade architectural changes but no diagnosis of malignancy. This lesion appeared quite malignant on photographs. Incidentally the patient also had a intramedullary hip nailing by Dr. Moya on March 28, 2025. He now presents with profound anemia with a hemoglobin of 6. He states he has been having loose black stools for quite some time. He has been taking aspirin. He states his appetite is still not returned. He states that his living facility does not provide very good food. PFS Active Problems All Active Problems (Updated 04/10/25 @ 15:55 by Peyton Miller PA-C) Bloody stool (Acute) Guaiac positive stools (Acute) Anemia (Chronic) Post-operative state (Acute) Closed intertrochanteric fracture of right hip (Acute) Malnutrition (Acute) Closed right hip fracture (Acute) Type 2 diabetes mellitus (Acute) Counseling regarding advanced care planning and goals of care (Acute) Closed T12 fracture (Acute) Closed T11 fracture (Acute) Intractable back pain (Acute) Anemia, iron deficiency (Acute) Rectal mass (Acute) Compression fracture of vertebral column (Acute) Cachexia (Acute) Leg pain, right (Acute) Ground-level fall (Acute) Medical History Medical History (Updated 04/10/25 @ 15:55 by Peyton Miller PA-C) Insomnia Urinary incontinence Skin cancer No pertinent past medical history Surgical History Surgical History (Updated 04/10/25 @ 15:06 by Marily Kilpatrick MA) Hx of flexible sigmoidoscopy (~03/22/25) [facility] DR. 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 Social History Social History (Updated 04/10/25 @ 13:07 by Luis Antonio Torres, RN, BSN) Smoking Status: Never smoker Do you dip or chew tobacco?: No Do you vape?: No Living arrangement: Assisted living Living Condition: Alone Support Person: Yes Living Situation Details: Recently moved to [place]; is there under Medicaid Has a Durable Power of Admin Prog Coord for Health Care?: Yes Name / Relationship: Carmina Ribeiro [phone] DPOA on file?: Yes Level: Independent Physical - Functional Details: Functional status has been declining Do you feel safe in your home environment?: Yes History of physical, verbal, emotional, or financial abuse?: No ETOH Use: Beer Frequency: Daily Number of drinks/day: 1 Substance Use: cannabis (any form) 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 Patient has POLST: Yes POLST on file?: Yes POLST CPR Status: Do Not Attempt Resuscitation (DNAR) / Allow Natural Meds/Allgy Home Medications Ambulatory Orders Medication Instructions Recorded Confirmed acetaminophen 500 mg tablet 1,000 mg (2 x 500 mg) PO T ID #90 03/28/25 04/10/25 (Tylenol Extra Strength) tabs aspirin 81 mg tablet 162 mg (2 x 81 mg) PO DAILY 24 03/28/25 04/10/25 days #48 tabs docusate sodium 250 mg capsule 250 - 500 mg (1 - 2 x 2 50 mg) PO 03/28/25 04/10/25 DAILY #30 caps ferrous sulfate 325 mg (65 mg 325 mg PO DAILYWM #30 ta bs 03/28/25 04/10/25 iron) tablet insulin glargine-yfgn 100 unit/mL 12 unit (0.12 mL) tian bcut 03/28/25 04/10/25 (3 mL) subcutaneous pen QDBREAKFAST #15 mL insulin lispro 100 unit/mL 1 - 9 unit (0.01 - 0.09 mL) subcut 03/28/25 04/10/25 subcutaneous pen (Humalog KwikPen 0800,1200,1700,2100 #15 mL (U-100) Insulin) insulin lispro 100 unit/mL 5 unit (0.05 mL) subcut TID WM #15 03/28/25 04/10/25 subcutaneous pen (Humalog KwikPen mL (U-100) Insulin) lidocaine 4 % topical patch 1 patch topical DAILY #30 ea 03/28/25 04/10/25 mirtazapine 15 mg tablet 15 mg PO QPM #30 tabs 04/10/25 jpohvlsjmsky-trzxuwva-mchk 1 tab PO DAILYWM #30 tabs 1 05/28/24 04/10/25 fumarate 19 mg-folic acid 400 mcg tablet (Therapeutic-M) oxycodone 5 mg tablet 5 mg PO Q4HR PRN Pain 5 to 7 #12 03/28/25 04/10/25 tabs pantoprazole 40 mg tablet,delayed 40 mg PO BIDAC #60 t abs 03/28/25 04/10/25 release Allergies Allergies Allergy/AdvReac Type Severity Reaction Status Date / Time No Known Drug Allergies Allergy Verified 04/10/25 13:04 Results Lab Results 04/10/25 13:45 04/10/25 13:45 Other Lab Results: Lab Results x24hrs 04/10/25 04/10/25 Range/Units 13:45 13:30 WBC 9.2 (4.8-10.8) x10^3/uL RBC 2.67 L (4.70-6.10) 10^6/uL Hgb 6.4 L* (14.0-18.0) g/dL Hct 21.9 L (42.0-52.0) % MCV 82.0 (80.0-94.0) fL MCH 24.0 L (27.0-31.0) pg MCHC 29.2 L (32.0-36.0) g/dL RDW 18.2 H (12.0-15.0) % Plt Count 639 H (130-450) 10^3/uL MPV 10.4 (7.4-11.4) fL Neut # (Auto) 7.2 H (1.5-6.6) 10^3/uL Lymph # (Auto) 1.2 L (1.5-3.5) 10^3/uL [place] # (Auto) 0.5 (0.0-1.0) 10^3/uL Eos # (Auto) 0.2 (0.0-0.7) 10^3/uL Baso # (Auto) 0.1 (0.0-0.1) 10^3/uL Absolute Nucleated RBC 0.00 x10^3/uL Nucleated RBC % 0.0 /100WBC PT 11.5 (9.9-12.6) secs INR 1.0 (0.8-1.2) Sodium 143 (135-145) mmol/L Potassium 3.3 L (3.5-4.5) mmol/L Chloride 110 (101-111) mmol/L Carbon Dioxide 26 (21-32) mmol/L Anion Gap 7.0 (6-13) BUN 20 (6-20) mg/dL Creatinine 0.4 L (0.6-1.3) mg/dL Estimated GFR (MDRD) 209 (>89) Glucose 86 (74-104) mg/dL Calcium 10.0 (8.5-10.3) mg/dL Total Bilirubin 0.2 (0.2-1.0) mg/dL AST 16 (10-42) IU/L ALT 11 (10-60) IU/L Alkaline Phosphatase 148 H (42-121) IU/L Total Protein 6.3 L (6.4-8.9) g/dL Albumin 2.9 L (3.2-5.5) g/dL Globulin 3.4 (2.1-4.2) g/dL Albumin/Globulin Ratio 0.9 L (1.0-2.2) Blood Type O POSITIVE Antibody Screen NEGATIVE Crossmatch IS Only See Detail Review of Systems Due to the patient's mentation it was impossible to get an in-depth review of systems. Specifically though he does not complain of chest pain, shortness of breath, or abdominal pain. Exam Exam Vital Signs: Vital Signs x48h Temp Pulse Pulse Resp BP BP Pulse Ox 04/10/25 16:16 37.7 C 80 14 141/70 H 97 04/10/25 15:55 37.7 C 73 14 141/70 H 97 04/10/25 13:00 37 C 80 16 125/64 98 General: 75-year old thin male, appears much older than stated age, mildly cachectic HEENT: Normocephalic, atraumatic, extraocular movement intact, mucous membranes pink and slightly dry, sclera anicteric and not injected, sclera are white to the point where there are almost blue, tongue midline, Mallampati 2, arcus senilis Neck: Supple without pain on palpation, mass or bruit Cardiac: Regular rate and rhythm without rub, gallop, or murmur Chest: Clear to auscultation bilaterally Abdomen: Soft, nontender, normoactive bowel sounds, no hepatomegaly, no splenomegaly, slightly doughy Genitourinary: Deferred Rectal: Deferred until colonoscopy Extremities: No gross neurovascular problem, no clubbing, cyanosis or edema Gait: No gross motor deficit, excellent bilateral manager home improvement strength Psychiatric: Alert and oriented to person place and time, asks and answers questions appropriately, mood and affect appropriate Conclusion/Plan Problem List (1) Anemia, iron deficiency: Qualifiers: Iron deficiency anemia type: inadequate dietary iron intake Qualified Code(s): D50.8 - Other iron deficiency anemias (2) Bloody stool: (3) Guaiac positive stools: (4) Anemia: (5) Rectal mass: Plan The purpose of a repeat colonoscopy is to obtain a definitive pathologic diagnosis regarding the rectal mass. This would help steer therapy moving forward. Colonoscopy with possible biopsies and/or polypectomies. Indications, procedure, alternatives (such as barium enema, Cologuard and even no procedure at all) and risks including but not limited to perforation requiring operative repair, bleeding with its risks, and were fully explained to him. Review of his history does shows that he has comorbidities that are concerning but should not contraindicate use of conscious sedation or MAC anesthesia. All questions were fully answered. Verbal and written consent will be obtained by Dr. Goldsmith tomorrow as he will be the operating surgeon. The patient in preparation for his colonoscopy will be n.p.o. and his colon will be mechanically prepped. 45 minutes of xrvp-ua-ajrt time spent with the patient, the majority of which was spent in discussion, coordination of care, and completion of the requisite paperwork CPT 18384 Lab Results 04/10/25 13:45 04/10/25 13:45
--- NOTE | 2025-04-10 17:42 | HISTORY & PHYSICAL EXAMINATION ---
Chief Complaint Chief Complaint Chief Complaint: Melena History of Present Illness Admitted From Admitted From:: SNF History of Present Illness HPI Comment/Other: 75-year-old male who was recently admitted for anemia and found to have rectal mass, And discharged to SNF. Other history type 2 diabetes, iron deficiency anemia. Patient was sent to the hospital from his facility for low hemoglobin. He denies fever, chills, chest pain, dyspnea, nausea/vomiting. He does report diarrhea, but he is not aware of what it looks like. In the ER, he was noted to have a hemoglobin of 6.4, and a unit of blood was ordered. Surgery was contacted by the ED, and plans were made for colonoscopy in the morning. Hospitalist was contacted for observation for this Meds/Allgy Home Medications Ambulatory Orders Medication Instructions Recorded Confirmed acetaminophen 500 mg tablet 1,000 mg (2 x 500 mg) PO T ID #90 03/28/25 04/10/25 (Tylenol Extra Strength) tabs aspirin 81 mg tablet 162 mg (2 x 81 mg) PO DAILY 24 03/28/25 04/10/25 days #48 tabs docusate sodium 250 mg capsule 250 - 500 mg (1 - 2 x 2 50 mg) PO 03/28/25 04/10/25 DAILY #30 caps ferrous sulfate 325 mg (65 mg 325 mg PO DAILYWM #30 ta bs 03/28/25 04/10/25 iron) tablet insulin glargine-yfgn 100 unit/mL 12 unit (0.12 mL) tian bcut 03/28/25 04/10/25 (3 mL) subcutaneous pen QDBREAKFAST #15 mL insulin lispro 100 unit/mL 1 - 9 unit (0.01 - 0.09 mL) subcut 03/28/25 04/10/25 subcutaneous pen (Humalog KwikPen 0800,1200,1700,2100 #15 mL (U-100) Insulin) insulin lispro 100 unit/mL 5 unit (0.05 mL) subcut TID WM #15 03/28/25 04/10/25 subcutaneous pen (Humalog KwikPen mL (U-100) Insulin) lidocaine 4 % topical patch 1 patch topical DAILY #30 ea 03/28/25 04/10/25 mirtazapine 15 mg tablet 15 mg PO QPM #30 tabs 04/10/25 sdpltywdqqgp-yjyqgnwc-owtp 1 tab PO DAILYWM #30 tabs 1 05/28/24 04/10/25 fumarate 19 mg-folic acid 400 mcg tablet (Therapeutic-M) oxycodone 5 mg tablet 5 mg PO Q4HR PRN Pain 5 to 7 #12 03/28/25 04/10/25 tabs pantoprazole 40 mg tablet,delayed 40 mg PO BIDAC #60 t abs 03/28/25 04/10/25 release Allergies Allergies Allergy/AdvReac Type Severity Reaction Status Date / Time No Known Drug Allergies Allergy Verified 04/10/25 13:04 [facility] Active Problems All Active Problems (Updated 04/10/25 @ 17:39 by Avel Hylton DNP) ABLA (acute blood loss anemia) (Acute) Bloody stool (Acute) Guaiac positive stools (Acute) Anemia (Chronic) Post-operative state (Acute) Closed intertrochanteric fracture of right hip (Acute) Malnutrition (Acute) Closed right hip fracture (Acute) Type 2 diabetes mellitus (Acute) Counseling regarding advanced care planning and goals of care (Acute) Closed T12 fracture (Acute) Closed T11 fracture (Acute) Intractable back pain (Acute) Anemia, iron deficiency (Acute) Rectal mass (Acute) Compression fracture of vertebral column (Acute) Cachexia (Acute) Leg pain, right (Acute) Ground-level fall (Acute) Medical History Medical History (Updated 04/10/25 @ 17:39 by Avel Hylton DNP) Insomnia Urinary incontinence Skin cancer No pertinent past medical history Surgical History Surgical History (Updated 04/10/25 @ 15:06 by Marily Kilpatrick MA) Hx of flexible sigmoidoscopy (~03/22/25) [facility] DR. 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 Social History Social History (Updated 04/10/25 @ 13:07 by Luis Antonio Torres, RN, BSN) Smoking Status: Never smoker Do you dip or chew tobacco?: No Do you vape?: No Living arrangement: Assisted living Living Condition: Alone Support Person: Yes Living Situation Details: Recently moved to [place]; is there under Medicaid Has a Durable Power of Run Boat Operator for Health Care?: Yes Name / Relationship: Carmina Ribeiro [phone] DPOA on file?: Yes Level: Independent Physical - Functional Details: Functional status has been declining Do you feel safe in your home environment?: Yes History of physical, verbal, emotional, or financial abuse?: No ETOH Use: Beer Frequency: Daily Number of drinks/day: 1 Substance Use: cannabis (any form) 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 Patient has POLST: Yes POLST on file?: Yes POLST CPR Status: Do Not Attempt Resuscitation (DNAR) / Allow Natural Review of Systems Status of ROS: 10 or more systems reviewed and unremarkable except as noted in history and below Exam Exam Vital Signs: Vital Signs x48h Temp Pulse Pulse Resp BP BP Pulse Ox 04/10/25 18:44 100.0 F 72 16 142/82 H 98 04/10/25 17:03 78 16 141/84 H 98 04/10/25 16:16 99.9 F 80 14 141/70 H 97 04/10/25 15:55 99.9 F 73 14 141/70 H 97 04/10/25 15:03 82 16 132/80 H 98 04/10/25 13:00 98.6 F 80 16 125/64 98 Constitutional Elderly appearing male in no acute distress HENMT normocephalic and head/scalp atraumatic Neck/C-Spine visual inspection normal Chest inspection of chest normal Respiratory breath sounds equal bilaterally and normal respiratory effort Cardiovascular normal heart rate noted, regular rhythm noted and murmur noted Gastrointestinal abdomen normal to inspection and abdomen soft to palpation Patient has known masses on his butt and in his rectum Extremities normal to inspection Neurology GCS 15 Psychiatry oriented x3 Skin skin color normal Conclusion/Plan Problem List (1) Anemia: Plan: Patient has history of iron deficiency anemia, as well as rectal mass noted on last admission. He is not on blood thinners. Reports loose stools, dark Hemoglobin 6.4 in the ED, 1 unit PRBC was ordered Trend hemoglobin every 8 hours Plan for colonoscopy in a.m. (2) Rectal mass: Plan: Rectal mass was biopsied during last admission and pathology said that this was Nonmalignant. He will undergo another colonoscopy in the morning for his GI bleed and for Possible polypectomy Bowel prep with GoLytely (3) Type 2 diabetes mellitus: Plan: Managed with Lantus and SSI in the outpatient setting Ordered SSI Likely add Lantus back after his procedure Qualifiers: Diabetes mellitus complication status: with hyperglycemia Diabetes mellitus half-way insulin use: without half-way use Qualified Code(s): E11.65 - Type 2 diabetes mellitus with hyperglycemia Plan Place in observation DNR, intubation okay His sister is his surrogate decision maker Lab Results Lab results reviewed: Yes 04/10/25 13:45 04/10/25 13:45 Core Measures Anticipated LOS I expect patient to be DC'd or transferred within 96 hours.: Yes DVT/VTE - Prophylaxis VTE/DVT Device ordered at admit?: Yes
[2025-04-10] MEDS ORDERED: ACETAMINOPHEN 325 MG TABLET PO PRN (20:03)
[2025-04-10] MEDS ORDERED: ONDANSETRON ODT 4 MG TABLET TL PRN (20:03)
[2025-04-10] MEDS ORDERED: ONDANSETRON 4 MG/2 ML VIAL IVP PRN (20:03)
[2025-04-11] MEDS: PEG 3350/NA SULF,BICARB,CL/KCL 4,000 ML BOTTLE PO ONE ×2 (02:18→02:37)
[2025-04-11] MEDS: SODIUM CHLORIDE FLUSH 0.9% 10 ML SYRINGE IVP SCH (02:19)
[2025-04-11 06:33] LABS: HCT - HEMATOCRIT 22.3 % (42.0-52.0); MEAN PLATELET VOLUME 10.2 fL (7.4-11.4); NRBC ABSOLUTE COUNT (AUTO) 0.00 x10^3/uL; NUCLEATED RED BLOOD CELLS AUTO 0.0 /100WBC; PLT - PLATELET COUNT 596 10^3/uL (130-450); RED CELL DISTRIBUTION WIDTH 17.2 % (12.0-15.0)
[2025-04-11 06:40] LABS: HGB - HEMOGLOBIN 6.8 g/dL (14.0-18.0)
[2025-04-11 06:56] LABS: BUN - BLOOD UREA NITROGEN 16.0 mg/dL (6-20); CARBON DIOXIDE - CO2 25.0 mmol/L (21-32); CREATININE 0.3 mg/dL (0.6-1.3); GFR - MDRD 291.0 (>89)
[2025-04-11] MEDS: POTASSIUM CHLORIDE 20 MEQ TABLET PO ONE (09:56)
[2025-04-11] MEDS: SODIUM CHLORIDE FLUSH 0.9% 10 ML SYRINGE IVP PRN (11:24)
--- NOTE | 2025-04-11 11:24 | ANESTHESIA PROCEDURE NOTE ---
Pre-Anesthesia VS, & Labs Diagnosis Surgical Diagnosis:: anemia Procedure Procedure: EGD and colonoscopy Vitals Vital Signs: Temp Pulse Resp BP Pulse Ox 36.8 C 80 16 169/82 H 97 04/11/25 07:44 04/11/25 07:44 04/11/25 07:44 04/11/25 07:44 04/11/25 07:44 NPO NPO: >8 hours Lab Results Current Lab Results: Laboratory Tests 04/11/25 05:32: WBC 9.2, RBC 2.78 L, Hgb 6.8 L*, Hct 22.3 L, MCV 80.2, MCH 24.5 L, MCHC 30.5 L, RDW 17.2 H, Plt Count 596 H, MPV 10.2, Neut # (Auto) 7.0 H, L ymph # (Auto) 1.1 L, Camp # (Auto) 0.7, Eos # (Auto) 0.2, Baso # (Auto) 0.1, Absolute Nucleated RBC 0.00, Nucleated RBC % 0.0, Sodium 140, Potassium 3.3 L, Chloride 109, Carbon Dioxide 25, Anion Gap 6.0, BUN 16, Creatinine 0.3 L, Estimated GFR (MDRD) 291, Glucose 150 H, Calcium 9.4 04/10/25 13:45: WBC 9.2, RBC 2.67 L, Hgb 6.4 L*, Hct 21.9 L, MCV 82.0, MCH 24.0 L, MCHC 29.2 L, RDW 18.2 H, Plt Count 639 H, MPV 10.4, Neut # (Auto) 7.2 H, L ymph # (Auto) 1.2 L, Camp # (Auto) 0.5, Eos # (Auto) 0.2, Baso # (Auto) 0.1, Absolute Nucleated RBC 0.00, Nucleated RBC % 0.0, Sodium 143, Potassium 3.3 L, Chloride 110, Carbon Dioxide 26, Anion Gap 7.0, BUN 20, Creatinine 0.4 L, Estimated GFR (MDRD) 209, Glucose 86, Calcium 10.0, Total Bilirubin 0.2, AST 16, ALT 11, Alkaline Phosphatase 148 H, Total Protein 6.3 L, Albumin 2.9 L, Globulin 3.4, Albumin/Globulin Ratio 0.9 L, Blood Type O POSITIVE, Antibody Screen NEGATIVE, Crossmatch IS Only See Detail 04/10/25 13:30: PT 11.5, INR 1.0 Lab results reviewed: Yes 04/11/25 05:32 04/11/25 05:32 Meds/Allgy Home Medications Ambulatory Orders Medication Instructions Recorded Confirmed acetaminophen 500 mg tablet 1,000 mg (2 x 500 mg) PO T ID #90 03/28/25 04/10/25 (Tylenol Extra Strength) tabs aspirin 81 mg tablet 162 mg (2 x 81 mg) PO DAILY 24 03/28/25 04/10/25 days #48 tabs docusate sodium 250 mg capsule 250 - 500 mg (1 - 2 x 2 50 mg) PO 03/28/25 04/10/25 DAILY #30 caps ferrous sulfate 325 mg (65 mg 325 mg PO DAILYWM #30 ta bs 03/28/25 04/10/25 iron) tablet insulin glargine-yfgn 100 unit/mL 12 unit (0.12 mL) tian bcut 03/28/25 04/10/25 (3 mL) subcutaneous pen QDBREAKFAST #15 mL insulin lispro 100 unit/mL 1 - 9 unit (0.01 - 0.09 mL) subcut 03/28/25 04/10/25 subcutaneous pen (Humalog KwikPen 0800,1200,1700,2100 #15 mL (U-100) Insulin) insulin lispro 100 unit/mL 5 unit (0.05 mL) subcut TID WM #15 03/28/25 04/10/25 subcutaneous pen (Humalog KwikPen mL (U-100) Insulin) lidocaine 4 % topical patch 1 patch topical DAILY #30 ea 03/28/25 04/10/25 mirtazapine 15 mg tablet 15 mg PO QPM #30 tabs 04/10/25 zqdzeokkddup-xcufrzlh-wrnp 1 tab PO DAILYWM #30 tabs 1 05/28/24 04/10/25 fumarate 19 mg-folic acid 400 mcg tablet (Therapeutic-M) oxycodone 5 mg tablet 5 mg PO Q4HR PRN Pain 5 to 7 #12 03/28/25 04/10/25 tabs pantoprazole 40 mg tablet,delayed 40 mg PO BIDAC #60 t abs 03/28/25 04/10/25 release Allergies Allergies Allergy/AdvReac Type Severity Reaction Status Date / Time No Known Drug Allergies Allergy Verified 04/10/25 13:04 [facility] Active Problems All Active Problems ABLA (acute blood loss anemia) (Acute) Bloody stool (Acute) Guaiac positive stools (Acute) Anemia (Chronic) Post-operative state (Acute) Closed intertrochanteric fracture of right hip (Acute) Malnutrition (Acute) Closed right hip fracture (Acute) Type 2 diabetes mellitus (Acute) Counseling regarding advanced care planning and goals of care (Acute) Closed T12 fracture (Acute) Closed T11 fracture (Acute) Intractable back pain (Acute) Anemia, iron deficiency (Acute) Rectal mass (Acute) Compression fracture of vertebral column (Acute) Cachexia (Acute) Leg pain, right (Acute) Ground-level fall (Acute) Medical History Medical History Insomnia Urinary incontinence Skin cancer No pertinent past medical history Surgical History Surgical History History of repair of hip fracture Hx of flexible sigmoidoscopy (~03/22/25) [facility] DR. 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 Social History Social History (Updated 04/10/25 @ 13:07 by Luis Antonio Torres, RN, BSN) Smoking Status: Never smoker Do you dip or chew tobacco?: No Do you vape?: No Living arrangement: Assisted living Living Condition: Alone Support Person: Yes Living Situation Details: Recently moved to [place]; is there under Medicaid Has a Durable Power of Monotype Setter for Health Care?: Yes Name / Relationship: Carmina Ribeiro [phone] DPOA on file?: Yes Level: Assisted Physical - Functional Details: Functional status has been declining Do you feel safe in your home environment?: Yes History of physical, verbal, emotional, or financial abuse?: No ETOH Use: Beer Frequency: Daily Number of drinks/day: 1 Substance Use: cannabis (any form) 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 Receiving 1 unit of PRBC Plan Anesthesia Type: General and Total IV Consent for Procedure(s) Verified and Reviewed: Yes Code Status: Do Not Attempt Resuscitation ASA Classification ASA classification: 3-Severe systemic disease Is this case an emergency?: No
--- NOTE | 2025-04-11 11:50 | PHARMACY PROGRESS NOTE ---
Best Possible Medication History Admit Date and Time: 04/10/25 [id number] Home Medications Medication Instructions Recorded Confirmed Type acetaminophen 500 mg tablet 1,000 mg (2 x 500 mg) PO T ID #90 03/28/25 04/10/25 Rx (Tylenol Extra Strength) tabs aspirin 81 mg tablet 162 mg (2 x 81 mg) PO DAILY 24 03/28/25 04/10/25 Rx days #48 tabs insulin glargine-yfgn 100 unit/mL 12 unit (0.12 mL) tian bcut 03/28/25 04/10/25 Rx (3 mL) subcutaneous pen QDBREAKFAST #15 mL insulin lispro 100 unit/mL 5 unit (0.05 mL) subcut TID WM #15 03/28/25 04/10/25 Rx subcutaneous pen (Humalog KwikPen mL (U-100) Insulin) lidocaine 4 % topical patch 1 patch topical DAILY #30 ea 03/28/25 04/10/25 Rx mirtazapine 15 mg tablet 15 mg PO QPM #30 tabs 04/10/25 Rx wzyyvonvmque-ksrcyedu-bhsi 1 tab PO DAILYWM #30 tabs 1 05/28/24 04/10/25 Rx fumarate 19 mg-folic acid 400 mcg tablet (Therapeutic-M) oxycodone 5 mg tablet 5 mg PO Q4HR PRN Pain 5 to 7 #12 03/28/25 04/10/25 Rx tabs docusate sodium 250 mg capsule 250 mg PO DAILY 5 04/11/25 History ferrous sulfate 325 mg (65 mg 325 mg PO DAILYWM 04/11/25 History iron) tablet insulin lispro 100 unit/mL 1 - 9 unit subcut 04/11/25 04/11/25 History subcutaneous pen (Humalog KwikPen 0800,1200,1700,2100 (U-100) Insulin) pantoprazole 40 mg tablet,delayed 40 mg PO BIDAC 04/1104/11/25 History release Processed by: Nursing Medications reviewed in ED?: Yes Secondary Source(s): Facility MAR as ONLY source [facility] Statement: As the person ultimately responsible for medication therapy, providers are able to order a medication from an existing home medication list in [facility] via the "Reconcile Routine" prior to Confirmation of that medication by support service tech. Such practice is discouraged except when the physician, in their clinical judgment, deems that a medical need exists for a medication without regard to previous use.
[2025-04-11 15:44] LABS: HCT - HEMATOCRIT 29.5 % (42.0-52.0); HGB - HEMOGLOBIN 9.2 g/dL (14.0-18.0)
--- NOTE | 2025-04-11 15:58 | PROVIDER PROGRESS NOTE ---
Subjective Prog Note Date Prog Note Date: 04/11/25 Subjective Pt reports feeling: No change Current Medications Current Medications Current Medications: Current Medications Generic Name Dose Route Start Last Admin Trade Name Romie PRN Reason Stop Dose Admin Acetaminophen 650 mg 04/10/25 20:03 Acetaminophen 325 Mg Tablet PO Q4HR PRN Pain 1 to 4, or Fever Ondansetron HCl 4 mg 04/10/25 20:03 Ondansetron Odt 4 Mg Tablet TL Q6HR PRN Nausea / Vomiting Ondansetron HCl 4 mg 04/10/25 20:03 Ondansetron 4 Mg/2 Ml Vial IVP Q6HR PRN Nausea / Vomiting Sodium Chloride 10 ml 04/10/25 20:03 04/11/25 11:24 Sodium Chloride Flush 0.9% 10 Ml Syringe IVP 10 ml PRN PRN Administration NEEDED PER PROVIDER ORDERS Sodium Chloride 10 ml 04/11/25 01:00 04/11/25 13:02 Sodium Chloride Flush 0.9% 10 Ml Syringe IVP 10 ml 0100,0900,1700 JUJU Administration Objective Vital Signs/Intake & Output Reviewed Vital Signs: Yes Vital Signs: Vital Signs x48h Temp Pulse Resp BP BP Pulse Ox 04/11/25 15:07 97.9 F 85 16 163/96 H 97 04/11/25 14:05 97.9 F 79 16 166/85 H 97 04/11/25 13:01 98.1 F 83 18 161/89 H 97 04/11/25 11:37 98.4 F 87 17 153/94 H 97 04/11/25 11:21 98.1 F 86 17 168/93 H 99 Intake & Output: Intake & Output 04/08/25 04/09/25 04/10/25 04/11/25 23:59 23:59 23:59 23:59 Intake Total 540 / 540 2300 / 2300 Output Total 1075 / 1075 Balance 540 / 540 1225 / 1225 Weight (kg) 66 kg Objective General Appearance: positive No acute distress and Alert Respiratory: positive Chest non-tender and No respiratory distress Cardiovascular: positive Regular rate & rhythm Abdomen: positive Non-tender Skin: positive Color nml Extremities: positive Non-tender Neurologic/Psychiatric: positive Oriented x3 Lab Results 04/11/25 05:32 04/11/25 05:32 Other Labs: Lab Results x24hrs 04/11/25 04/10/25 Range/Units 05:32 13:45 WBC 9.2 (4.8-10.8) x10^3/uL RBC 2.78 L (4.70-6.10) 10^6/uL Hgb 6.8 L* (14.0-18.0) g/dL Hct 22.3 L (42.0-52.0) % MCV 80.2 (80.0-94.0) fL MCH 24.5 L (27.0-31.0) pg MCHC 30.5 L (32.0-36.0) g/dL RDW 17.2 H (12.0-15.0) % Plt Count 596 H (130-450) 10^3/uL MPV 10.2 (7.4-11.4) fL Neut # (Auto) 7.0 H (1.5-6.6) 10^3/uL Lymph # (Auto) 1.1 L (1.5-3.5) 10^3/uL Cloud # (Auto) 0.7 (0.0-1.0) 10^3/uL Eos # (Auto) 0.2 (0.0-0.7) 10^3/uL Baso # (Auto) 0.1 (0.0-0.1) 10^3/uL Absolute Nucleated RBC 0.00 x10^3/uL Nucleated RBC % 0.0 /100WBC Sodium 140 (135-145) mmol/L Potassium 3.3 L (3.5-4.5) mmol/L Chloride 109 (101-111) mmol/L Carbon Dioxide 25 (21-32) mmol/L Anion Gap 6.0 (6-13) BUN 16 (6-20) mg/dL Creatinine 0.3 L (0.6-1.3) mg/dL Estimated GFR (MDRD) 291 (>89) Glucose 150 H (74-104) mg/dL Calcium 9.4 (8.5-10.3) mg/dL Blood Type O POSITIVE Antibody Screen NEGATIVE Crossmatch IS Only See Detail Assessment/Plan Problem List (1) Anemia: Impression: Patient has history of iron deficiency anemia, as well as rectal mass noted on last admission. He is not on blood thinners. Reports loose stools, dark Received 1 unit PRBC last night, he needed 1 more today Trend hemoglobin every 8 hours Initial plan was for colonoscopy today, but he did not complete prep, so this has been postponed to tomorrow (2) Rectal mass: Impression: Rectal mass was biopsied during last admission and pathology said that this was Nonmalignant. He will undergo another colonoscopy in the morning for his GI bleed and for Possible polypectomy Bowel prep with GoLytely (3) Type 2 diabetes mellitus: Impression: SSI Qualifiers: Diabetes mellitus intermodal customer service insulin use: without retirement use Diabetes mellitus complication status: with hyperglycemia Qualified Code(s): E11.65 - Type 2 diabetes mellitus with hyperglycemia
[2025-04-11] MEDS: PANTOPRAZOLE 40 MG VIAL IVP SCH (17:56)
[2025-04-11] MEDS: INSULIN REGULAR, HUMAN 300 UNIT/3 ML PEN SUBQ SCH (18:21)
--- NOTE | 2025-04-11 19:40 | ANESTHESIA PROCEDURE NOTE ---
Pre-Anesthesia VS, & Labs Diagnosis Surgical Diagnosis:: Anemia, rectal mass Procedure Procedure: colonoscopy Vitals Vital Signs: Temp Pulse Resp BP Pulse Ox 36.8 C 90 20 165/90 H 97 04/11/25 16:29 04/11/25 16:29 04/11/25 16:29 04/11/25 16:29 04/11/25 16:29 NPO NPO: >8 hours Lab Results Current Lab Results: Laboratory Tests 04/11/25 18:18: POC Whole Bld Glucose 161 04/11/25 15:39: Hgb 9.2 L, Hct 29.5 L 04/11/25 05:32: WBC 9.2, RBC 2.78 L, Hgb 6.8 L*, Hct 22.3 L, MCV 80.2, MCH 24.5 L, MCHC 30.5 L, RDW 17.2 H, Plt Count 596 H, MPV 10.2, Neut # (Auto) 7.0 H, L ymph # (Auto) 1.1 L, Harper # (Auto) 0.7, Eos # (Auto) 0.2, Baso # (Auto) 0.1, Absolute Nucleated RBC 0.00, Nucleated RBC % 0.0, Sodium 140, Potassium 3.3 L, Chloride 109, Carbon Dioxide 25, Anion Gap 6.0, BUN 16, Creatinine 0.3 L, Estimated GFR (MDRD) 291, Glucose 150 H, Calcium 9.4 04/10/25 13:45: WBC 9.2, RBC 2.67 L, Hgb 6.4 L*, Hct 21.9 L, MCV 82.0, MCH 24.0 L, MCHC 29.2 L, RDW 18.2 H, Plt Count 639 H, MPV 10.4, Neut # (Auto) 7.2 H, L ymph # (Auto) 1.2 L, Harper # (Auto) 0.5, Eos # (Auto) 0.2, Baso # (Auto) 0.1, Absolute Nucleated RBC 0.00, Nucleated RBC % 0.0, Sodium 143, Potassium 3.3 L, Chloride 110, Carbon Dioxide 26, Anion Gap 7.0, BUN 20, Creatinine 0.4 L, Estimated GFR (MDRD) 209, Glucose 86, Calcium 10.0, Total Bilirubin 0.2, AST 16, ALT 11, Alkaline Phosphatase 148 H, Total Protein 6.3 L, Albumin 2.9 L, Globulin 3.4, Albumin/Globulin Ratio 0.9 L, Blood Type O POSITIVE, Antibody Screen NEGATIVE, Crossmatch IS Only See Detail 04/10/25 13:30: PT 11.5, INR 1.0 Lab results reviewed: Yes 04/11/25 15:39 04/11/25 05:32 Meds/Allgy Home Medications Ambulatory Orders Medication Instructions Recorded Confirmed acetaminophen 500 mg tablet 1,000 mg (2 x 500 mg) PO T ID #90 03/28/25 04/10/25 (Tylenol Extra Strength) tabs aspirin 81 mg tablet 162 mg (2 x 81 mg) PO DAILY 24 03/28/25 04/10/25 days #48 tabs insulin glargine-yfgn 100 unit/mL 12 unit (0.12 mL) tian bcut 03/28/25 04/10/25 (3 mL) subcutaneous pen QDBREAKFAST #15 mL insulin lispro 100 unit/mL 5 unit (0.05 mL) subcut TID WM #15 03/28/25 04/10/25 subcutaneous pen (Humalog KwikPen mL (U-100) Insulin) lidocaine 4 % topical patch 1 patch topical DAILY #30 ea 03/28/25 04/10/25 mirtazapine 15 mg tablet 15 mg PO QPM #30 tabs 04/10/25 ztjgxlhbsttw-bviccrzm-xirh 1 tab PO DAILYWM #30 tabs 1 05/28/24 04/10/25 fumarate 19 mg-folic acid 400 mcg tablet (Therapeutic-M) oxycodone 5 mg tablet 5 mg PO Q4HR PRN Pain 5 to 7 #12 03/28/25 04/10/25 tabs docusate sodium 250 mg capsule 250 mg PO DAILY 2 5 04/11/25 ferrous sulfate 325 mg (65 mg 325 mg PO DAILYWM 04/11/25 iron) tablet insulin lispro 100 unit/mL 1 - 9 unit subcut 04/11/25 04/11/25 subcutaneous pen (Humalog KwikPen 0800,1200,1700,2100 (U-100) Insulin) pantoprazole 40 mg tablet,delayed 40 mg PO BIDAC 04/1104/11/25 release Allergies Allergies Allergy/AdvReac Type Severity Reaction Status Date / Time No Known Drug Allergies Allergy Verified 04/10/25 13:04 [facility] Active Problems All Active Problems ABLA (acute blood loss anemia) (Acute) Bloody stool (Acute) Guaiac positive stools (Acute) Anemia (Chronic) Post-operative state (Acute) Closed intertrochanteric fracture of right hip (Acute) Malnutrition (Acute) Closed right hip fracture (Acute) Type 2 diabetes mellitus (Acute) Counseling regarding advanced care planning and goals of care (Acute) Closed T12 fracture (Acute) Closed T11 fracture (Acute) Intractable back pain (Acute) Anemia, iron deficiency (Acute) Rectal mass (Acute) Compression fracture of vertebral column (Acute) Cachexia (Acute) Leg pain, right (Acute) Ground-level fall (Acute) Medical History Medical History Insomnia Urinary incontinence Skin cancer No pertinent past medical history Surgical History Surgical History History of repair of hip fracture Hx of flexible sigmoidoscopy (~03/22/25) [facility] DR. 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 Social History Social History (Updated 04/10/25 @ 13:07 by Luis Antonio Torres, RN, BSN) Smoking Status: Never smoker Do you dip or chew tobacco?: No Do you vape?: No Living arrangement: Assisted living Living Condition: Alone Support Person: Yes Living Situation Details: Recently moved to [place]; is there under Medicaid Has a Durable Power of Compounder for Health Care?: Yes Name / Relationship: Carmina Ribeiro [phone] DPOA on file?: Yes Level: Assisted Physical - Functional Details: Functional status has been declining Do you feel safe in your home environment?: Yes History of physical, verbal, emotional, or financial abuse?: No ETOH Use: Beer Frequency: Daily Number of drinks/day: 1 Substance Use: cannabis (any form) 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
--- NOTE | 2025-04-11 20:26 | PROVIDER PROGRESS NOTE ---
Subjective General Admit Date: 04/11/25 Other Other Information/Narrative: Doing well, started his prep last night but only with well formed stools today. Review of Systems Status of ROS: 10 or more systems reviewed and unremarkable except as noted in history and below Exam Exam Vital Signs: Vital Signs x48h Temp Pulse Resp BP Pulse Ox 04/11/25 16:29 36.8 C 90 20 165/90 H 97 04/11/25 15:07 36.6 C 85 16 163/96 H 97 04/11/25 14:05 36.6 C 79 16 166/85 H 97 04/11/25 13:01 36.7 C 83 18 161/89 H 97 Constitutional Disheveled and cachectic appearing HENMT normocephalic and head/scalp atraumatic Eyes conjunctivae normal and no scleral icterus Neck/C-Spine visual inspection normal Respiratory normal respiratory effort Cardiovascular normal heart rate noted and regular rhythm noted Gastrointestinal abdomen soft to palpation and nontender to palpation Extremities normal to inspection Neurology no movement abnormality noted and speech normal Psychiatry cooperative and affect normal Skin skin color normal Impression/Plan Problem List (1) Bloody stool: Plan: 75 yo M with persistent melena and a large rectal mass which has only been shown to be tubulovillous adenoma on biopsy who presented to the ED on 04/10 with significant anemia and was admitted to medicine for transfusion and planned for full colonoscopy and EGD to evaluate for bleeding source. This afternoon he continues to have well-formed stools and a colonoscopy would not be completely diagnostic at this point. Due to this we will plan for continued clear liquids and GoLytely prep today with plans for EGD and colonoscopy tomorrow with Dr. Hendrix. - Transfuse as needed - Continue clear liquid and bowel prep - NPO at 0600 for procedure tomorrow - Rest of care per primary - Discussed with the primary team and Dr. Hendrix - Discussed with the family at the bedside and all questions were answered
[2025-04-11] MEDS: MIRTAZAPINE 15 MG TABLET PO SCH (21:53)
[2025-04-12] MEDS: PEG 3350/NA SULF,BICARB,CL/KCL 4,000 ML BOTTLE PO ONE (06:11)
[2025-04-12 06:44] LABS: HCT - HEMATOCRIT 26.2 % (42.0-52.0); HGB - HEMOGLOBIN 8.2 g/dL (14.0-18.0); MEAN PLATELET VOLUME 9.8 fL (7.4-11.4); NRBC ABSOLUTE COUNT (AUTO) 0.00 x10^3/uL; NUCLEATED RED BLOOD CELLS AUTO 0.0 /100WBC; PLT - PLATELET COUNT 549 10^3/uL (130-450); RED CELL DISTRIBUTION WIDTH 17.2 % (12.0-15.0)
[2025-04-12 06:53] LABS: BUN - BLOOD UREA NITROGEN 12.0 mg/dL (6-20); CARBON DIOXIDE - CO2 27.0 mmol/L (21-32); CREATININE 0.4 mg/dL (0.6-1.3); GFR - MDRD 209.0 (>89)
--- NOTE | 2025-04-12 15:04 | PROVIDER PROGRESS NOTE ---
Subjective General Admit Date: 04/11/25 Procedure Performed: Pending EGD and colonscopy today. Review of Systems Due to the patient's mentation it was impossible to get an in-depth review of systems. Specifically though he does not complain of chest pain, shortness of breath, or abdominal pain. Exam Exam Vital Signs: Vital Signs x48h Temp Pulse Resp BP Pulse Ox 04/12/25 07:55 36.8 C 74 18 156/76 H 96 General: 75-year old thin male, appears much older than stated age, mildly cachectic, evaluated in Room 2207, looks markedly less pale HEENT: Normocephalic, atraumatic, extraocular movement intact, mucous membranes pink and slightly dry, sclera anicteric and not injected, tongue midline, Mallampati 2, arcus senilis Neck: Supple without pain on palpation, mass or bruit Cardiac: Regular rate and rhythm without rub, gallop, or murmur Chest: Clear to auscultation bilaterally Abdomen: Soft, nontender, normoactive bowel sounds, no hepatomegaly, no splenomegaly, slightly doughy Genitourinary: Deferred Rectal: Deferred until colonoscopy Extremities: No gross neurovascular problem, no clubbing, cyanosis or edema Gait: No gross motor deficit, excellent bilateral principal developer strength Psychiatric: Alert and oriented to person place and time, asks and answers questions appropriately, mood and affect appropriate Impression/Plan Problem List (1) Bloody stool: Plan The purpose of a repeat colonoscopy is to obtain a definitive pathologic diagnosis regarding the rectal mass. This would help steer therapy moving forward. EGD and colonoscopy with possible biopsies and/or polypectomies today. The patient's procedure was canceled yesterday due to the fact that the patient did not receive an adequate prep. Since that time he has received more of the prep. He has stools are liquid and appear quite dark. Again, the indications, procedure, alternatives (such as barium enema, Cologuard and even no procedure at all) and risks including but not limited to perforation requiring operative repair, bleeding with its risks, and were fully explained to him. Review of his history does shows that he has comorbidities that are concerning but should not contraindicate use of conscious sedation or MAC anesthesia. All questions were fully answered. Verbal and written consent have been obtained by me. The patient in preparation for his colonoscopy has been n.p.o. and his colon has been mechanically prepped. 30 minutes of [id number] time spent with the patient, the majority of which was spent in discussion, coordination of care, and completion of the requisite paperwork CPT 28103
[2025-04-12] MEDS ORDERED: LIDOCAINE-MPF 2% 5 ML VIAL ONE (15:36)
[2025-04-12] MEDS ORDERED: PROPOFOL 200 MG/20 ML VIAL IVP ONE (16:25)
[2025-04-12] MEDS ORDERED: PROPOFOL 500 MG/50 ML 500 MG/50 ML VIAL ONE (16:27)
--- NOTE | 2025-04-12 16:50 | PROVIDER PROGRESS NOTE ---
Subjective Prog Note Date Prog Note Date: 04/12/25 Subjective Pt reports feeling: No change Current Medications Current Medications Current Medications: Current Medications Generic Name Dose Route Start Last Admin Trade Name Freq PRN Reason Stop Dose Admin Acetaminophen 650 mg 04/10/25 20:03 Acetaminophen 325 Mg Tablet PO Q4HR PRN Pain 1 to 4, or Fever Insulin Human Regular 1 - 5 unit 04/11/25 18:00 04/12/25 12:19 Insulin Regular, Human 300 Unit/3 Ml Pen SUBQ 1 unit Q6HR JUJU Administration Protocol Mirtazapine 15 mg 04/11/25 21:00 04/11/25 21:53 Mirtazapine 15 Mg Tablet PO Not Given QPM JUJU Ondansetron HCl 4 mg 04/10/25 20:03 Ondansetron Odt 4 Mg Tablet TL Q6HR PRN Nausea / Vomiting Ondansetron HCl 4 mg 04/10/25 20:03 Ondansetron 4 Mg/2 Ml Vial IVP Q6HR PRN Nausea / Vomiting Pantoprazole Sodium 40 mg 04/11/25 16:00 04/12/25 05:35 Pantoprazole 40 Mg Vial IVP 40 mg QDAC JUJU Administration Sodium Chloride 10 ml 04/10/25 20:03 04/11/25 11:24 Sodium Chloride Flush 0.9% 10 Ml Syringe IVP 10 ml PRN PRN Administration NEEDED PER PROVIDER ORDERS Sodium Chloride 10 ml 04/11/25 01:00 04/12/25 08:06 Sodium Chloride Flush 0.9% 10 Ml Syringe IVP 10 ml 0100,0900,1700 JUJU Administration Objective Vital Signs/Intake & Output Reviewed Vital Signs: Yes Vital Signs: Vital Signs x48h Temp Pulse Resp BP BP Pulse Ox 04/11/25 15:07 97.9 F 85 16 163/96 H 97 04/11/25 14:05 97.9 F 79 16 166/85 H 97 04/11/25 13:01 98.1 F 83 18 161/89 H 97 04/11/25 11:37 98.4 F 87 17 153/94 H 97 04/11/25 11:21 98.1 F 86 17 168/93 H 99 Intake & Output: Intake & Output 04/09/25 04/10/25 04/11/25 04/12/25 23:59 23:59 23:59 23:59 Intake Total 540 / 540 2300 / 2300 1100 / 1100 Output Total 1075 / 1075 600 / 600 Balance 540 / 540 1225 / 1225 500 / 500 Weight (kg) 66 kg Objective General Appearance: positive No acute distress and Alert Respiratory: positive Chest non-tender and No respiratory distress Cardiovascular: positive Regular rate & rhythm Abdomen: positive Non-tender Skin: positive Color nml Extremities: positive Non-tender Neurologic/Psychiatric: positive Oriented x3 Lab Results 04/12/25 06:20 04/12/25 06:20 Other Labs: Lab Results x24hrs 04/12/25 04/12/25 04/12/25 Range/Units 11:18 06:20 05:41 WBC 6.6 (4.8-10.8) x10^3/uL RBC 3.21 L (4.70-6.10) 10^6/uL Hgb 8.2 L (14.0-18.0) g/dL Hct 26.2 L (42.0-52.0) % MCV 81.6 (80.0-94.0) fL MCH 25.5 L (27.0-31.0) pg MCHC 31.3 L (32.0-36.0) g/dL RDW 17.2 H (12.0-15.0) % Plt Count 549 H (130-450) 10^3/uL MPV 9.8 (7.4-11.4) fL Neut # (Auto) 5.0 (1.5-6.6) 10^3/uL Lymph # (Auto) 0.9 L (1.5-3.5) 10^3/uL [place] # (Auto) 0.5 (0.0-1.0) 10^3/uL Eos # (Auto) 0.1 (0.0-0.7) 10^3/uL Baso # (Auto) 0.1 (0.0-0.1) 10^3/uL Absolute Nucleated RBC 0.00 x10^3/uL Nucleated RBC % 0.0 /100WBC Sodium 142 (135-145) mmol/L Potassium 3.4 L (3.5-4.5) mmol/L Chloride 108 (101-111) mmol/L Carbon Dioxide 27 (21-32) mmol/L Anion Gap 7.0 (6-13) BUN 12 (6-20) mg/dL Creatinine 0.4 L (0.6-1.3) mg/dL Estimated GFR (MDRD) 209 (>89) Glucose 160 H (74-104) mg/dL POC Whole Bld Glucose 175 128 (70-100) mg/dL Calcium 9.8 (8.5-10.3) mg/dL 04/12/25 04/11/25 Range/Units 00:22 18:18 WBC (4.8-10.8) x10^3/uL RBC (4.70-6.10) 10^6/uL Hgb (14.0-18.0) g/dL Hct (42.0-52.0) % MCV (80.0-94.0) fL MCH (27.0-31.0) pg MCHC (32.0-36.0) g/dL RDW (12.0-15.0) % Plt Count (130-450) 10^3/uL MPV (7.4-11.4) fL Neut # (Auto) (1.5-6.6) 10^3/uL Lymph # (Auto) (1.5-3.5) 10^3/uL [place] # (Auto) (0.0-1.0) 10^3/uL Eos # (Auto) (0.0-0.7) 10^3/uL Baso # (Auto) (0.0-0.1) 10^3/uL Absolute Nucleated RBC x10^3/uL Nucleated RBC % /100WBC Sodium (135-145) mmol/L Potassium (3.5-4.5) mmol/L Chloride (101-111) mmol/L Carbon Dioxide (21-32) mmol/L Anion Gap (6-13) BUN (6-20) mg/dL Creatinine (0.6-1.3) mg/dL Estimated GFR (MDRD) (>89) Glucose (74-104) mg/dL POC Whole Bld Glucose 138 161 (70-100) mg/dL Calcium (8.5-10.3) mg/dL Assessment/Plan Problem List (1) Anemia: Impression: Patient has history of iron deficiency anemia, as well as rectal mass noted on last admission. He is not on blood thinners. Reports loose stools, dark Trend hemoglobin every 8 hours 04/12: Plan for colonoscopy today with general surgery. Continue H&H, transfuse as necessary (2) Rectal mass: Impression: Rectal mass was biopsied during last admission and pathology said that this was Nonmalignant. He will undergo another colonoscopy in the morning for his GI bleed and for Possible polypectomy Bowel prep with GoLytely (3) Type 2 diabetes mellitus: Impression: Continue SSI Qualifiers: Diabetes mellitus ad terminal makeup operator insulin use: without ad terminal makeup operator use Diabetes mellitus complication status: with hyperglycemia Qualified Code(s): E11.65 - Type 2 diabetes mellitus with hyperglycemia
--- NOTE | 2025-04-12 17:09 | ANESTHESIA POST OP EVALUATION ---
Anesthesia Post Eval Post Anesthesia Eval Vitals: Last Vital Signs Temp 37.0 C 04/12/25 17:05 Pulse 75 04/12/25 17:05 Resp 14 04/12/25 17:05 BP 127/71 04/12/25 17:05 Pulse Ox 94 04/12/25 17:05 CV Function Including HR & BP: Stable Pain Control: Satisfactory Nausea & Vomiting: Negative Mental Status: Baseline Respiratory Status: Airway Patent Hydration Status: Satisfactory Anesthesia Complications: None
[2025-04-13] MEDS: INSULIN LISPRO 300 UNIT/3 ML PEN SUBQ SCH ×2 (09:50→17:37)
[2025-04-13 14:04] LABS: HCT - HEMATOCRIT 29.8 % (42.0-52.0); HGB - HEMOGLOBIN 9.2 g/dL (14.0-18.0); MEAN PLATELET VOLUME 10.1 fL (7.4-11.4); NRBC ABSOLUTE COUNT (AUTO) 0.00 x10^3/uL; NUCLEATED RED BLOOD CELLS AUTO 0.0 /100WBC; PLT - PLATELET COUNT 521 10^3/uL (130-450); RED CELL DISTRIBUTION WIDTH 17.7 % (12.0-15.0)
[2025-04-13 14:28] LABS: BUN - BLOOD UREA NITROGEN 8.0 mg/dL (6-20); CARBON DIOXIDE - CO2 26.0 mmol/L (21-32); CREATININE 0.5 mg/dL (0.6-1.3); GFR - MDRD 162.0 (>89)
[2025-04-13] MEDS: POTASSIUM CHLORIDE 20 MEQ TABLET PO ONE (14:47)
--- NOTE | 2025-04-13 20:03 | PROVIDER PROGRESS NOTE ---
Subjective Prog Note Date Prog Note Date: 04/13/25 Subjective Pt reports feeling: No change Current Medications Current Medications Current Medications: Current Medications Generic Name Dose Route Start Last Admin Trade Name Freq PRN Reason Stop Dose Admin Acetaminophen 650 mg 04/10/25 20:03 Acetaminophen 325 Mg Tablet PO Q4HR PRN Pain 1 to 4, or Fever Insulin Human Lispro 1 - 9 unit 04/13/25 17:00 04/13/25 17:37 Insulin Lispro 300 Unit/3 Ml Pen SUBQ 5 unit 0800,1200,1700,2100 JUJU Administration Protocol Mirtazapine 15 mg 04/11/25 21:00 04/12/25 21:31 Mirtazapine 15 Mg Tablet PO 15 mg QPM JUJU Administration Ondansetron HCl 4 mg 04/10/25 20:03 Ondansetron Odt 4 Mg Tablet TL Q6HR PRN Nausea / Vomiting Ondansetron HCl 4 mg 04/10/25 20:03 Ondansetron 4 Mg/2 Ml Vial IVP Q6HR PRN Nausea / Vomiting Pantoprazole Sodium 40 mg 04/11/25 16:00 04/13/25 05:46 Pantoprazole 40 Mg Vial IVP 40 mg QDAC JUJU Administration Sodium Chloride 10 ml 04/10/25 20:03 04/13/25 05:47 Sodium Chloride Flush 0.9% 10 Ml Syringe IVP 10 ml PRN PRN Administration NEEDED PER PROVIDER ORDERS Sodium Chloride 10 ml 04/11/25 01:00 04/13/25 16:08 Sodium Chloride Flush 0.9% 10 Ml Syringe IVP 10 ml 0100,0900,1700 JUJU Administration Objective Vital Signs/Intake & Output Reviewed Vital Signs: Yes Vital Signs: Vital Signs x48h Temp Pulse Resp BP Pulse Ox 04/13/25 16:12 98.1 F 85 18 149/75 H 99 Intake & Output: Intake & Output 04/10/25 04/11/25 04/12/25 04/13/25 23:59 23:59 23:59 23:59 Intake Total 540 / 540 2300 / 2300 1100 / 1100 1280 / 1280 Output Total 1075 / 1075 600 / 600 1575 / 1575 Balance 540 / 540 1225 / 1225 500 / 500 -295 / -295 Weight (kg) 66 kg Objective General Appearance: positive No acute distress and Alert Respiratory: positive Chest non-tender and No respiratory distress Cardiovascular: positive Regular rate & rhythm Abdomen: positive Non-tender Skin: positive Color nml Extremities: positive Non-tender Neurologic/Psychiatric: positive Oriented x3 Lab Results 04/13/25 13:57 04/13/25 13:57 Other Labs: Lab Results x24hrs 04/13/25 04/13/25 04/13/25 Range/Units 16:22 13:57 11:44 WBC 10.0 (4.8-10.8) x10^3/uL RBC 3.57 L (4.70-6.10) 10^6/uL Hgb 9.2 L (14.0-18.0) g/dL Hct 29.8 L (42.0-52.0) % MCV 83.5 (80.0-94.0) fL MCH 25.8 L (27.0-31.0) pg MCHC 30.9 L (32.0-36.0) g/dL RDW 17.7 H (12.0-15.0) % Plt Count 521 H (130-450) 10^3/uL MPV 10.1 (7.4-11.4) fL Neut # (Auto) 8.2 H (1.5-6.6) 10^3/uL Lymph # (Auto) 0.9 L (1.5-3.5) 10^3/uL [place] # (Auto) 0.6 (0.0-1.0) 10^3/uL Eos # (Auto) 0.2 (0.0-0.7) 10^3/uL Baso # (Auto) 0.0 (0.0-0.1) 10^3/uL Absolute Nucleated RBC 0.00 x10^3/uL Nucleated RBC % 0.0 /100WBC Sodium 137 (135-145) mmol/L Potassium 3.1 L (3.5-4.5) mmol/L Chloride 104 (101-111) mmol/L Carbon Dioxide 26 (21-32) mmol/L Anion Gap 7.0 (6-13) BUN 8 (6-20) mg/dL Creatinine 0.5 L (0.6-1.3) mg/dL Estimated GFR (MDRD) 162 (>89) Glucose 211 H (74-104) mg/dL POC Whole Bld Glucose 243 194 (70-100) mg/dL Calcium 10.0 (8.5-10.3) mg/dL 04/13/25 04/13/25 Range/Units 07:57 01:01 WBC (4.8-10.8) x10^3/uL RBC (4.70-6.10) 10^6/uL Hgb (14.0-18.0) g/dL Hct (42.0-52.0) % MCV (80.0-94.0) fL MCH (27.0-31.0) pg MCHC (32.0-36.0) g/dL RDW (12.0-15.0) % Plt Count (130-450) 10^3/uL MPV (7.4-11.4) fL Neut # (Auto) (1.5-6.6) 10^3/uL Lymph # (Auto) (1.5-3.5) 10^3/uL [place] # (Auto) (0.0-1.0) 10^3/uL Eos # (Auto) (0.0-0.7) 10^3/uL Baso # (Auto) (0.0-0.1) 10^3/uL Absolute Nucleated RBC x10^3/uL Nucleated RBC % /100WBC Sodium (135-145) mmol/L Potassium (3.5-4.5) mmol/L Chloride (101-111) mmol/L Carbon Dioxide (21-32) mmol/L Anion Gap (6-13) BUN (6-20) mg/dL Creatinine (0.6-1.3) mg/dL Estimated GFR (MDRD) (>89) Glucose (74-104) mg/dL POC Whole Bld Glucose 128 117 (70-100) mg/dL Calcium (8.5-10.3) mg/dL Assessment/Plan Problem List (1) Anemia: Impression: Patient has history of iron deficiency anemia, as well as rectal mass noted on last admission. He is not on blood thinners. Reports loose stools, dark Trend hemoglobin every 8 hours 04/12: Plan for colonoscopy today with general surgery. Continue H&H, transfuse as necessary 04/13: Colonoscopy revealed severe diverticulosis, partially obstructing mass which was biopsied, and hemorrhoids. 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 He has been resumed on regular diet. His hemoglobin remained stable, will continue to check daily. At this point, he is medically clear for discharge back to SNF (2) Rectal mass: Impression: As above (3) Type 2 diabetes mellitus: Impression: Continue SSI Qualifiers: Diabetes mellitus fdc insulin use: without propulsion systems engineer use Diabetes mellitus complication status: with hyperglycemia Qualified Code(s): E11.65 - Type 2 diabetes mellitus with hyperglycemia
[2025-04-14 05:13] LABS: HCT - HEMATOCRIT 25.1 % (42.0-52.0); HGB - HEMOGLOBIN 7.9 g/dL (14.0-18.0); MEAN PLATELET VOLUME 10.1 fL (7.4-11.4); NRBC ABSOLUTE COUNT (AUTO) 0.00 x10^3/uL; NUCLEATED RED BLOOD CELLS AUTO 0.0 /100WBC; PLT - PLATELET COUNT 507 10^3/uL (130-450); RED CELL DISTRIBUTION WIDTH 17.6 % (12.0-15.0)
[2025-04-14 05:32] LABS: BUN - BLOOD UREA NITROGEN 11.0 mg/dL (6-20); CARBON DIOXIDE - CO2 29.0 mmol/L (21-32); CREATININE 0.4 mg/dL (0.6-1.3); GFR - MDRD 209.0 (>89)
--- NOTE | 2025-04-14 17:23 | PROVIDER PROGRESS NOTE ---
Subjective Prog Note Date Prog Note Date: 04/14/25 Subjective Pt reports feeling: No change Current Medications Current Medications Current Medications: Current Medications Generic Name Dose Route Start Last Admin Trade Name Freq PRN Reason Stop Dose Admin Acetaminophen 650 mg 04/10/25 20:03 Acetaminophen 325 Mg Tablet PO Q4HR PRN Pain 1 to 4, or Fever Insulin Human Lispro 2 - 10 unit 04/14/25 17:00 Insulin Lispro 300 Unit/3 Ml Pen SUBQ 0800,1200,1700,2100 JUJU Protocol Mirtazapine 15 mg 04/11/25 21:00 04/13/25 21:06 Mirtazapine 15 Mg Tablet PO 15 mg QPM JUJU Administration Ondansetron HCl 4 mg 04/10/25 20:03 Ondansetron Odt 4 Mg Tablet TL Q6HR PRN Nausea / Vomiting Ondansetron HCl 4 mg 04/10/25 20:03 Ondansetron 4 Mg/2 Ml Vial IVP Q6HR PRN Nausea / Vomiting Pantoprazole Sodium 40 mg 04/11/25 16:00 04/14/25 05:56 Pantoprazole 40 Mg Vial IVP 40 mg QDAC JUJU Administration Sodium Chloride 10 ml 04/10/25 20:03 04/13/25 05:47 Sodium Chloride Flush 0.9% 10 Ml Syringe IVP 10 ml PRN PRN Administration NEEDED PER PROVIDER ORDERS Sodium Chloride 10 ml 04/11/25 01:00 04/14/25 15:23 Sodium Chloride Flush 0.9% 10 Ml Syringe IVP 10 ml 0100,0900,1700 JUJU Administration Objective Vital Signs/Intake & Output Reviewed Vital Signs: Yes Vital Signs: Vital Signs x48h Temp Pulse Resp BP Pulse Ox 04/14/25 16:27 98.2 F 72 16 140/83 H 96 04/14/25 15:25 98.2 F 82 16 160/83 H 96 04/14/25 10:04 98.6 F 85 16 161/81 H 95 Intake & Output: Intake & Output 04/11/25 04/12/25 04/13/25 04/14/25 23:59 23:59 23:59 23:59 Intake Total 2300 / 2300 1100 / 1100 1480 / 1480 836 / 836 Output Total 1075 / 1075 600 / 600 1675 / 1675 1350 / 1350 Balance 1225 / 1225 500 / 500 -195 / -195 -514 / -514 Objective General Appearance: positive No acute distress and Alert Respiratory: positive Chest non-tender and No respiratory distress Cardiovascular: positive Regular rate & rhythm Abdomen: positive Non-tender Skin: positive Color nml Extremities: positive Non-tender Neurologic/Psychiatric: positive Oriented x3 Lab Results 04/14/25 04:39 04/14/25 04:39 Other Labs: Lab Results x24hrs 04/14/25 04/14/25 04/14/25 Range/Units 11:42 07:44 04:39 WBC 10.4 (4.8-10.8) x10^3/uL RBC 3.13 L (4.70-6.10) 10^6/uL Hgb 7.9 L (14.0-18.0) g/dL Hct 25.1 L (42.0-52.0) % MCV 80.2 (80.0-94.0) fL MCH 25.2 L (27.0-31.0) pg MCHC 31.5 L (32.0-36.0) g/dL RDW 17.6 H (12.0-15.0) % Plt Count 507 H (130-450) 10^3/uL MPV 10.1 (7.4-11.4) fL Neut # (Auto) 8.5 H (1.5-6.6) 10^3/uL Lymph # (Auto) 0.9 L (1.5-3.5) 10^3/uL [place] # (Auto) 0.7 (0.0-1.0) 10^3/uL Eos # (Auto) 0.2 (0.0-0.7) 10^3/uL Baso # (Auto) 0.0 (0.0-0.1) 10^3/uL Absolute Nucleated RBC 0.00 x10^3/uL Nucleated RBC % 0.0 /100WBC Sodium 139 (135-145) mmol/L Potassium 3.6 (3.5-4.5) mmol/L Chloride 105 (101-111) mmol/L Carbon Dioxide 29 (21-32) mmol/L Anion Gap 5.0 L (6-13) BUN 11 (6-20) mg/dL Creatinine 0.4 L (0.6-1.3) mg/dL Estimated GFR (MDRD) 209 (>89) Glucose 221 H (74-104) mg/dL POC Whole Bld Glucose 266 215 (70-100) mg/dL Calcium 9.6 (8.5-10.3) mg/dL 04/13/25 Range/Units 20:54 WBC (4.8-10.8) x10^3/uL RBC (4.70-6.10) 10^6/uL Hgb (14.0-18.0) g/dL Hct (42.0-52.0) % MCV (80.0-94.0) fL MCH (27.0-31.0) pg MCHC (32.0-36.0) g/dL RDW (12.0-15.0) % Plt Count (130-450) 10^3/uL MPV (7.4-11.4) fL Neut # (Auto) (1.5-6.6) 10^3/uL Lymph # (Auto) (1.5-3.5) 10^3/uL [place] # (Auto) (0.0-1.0) 10^3/uL Eos # (Auto) (0.0-0.7) 10^3/uL Baso # (Auto) (0.0-0.1) 10^3/uL Absolute Nucleated RBC x10^3/uL Nucleated RBC % /100WBC Sodium (135-145) mmol/L Potassium (3.5-4.5) mmol/L Chloride (101-111) mmol/L Carbon Dioxide (21-32) mmol/L Anion Gap (6-13) BUN (6-20) mg/dL Creatinine (0.6-1.3) mg/dL Estimated GFR (MDRD) (>89) Glucose (74-104) mg/dL POC Whole Bld Glucose 232 (70-100) mg/dL Calcium (8.5-10.3) mg/dL Assessment/Plan Problem List (1) Anemia: Impression: Patient has history of iron deficiency anemia, as well as rectal mass noted on last admission. He is not on blood thinners. Reports loose stools, dark Trend hemoglobin every 8 hours 04/12: Plan for colonoscopy today with general surgery. Continue H&H, transfuse as necessary 04/13: Colonoscopy revealed severe diverticulosis, partially obstructing mass which was biopsied, and hemorrhoids. 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 He has been resumed on regular diet. His hemoglobin remained stable, will continue to check daily. 04/14: Patient had a drop in hemoglobin from 9.2-7.9. He is no longer medically clear. Continue to trend hemoglobin every 8 hours. Appreciate input from general surgery. Goals of care/plan of care discussion was had with patient as outlined in separate ACP note. His options include colostomy/colectomy, oncology referral for possible radiation, transfer for possible IR embolization, or hospice (2) Rectal mass: Impression: As above (3) Type 2 diabetes mellitus: Impression: Continue SSI Qualifiers: Diabetes mellitus complication status: with hyperglycemia Diabetes mellitus jail insulin use: without jail use Qualified Code(s): E11.65 - Type 2 diabetes mellitus with hyperglycemia
--- NOTE | 2025-04-14 17:32 | ADVANCE CARE PLANNING NOTE ---
Advance Care Planning Planning Encounter Date: 04/14/25 Purpose: Determine plan of care moving forward Parties in Attendance: The patient, general surgery, and myself Decisional Capacity of the Patient: Full Diagnosis for Encounter (1) Rectal mass: Summary: Patient has a rectal mass that has been biopsied in the past and pathology showed it was not cancerous. Patient continues to have rectal bleeding secondary to this mass. He had a second colonoscopy with more aggressive biopsy retrieval, Surgery reports this is still likely cancerous, despite what previous biopsies of said Encounter Subjective/Patient's Story: Patient was a resident of [place], until he presented after a ground-level fall. He now lives at [facility] since his discharge on 03/28. 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 His next of kin and DPOA is Oscar De Leon, phone number [phone] Objective/Medical Story: Patient has had very little medical care, presented to the hospital on 5 and was diagnosed with rectal mass. He had also reported a 100 pound unintentional weight loss over a year. Initial biopsy of the rectal mass was not cancerous. He was discharged at that time with referral to palliative care, who has been following him. He has been living at [facility] ED since then, and until he presented this hospital. It appears she still has an apartment at [place] Given the malignant appearance of this mass, patient was presented with 4 options by general surgery. Options include colectomy and colostomy to remove the diseased part of his colon, potential oncology referral to see if he would qualify for radiation, transfer for attempted IR embolization, or continued palliative only measures versus hospice Plan: Patient requested more time to think about his options after thorough explanation of risk and benefit of each of the options. Additional Discussion: I will follow-up with the patient in the morning regarding his decision on plan of care, Code Status: Do Not Attempt Resuscitation Time spent on advance care plannin
[2025-04-14] MEDS: INSULIN LISPRO 300 UNIT/3 ML PEN SUBQ SCH (17:34)
[2025-04-15 04:52] LABS: HCT - HEMATOCRIT 24.7 % (42.0-52.0); HGB - HEMOGLOBIN 7.9 g/dL (14.0-18.0); MEAN PLATELET VOLUME 10.2 fL (7.4-11.4); NRBC ABSOLUTE COUNT (AUTO) 0.00 x10^3/uL; NUCLEATED RED BLOOD CELLS AUTO 0.0 /100WBC; PLT - PLATELET COUNT 469 10^3/uL (130-450); RED CELL DISTRIBUTION WIDTH 17.8 % (12.0-15.0)
[2025-04-15 05:04] LABS: BUN - BLOOD UREA NITROGEN 9.0 mg/dL (6-20); CARBON DIOXIDE - CO2 29.0 mmol/L (21-32); CREATININE 0.3 mg/dL (0.6-1.3); GFR - MDRD 291.0 (>89)
--- NOTE | 2025-04-15 14:06 | Palliative Care ---
Vitals Vital Signs 04/10/25 13:00 04/10/25 15:03 04/10/25 15:55 04/10/25 16:16 04/10/25 17:03 04/10/25 18:44 04/10/25 19:00 04/10/25 20:20 04/11/25 00:38 04/11/25 06:15 04/11/25 07:44 04/11/25 11:21 04/11/25 11:37 04/11/25 13:01 04/11/25 14:05 04/11/25 15:07 04/11/25 16:29 04/11/25 21:48 04/12/25 00:25 04/12/25 07:55 04/12/25 17:05 04/12/25 17:29 04/12/25 18:00 04/13/25 00:57 04/13/25 09:57 04/13/25 16:12 04/14/25 00:09 04/14/25 10:04 04/14/25 15:25 04/14/25 16:27 04/15/25 01:00 04/15/25 08:25 04/15/25 14:26 Height 5 ft 7 in 5 ft 7 in Weight 145 lb 8.081 oz 145 lb 8.081 oz BMI 22.8 BP 125/64 132/80 H 141/70 H 141/70 H 141/84 H 142/82 H 137/89 H 168/86 H 152/73 H 156/81 H 169/82 H 168/93 H 153/94 H 161/89 H 166/85 H 163/96 H 165/90 H 142/67 H 149/69 H 156/76 H 127/71 157/82 H 152/76 H 163/80 H 155/80 H 149/75 H 143/67 H 161/81 H 160/83 H 140/83 H 160/86 H 159/88 H Respiration 16 16 14 14 16 16 23 18 18 18 16 17 17 18 16 16 20 20 17 18 14 16 18 16 17 18 18 16 16 16 12 16 Pulse 80 82 73 80 78 72 89 88 88 89 80 86 87 83 79 85 90 88 81 74 75 70 72 71 75 85 78 85 82 72 80 88 Temp 98.6 F 99.9 F 99.9 F 100.0 F 99.5 F 98.6 F 98.4 F 98.1 F 98.2 F 98.1 F 98.4 F 98.1 F 97.9 F 97.9 F 98.2 F 98.8 F 98.6 F 98.2 F 98.6 F 98.6 F 9 8.6 F 98.2 F 98.2 F 98.1 F 98.2 F 98.6 F 98.2 F 98.2 F 98.6 F 98.2 F Temp Source Temporal Artery Scan Temporal Artery Scan Temporal Artery Scan Temporal Artery Scan Temporal Artery Scan Skin Skin Temporal Artery Scan Temporal Artery Scan Temporal Artery Scan Temporal Artery Scan Temporal Arter y Scan Temporal Artery Scan Temporal Artery Scan Temporal Artery Scan Temporal Artery Scan Temporal Artery Scan Temporal Artery Scan Temporal Artery Scan Temporal Artery Scan Temporal Artery Scan Temporal Artery Scan Temporal Artery Scan Temporal Artery Scan Temporal Artery Scan Temporal Artery Scan Temporal Artery Scan Skin Pulse Oximetry 98 98 97 97 98 98 98 99 96 96 97 99 97 97 97 97 9 7 96 92 96 94 93 95 94 95 99 95 95 96 96 96 97 Meds/Allgy Home Medications Ambulatory Orders Medication Instructions Recorded Confirmed acetaminophen 500 mg tablet 1,000 mg (2 x 500 mg) PO T ID #90 03/28/25 04/10/25 (Tylenol Extra Strength) tabs aspirin 81 mg tablet 162 mg (2 x 81 mg) PO DAILY 24 03/28/25 04/10/25 days #48 tabs insulin glargine-yfgn 100 unit/mL 12 unit (0.12 mL) tian bcut 03/28/25 04/10/25 (3 mL) subcutaneous pen QDBREAKFAST #15 mL insulin lispro 100 unit/mL 5 unit (0.05 mL) subcut TID WM #15 03/28/25 04/10/25 subcutaneous pen (Humalog KwikPen mL (U-100) Insulin) lidocaine 4 % topical patch 1 patch topical DAILY #30 ea 03/28/25 04/10/25 mirtazapine 15 mg tablet 15 mg PO QPM #30 tabs 04/10/25 ztorrndlyfvm-kljxybao-awxh 1 tab PO DAILYWM #30 tabs 1 05/28/24 04/10/25 fumarate 19 mg-folic acid 400 mcg tablet (Therapeutic-M) oxycodone 5 mg tablet 5 mg PO Q4HR PRN Pain 5 to 7 #12 03/28/25 04/10/25 tabs docusate sodium 250 mg capsule 250 mg PO DAILY 5 04/11/25 ferrous sulfate 325 mg (65 mg 325 mg PO DAILYWM 04/11/25 iron) tablet insulin lispro 100 unit/mL 1 - 9 unit subcut 04/11/25 04/11/25 subcutaneous pen (Humalog KwikPen 0800,1200,1700,2100 (U-100) Insulin) pantoprazole 40 mg tablet,delayed 40 mg PO BIDAC 04/1104/11/25 release Allergies Allergies Allergy/AdvReac Type Severity Reaction Status Date / Time No Known Drug Allergies Allergy Verified 04/10/25 13:04 CC HPI Visit Location: other location (inpatient) Chief Complaint Chief Complaint: Fatigue; depression; diarrhea; rectal mass; FTT History Obtained From Records Reviewed: surgery; labs; hospitalist History obtained from: patient Exam Limitations: STM deficits History of Present Illness HPI: This is a 75-year-old gentleman admitted for fall with hip fracture s/p surgery 03/22 was sent to [facility] for rehab. Patient with rectal mass and persistent bleeding admitted for a HBG of 6.4, and failure to thrive noted over several months. It was decided to move forward with a colonoscopy to get a better sense of underlying pathology and prognosis, and well as looking for source of bleeding. The prep was extremely hard on him per report of patient and sister. Patient findings were quite extensive with diverticulosis in entire colon examined, a fungating ulceratedPolyploid and infiltrate partially obstructing large masses found from 6 to 15 cm proximal to the anus, the mass was circumferential, and measured 9 cm in length. Patient was also found to have internal nonbleeding nonthrombosed and prolapsed hemorrhoids. Patient remembers have a conversation yesterday about options including surgery/colostomy, some cancer choices and hospice. Patient is curious what hospice would look like. In review with his sister, patient actually has been making progress as far as functional status at the SNF, is able to walk a few feet, of course this was worse with his worsening fatigue. Now knowing he needed transfusion this makes sense. Patient's most persistent and quality of life symptom has actually been his persistent Diarrhea which she has had for many months, and still has persistent diarrhea at the facility. They were just starting to try some Imodium, we discussed most likely would be more effective if is scheduled. Patient's hip pain is improving, does appear pale on appearance, but is able to engage. He does remember meeting me from previous stay. Sisters understanding, as they do have a decision to make, has been reading the notes, we did discuss in the context of his setting, continuum of care with hospice, a palliative approach with continuing with rehab and transfusions, patient is unclear and feels that all of it is overwhelming and without a good outcome. . Palliative Care Performance Status Performance status: Patient has been making improvement with functional status at setting, though admits only able to walk about 1015 feet. Patient is not independent in his ADLs, would need to be to return to his previous assisted living facility. Patient is able to feed himself, make his needs known, does have mild short-term memory issues but easily cued Palliative Care Discussion: Patient does understand he has a serious decision to make, he does express feelings of resignation, particular around quality of life. He is feeling like he is getting poked nonstop, and felt very good and refusing his last blood draw. He reports he is "just waiting to exit". He feels like his quality of life has been declining, as far as any distractions, he does appreciate his sister support, but does feel very isolated and alone most times. He reports he is used to having girlfriends, traveling, and admits to a lifetime full of regrets. We did discuss in the context of feeling vulnerable at this time, this is appropriate. At this time only he can define what quality of life is, but also will be influenced by what choices are available and how best to hold him in this space, as it does look like he most likely has cancer and the implications are difficult with this and his current fragile state. He does appear to have some insight into this. Louis his sister is trying to navigate healthcare system form, at this point given his functional status, and frequent needs for transfusion, as well as need to define goals of care would not be appropriate to return to [facility]. She has talked to his manager of case management Eloisa, they would be able to place him at [facility] and long-term care. Patient though has been engaged in rehab, sister feels like this has been of help for him, we did discuss the also possible to do a palliative approach as far as continue rehab, transfusions, until patient further declines and can transition to hospice at that point. She is quite curious yet to see what oncology would say, aware they need the pathology to move forward with this. Unclear, she did hear surgeons a patient most likely not a good surgical candidate. It is difficult again without pathology and further discussion about what is possible, it would be difficult to do radiation, as that is a daily trip and also comes with great number of side effects. Did speak with Avel the hospitalist, who is going to further define options, and address questions as more familiar with the definitive options, will await outcome, may need further information to make final choice regarding transition to hospice/comfort and will be available to provide further support as needed. PFSH Active Problems All Active Problems (Updated 04/15/25 @ 14:33 by Trish Mclaughlin [employer]) Diarrhea (Acute) ABLA (acute blood loss anemia) (Acute) Bloody stool (Acute) Guaiac positive stools (Acute) Anemia (Chronic) Post-operative state (Acute) Closed intertrochanteric fracture of right hip (Acute) Malnutrition (Acute) Closed right hip fracture (Acute) Type 2 diabetes mellitus (Acute) Counseling regarding advanced care planning and goals of care (Acute) Closed T12 fracture (Acute) Closed T11 fracture (Acute) Intractable back pain (Acute) Anemia, iron deficiency (Acute) Rectal mass (Acute) Compression fracture of vertebral column (Acute) Cachexia (Acute) Leg pain, right (Acute) Ground-level fall (Acute) Medical History Medical History Insomnia Urinary incontinence Skin cancer No pertinent past medical history Surgical History Surgical History History of repair of hip fracture Hx of flexible sigmoidoscopy (~03/22/25) [facility] DR. 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 Social History Social History (Updated 04/10/25 @ 13:07 by Luis Antonio Torres, RN, BSN) Smoking Status: Never smoker Do you dip or chew tobacco?: No Do you vape?: No Living arrangement: Assisted living Living Condition: Alone Support Person: Yes Living Situation Details: Recently moved to [place]; is there under Medicaid Has a Durable Power of Boiler Maker for Health Care?: Yes Name / Relationship: Carmina Ribeiro [phone] DPOA on file?: Yes Level: Assisted Physical - Functional Details: Functional status has been declining Do you feel safe in your home environment?: Yes History of physical, verbal, emotional, or financial abuse?: No ETOH Use: Beer Frequency: Daily Number of drinks/day: 1 Substance Use: cannabis (any form) 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 POLST Patient has POLST: Yes POLST on file?: Yes POLST CPR Status: Do Not Attempt Resuscitation (DNAR) / Allow Natural Level of Medical Intervention: Selective Treatment Review of Systems Status of ROS: See HPI Constitutional Reports: Fatigue and Weight loss Ears, nose, mouth, and throat Reports: Hearing loss and Dentures Cardiovascular Reports: Decreased exercise tolerance Musculoskeletal Reports: Joint pain, Stiffness, Muscle aches and Muscle weakness Neurological Reports: Memory problems Psychiatric Reports: Depression, Anxiety and Memory loss Endocrine Reports: Fatigue Hematologic/Lymphatic Reports: Anemia Exam Exam Vital Signs: Vital Signs x48h Temp Pulse Resp BP Pulse Ox 04/15/25 08:25 98.2 F 88 16 159/88 H 97 Patient laying in bed; difficulty with hearing need to get close and provide facial cues. Patient with flat affect, but easily engaged. Appears pale, no acute distress. Impression Impression: This is a 75-year-old gentleman who presents with failure to thrive, with weight loss, cognitive and functional decline, history of falls, and now with rectal mass. Adding to complicated picture, has had right hip fracture s/p repair and still receiving rehab. Patient presented with severe anemia again and received transfusion, still low, most likely contributing to his weakness and symptom burden. Patient minimally connected to healthcare, longstanding history of this. Patient beginning to come to some understanding of the seriousness of his situation. Currently pending oncology referral and decision regarding surgical options, for further definitions of goals of care and if appropriate for treatment. Palliative care providing support and establishing rapport to support patient through serious illness trajectory. Provided follow up family meeting. Assessment & Plan Assessment & Plan (1) Counseling regarding advanced care planning and goals of care: Code(s): Z71.89 - Other specified counseling (2) ABLA (acute blood loss anemia): Code(s): D62 - Acute posthemorrhagic anemia (3) Cachexia: Code(s): R64 - Cachexia (4) Rectal mass: Code(s): K62.89 - Other specified diseases of anus and rectum (5) Diarrhea: Code(s): R19.7 - Diarrhea, unspecified Qualifiers: Diarrhea type: unspecified type Qualified Code(s): R19.7 - Diarrhea, unspecified Plan Discussion provided regarding continuum of care, including further defining a colostomy is, what hospice is, and also in the context of what hospice and hospice can and cannot provide. Patient is in difficult complex situation, with his current living situation, is interested in continue with rehab to improve his functional status is much as possible. Patient does need more aggressive management of his diarrhea, would recommend scheduling Imodium 2 mg 4 times a day, may need to alternate with Lomotil. Patient appropriately responding as far as depression, and anxiety, regarding ongoing issues awaiting pathology with most recent colonoscopy, to better define next steps. Patient is presenting as a failure to thrive, though has had improvement with eating, receiving care and attention, making progress with physical therapy. Expressed concern regarding patient's ability to tolerate surgery.
[2025-04-15] MEDS ORDERED: LOPERAMIDE 2 MG CAPSULE PO PRN (14:29)
--- NOTE | 2025-04-15 15:59 | PROVIDER PROGRESS NOTE ---
Subjective Prog Note Date Prog Note Date: 04/15/25 Subjective Pt reports feeling: No change Current Medications Current Medications Current Medications: Current Medications Generic Name Dose Route Start Last Admin Trade Name Freq PRN Reason Stop Dose Admin Acetaminophen 650 mg 04/10/25 20:03 Acetaminophen 325 Mg Tablet PO Q4HR PRN Pain 1 to 4, or Fever Insulin Glargine-yfgn 8 unit 04/16/25 08:00 Insulin Glargine-Yfgn 300 Unit/3 Ml Pen SUBQ QDBREAKFAST JUJU Insulin Human Lispro 2 - 10 unit 04/14/25 17:00 04/15/25 11:52 Insulin Lispro 300 Unit/3 Ml Pen SUBQ 4 unit 0800,1200,1700,2100 JUJU Administration Protocol Loperamide HCl 2 mg 04/15/25 14:29 Loperamide 2 Mg Capsule PO QID PRN Diarrhea Mirtazapine 15 mg 04/11/25 21:00 04/14/25 22:12 Mirtazapine 15 Mg Tablet PO Not Given QPM JUJU Ondansetron HCl 4 mg 04/10/25 20:03 Ondansetron Odt 4 Mg Tablet TL Q6HR PRN Nausea / Vomiting Ondansetron HCl 4 mg 04/10/25 20:03 Ondansetron 4 Mg/2 Ml Vial IVP Q6HR PRN Nausea / Vomiting Pantoprazole Sodium 40 mg 04/11/25 16:00 04/15/25 04:07 Pantoprazole 40 Mg Vial IVP 40 mg QDAC JUJU Administration Sodium Chloride 10 ml 04/10/25 20:03 04/13/25 05:47 Sodium Chloride Flush 0.9% 10 Ml Syringe IVP 10 ml PRN PRN Administration NEEDED PER PROVIDER ORDERS Sodium Chloride 10 ml 04/11/25 01:00 04/15/25 08:15 Sodium Chloride Flush 0.9% 10 Ml Syringe IVP 10 ml 0100,0900,1700 JUJU Administration Objective Vital Signs/Intake & Output Reviewed Vital Signs: Yes Vital Signs: Vital Signs x48h Temp Pulse Resp BP Pulse Ox 04/15/25 08:25 98.2 F 88 16 159/88 H 97 Intake & Output: Intake & Output 04/12/25 04/13/25 04/14/25 04/15/25 23:59 23:59 23:59 23:59 Intake Total 1100 / 1100 1480 / 1480 1072 / 1072 960 / 960 Output Total 600 / 600 1675 / 1675 1650 / 1650 1625 / 1625 Balance 500 / 500 -195 / -195 -578 / -578 -665 / -665 Weight (kg) 66 kg Objective General Appearance: positive No acute distress and Alert Respiratory: positive Chest non-tender and No respiratory distress Cardiovascular: positive Regular rate & rhythm Abdomen: positive Non-tender Skin: positive Color nml Extremities: positive Non-tender Neurologic/Psychiatric: positive Oriented x3 Lab Results 04/15/25 04:06 04/15/25 04:06 Other Labs: Lab Results x24hrs 04/15/25 04/15/25 04/15/25 Range/Units 11:23 07:50 04:06 WBC 8.7 (4.8-10.8) x10^3/uL RBC 3.07 L (4.70-6.10) 10^6/uL Hgb 7.9 L (14.0-18.0) g/dL Hct 24.7 L (42.0-52.0) % MCV 80.5 (80.0-94.0) fL MCH 25.7 L (27.0-31.0) pg MCHC 32.0 (32.0-36.0) g/dL RDW 17.8 H (12.0-15.0) % Plt Count 469 H (130-450) 10^3/uL MPV 10.2 (7.4-11.4) fL Neut # (Auto) 6.6 (1.5-6.6) 10^3/uL Lymph # (Auto) 1.1 L (1.5-3.5) 10^3/uL [place] # (Auto) 0.7 (0.0-1.0) 10^3/uL Eos # (Auto) 0.3 (0.0-0.7) 10^3/uL Baso # (Auto) 0.1 (0.0-0.1) 10^3/uL Absolute Nucleated RBC 0.00 x10^3/uL Nucleated RBC % 0.0 /100WBC Sodium 138 (135-145) mmol/L Potassium 3.1 L (3.5-4.5) mmol/L Chloride 105 (101-111) mmol/L Carbon Dioxide 29 (21-32) mmol/L Anion Gap 4.0 L (6-13) BUN 9 (6-20) mg/dL Creatinine 0.3 L (0.6-1.3) mg/dL Estimated GFR (MDRD) 291 (>89) Glucose 176 H (74-104) mg/dL POC Whole Bld Glucose 218 159 (70-100) mg/dL Calcium 9.7 (8.5-10.3) mg/dL Assessment/Plan Problem List (1) Anemia: Impression: Patient has history of iron deficiency anemia, as well as rectal mass noted on last admission. He is not on blood thinners. Reports loose stools, dark Trend hemoglobin every 8 hours 04/12: Plan for colonoscopy today with general surgery. Continue H&H, transfuse as necessary 04/13: Colonoscopy revealed severe diverticulosis, partially obstructing mass which was biopsied, and hemorrhoids. 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 He has been resumed on regular diet. His hemoglobin remained stable, will continue to check daily. 04/14: Patient had a drop in hemoglobin from 9.2-7.9. He is no longer medically clear. Continue to trend hemoglobin every 8 hours. Appreciate input from general surgery. Goals of care/plan of care discussion was had with patient as outlined in separate ACP note. His options include colostomy/colectomy, oncology referral for possible radiation, transfer for possible IR embolization, or hospice 04/15: Hemoglobin has remained stable, 7.9 again today. He is medically clear for discharge. Patient is interested in possible colostomy/colectomy versus oncology referral, but would like to know the results from pathology first. We are now working on getting him back to his SNF, and he can follow-up outpatient for further management of this. Have de-escalated his lab work to daily (2) Rectal mass: Impression: As above (3) Cachexia: Impression: Protein calorie malnutrition with 14% weight loss in the past year, visible ribs On mirtazapine, will continue (4) Diarrhea: Impression: Still complaining of significant diarrhea Added Imodium as needed Checking C. difficile PCR, though I have low suspicion of this Qualifiers: Diarrhea type: unspecified type Qualified Code(s): R19.7 - Diarrhea, unspecified (5) Type 2 diabetes mellitus: Impression: Continue SSI Added on 8 units daily Lantus Qualifiers: Diabetes mellitus mcfp insulin use: without mcfp use Diabetes mellitus complication status: with hyperglycemia Qualified Code(s): E11.65 - Type 2 diabetes mellitus with hyperglycemia
[2025-04-16 06:41] LABS: HCT - HEMATOCRIT 25.3 % (42.0-52.0); HGB - HEMOGLOBIN 7.8 g/dL (14.0-18.0); MEAN PLATELET VOLUME 10.4 fL (7.4-11.4); NRBC ABSOLUTE COUNT (AUTO) 0.00 x10^3/uL; NUCLEATED RED BLOOD CELLS AUTO 0.0 /100WBC; PLT - PLATELET COUNT 499 10^3/uL (130-450); RED CELL DISTRIBUTION WIDTH 17.6 % (12.0-15.0)
[2025-04-16 06:57] LABS: BUN - BLOOD UREA NITROGEN 11.0 mg/dL (6-20); CARBON DIOXIDE - CO2 29.0 mmol/L (21-32); CREATININE 0.4 mg/dL (0.6-1.3); GFR - MDRD 209.0 (>89)
[2025-04-16] MEDS: INSULIN GLARGINE-YFGN 300 UNIT/3 ML PEN SUBQ SCH (08:27)
--- NOTE | 2025-04-16 11:24 | PT Plan of Care ---
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 Admitted with melena and low hemoglobin. S/p colonoscopy 04/12/25 that demonstrated diverticulosis. Of note, pt was evaluated by this PT during previous admit to this facility and rec dc to SNF at that time. Upon PT eval today, pt is A&Ox4 but benefits from frequent repetition of cues and additional time for motor planning. Transfers to EOB with CGA overall, STS and SPT with FWW and minAx1. Limited by pain and fatigue. General deconditioning with overall strength approx 3+/5 in all 4 limbs. Remains pain limited with RLE movement > LLE with increased back pain reported . Pt will benefit from continued PT in effort to maximize functional indep. When medically clear , PT rec dc back to SNF for continued rehab. Goals Improve bed mobility to: Modified Independent Improve supine to sit to: Minimal Assist Improve sit to stand to: Contact Guard Improve pivot transfer ability Contact Guard to: Improve sit to supine to: Minimal Assist Improve gait ability to: CGA Assistive Device Used: Front Wheeled Walker PT Plan of Care Frequency 1-2x/day Duration Until discharge Discharge Recommendations Discharge Location Assisted Facility Transport Needs at Discharge Wheelchair van
--- NOTE | 2025-04-16 13:03 | PROVIDER PROGRESS NOTE ---
Subjective Prog Note Date Prog Note Date: 04/16/25 Subjective Pt reports feeling: No change Current Medications Current Medications Current Medications: Current Medications Generic Name Dose Route Start Last Admin Trade Name Freq PRN Reason Stop Dose Admin Acetaminophen 650 mg 04/10/25 20:03 Acetaminophen 325 Mg Tablet PO Q4HR PRN Pain 1 to 4, or Fever Insulin Glargine-yfgn 8 unit 04/16/25 08:00 04/16/25 08:27 Insulin Glargine-Yfgn 300 Unit/3 Ml Pen SUBQ 8 unit QDBREAKFAST JUJU Administration Insulin Human Lispro 2 - 10 unit 04/14/25 17:00 04/16/25 11:54 Insulin Lispro 300 Unit/3 Ml Pen SUBQ 8 unit 0800,1200,1700,2100 JUJU Administration Protocol Loperamide HCl 2 mg 04/15/25 14:29 Loperamide 2 Mg Capsule PO QID PRN Diarrhea Mirtazapine 15 mg 04/11/25 21:00 04/15/25 20:40 Mirtazapine 15 Mg Tablet PO 15 mg QPM JUJU Administration Ondansetron HCl 4 mg 04/10/25 20:03 Ondansetron Odt 4 Mg Tablet TL Q6HR PRN Nausea / Vomiting Ondansetron HCl 4 mg 04/10/25 20:03 Ondansetron 4 Mg/2 Ml Vial IVP Q6HR PRN Nausea / Vomiting Pantoprazole Sodium 40 mg 04/11/25 16:00 04/16/25 06:40 Pantoprazole 40 Mg Vial IVP 40 mg QDAC JUJU Administration Sodium Chloride 10 ml 04/10/25 20:03 04/13/25 05:47 Sodium Chloride Flush 0.9% 10 Ml Syringe IVP 10 ml PRN PRN Administration NEEDED PER PROVIDER ORDERS Sodium Chloride 10 ml 04/11/25 01:00 04/16/25 08:33 Sodium Chloride Flush 0.9% 10 Ml Syringe IVP 10 ml 0100,0900,1700 JUJU Administration Objective Vital Signs/Intake & Output Reviewed Vital Signs: Yes Vital Signs: Vital Signs x48h Temp Pulse Resp BP Pulse Ox 04/16/25 07:45 98.6 F 82 12 150/82 H 96 Intake & Output: Intake & Output 04/13/25 04/14/25 04/15/25 04/16/25 23:59 23:59 23:59 23:59 Intake Total 1480 / 1480 1072 / 1072 2009 600 / 600 Output Total 1675 / 1675 1650 / 1650 1625 / 1625 1200 / 1200 Balance -195 / -195 -578 / -578 385 / 385 -600 / -600 Weight (kg) 66 kg Objective General Appearance: positive No acute distress and Alert Respiratory: positive Chest non-tender and No respiratory distress Cardiovascular: positive Regular rate & rhythm Abdomen: positive Non-tender Skin: positive Color nml Extremities: positive Non-tender Neurologic/Psychiatric: positive Oriented x3 Lab Results 04/16/25 05:33 04/16/25 05:33 Other Labs: Lab Results x24hrs 04/16/25 04/16/25 04/16/25 Range/Units 11:30 07:40 05:33 WBC 9.7 (4.8-10.8) x10^3/uL RBC 3.11 L (4.70-6.10) 10^6/uL Hgb 7.8 L (14.0-18.0) g/dL Hct 25.3 L (42.0-52.0) % MCV 81.4 (80.0-94.0) fL MCH 25.1 L (27.0-31.0) pg MCHC 30.8 L (32.0-36.0) g/dL RDW 17.6 H (12.0-15.0) % Plt Count 499 H (130-450) 10^3/uL MPV 10.4 (7.4-11.4) fL Neut # (Auto) 7.3 H (1.5-6.6) 10^3/uL Lymph # (Auto) 1.2 L (1.5-3.5) 10^3/uL Hutchinson # (Auto) 0.8 (0.0-1.0) 10^3/uL Eos # (Auto) 0.3 (0.0-0.7) 10^3/uL Baso # (Auto) 0.1 (0.0-0.1) 10^3/uL Absolute Nucleated RBC 0.00 x10^3/uL Nucleated RBC % 0.0 /100WBC Sodium 137 (135-145) mmol/L Potassium 3.6 (3.5-4.5) mmol/L Chloride 103 (101-111) mmol/L Carbon Dioxide 29 (21-32) mmol/L Anion Gap 5.0 L (6-13) BUN 11 (6-20) mg/dL Creatinine 0.4 L (0.6-1.3) mg/dL Estimated GFR (MDRD) 209 (>89) Glucose 193 H (74-104) mg/dL POC Whole Bld Glucose 295 190 (70-100) mg/dL Calcium 9.7 (8.5-10.3) mg/dL 04/15/25 04/15/25 Range/Units 20:28 16:35 WBC (4.8-10.8) x10^3/uL RBC (4.70-6.10) 10^6/uL Hgb (14.0-18.0) g/dL Hct (42.0-52.0) % MCV (80.0-94.0) fL MCH (27.0-31.0) pg MCHC (32.0-36.0) g/dL RDW (12.0-15.0) % Plt Count (130-450) 10^3/uL MPV (7.4-11.4) fL Neut # (Auto) (1.5-6.6) 10^3/uL Lymph # (Auto) (1.5-3.5) 10^3/uL Hutchinson # (Auto) (0.0-1.0) 10^3/uL Eos # (Auto) (0.0-0.7) 10^3/uL Baso # (Auto) (0.0-0.1) 10^3/uL Absolute Nucleated RBC x10^3/uL Nucleated RBC % /100WBC Sodium (135-145) mmol/L Potassium (3.5-4.5) mmol/L Chloride (101-111) mmol/L Carbon Dioxide (21-32) mmol/L Anion Gap (6-13) BUN (6-20) mg/dL Creatinine (0.6-1.3) mg/dL Estimated GFR (MDRD) (>89) Glucose (74-104) mg/dL POC Whole Bld Glucose 292 247 (70-100) mg/dL Calcium (8.5-10.3) mg/dL Assessment/Plan Problem List (1) Anemia: Impression: Patient has history of iron deficiency anemia, as well as rectal mass noted on last admission. He is not on blood thinners. Reports loose stools, dark Trend hemoglobin every 8 hours 04/12: Plan for colonoscopy today with general surgery. Continue H&H, transfuse as necessary 04/13: Colonoscopy revealed severe diverticulosis, partially obstructing mass which was biopsied, and hemorrhoids. 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 He has been resumed on regular diet. His hemoglobin remained stable, will continue to check daily. 04/14: Patient had a drop in hemoglobin from 9.2-7.9. He is no longer medically clear. Continue to trend hemoglobin every 8 hours. Appreciate input from general surgery. Goals of care/plan of care discussion was had with patient as outlined in separate ACP note. His options include colostomy/colectomy, oncology referral for possible radiation, transfer for possible IR embolization, or hospice 04/15: Hemoglobin has remained stable, 7.9 again today. He is medically clear for discharge. Patient is interested in possible colostomy/colectomy versus oncology referral, but would like to know the results from pathology first. We are now working on getting him back to his SNF, and he can follow-up outpatient for further management of this. Have de-escalated his lab work to daily 04/16: Hemoglobin 7.8 this morning. Still medically cleared for discharge. Awaiting insurance approval to return to SNF (2) Rectal mass: Impression: As above (3) Cachexia: Impression: Protein calorie malnutrition with 14% weight loss in the past year, visible ribs On mirtazapine, will continue (4) Diarrhea: Impression: Still complaining of significant diarrhea Added Imodium as needed Checking C. difficile PCR, though I have low suspicion of this Qualifiers: Diarrhea type: unspecified type Qualified Code(s): R19.7 - Diarrhea, unspecified (5) Type 2 diabetes mellitus: Impression: Continue SSI Added on 8 units daily Lantus 04/16: Continue SSI, 8 units Lantus. Watching sugar over the next day and will consider more changes to regimen tomorrow Qualifiers: Diabetes mellitus snf insulin use: without can intake worker use Diabetes mellitus complication status: with hyperglycemia Qualified Code(s): E11.65 - Type 2 diabetes mellitus with hyperglycemia
--- NOTE | 2025-04-16 16:01 | Palliative Care ---
Vitals Vital Signs 04/10/25 13:00 04/10/25 15:03 04/10/25 15:55 04/10/25 16:16 04/10/25 17:03 04/10/25 18:44 04/10/25 19:00 04/10/25 20:20 04/11/25 00:38 04/11/25 06:15 04/11/25 07:44 04/11/25 11:21 04/11/25 11:37 04/11/25 13:01 04/11/25 14:05 04/11/25 15:07 04/11/25 16:29 04/11/25 21:48 04/12/25 00:25 04/12/25 07:55 04/12/25 17:05 04/12/25 17:29 04/12/25 18:00 04/13/25 00:57 04/13/25 09:57 04/13/25 16:12 04/14/25 00:09 04/14/25 10:04 04/14/25 15:25 04/14/25 16:27 04/15/25 01:00 04/15/25 08:25 04/15/25 14:26 04/15/25 16:53 04/15/25 23:36 04/16/25 07:45 04/16/25 16:09 04/16/25 16:26 Height 5 ft 7 in 5 ft 7 in 5 ft 7 in Weight 145 lb 8.081 oz 145 lb 8.081 oz 145 lb 8.081 oz BMI 22.8 22.8 BP 125/64 132/80 H 141/70 H 141/70 H 141/84 H 142/82 H 137/89 H 168/86 H 152/73 H 156/81 H 169/82 H 168/93 H 153/94 H 161/89 H 166/85 H 163/96 H 165/90 H 142/67 H 149/69 H 156/76 H 127/71 157/82 H 152/76 H 163/80 H 155/80 H 149/75 H 143/67 H 161/81 H 160/83 H 140/83 H 160/86 H 159/88 H 146/77 H 154/85 H 150/82 H 151/85 H Respiration 16 16 14 14 16 16 23 18 18 18 16 17 17 18 16 16 20 20 17 18 14 16 18 16 17 18 18 16 16 16 12 16 20 20 12 18 Pulse 80 82 73 80 78 72 89 88 88 89 80 86 87 83 79 85 90 88 81 74 75 70 72 71 75 85 78 85 82 72 80 88 78 95 82 85 Temp 98.6 F 99.9 F 99.9 F 100.0 F 99.5 F 98.6 F 98.4 F 98.1 F 98.2 F 98.1 F 98.4 F 98.1 F 97.9 F 97.9 F 98.2 F 98.8 F 98.6 F 98.2 F 98.6 F 98.6 F 9 8.6 F 98.2 F 98.2 F 98.1 F 98.2 F 98.6 F 98.2 F 98.2 F 98.6 F 98.2 F 98.8 F 98.4 F 98.6 F 99.0 F Temp Source Temporal Artery Scan Temporal Artery Scan Temporal Artery Scan Temporal Artery Scan Temporal Artery Scan Skin Skin Temporal Artery Scan Temporal Artery Scan Temporal Artery Scan Temporal Artery Scan Temporal Arter y Scan Temporal Artery Scan Temporal Artery Scan Temporal Artery Scan Temporal Artery Scan Temporal Artery Scan Temporal Artery Scan Temporal Artery Scan Temporal Artery Scan Temporal Artery Scan Temporal Artery Scan Temporal Artery Scan Temporal Artery Scan Temporal Artery Scan Temporal Artery Scan Temporal Artery Scan Skin Temporal Artery Scan Temporal Artery Scan Temporal Artery S can Temporal Artery Scan Pulse Oximetry 98 98 97 97 98 98 98 99 96 96 97 99 97 97 97 97 9 7 96 92 96 94 93 95 94 95 99 95 95 96 96 96 97 97 96 96 98 Meds/Allgy Home Medications Ambulatory Orders Medication Instructions Recorded Confirmed acetaminophen 500 mg tablet 1,000 mg (2 x 500 mg) PO T ID #90 03/28/25 04/10/25 (Tylenol Extra Strength) tabs aspirin 81 mg tablet 162 mg (2 x 81 mg) PO DAILY 24 03/28/25 04/10/25 days #48 tabs insulin glargine-yfgn 100 unit/mL 12 unit (0.12 mL) tian bcut 03/28/25 04/10/25 (3 mL) subcutaneous pen QDBREAKFAST #15 mL insulin lispro 100 unit/mL 5 unit (0.05 mL) subcut TID WM #15 03/28/25 04/10/25 subcutaneous pen (Humalog KwikPen mL (U-100) Insulin) lidocaine 4 % topical patch 1 patch topical DAILY #30 ea 03/28/25 04/10/25 mirtazapine 15 mg tablet 15 mg PO QPM #30 tabs 04/10/25 oaolfirgluxz-yasfatvq-bpbv 1 tab PO DAILYWM #30 tabs 1 05/28/24 04/10/25 fumarate 19 mg-folic acid 400 mcg tablet (Therapeutic-M) oxycodone 5 mg tablet 5 mg PO Q4HR PRN Pain 5 to 7 #12 03/28/25 04/10/25 tabs docusate sodium 250 mg capsule 250 mg PO DAILY 5 04/11/25 ferrous sulfate 325 mg (65 mg 325 mg PO DAILYWM 04/11/25 iron) tablet insulin lispro 100 unit/mL 1 - 9 unit subcut 04/11/25 04/11/25 subcutaneous pen (Humalog KwikPen 0800,1200,1700,2100 (U-100) Insulin) pantoprazole 40 mg tablet,delayed 40 mg PO BIDAC 04/1104/11/25 release Allergies Allergies Allergy/AdvReac Type Severity Reaction Status Date / Time No Known Drug Allergies Allergy Verified 04/10/25 13:04 CC HPI Visit Location: other location (inpatient) Chief Complaint Chief Complaint: anxiety; depression; rectal mass History Obtained From Records Reviewed: hospitalist; labs; previous PC notes History obtained from: Patient; spoke with sister r/t concerns Exam Limitations: mild STM issues History of Present Illness HPI: This is a 75-year-old gentleman awaiting discharge back to [facility] to continue rehab, with goal to make progress with functional status, and gain some strength to help inform/support next step on intervention and / or treatment. Still awaiting pathology results for follow up on needed referrals. Patient feeling "fatalistic" and with anxiety with current situation and complex issues related to meeting care needs skilled nursing. He denies abdominal pain, is eating very little as wants "real food", reports pain with weight bearing with hip and movement; we discussed his history of "vaping" or skilled nursing marijuana use. Had spoken with sister, with valid concerns how to manage or support his coping as has been a skilled nursing pattern in the past. Ramana was originally admitted for fall with hip fracture s/p surgery 03/22 was sent to [facility] for rehab. Patient with rectal mass and persistent bleeding admitted for a HBG of 6.4, and failure to thrive noted over several months. It was decided to move forward with a colonoscopy to get a better sense of underlying pathology and prognosis, and well as looking for source of bleeding. Patient findings were quite extensive with diverticulosis in entire colon examined, a fungating ulceratedPolyploid and infiltrate partially obstructing large masses found from 6 to 15 cm proximal to the anus, the mass was circumferential, and measured 9 cm in length. Patient was also found to have internal nonbleeding nonthrombosed and prolapsed hemorrhoids. Patient still vague on his understanding of current options, was able to verbalize surgery included a "bag" and shared is ongoing concern for his lack of quality of life. Patient's diarrhea had been problematic, has been "cleaned out" with colonoscopy so no stool yet, his perceptions is not eating enough. It is ordered imodium QID as needed but has not yet, but given history prior would most likely need to be considered when eating again. . Palliative Care Performance Status Performance status: Patient has been making improvement with functional status at setting, though admits only able to walk about 10-15 feet. Patient is not independent in his ADLs. Patient is able to feed himself, make his needs known, does have mild short-term memory issues but easily cued Palliative Care Discussion: Spent time with patient, reviewing again his current journey, still feeling "fatalistic", is reflective there is no really good answer. Patient continues to perceive his quality of life is quite poor, and is somewhat resigned. Is aware there is still information to be had, will continue with gathering information, to support further decision making. Feels belkis and peace when listening to music, used to like to read but eyesight quite poor now, and does not perceive himself as suffering, but that things are just hard right now. Had spoken with sister, feels patient was okay with surgery and "the bag", unclear if has all the information to make a final decision yet. Patient with concerning medical decision making capacity, to weigh the nuances and implications of decisions, his sister is doing a nice job of helping him navig ate as well as advocate for him. [facility], [facility] Active Problems All Active Problems (Updated 04/16/25 @ 16:32 by FORTINO Saldana) Anxiety about health (Acute) Diarrhea (Acute) ABLA (acute blood loss anemia) (Acute) Bloody stool (Acute) Guaiac positive stools (Acute) Anemia (Chronic) Post-operative state (Acute) Closed intertrochanteric fracture of right hip (Acute) Malnutrition (Acute) Closed right hip fracture (Acute) Type 2 diabetes mellitus (Acute) Counseling regarding advanced care planning and goals of care (Acute) Closed T12 fracture (Acute) Closed T11 fracture (Acute) Intractable back pain (Acute) Anemia, iron deficiency (Acute) Rectal mass (Acute) Compression fracture of vertebral column (Acute) Cachexia (Acute) Leg pain, right (Acute) Ground-level fall (Acute) Medical History Medical History Insomnia Urinary incontinence Skin cancer No pertinent past medical history Surgical History Surgical History History of repair of hip fracture Hx of flexible sigmoidoscopy (~03/22/25) [facility] DR. 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 Social History Social History (Updated 04/10/25 @ 13:07 by Luis Antonio Torres, RN, BSN) Smoking Status: Never smoker Do you dip or chew tobacco?: No Do you vape?: No Living arrangement: Assisted living Living Condition: Alone Support Person: Yes Living Situation Details: Recently moved to [place]; is there under Medicaid Has a Durable Power of Food Service Team Member for Health Care?: Yes Name / Relationship: Carmina Ribeiro [phone] DPOA on file?: Yes Level: Assisted Physical - Functional Details: Functional status has been declining Do you feel safe in your home environment?: Yes History of physical, verbal, emotional, or financial abuse?: No ETOH Use: Beer Frequency: Daily Number of drinks/day: 1 Substance Use: cannabis (any form) 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 POLST Patient has POLST: Yes POLST on file?: Yes POLST CPR Status: Do Not Attempt Resuscitation (DNAR) / Allow Natural Level of Medical Intervention: Selective Treatment Review of Systems Status of ROS: See HPI Constitutional Reports: Fatigue and Weight loss Ears, nose, mouth, and throat Reports: Hearing loss and Dentures Cardiovascular Reports: Decreased exercise tolerance Gastrointestinal Reports: Poor appetite; Denies: Nausea Musculoskeletal Reports: Joint pain, Stiffness, Muscle aches and Muscle weakness Neurological Reports: Memory problems Psychiatric Reports: Depression, Anxiety and Memory loss Endocrine Reports: Fatigue Hematologic/Lymphatic Reports: Anemia Exam Exam Patient laying in bed; difficulty with hearing need to get close and provide facial cues. Patient with flat affect, but easily engaged. Appears pale, no acute distress. Difficulty with STM recall, but able to be cued. Impression Impression: This is a 75-year-old gentleman who presents with failure to thrive, with weight loss, cognitive and functional decline, history of falls, and now with rectal mass. Adding to complicated picture, has had right hip fracture s/p repair and still receiving rehab. Patient presented with severe anemia again and received transfusion, still low, most likely contributing to his weakness and symptom burden. Patient minimally connected to healthcare, longstanding history of this. Patient beginning to come to some understanding of the seriousness of his situation. Currently pending oncology referral and decision regarding surgical options, for further definitions of goals of care and if appropriate for treatment. Palliative care providing support and establishing rapport to support patient through serious illness trajectory. Provided follow up family meeting. Assessment & Plan Assessment & Plan (1) Counseling regarding advanced care planning and goals of care: Code(s): Z71.89 - Other specified counseling (2) Cachexia: Code(s): R64 - Cachexia (3) Rectal mass: Code(s): K62.89 - Other specified diseases of anus and rectum (4) Diarrhea: Code(s): R19.7 - Diarrhea, unspecified Qualifiers: Diarrhea type: unspecified type Qualified Code(s): R19.7 - Diarrhea, unspecified (5) Anxiety about health: Code(s): R45.89 - Other symptoms and signs involving emotional state Plan Patient is in difficult complex situation, with his current living situation, is interested in continue with rehab to improve his functional status is much as possible. He is aware needs to get stronger if considering surgery or further treatment options. 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 Patient does need more aggressive management of his diarrhea, would recommend scheduling Imodium 2 mg 4 times a day, may need to alternate with Lomotil but is still not moving bowels currently. Patient is presenting as a failure to thrive, though has had improvement with eating, receiving care and attention. Recommendations: Buspirone 5-10 mg twice a day for anxiety as needed Available to follow if patient readmitted or can see at oncology clinic
[2025-04-17 00:50] VITALS: O2SAT 95
[2025-04-17 05:56] LABS: HCT - HEMATOCRIT 24.2 % (42.0-52.0); HGB - HEMOGLOBIN 7.6 g/dL (14.0-18.0); MEAN PLATELET VOLUME 10.1 fL (7.4-11.4); NRBC ABSOLUTE COUNT (AUTO) 0.00 x10^3/uL; NUCLEATED RED BLOOD CELLS AUTO 0.0 /100WBC; PLT - PLATELET COUNT 480 10^3/uL (130-450); RED CELL DISTRIBUTION WIDTH 17.5 % (12.0-15.0)
[2025-04-17 06:13] LABS: BUN - BLOOD UREA NITROGEN 11.0 mg/dL (6-20); CARBON DIOXIDE - CO2 29.0 mmol/L (21-32); CREATININE 0.3 mg/dL (0.6-1.3); GFR - MDRD 291.0 (>89)
--- NOTE | 2025-04-17 11:09 | PROVIDER PROGRESS NOTE ---
Subjective Prog Note Date Prog Note Date: 04/17/25 Current Medications Current Medications Current Medications: Current Medications Generic Name Dose Route Start Last Admin Trade Name Freq PRN Reason Stop Dose Admin Acetaminophen 650 mg 04/10/25 20:03 Acetaminophen 325 Mg Tablet PO Q4HR PRN Pain 1 to 4, or Fever Buspirone HCl 5 mg 04/16/25 21:00 04/17/25 07:51 Buspirone 5 Mg Tablet PO 5 mg BID JUJU Administration Insulin Glargine-yfgn 8 unit 04/16/25 08:00 04/17/25 07:48 Insulin Glargine-Yfgn 300 Unit/3 Ml Pen SUBQ 8 unit QDBREAKFAST JUJU Administration Insulin Human Lispro 2 - 10 unit 04/14/25 17:00 04/17/25 07:47 Insulin Lispro 300 Unit/3 Ml Pen SUBQ 2 unit 0800,1200,1700,2100 JUJU Administration Protocol Loperamide HCl 2 mg 04/15/25 14:29 Loperamide 2 Mg Capsule PO QID PRN Diarrhea Mirtazapine 15 mg 04/11/25 21:00 04/16/25 21:26 Mirtazapine 15 Mg Tablet PO 15 mg QPM JUJU Administration Ondansetron HCl 4 mg 04/10/25 20:03 Ondansetron Odt 4 Mg Tablet TL Q6HR PRN Nausea / Vomiting Ondansetron HCl 4 mg 04/10/25 20:03 Ondansetron 4 Mg/2 Ml Vial IVP Q6HR PRN Nausea / Vomiting Pantoprazole Sodium 40 mg 04/18/25 07:00 Pantoprazole 40 Mg Tablet PO QDAC JUJU Sodium Chloride 10 ml 04/10/25 20:03 04/13/25 05:47 Sodium Chloride Flush 0.9% 10 Ml Syringe IVP 10 ml PRN PRN Administration NEEDED PER PROVIDER ORDERS Sodium Chloride 10 ml 04/11/25 01:00 04/17/25 07:51 Sodium Chloride Flush 0.9% 10 Ml Syringe IVP 10 ml 0100,0900,1700 JUJU Administration Objective Vital Signs/Intake & Output Vital Signs: Vital Signs x48h Temp Pulse Resp BP Pulse Ox 04/17/25 07:38 37 C 80 16 151/84 H 95 Intake & Output: Intake & Output 04/14/25 04/15/25 04/16/2526/25 23:59 23:59 23:59 23:59 Intake Total 1072 / 1072 2009 1680 / 1680 100 / 100 Output Total 1650 / 1650 1625 / 1625 1700 / 1700 775 / 775 Balance -578 / -578 385 / 385 -20 / -20 -675 / -675 Weight (kg) 66 kg 66 kg Lab Results 04/17/25 05:26 04/17/25 05:26 Other Labs: Lab Results x24hrs 04/17/25 04/17/25 04/16/25 Range/Units 07:32 05:26 20:26 WBC 10.0 (4.8-10.8) x10^3/uL RBC 3.01 L (4.70-6.10) 10^6/uL Hgb 7.6 L (14.0-18.0) g/dL Hct 24.2 L (42.0-52.0) % MCV 80.4 (80.0-94.0) fL MCH 25.2 L (27.0-31.0) pg MCHC 31.4 L (32.0-36.0) g/dL RDW 17.5 H (12.0-15.0) % Plt Count 480 H (130-450) 10^3/uL MPV 10.1 (7.4-11.4) fL Neut # (Auto) 7.5 H (1.5-6.6) 10^3/uL Lymph # (Auto) 1.4 L (1.5-3.5) 10^3/uL Walsh # (Auto) 0.8 (0.0-1.0) 10^3/uL Eos # (Auto) 0.3 (0.0-0.7) 10^3/uL Baso # (Auto) 0.1 (0.0-0.1) 10^3/uL Absolute Nucleated RBC 0.00 x10^3/uL Nucleated RBC % 0.0 /100WBC Sodium 137 (135-145) mmol/L Potassium 3.5 (3.5-4.5) mmol/L Chloride 104 (101-111) mmol/L Carbon Dioxide 29 (21-32) mmol/L Anion Gap 4.0 L (6-13) BUN 11 (6-20) mg/dL Creatinine 0.3 L (0.6-1.3) mg/dL Estimated GFR (MDRD) 291 (>89) Glucose 167 H (74-104) mg/dL POC Whole Bld Glucose 160 246 (70-100) mg/dL Calcium 9.7 (8.5-10.3) mg/dL 04/16/25 04/16/25 04/14/25 Range/Units 16:32 11:30 16:33 WBC (4.8-10.8) x10^3/uL RBC (4.70-6.10) 10^6/uL Hgb (14.0-18.0) g/dL Hct (42.0-52.0) % MCV (80.0-94.0) fL MCH (27.0-31.0) pg MCHC (32.0-36.0) g/dL RDW (12.0-15.0) % Plt Count (130-450) 10^3/uL MPV (7.4-11.4) fL Neut # (Auto) (1.5-6.6) 10^3/uL Lymph # (Auto) (1.5-3.5) 10^3/uL Walsh # (Auto) (0.0-1.0) 10^3/uL Eos # (Auto) (0.0-0.7) 10^3/uL Baso # (Auto) (0.0-0.1) 10^3/uL Absolute Nucleated RBC x10^3/uL Nucleated RBC % /100WBC Sodium (135-145) mmol/L Potassium (3.5-4.5) mmol/L Chloride (101-111) mmol/L Carbon Dioxide (21-32) mmol/L Anion Gap (6-13) BUN (6-20) mg/dL Creatinine (0.6-1.3) mg/dL Estimated GFR (MDRD) (>89) Glucose (74-104) mg/dL POC Whole Bld Glucose 236 295 241 (70-100) mg/dL Calcium (8.5-10.3) mg/dL Assessment/Plan Problem List (1) Counseling regarding advanced care planning and goals of care: (2) Cachexia: (3) Rectal mass: (4) Diarrhea: Qualifiers: Diarrhea type: unspecified type Qualified Code(s): R19.7 - Diarrhea, unspecified (5) Anxiety about health:
--- NOTE | 2025-04-17 12:57 | Discharge Summary ---
"Discharge Summary Admit Date: 04/10/25 Discharge Date: 04/17/25 Discharging Provider: Claudette Bianchi PA-C Primary Care Provider: Kathia Red MD Code Status: Do Not Attempt Resuscitation DIAGNOSES Discharge Diagnoses with Status of Each Condition: Anemia, Hgb at dc 7.6 Rectal mass, pathology pending Protein calorie malnutrition Diarrhea Type 2 diabetes HPI History of Present Illness: 75-year-old male who was recently admitted for anemia and found to have rectal mass, And discharged to SNF. Other history type 2 diabetes, iron deficiency anemia. Patient was sent to the hospital from his facility for low hemoglobin. He denies fever, chills, chest pain, dyspnea, nausea/vomiting. He does report diarrhea, but he is not aware of what it looks like. In the ER, he was noted to have a hemoglobin of 6.4, and a unit of blood was ordered. Surgery was contacted by the ED, and plans were made for colonoscopy in the morning. Hospitalist was contacted for observation for this CONSULTS | PROCEDURES Consultations: Dr Hendrix, General Surgery Procedures: Colonoscopy, with biopsy of rectal mass. HOSPITAL COURSE Hospital Course: (1) Anemia: Patient has history of iron deficiency anemia, as well as rectal mass noted on last admission. He is not on blood thinners. Reports loose stools, dark Hemoglobin trended, he did need one unit of RBCs on 04/11/25. Otherwise he remained stable. (2) Rectal mass: Rectal mass has been biopsied previously. Pathology is not malignant . Dr Hendrix took the patient for colonoscopy on 04/12/25. Colonoscopy revealed severe diverticulosis, partially obstructing mass which was biopsied, and hemorrhoids. 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 He has been resumed on regular diet. (3) Cachexia: Protein calorie malnutrition with 14% weight loss in the past year, visible ribs On mirtazapine, will continue (4) Diarrhea: Still complaining of significant diarrhea Added Imodium as needed Stool studies were negative (5) Type 2 diabetes mellitus: Continue SSI, mealtime insulin and lantus daily Added on 8 units daily Lantus Of note, patient is s/p R hip pinning for fracture. he is on aspirin 81mg BID as DVT prophylaxis. This was held while inpatient, but should be resumed on dc. ALLERGIES Allergies Allergy/AdvReac Type Severity Reaction Status Date / Time No Known Drug Allergies Allergy Verified 04/10/25 13:04 MEDICATIONS Ambulatory Orders Medication Instructions Recorded Confirmed acetaminophen 500 mg tablet 1,000 mg (2 x 500 mg) PO T ID #90 03/28/25 04/10/25 (Tylenol Extra Strength) tabs aspirin 81 mg tablet 162 mg (2 x 81 mg) PO DAILY 24 03/28/25 04/10/25 days #48 tabs insulin glargine-yfgn 100 unit/mL 12 unit (0.12 mL) tian bcut 03/28/25 04/10/25 (3 mL) subcutaneous pen QDBREAKFAST #15 mL insulin lispro 100 unit/mL 5 unit (0.05 mL) subcut TID WM #15 03/28/25 04/10/25 subcutaneous pen (Humalog KwikPen mL (U-100) Insulin) lidocaine 4 % topical patch 1 patch topical DAILY #30 ea 03/28/25 04/10/25 mirtazapine 15 mg tablet 15 mg PO QPM #30 tabs 04/10/25 [id number] 1 tab PO DAILYWM #30 tabs 1 05/28/24 04/10/25 fumarate 19 mg-folic acid 400 mcg tablet (Therapeutic-M) oxycodone 5 mg tablet 5 mg PO Q4HR PRN Pain 5 to 7 #12 03/28/25 04/10/25 tabs docusate sodium 250 mg capsule 250 mg PO DAILY 5 04/11/25 ferrous sulfate 325 mg (65 mg 325 mg PO DAILYWM 04/11/25 iron) tablet insulin lispro 100 unit/mL 1 - 9 unit subcut 04/11/25 04/11/25 subcutaneous pen (Humalog KwikPen 0800,1200,1700,2100 (U-100) Insulin) pantoprazole 40 mg tablet,delayed 40 mg PO BIDAC 04/1104/11/25 release buspirone 5 mg tablet 5 mg PO BID #60 tabs 5 loperamide 2 mg capsule 2 mg PO QID PRN Diarrhea #60 caps 04/17/25 PHYSICAL EXAM AT DISCHARGE Vital Signs: Vital Signs x48h Temp Pulse Resp BP Pulse Ox 11/26/25 07:38 37 C 80 16 151/84 H 95 LABS 04/17/25 05:26 04/17/25 05:26 Discharge Plan Discharge Patient Disposition: [facility] DC/Xfer Condition: Stable Prescriptions: New buspirone 5 mg Tablet 5 mg PO BID Qty: 60 0RF loperamide 2 mg Capsule 2 mg PO QID PRN (Reason: Diarrhea) Qty: 60 0RF Continued acetaminophen [Tylenol Extra Strength] 500 mg Tablet 1,000 mg PO TID Qty: 90 0RF insulin glargine-yfgn 100 unit/mL (3 mL) Insulin Pen 12 unit subcut QDBREAKFAST Qty: 15 0RF insulin lispro [Humalog KwikPen Insulin] 100 unit/mL Insulin Pen 5 unit subcut TIDWM Qty: 15 0RF lidocaine 4 % Adhesive Patch,Medicated 1 patch topical DAILY Qty: 30 0RF mirtazapine 15 mg Tablet 15 mg PO QPM Qty: 30 0RF Therapeutic-M 19 mg iron- 400 mcg Tablet 1 tab PO DAILYWM Qty: 30 0RF oxycodone 5 mg Tablet 5 mg PO Q4HR PRN (Reason: Pain 5 to 7) Qty: 12 0RF aspirin 81 mg tablet 162 mg PO DAILY 24 Days Qty: 48 0RF pantoprazole 40 mg Tablet,Delayed Release (Dr/Ec) 40 mg PO BIDAC Rx Instructions: with breakfast and dinner ferrous sulfate 325 mg (65 mg iron) Tablet 325 mg PO DAILYWM Rx Instructions: Give with Breakfast docusate sodium 250 mg Capsule 250 mg PO DAILY insulin lispro [Humalog KwikPen Insulin] 100 unit/mL Insulin Pen 1 - 9 unit subcut 0800,1200,1700,2100 Rx Instructions: 0-140= 0 141-180 1 unit 181-225= 3 units 226-275= 5 units 276-325= 7 units 326-375= 9 units 376-500= Call MD Activity Restrictions: Activity as Tolerated Diet: Diabetic Health Concerns: (1) Anemia: Patient has history of iron deficiency anemia, as well as rectal mass noted on last admission. He is not on blood thinners. Reports loose stools, dark Hemoglobin trended, he did need one unit of RBCs on 04/11/25. Otherwise he remained stable. (2) Rectal mass: Rectal mass has been biopsied previously. Pathology is not malignant . Dr Hendrix took the patient for colonoscopy on 04/12/25. Colonoscopy revealed severe diverticulosis, partially obstructing mass which was biopsied, and hemorrhoids. 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 He has been resumed on regular diet. (3) Cachexia: Protein calorie malnutrition with 14% weight loss in the past year, visible ribs On mirtazapine, will continue (4) Diarrhea: Still complaining of significant diarrhea Added Imodium as needed Stool studies were negative (5) Type 2 diabetes mellitus: Continue SSI, mealtime insulin and lantus daily Added on 8 units daily Lantus Of note, patient is s/p R hip pinning for fracture. he is on aspirin 81mg BID as DVT prophylaxis. This was held while inpatient, but should be resumed on dc. Print Language: Malay Patient Instructions: Surg Dc Stand Alone Forms: SNF Discharge Follow-up Care: Kathia Red MD [Primary Care Provider, Template Fitter] Report called to and time (if no answer, doc. time of each call attempted): Haley montero RN Vitals documented within 30 minutes of discharge?: Yes"
[2025-04-17 14:36] VITALS: BP 154/78; TEMP 98.2
[2025-04-18] MEDS ORDERED: PANTOPRAZOLE 40 MG TABLET PO SCH (07:00)
== END 2025-04-17 14:36 | DRG 375 ==
LOC: ED 13:00 → MS2 13:00
PROVIDERS: ADMIT Nurse Practitioner Acute Care; ATTEND Nurse Practitioner Acute Care

== ENCOUNTER 2025-04-21 01:51 | Observation (INO) ==
--- NOTE | 2025-04-21 02:00 | ED Physician Documentation ---
PD HPI GI BLEED Stated complaint Stated Complaint: GIB Chief complaint Chief Complaint: Abd Pain History obtained from History obtained from: Patient, EMS and Caregiver History of Present Illness Timing - onset: How many hours ago (within the past few hours: caregivers changed his Depends due to c/o of having had BM, and found it to be bloody stool. Sent to ER. Had not had bleeding since in hospital 5 days ago. ) and Today Timing - details: Abrupt onset and Still present Associated symptoms: BRBPR; No Diarrhea Similar symptoms before: Diagnosis (diverticulosis, rectal mass with biopsy showing adenocarcinoma.) Recently seen: Admitted Meds/Allgy Home Medications Ambulatory Orders Medication Instructions Recorded Confirmed acetaminophen 500 mg tablet 1,000 mg (2 x 500 mg) PO T ID #90 03/28/25 04/21/25 (Tylenol Extra Strength) tabs aspirin 81 mg tablet 162 mg (2 x 81 mg) PO DAILY 24 03/28/25 04/21/25 days #48 tabs insulin glargine-yfgn 100 unit/mL 12 unit (0.12 mL) tian bcut 03/28/25 04/21/25 (3 mL) subcutaneous pen QDBREAKFAST #15 mL insulin lispro 100 unit/mL 5 unit (0.05 mL) subcut TID WM #15 03/28/25 04/21/25 subcutaneous pen (Humalog KwikPen mL (U-100) Insulin) lidocaine 4 % topical patch 1 patch topical DAILY #30 ea 03/28/25 04/21/25 mirtazapine 15 mg tablet 15 mg PO QPM #30 tabs 04/21/25 [id number]-ueatoejg-bxlt 1 tab PO DAILYWM #30 tabs 1 05/28/24 04/21/25 fumarate 19 mg-folic acid 400 mcg tablet (Therapeutic-M) docusate sodium 250 mg capsule 250 mg PO DAILY 5 04/21/25 ferrous sulfate 325 mg (65 mg 325 mg PO DAILYWM 04/21/25 iron) tablet insulin lispro 100 unit/mL 1 - 9 unit subcut 04/11/25 04/21/25 subcutaneous pen (Humalog KwikPen 0800,1200,1700,2100 (U-100) Insulin) pantoprazole 40 mg tablet,delayed 40 mg PO BIDAC 04/1104/21/25 release buspirone 5 mg tablet 5 mg PO BID #60 tabs 5 04/21/25 loperamide 2 mg capsule 2 mg PO QID PRN Diarrhea #60 caps 04/17/25 04/21/25 Allergies Allergies Allergy/AdvReac Type Severity Reaction Status Date / Time No Known Drug Allergies Allergy Verified 04/10/25 13:04 [facility] Active Problems All Active Problems (Updated 04/21/25 @ 05:15 by Eliel Oseguera MD) Anemia (Chronic) Acute lower gastrointestinal bleeding (Acute) Anxiety about health (Acute) Diarrhea (Acute) Guaiac positive stools (Acute) Post-operative state (Acute) Closed intertrochanteric fracture of right hip (Acute) Malnutrition (Acute) Closed right hip fracture (Acute) Type 2 diabetes mellitus (Acute) Closed T12 fracture (Acute) Closed T11 fracture (Acute) Intractable back pain (Acute) Anemia, iron deficiency (Acute) Rectal mass (Acute) Compression fracture of vertebral column (Acute) Cachexia (Acute) Leg pain, right (Acute) Ground-level fall (Acute) Medical History Medical History Insomnia Urinary incontinence Skin cancer No pertinent past medical history Surgical History Surgical History History of repair of hip fracture Hx of flexible sigmoidoscopy (~03/22/25) [facility] DR. 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 Social History Social History Smoking Status: Never smoker Do you dip or chew tobacco?: No Do you vape?: No Living arrangement: Assisted living Living Condition: Alone Support Person: Yes Living Situation Details: Recently moved to [place]; is there under Medicaid Has a Durable Power of Toy Designer for Health Care?: Yes Name / Relationship: Carmina Ribeiro [phone] DPOA on file?: Yes Level: Assisted Physical - Functional Details: Functional status has been declining Do you feel safe in your home environment?: Yes History of physical, verbal, emotional, or financial abuse?: No ETOH Use: Beer Frequency: Daily Number of drinks/day: 1 Substance Use: cannabis (any form) 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 POLST Patient has POLST: Yes POLST on file?: Yes POLST CPR Status: Do Not Attempt Resuscitation (DNAR) / Allow Natural Exam Exam Vital Signs: Vital Signs x48h Temp Pulse Resp BP Pulse Ox 04/21/25 05:08 78 179/92 H 97 04/21/25 04:08 76 16 168/78 H 96 04/21/25 03:17 70 16 165/94 H 97 04/21/25 02:39 74 16 197/93 H 100 04/21/25 01:58 36.5 C 71 18 162/126 H 98 Constitutional abnormal general appearance (frail appearing) and abnormal body habitus ( cachectic) and (thin) Neck/C-Spine supple Lymph no lymphadenopathy noted Respiratory normal respiratory effort and clear to auscultation bilaterally Cardiovascular normal heart rate noted and regular rhythm noted Gastrointestinal abdomen soft to palpation, nontender to palpation, nondistended and rectal exam abnormal (heme positive stool) (frankly bloody amount in adult diaper.), (mass) and (tenderness) Psychiatry mental status grossly normal, orientation abnormal (disoriented to time) and affect normal Results Vitals Vitals: Vital Signs - 24 hr 04/21/25 01:58 04/21/25 02:39 04/21/25 03:17 Temperature 36.5 C Temperature Source Tympanic Pulse Rate 71 74 70 Respiratory Rate 18 16 16 Blood Pressure 162/126 H 197/93 H 165/94 H O2 Saturation 98 100 97 O2 Source Room air Room air Room air Pain Intensity 0 7 0 04/21/25 04:08 04/21/25 05:08 Temperature Temperature Source Pulse Rate 76 78 Respiratory Rate 16 Blood Pressure 168/78 H 179/92 H O2 Saturation 96 97 O2 Source Room air Room air Pain Intensity 0 Oxygen O2 Source Room air Labs Labs: Laboratory Tests 04/21/25 02:14 WBC 7.5 RBC 3.08 L Hgb 7.6 L Hct 24.8 L MCV 80.5 MCH 24.7 L MCHC 30.6 L RDW 17.3 H Plt Count 506 H MPV 10.3 Neut # (Auto) 5.4 Lymph # (Auto) 1.2 L [place] # (Auto) 0.5 Eos # (Auto) 0.2 Baso # (Auto) 0.1 Absolute Nucleated RBC 0.00 Nucleated RBC % 0.0 Sodium 139 Potassium 3.4 L Chloride 105 Carbon Dioxide 31 Anion Gap 3.0 L BUN 14 Creatinine 0.4 L Estimated GFR (MDRD) 209 Glucose 111 H Calcium 10.4 H Magnesium 1.8 Total Bilirubin 0.3 AST 16 ALT 11 Alkaline Phosphatase 118 Total Protein 5.8 L Albumin 2.9 L Globulin 2.9 Albumin/Globulin Ratio 1.0 Lipase < 10 L Blood Type O POSITIVE Antibody Screen NEGATIVE Rads (name of study) abd/pelvic CT: Relevant Findings:: Final report received (rectal mass of similar size. Diverticulosis without obvious diverticulitis. ) PD Medical Decision Making ED course Complexity details: reviewed old records (Recent hospitalization notes as well as discharge summary and palliative care note from 04/16/2025 were reviewed. Recent lab tests were reviewed.), considered differential and d/w patient ED course: The patient with hip repair in February and was at rehab. Referred from there approximately a week ago for GI bleed. Found to have rectal mass that was biopsied couple of times with subsequent pathology adenocarcinoma. Care planning note from hospitalist and a note from Trish Mclaughlin palliative care both state the patient was still deciding on treatment options to include oncology evaluation, surgery, radiation. He was discharged without rectal bleeding at the time. Caregivers report patient had rectal bleeding this evening. On exam here seems to be some element of loose stool with blood. His vital signs are good. Hemoglobin 7.6. He did have another stool output with relatively small amount of blood but still perhaps 10 to 15 mL. Given that he has a fairly low hemoglobin at this point already, I feel it prudent to have him and the hospital setting for sequential hemoglobins and potential transfusion if needed and reevaluation from hospitalist and surgery about goals of care if the patient has decided as yet. When I ask him here in the ER, he is not sure what the plan is. Discharge Plan Discharge Patient Disposition: ED Place in Observation Condition: Stable Clinical Impression: Acute lower gastrointestinal bleeding, Rectal mass Anemia Qualifiers: Anemia type: unspecified type Qualified Code(s): D64.9 - Anemia, unspecified Prescriptions: No Action acetaminophen [Tylenol Extra Strength] 500 mg Tablet 1,000 mg PO TID Qty: 90 0RF insulin glargine-yfgn 100 unit/mL (3 mL) Insulin Pen 12 unit subcut QDBREAKFAST Qty: 15 0RF insulin lispro [Humalog KwikPen Insulin] 100 unit/mL Insulin Pen 5 unit subcut TIDWM Qty: 15 0RF lidocaine 4 % Adhesive Patch,Medicated 1 patch topical DAILY Qty: 30 0RF mirtazapine 15 mg Tablet 15 mg PO QPM Qty: 30 0RF Therapeutic-M 19 mg iron- 400 mcg Tablet 1 tab PO DAILYWM Qty: 30 0RF aspirin 81 mg tablet 162 mg PO DAILY 24 Days Qty: 48 0RF pantoprazole 40 mg Tablet,Delayed Release (Dr/Ec) 40 mg PO BIDAC Rx Instructions: with breakfast and dinner ferrous sulfate 325 mg (65 mg iron) Tablet 325 mg PO DAILYWM Rx Instructions: Give with Breakfast docusate sodium 250 mg Capsule 250 mg PO DAILY insulin lispro [Humalog KwikPen Insulin] 100 unit/mL Insulin Pen 1 - 9 unit subcut 0800,1200,1700,2100 Rx Instructions: 0-140= 0 141-180 1 unit 181-225= 3 units 226-275= 5 units 276-325= 7 units 326-375= 9 units 376-500= Call buspirone 5 mg Tablet 5 mg PO BID Qty: 60 0RF loperamide 2 mg Capsule 2 mg PO QID PRN (Reason: Diarrhea) Qty: 60 0RF Print Language: Arabic Stand Alone Forms: PCP List
[2025-04-21 02:22] LABS: HCT - HEMATOCRIT 24.8 % (42.0-52.0); HGB - HEMOGLOBIN 7.6 g/dL (14.0-18.0); MEAN PLATELET VOLUME 10.3 fL (7.4-11.4); NRBC ABSOLUTE COUNT (AUTO) 0.00 x10^3/uL; NUCLEATED RED BLOOD CELLS AUTO 0.0 /100WBC; PLT - PLATELET COUNT 506 10^3/uL (130-450); RED CELL DISTRIBUTION WIDTH 17.3 % (12.0-15.0)
[2025-04-21] MEDS: SODIUM CHLORIDE 0.9% 1,000 ML IV STA (02:28)
[2025-04-21 02:41] LABS: ALT ALANINE AMINOTRANSFERASE 11 IU/L (10-60); AST ASPARTATE AMINOTRANSFERASE 16 IU/L (10-42); BUN - BLOOD UREA NITROGEN 14 mg/dL (6-20); CARBON DIOXIDE - CO2 31 mmol/L (21-32); CREATININE 0.4 mg/dL (0.6-1.3); GFR - MDRD 209 (>89)
--- OUTSIDE RECORDS SUMMARY | 2025-04-21 02:53 | EXTERNAL MEDICAL SUMMARY RPT | Continuity of Care Document ---
Author Organization [place] Address [address] [place] [id number] Phone Problems date description facility 2025-03-17 17:06 Dorsalgia, unspecified [facility] 2025-03-17 18:01 Other iron deficiency [facility] 2025-03-17 18:01 Other specified diseases of michael s and rectum [facility] 2025-03-17 18:01 Dorsalgia, unspecified [facility] 2025-03-17 18:01 Cachexia [facility] 2025-03-17 18:16 Other iron deficiency [facility] 2025-03-17 18:16 Other specified diseases of michael s and rectum [facility] 2025-03-17 18:16 Dorsalgia, unspecified [facility] 2025-03-17 18:16 Cachexia [facility] 2025-03-17 19:02 Other iron deficiency [facility] 2025-03-17 19:02 Other specified diseases of michael s and rectum [facility] 2025-03-17 19:02 Dorsalgia, unspecified [facility] 2025-03-17 19:02 Cachexia [facility] 2025-03-17 19:39 Other iron deficiency [facility] 2025-03-17 19:39 Other specified diseases of michael s and rectum [facility] 2025-03-17 19:39 Dorsalgia, unspecified [facility] 2025-03-17 19:39 Cachexia [facility] 2025-03-18 09:02 Other iron deficiency [facility] 2025-03-18 09:02 Other specified diseases of michael s and rectum [facility] 2025-03-18 09:02 Dorsalgia, unspecified [facility] 2025-03-18 09:02 Cachexia [facility] 2025-03-18 11:34 Other iron deficiency anemias [facility] 2025-03-18 11:34 Other specified diseases of michael s and rectum [facility] 2025-03-18 11:34 Dorsalgia, unspecified [facility] 2025-03-18 11:34 Cachexia [facility] 2025-03-18 15:10 Other iron deficiency anemias [facility] 2025-03-18 15:10 Iron deficiency anemia, unspeci fied [facility] 2025-03-18 15:10 Other specified diseases of michael s and rectum [facility] 2025-03-18 15:10 Dorsalgia, unspecified [facility] 2025-03-18 15:10 Cachexia [employer] 2025-03-18 15:10 Unspecified fracture of T11-T12 vertebra, initial encounter for closed fracture [facility] 2025-03-18 15:10 Fall on same level, unspecified , initial encounter [facility] 2025-03-19 07:06 Other iron deficiency anemias [employer] 2025-03-19 07:06 Iron deficiency anemia, unspeci fied [employer] [facility] 2025-03-19 07:06 Other specified diseases of michael s and rectum [employer] [facility] 2025-03-19 07:06 Dorsalgia, unspecified [facility] 2025-03-19 07:06 [facility] 2025-03-19 07:06 Cachexia [employer] 2025-03-19 07:06 Unspecified fracture of T11-T12 vertebra, initial encounter for closed fracture [facility] 2025-03-19 07:06 Fall on same level, unspecified , initial encounter [facility] 2025-03-19 07:06 Other specified counseling [facility] 2025-03-19 08:17 Other iron deficiency anemias [facility] [employer] 2025-03-19 08:17 Iron deficiency anemia, unspeci fied [facility] 2025-03-19 08:17 Other specified diseases of michael s and rectum [facility] 2025-03-19 08:17 Dorsalgia, unspecified [facility] 2025-03-19 08:17 [facility]25-03-19 08:17 [facility]25-03-19 08:17 Unspecified fracture of T11-T12 vertebra, initial encounter [facility] 2025-03-19 08:17 Fall on same level, unspecified , [facility] 2025-03-19 08:17 Other specified counseling [employer] 2025-03-21 16:43 Other iron deficiency anemias [employer] 2025-03-21 16:43 Iron deficiency anemia, unspeci fied [facility] 2025-03-21 16:43 Elevated white blood cell count , unspecified [facility]25-03-21 16:43 Type 2 diabetes mellitus withou t complications [facility] 2025-03-21 16:43 Other specified diseases of michael s and rectum [facility] 2025-03-21 16:43 Dorsalgia, unspecified [facility] 2025-03-21 16:43 [facility] leg [email or web address] 2025-03-21 16:43 Cachexia [facility]25-[facility]-21 16:43 Unspecified fracture of T11-T12 vertebra, initial encounter for closed fracture [facility] 2025-03-21 16:43 Fracture of unspecif ied part of neck of right femur, sequela [facility] 2025-03-21 16:43 Fall on same level, unspecified , [facility]25-[facility]-21 16:43 Other specified counseling [employer] 2025-03-21 18:12 Other iron deficiency anemias [employer] 2025-03-21 18:12 Iron deficiency anemia, unspeci fied [facility] 2025-03-21 18:12 Elevated white blood cell count , unspecified [facility] 2025-03-21 18:12 Type 2 diabetes mellitus with h yperglycemia [facility] 2025-03-21 18:12 Type 2 diabetes mellitus withou t complications [facility] 2025-03-21 18:12 Unspecified severe protein-spencer angelita malnutrition [facility] 2025-03-21 18:12 Other specified diseases of michael s and rectum [employer] 2025-03-21 18:12 Dorsalgia, unspecified [facility] 2025-03-21 18:12 [facility] 2025-03-21 18:12 Cachexia [facility] 2025-03-21 18:12 Unspecified fracture of T11-T12 vertebra, initial encounter for closed fracture [facility]25-[facility]-21 18:12 Fracture of unspecif ied part of neck of right femur, sequela [facility] 2025-03-21 18:12 Fall on same level, unspecified , [facility]25-03-21 18:12 Other specified counseling [employer] 2025-03-22 08:20 Other iron deficiency anemias [employer] 2025-03-22 08:20 Iron deficiency anemia, unspeci fied [facility] 2025-03-22 08:20 Elevated white blood cell count , unspecified [facility]25-[facility]22 08:20 Type 2 diabetes mellitus with h yperglycemia [employer] 2025-03-22 08:20 Type 2 diabetes mellitus withou t complications [employer] 2025-03-22 08:20 Unspecified severe protein-spencer angelita malnutrition [facility] 2025-03-22 08:20 Other specified diseases of michael s and rectum [facility] 2025-03-22 08:20 Dorsalgia, unspecified [facility] 2025-03-22 08:20 [facility] 2025-03-22 08:20 Cachexia [facility] 2025-03-22 08:20 Unspecified fracture of T11-T12 vertebra, initial encounter for closed fracture [employer] 2025-03-22 08:20 Fracture of unspecif ied part of neck of right femur, sequela [facility] 2025-03-22 08:20 Fall on same level, unspecified , [facility] 08:20 Other specified counseling [employer] 2025-03-22 08:44 Other iron deficiency anemias [employer] 2025-03-22 08:44 Iron deficiency anemia, [facility]speci fied [facility]25-[facility]-22 08:44 Elevated white blood cell count , unspecified [facility] 2025-03-22 08:44 Type 2 diabetes mellitus with h yperglycemia [facility] 2025-03-22 08:44 Type 2 diabetes mellitus withou t complications [facility] 2025-03-22 08:44 Unspecified severe protein-spencer angelita malnutrition [facility] 2025-03-22 08:44 Other specified diseases of michael s and rectum [facility] 2025-03-22 08:44 Dorsalgia, unspecified [facility] 2025-03-22 08:44 [facility] 2025-03-22 08:44 Cachexia [facility] 2025-03-22 08:44 Unspecified fracture of T11-T12 vertebra, initial encounter for closed fracture [facility] 2025-03-22 08:44 Fracture of unspecif ied part of neck of right femur, sequela [facility] 2025-03-22 08:44 Fall on same level, unspecified , initial encounter [facility] 2025-03-22 08:44 Other specified counseling [facility] 2025-03-22 10:49 Myalgia, other site [facility]-22 13:29 Other iron deficiency anemias [facility] 2025-03-22 13:29 Iron deficiency anemia, unspeci fied [facility] 2025-03-22 13:29 Elevated white blood cell count , unspecified [facility] 2025-03-22 13:29 Type 2 diabetes mellitus with h yperglycemia [facility] 2025-03-22 13:29 Type 2 diabetes mellitus withou t complications [facility] 2025-03-22 13:29 Unspecified severe protein-spencer angelita malnutrition [facility] 2025-03-22 13:29 Other specified diseases of michael s and rectum [facility] 2025-03-22 13:29 Dorsalgia, unspecified [facility] 2025-03-22 13:29 [facility] right leg [facility] 2025-03-22 13:29 Cachexia [facility]25-03-22 13:29 Unspecified fracture of T11-T12 vertebra, initial encounter for closed fracture [facility] 2025-03-22 13:29 Fracture of unspecif ied part of neck of right femur, sequela [facility] 2025-03-22 13:29 Displaced intertroch anteric fracture of right femur, initial encounter for closed fracture [facility] 2025-03-22 13:29 Fall on same level, unspecified , [facility]25-03-22 13:29 Other specified counseling [facility] 2025-03-22 14:30 Other iron deficiency anemias [employer] 2025-03-22 14:30 Iron deficiency anemia, unspeci fied [facility] 2025-03-22 14:30 Elevated white blood cell count , unspecified [facility]25-03-22 14:30 Type 2 diabetes mellitus with h yperglycemia [facility] 2025-03-22 14:30 Type 2 diabetes mellitus withou t complications [facility] 2025-03-22 14:30 Unspecified severe protein-spencer angelita malnutrition [employer] 2025-03-22 14:30 Other specified diseases of michael s and rectum [employer] 2025-03-22 14:30 Dorsalgia, unspecified [facility] 2025-03-22 14:30 Pain in right leg [employer] [facility] 2025-03-22 14:30 Cachexia [facility] 2025-03-22 14:30 Unspecified fracture of T11-T12 vertebra, initial encounter for closed fracture [employer] 2025-03-22 14:30 Fracture of unspecif ied part of neck of right femur, sequela [employer] 2025-03-22 14:30 Displaced intertroch anteric fracture of right femur, initial encounter for closed fracture [facility] 2025-03-22 14:30 Fall on same level, unspecified , [facility]-22 14:30 Other specified counseling [facility] 2025-03-22 17:08 Other iron deficiency anemias [employer] 2025-03-22 17:08 Iron deficiency anemia, unspeci fied [employer] [facility] 2025-03-22 17:08 Elevated white blood cell count , unspecified [facility] 2025-03-22 17:08 Type 2 diabetes mellitus with h yperglycemia [facility] 2025-03-22 17:08 Type 2 diabetes mellitus withou t complications [facility] 2025-03-22 17:08 Unspecified severe protein-spencer angelita malnutrition [facility] 2025-03-22 17:08 Other specified diseases of michael s and rectum [facility] 2025-03-22 17:08 Dorsalgia, unspecified [facility] 2025-03-22 17:08 Pain in right leg [facility] 2025-03-22 17:08 Cachexia [facility]25-03-22 17:08 Unspecified fracture of T11-T12 vertebra, initial encounter for closed fracture [facility]25-03-22 17:08 Fracture of unspecif ied part of neck of right femur, sequela [facility] 2025-03-22 17:08 Displaced intertroch anteric fracture of right femur, initial encounter for closed fracture [facility]25-03-22 17:08 Fall on same level, unspecified , initial encounter [facility] 2025-03-22 17:08 Other specified counseling [employer] 2025-03-28 06:49 Other iron deficiency anemias [employer] 2025-03-28 06:49 Iron deficiency anemia, unspeci fied [employer] [facility] 2025-03-28 06:49 Elevated white blood cell count , unspecified [facility] 2025-03-28 06:49 Type 2 diabetes mellitus with h yperglycemia [facility] 2025-03-28 06:49 Type 2 diabetes mellitus withou t complications [facility] 2025-03-28 06:49 Unspecified severe protein-spencer angelita malnutrition [facility] 2025-03-28 06:49 Other specified diseases of michael s and rectum [facility] 2025-03-28 06:49 Dorsalgia, unspecified [facility] 2025-03-28 06:49 Pain in right leg [facility] 2025-03-28 06:49 Cachexia [facility] 2025-03-28 06:49 Unspecified fracture of T11-T12 vertebra, initial encounter for closed fracture [facility] 2025-03-28 06:49 Fracture of unspecif ied part of neck of right femur, sequela [facility] 2025-03-28 06:49 Displaced intertroch anteric fracture of right femur, initial encounter for closed fracture [facility] 2025-03-28 06:49 Fall on same level, unspecified , initial encounter [facility] 2025-03-28 06:49 Other specified counseling [facility] 2025-03-28 11:01 Other [facility]28 11:01 Iron deficiency anemia, unspeci fied [facility] 2025-03-28 11:01 Elevated white blood cell count , unspecified [facility] 2025-03-28 11:01 Type 2 diabetes mellitus with h yperglycemia [facility] 2025-03-28 11:01 Type 2 diabetes mellitus withou t complications [facility] 2025-03-28 11:01 Unspecified severe protein-spencer angelita malnutrition [facility] 2025-03-28 11:01 Other specified diseases of michael s and rectum [facility] 2025-03-28 11:01 Dorsalgia, unspecified [facility] 2025-03-28 11:01 Pain in right leg [facility] 2025-03-28 11:01 Cachexia [facility] 2025-03-28 11:01 Unspecified fracture of T11-T12 vertebra, initial encounter for closed fracture [facility] 2025-03-28 11:01 Fracture of unspecif ied part of neck of right femur, sequela [facility] 2025-03-28 11:01 Displaced intertroch anteric fracture of right femur, initial encounter for closed fracture [facility] 2025-03-28 11:01 Fall on same level, unspecified , initial encounter [facility] 2025-03-28 11:01 Other specified counseling [facility] 2025-03-28 11:34 Other iron deficiency anemias [facility] 2025-03-28 11:34 Iron deficiency anemia, unspeci fied [facility] 2025-03-28 11:34 Elevated white blood cell count , unspecified [facility] 2025-03-28 11:34 Type 2 diabetes mellitus with h yperglycemia [facility] 2025-03-28 11:34 Type 2 diabetes mellitus withou t complications [facility] 2025-03-28 11:34 Unspecified severe protein-spencer angelita malnutrition [facility] 2025-03-28 11:34 Other specified diseases of michael s and rectum [facility] 2025-03-28 11:34 Dorsalgia, unspecified [facility] 2025-03-28 11:34 Pain in right leg [facility] 2025-03-28 11:34 Cachexia [facility] 2025-03-28 11:34 Unspecified fracture of T11-T12 vertebra, initial encounter for closed fracture [facility] 2025-03-28 11:34 Fracture of unspecif ied part of neck of right femur, sequela [facility] 2025-03-28 11:34 Displaced intertroch anteric fracture of right femur, initial encounter for closed fracture [facility] 2025-03-28 11:34 Fall on same level, unspecified , initial encounter [facility] 2025-03-28 11:34 Other specified counseling [facility] 2025-03-28 13:59 Other iron deficiency anemias [facility] 2025-03-28 13:59 [facility] 13:59 Elevated white blood cell count , unspecified [facility] 2025-03-28 13:59 Type 2 diabetes mellitus with h yperglycemia [facility] 2025-03-28 13:59 Type 2 diabetes mellitus withou t complications [facility] 2025-03-28 13:59 Unspecified severe protein-spencer angelita malnutrition [facility] 2025-03-28 13:59 Other specified diseases of michael s and rectum [facility] 2025-03-28 13:59 Dorsalgia, unspecified [facility] 2025-03-28 13:59 Pain in right leg [facility] 2025-03-28 13:59 Cachexia [facility] 2025-03-28 13:59 Unspecified fracture of T11-T12 vertebra, initial encounter for closed fracture [facility] 2025-03-28 13:59 Fracture of unspecif ied part of neck of right femur, sequela [facility] 2025-03-28 13:59 Displaced intertroch anteric fracture of right femur, initial encounter for closed fracture [facility] 2025-03-28 13:59 Fall on same level, unspecified , initial encounter [facility] 2025-03-28 13:59 Other specified counseling [facility] 2025-03-29 04:45 Other iron deficiency [facility]emias [facility] 2025-03-29 04:45 Iron deficiency anemia, unspeci fied [facility] 2025-03-29 04:45 Elevated white blood cell count , unspecified [facility] 2025-03-29 04:45 Type 2 diabetes mellitus with h yperglycemia [facility] 2025-03-29 04:45 Type 2 diabetes mellitus withou t complications [facility] 2025-03-29 04:45 Unspecified severe protein-spencer angelita malnutrition [facility] 2025-03-29 04:45 Other specified diseases of michael s and rectum [facility] 2025-03-29 04:45 Pain in right hip [facility] 2025-03-29 04:45 Dorsalgia, unspecified [facility] 2025-03-29 04:45 Pain in right leg [facility] 2025-03-29 04:45 Cachexia [facility] 2025-03-29 04:45 Unspecified fracture of T11-T12 vertebra, initial encounter for closed fracture [facility] 2025-03-29 04:45 Fracture of unspecif ied part of neck of right femur, sequela [facility] 2025-03-29 04:45 Displaced intertroch anteric fracture of right femur, initial encounter for closed fracture [facility] 2025-03-29 04:45 Fall on same level, unspecified , initial encounter [facility] 2025-03-29 04:45 Other specified counseling [employer] 2025-03-29 05:16 Other iron deficiency anemias [employer] 2025-03-29 05:16 Iron deficiency anemia, unspeci fied [facility] 2025-03-29 05:16 Elevated white blood cell count , unspecified [facility] 2025-03-29 05:16 Type 2 diabetes mellitus with h yperglycemia [facility] 2025-03-29 05:16 Type 2 diabetes mellitus withou t complications [facility] 2025-03-29 05:16 Unspecified severe protein-spencer angelita malnutrition [facility] 2025-03-29 05:16 Other specified diseases of michael s and rectum [facility] 2025-03-29 05:16 Pain in right hip [facility] 2025-03-29 05:16 Dorsalgia, unspecified [facility] 2025-03-29 05:16 Pain [facility] 2025-03-29 05:16 Cachexia [facility] 2025-03-29 05:16 Unspecified fracture of T11-T12 vertebra, initial encounter for closed fracture [facility] 2025-03-29 05:16 Fracture of unspecif ied part of neck of right femur, sequela [facility] 2025-03-29 05:16 Displaced intertroch anteric fracture of right femur, initial encounter for closed fracture [facility] 2025-03-29 05:16 Fall on same level, unspecified , initial encounter [facility] 2025-03-29 05:16 Other specified counseling [employer] 2025-04-01 09:09 Other iron deficiency anemias [employer] 2025-04-01 09:09 Iron deficiency anemia, unspeci fied [facility] 2025-04-01 09:09 Elevated white blood cell count , unspecified [facility] 2025-04-01 09:09 Type 2 diabetes mellitus with h yperglycemia [facility] 2025-04-01 09:09 Type 2 diabetes mellitus withou t complications [facility]01 09:09 Unspecified severe protein-spencer angelita malnutrition [facility] [place] 2025-04-01 09:09 Other specified diseases of michael s and rectum [facility] 2025-04-01 09:09 Dorsalgia, unspecified [facility] 2025-04-01 09:09 Pain in right leg [facility] 2025-04-01 09:09 Cachexia [facility] 2025-04-01 09:09 Unspecified fracture of T11-T12 vertebra, initial encounter for closed fracture [facility] 2025-04-01 09:09 Fracture of unspecif ied part of neck of right femur, sequela [facility] 2025-04-01 09:09 Displaced intertroch anteric fracture of right femur, initial encounter for closed fracture [facility] 2025-04-01 09:09 Fall on same level, unspecified , initial encounter [facility] 2025-04-01 09:09 Other specified counseling [facility] [place] 2025-04-02 11:09 Other iron deficiency [facility]ias [facility]02 11:09 Iron deficiency anemia, unspeci fied [facility] 2025-04-02 11:09 Elevated white blood cell count , unspecified [facility] 2025-04-02 11:09 Type 2 diabetes mellitus with h yperglycemia [facility] 2025-04-02 11:09 Type 2 diabetes mellitus withou t complications [facility] 2025-04-02 11:09 Unspecified severe protein-spencer angelita malnutrition [facility] 2025-04-02 11:09 Other specified diseases of michael s and rectum [facility] 2025-04-02 11:09 Dorsalgia, unspecified [facility] 2025-04-02 11:09 Pain in right leg [facility] 2025-04-02 11:09 Cachexia [facility] 2025-04-02 11:09 Unspecified fracture of T11-T12 vertebra, initial encounter for closed fracture [facility] 2025-04-02 11:09 Fracture of unspecif ied part of neck of right femur, sequela [facility] 2025-04-02 11:09 Displaced intertroch anteric fracture of right femur, initial encounter for closed fracture [facility] [place] 2025-04-02 11:09 Fall on same level, unspecified , [facility] 2025-04-02 11:09 Other specified counseling [facility] 2025-04-02 11:10 Other iron deficiency [facility] [place] 2025-04-02 11:10 Iron deficiency anemia, unspeci fied [facility] 2025-04-02 11:10 Elevated white blood cell count , unspecified [facility] 2025-04-02 11:10 Type 2 diabetes mellitus with h yperglycemia [facility] 2025-04-02 11:10 Type 2 diabetes mellitus withou t complications [facility] 2025-04-02 11:10 Unspecified severe protein-spencer angelita malnutrition [facility] 2025-04-02 11:10 Other specified diseases of michael s and rectum [facility] 2025-04-02 11:10 Dorsalgia, unspecified [facility] 2025-04-02 11:10 Pain in right leg [facility] 2025-04-02 11:10 Cachexia [facility] 2025-04-02 11:10 Unspecified fracture of T11-T12 vertebra, initial encounter for closed fracture [facility] 2025-04-02 11:10 Fracture of unspecif ied part of neck of right femur, sequela [facility] 2025-04-02 11:10 Displaced intertroch anteric fracture of right femur, initial encounter for closed fracture [facility] 2025-04-02 11:10 Fall on same level, unspecified , initial encounter [facility] 2025-04-02 11:10 Other specified counseling [facility] 2025-04-04 10:01 Displaced intertroch anteric fracture of right femur, initial encounter for closed fracture [facility] 2025-04-04 10:01 Other specified postprocedural states [facility] 2025-04-10 11:39 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) [facility] 2025-04-10 11:39 Type 2 diabetes mellitus with h yperglycemia [facility] 2025-04-10 11:39 Sarcopenia [facility] 2025-04-10 11:39 Cachexia [facility] 2025-04-10 13:04 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) [facility] 2025-04-10 13:04 Type 2 diabetes mellitus with h yperglycemia [facility] 2025-04-10 13:04 Sarcopenia [facility] 2025-04-10 13:04 Cachexia [facility] 2025-04-10 18:33 Other iron deficiency anemias [employer] 2025-04-10 18:33 Acute posthemorrhagic anemia [facility] 2025-04-10 18:33 Anemia, unspecified [employer] [facility] 2025-04-10 18:33 Other specified diseases of michael s and rectum [facility] 2025-04-10 18:33 Melena [facility] 2025-04-10 18:33 Other fecal abnormalities [facility] 2025-04-11 07:37 Other iron deficiency anemias [employer] 2025-04-11 07:37 Acute posthemorrhagic anemia [facility] 2025-04-11 07:37 Anemia, unspecified [employer] [facility] 2025-04-11 07:37 Type 2 diabetes mellitus with h yperglycemia [facility] 2025-04-11 07:37 Other specified diseases of michael s and rectum [facility] 2025-04-11 07:37 Melena [facility] 2025-04-11 07:37 Other fecal abnormalities Fredio [facility] 2025-04-11 08:03 Other iron deficiency anemias [employer] 2025-04-11 08:03 Acute posthemorrhagic anemia [facility] 2025-04-11 08:03 Anemia, unspecified [employer] [facility] 2025-04-11 08:03 Type 2 diabetes mellitus with h yperglycemia [facility] 2025-04-11 08:03 Other specified diseases of michael s and rectum [facility] 2025-04-11 08:03 Melena [facility] 2025-04-11 08:03 Other fecal abnormalities Fredio 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) [facility] 2025-04-11 08:30 Type 2 diabetes mellitus with h yperglycemia [facility] 2025-04-11 08:30 Sarcopenia [facility] 2025-04-11 08:30 Cachexia [facility] 2025-04-11 11:42 Other iron deficiency anemias [employer] 2025-04-11 11:42 Acute posthemorrhagic anemia [facility] 2025-04-11 11:42 Anemia, unspecified luthery [facility] 2025-04-11 11:42 Type 2 diabetes mellitus with h yperglycemia [facility] 2025-04-11 11:42 Other specified diseases of michael s and rectum [facility] 2025-04-11 11:42 Melena [facility] 2025-04-11 11:42 Other fecal abnormalities [facility] 2025-04-11 15:47 Other iron deficiency anemias [employer] 2025-04-11 15:47 Acute posthemorrhagic anemia [facility] 2025-04-11 15:47 Anemia, unspecified Anderaluthery [facility] 2025-04-11 15:47 Type 2 diabetes mellitus with h yperglycemia [facility] 2025-04-11 15:47 Other specified diseases of michael s and rectum [facility] 2025-04-11 15:47 Melena [facility] 2025-04-11 15:47 Other fecal abnormalities Fredio [facility] 2025-04-12 07:58 Other iron deficiency anemias [employer] 2025-04-12 07:58 Acute posthemorrhagic anemia [facility] 2025-04-12 07:58 Anemia, unspecified Anderaidbey [facility] 2025-04-12 07:58 Type 2 diabetes mellitus with h yperglycemia [facility] 2025-04-12 07:58 Other specified diseases of michael s and rectum [facility] 2025-04-12 07:58 Melena [facility] 2025-04-12 07:58 Other fecal abnormalities [facility] 2025-04-12 08:31 Other iron deficiency anemias [employer] 2025-04-12 08:31 Acute posthemorrhagic anemia [employer] [facility] 2025-04-12 08:31 Anemia, unspecified idbey [facility] 2025-04-12 08:31 Type 2 diabetes mellitus with h yperglycemia [facility] 2025-04-12 08:31 Other specified diseases of michael s and rectum [facility] 2025-04-12 08:31 Melena [facility] 2025-04-12 08:31 Other fecal abnormalities [facility] 2025-04-12 09:01 Other iron deficiency anemias [employer] 2025-04-12 09:01 [facility] 2025-04-12 09:01 Anemia, unspecified luthery [facility] 2025-04-12 09:01 Type 2 diabetes mellitus with h yperglycemia [facility] 2025-04-12 09:01 Other specified diseases of michael s and rectum [facility] 2025-04-12 09:01 Melena [employer] [facility] 2025-04-12 09:01 Other fecal abnormalities [facility] 2025-04-12 12:41 Other iron deficiency anemias [employer] [facility] 2025-04-12 12:41 Acute [facility]hemorrhagic [facility] 2025-04-12 12:41 Anemia, unspecified idbey [facility] 2025-04-12 12:41 Type 2 diabetes mellitus with h yperglycemia [facility] 2025-04-12 12:41 Other specified diseases of michael s and rectum [facility] 2025-04-12 12:41 Melena [employer] [facility] 2025-04-12 12:41 Other fecal abnormalities [facility] 2025-04-15 13:06 Other iron deficiency anemias [employer] 2025-04-15 13:06 Acute posthemorrhagic anemia [facility] 2025-04-15 13:06 Anemia, unspecified idbey [facility] 2025-04-15 13:06 Type 2 diabetes mellitus with h yperglycemia [facility] 2025-04-15 13:06 Other specified diseases of michael s and rectum [facility] 2025-04-15 13:06 Melena [facility] 2025-04-15 13:06 Other fecal abnormalities [facility] 2025-04-15 13:17 Other iron deficiency [facility]emias [facility] 2025-04-15 13:17 Acute [facility]hemorrhagic [facility] 2025-04-15 13:17 Anemia, unspecified amieBetter World Booksy [facility] 2025-04-15 13:17 Type 2 diabetes mellitus with h yperglycemia [facility] 2025-04-15 13:17 Other specified diseases of michael s and rectum [facility] 2025-04-15 13:17 Melena [facility] 2025-04-15 13:17 Other fecal abnormalities [facility] 2025-04-17 12:49 Other iron deficiency anemias [facility] 2025-04-17 12:49 Acute posthemorrhagic [facility] 2025-04-17 12:49 Anemia, unspecified amieBetter World Booksjoy [facility] 2025-04-17 12:49 Type 2 diabetes mellitus with h yperglycemia [facility] 2025-04-17 12:49 Other specified diseases of michael s and rectum [facility] 2025-04-17 12:49 Melena [facility] 2025-04-17 12:49 Other fecal abnormalities [facility] 2025-04-17 12:49 Diarrhea, unspecified [facility] 2025-04-17 12:49 Other symptoms and signs involv ing emotional state [facility] 2025-04-17 12:49 Cachexia [facility] 2025-04-17 12:49 Other specified counseling [facility] [place] 2025-04-17 13:41 Other iron deficiency anemias [employer] [facility] 2025-04-17 13:41 Acute posthemorrhagic [facility] 2025-04-17 13:41 Anemia, unspecified idbey [facility] 2025-04-17 13:41 Type 2 diabetes mellitus with h yperglycemia [facility] 2025-04-17 13:41 Other specified diseases of michael s and rectum [facility] 2025-04-17 13:41 Melena [facility] 2025-04-17 13:41 Other fecal abnormalities [facility] 2025-04-17 13:41 Diarrhea, unspecified [facility] 2025-04-17 13:41 Other symptoms and signs involv ing emotional state [facility] 2025-04-17 13:41 Cachexia [facility] 2025-04-17 13:41 Other specified counseling [employer] 2025-04-17 13:53 Other iron deficiency anemias [facility] 2025-04-17 13:53 Acute posthemorrhagic anemia [facility] 2025-04-17 13:53 Anemia, unspecified aashish [facility] 2025-04-17 13:53 Type 2 diabetes mellitus with h yperglycemia [facility] 2025-04-17 13:53 Other specified diseases of michael s and rectum [facility] 2025-04-17 13:53 Melena [facility] 2025-04-17 13:53 Other fecal abnormalities [facility] 2025-04-17 13:53 Diarrhea, unspecified aashish [facility] 2025-04-17 13:53 Other symptoms and signs involv ing emotional state [facility] 2025-04-17 13:53 Cachexia [facility] 2025-04-17 13:53 Other specified counseling [employer] 2025-04-17 14:36 Other iron deficiency anemias [employer] [facility] 2025-04-17 14:36 Acute posthemorrhagic anemia [facility] 2025-04-17 14:36 Anemia, unspecified luthery [facility] 2025-04-17 14:36 Type 2 diabetes mellitus with h yperglycemia [facility] 2025-04-17 14:36 Other specified diseases of michael s and rectum [facility] 2025-04-17 14:36 Melena [facility] 2025-04-17 14:36 Other fecal abnormalities [facility] 2025-04-17 14:36 Diarrhea, unspecified [facility] 2025-04-17 14:36 Other symptoms and signs involv ing emotional state [facility] 2025-04-17 14:36 Cachexia [facility] 2025-04-17 14:36 Other specified counseling [facility] [place] 2025-04-17 14:37 Other iron deficiency anemias [facility] [place] 2025-04-17 14:37 Acute posthemorrhagic anemia [facility] [employer] [facility] [employer] 2025-04-17 14:37 Anemia, unspecified [facility] Books[facility] 2025-04-17 14:37 Type 2 diabetes mellitus with h yperglycemia [facility] 2025-04-17 14:37 Other specified diseases of michael s and rectum [facility] 2025-04-17 14:37 Melena [facility] 2025-04-17 14:37 Other fecal abnormalities [facility] [place] 2025-04-17 14:37 Diarrhea, unspecified [facility] 2025-04-17 14:37 Other symptoms and signs involv ing emotional state [facility] 2025-04-17 14:37 Cachexia [facility] 2025-04-17 14:37 Other specified counseling [facility] [place] Results/Labs test date facility value unit notes Result panel 1 IRON 2025-03-17 03:17 [facility] < 10 ug/dl As of November 2022 testing method has changed, this may include reference ranges. NUCLEATED RED BLOOD CELLS AUTO 2025-03-17 03:17 [facility] 0.0 /100wbc (missing) BASOPHILS # (AUTO) 2025-03-17 03:17 [facility] 0.0 10 3/ul (missing) NRBC ABSOLUTE COUNT (AUTO) 2025-03-17 03:17 [facility] 0.00 x10 3/ul (missing) EOSINOPHILS # (AUTO) 2025-03-17 03:17 [facility] 0.1 10 3/ul (missing) MONOCYTES # (AUTO) 2025-03-17 03:17 [facility] 0.3 10 3/ul (missing) BILIRUBIN,TOTAL 2025-03-17 03:17 [facility] 0.4 mg/dl As of November 2022 testing method has changed, this may include reference ranges. CREATININE 2025-03-17 03:17 [facility] 0.5 mg/dl As of November 2022 testing method has changed, this may include reference ranges. ALBUMIN/GLOBULIN RATIO 2025-03-17 03:17 [facility] 1.0 (missing) (missing) LYMPHOCYTES # (AUTO) 2025-03-17 03: [facility] 1.2 10 3/ul (missing) CALCIUM 2025-03-17 03:17 [facility] 10.8 mg/dl As of November 2022 testing method has changed, this may include reference ranges. CHLORIDE 2025-03-17 03: [facility] 100 mmol/l As of November 2022 testing method has changed, this may include reference ranges. ALKALINE PHOSPHATASE 2025-03-17 03: [facility] 103 iu/l As of November 2022 testing method has changed, this may include reference ranges. BUN - BLOOD UREA NITROGEN 2025-03-17 03:17 [facility] 13 mg/dl As of November 2022 testing method has changed, this may include reference ranges. SODIUM 2025-03-17 03: [facility] 135 mmol/l (missing) RED CELL DISTRIBUTION WIDTH 2025-03-17 03:17 [facility] 14.2 % (missing) AST ASPARTATE AMINOTRANSFERASE 2025-03-17 03:17 [facility] 15 iu/l As of November 2022 testing method has changed, this may include reference ranges. GFR - MDRD 2025-03-17 03:17 [facility] 162 (missing) The IDMS-traceable MDRD Study Equation [...] July 2011. ALT ALANINE AMINOTRANSFERASE 2025-03-17 03:17 [facility] 17 iu/l As of November 2022 testing method has changed, this may include reference ranges. ESTIMATED AVERAGE GLUCOSE 2025-03-17 03:17 [facility] 212 mg/dl (missing) MEAN CORPUSCULAR HEMOGLOBIN 2025-03-17 03:17 [facility] 22.9 pg (missing) HCT - HEMATOCRIT 2025-03-17 03:17 [facility] 24.1 % (missing) GLUCOSE 2025-03-17 03:17 [facility] 256 mg/dl As of November 2022 testing method has changed, this may include reference ranges. TRANSFERRIN 2025-03-17 03:17 [facility] 258 mg/dl As of November 2022 testing method has changed, this may include reference ranges. CARBON DIOXIDE - CO2 2025-03-17 03:17 [facility] 28 mmol/l As of November 2022 testing method has changed, this may include reference ranges. RED BLOOD COUNT 2025-03-17 03:17 [facility] 3.27 10 6/ul (missing) GLOBULIN 2025-03-17 03:17 [facility] 3.6 g/dl (missing) ALBUMIN 2025-03-17 03:17 [facility] 3.6 g/dl As of November 2022 testing method has changed, this may include reference ranges. POTASSIUM 2025-03-17 03:17 [facility] 3.8 mmol/l As of November 2022 testing method has changed, this may include reference ranges. [facility] HGB CONC 2025-03-17 03:17 [facility] 31.1 g/dl (missing) TOTAL IRON BINDING CAPACITY 2025-03-17 03:17 [facility] 361 ug/dl (missing) ANION GAP 2025-03-17 03:17 [facility] 7.0 (missing) (missing) NEUTROPHILS # (AUTO) 2025-03-17 03:17 [facility] 7.0 10 3/ul (missing) TOTAL PROTEIN 2025-03-17 03:17 [facility] 7.2 g/dl As of November 2022 testing method has changed, this may include reference ranges. HGB - HEMOGLOBIN 2025-03-17 03:17 [facility] 7.5 g/dl (missing) PLT - PLATELET COUNT 2025-03-17 03:17 [facility] 701 10 3/ul (missing) MEAN CORPUSCULAR VOLUME 2025-03-17 03:17 [facility] 73.7 fl (missing) HEMOGLOBIN A1c% 2025-03-17 03:17 [facility] 9.0 % [place] [employer] (ADA) has made the following recommendations: Monitoring HbA1c in Diabetic Patients: A1c (NGSP%) Goal <8 Less Stringent Goal <7 General Goal <6.5 More Stringent Goal Diagnosis of Diabetes: A1c (NGSP%) Goal >6.5 Diabetic 5.7-6.4 Pre-Diabetic <5.7 Non-Diabetic WHITE BLOOD COUNT 2025-03-17 03:17 [facility] 9.0 x10 3/ul (missing) MEAN PLATELET VOLUME 2025-03-17 03:17 [facility] 9.4 fl (missing) % IRON SATURATION 2025-03-17 03:17 [facility] TNP % Unable to calculate. Analyte below the measurable range. Result panel 2 RBC,URINE 2025-03-17 11:25 [facility] 0-5 /hpf (missing) UROBILINOGEN,URIN E 2025-03-17 11:25 [facility] 0.2 (NORMAL) e.u./dl (missing) SPECIFIC GRAVITY,URINE 2025-03-17 11:25 [facility] 1.010 (missing) (missing) KETONES,URINE (UA) 2025-03-17 11:25 [facility] 15 mg/dl (missing) WBC,URINE 2025-03-17 11:25 [facility] 4-5 /hpf (missing) GLUCOSE, URINE (UA) 2025-03-17 11:25 [facility] 500 mg/dl (missing) PH,URINE 2025-03-17 11:25 [facility] 7.0 ph (missing) CLARITY,URINE 2025-03-17 11:25 [facility] CLEAR (missing) (missing) MUCUS,URINE 2025-03-17 11:25 [facility] Few Strands (missing) (missing) AMORPHOUS SEDIMENT,UR 2025-03-17 11:25 [facility] Few /lpf (missing) URINE MICROSCOPIC INDICATED? [...] RARE Squamous (missing) (missing) BACTERIA,URINE 2025-03-17 11:25 [facility] Rare /hpf (missing) PROTEIN,URINE 2025-03-17 11:25 [facility] TRACE mg/dl (missing) OCCULT BLOOD,URINE 2025-03-17 11:25 [facility] TRACE-INTACT (missing) (missing) COLOR,URINE 2025-03-17 11:25 [facility] YELLOW (missing) URINE CLEAN CATCH Result panel 3 GLUCOSE, WHOLE BLOOD 2025-03-17 21:36 [facility] 275 (missing) (missing) Result panel 4 BILIRUBIN,TOTAL 2025-03-18 07:41 [facility] 0.4 mg/dl As of November 2022 testing method has changed, this may include reference ranges. CREATININE 2025-03-18 07:41 [facility] 0.4 mg/dl As of November 2022 testing method has changed, this may include reference ranges. ALBUMIN/GLOBULIN RATIO 2025-03-18 07:41 [facility] 1.0 (missing) (missing) MAGNESIUM 2025-03-18 07:41 [facility] 1.7 mg/dl As of November 2022 testing method has changed, this may include reference ranges. CHLORIDE 2025-03-18 07:41 [facility] 102 mmol/l As of November 2022 testing method has changed, this may include reference ranges. AST ASPARTATE AMINOTRANSFERASE 2025-03-18 07:41 [facility] 11 iu/l As of November 2022 testing method has changed, this may include reference ranges. ALT ALANINE AMINOTRANSFERASE 2025-03-18 07:41 [facility] 12 iu/l As of November 2022 testing method has changed, this may include reference ranges. BUN - BLOOD UREA NITROGEN 2025-03-18 07:41 [facility] 13 mg/dl As of November 2022 testing method has changed, this may include reference ranges. SODIUM 2025-03-18 07:41 [facility] 135 mmol/l (missing) RED CELL DISTRIBUTION WIDTH 2025-03-18 07:41 [facility] 14.3 % (missing) HCT - HEMATOCRIT 2025-03-18 07:41 [facility] 19.4 % Called to BRE Voss RN by Yris Morgan MLT([facility]) at 0807 03/18/25. Read back(Y/N)? Y RED BLOOD COUNT 2025-03-18 07:41 [facility] 2.67 10 6/ul (missing) GLOBULIN 2025-03-18 07:41 [facility] 2.9 g/dl (missing) GFR - MDRD 2025-03-18 07:41 [facility] 209 (missing) The IDMS-traceable MDRD Study Equation [...] last updated July 2011. GLUCOSE 2025-03-18 07:41 [facility] 215 mg/dl As of November 2022 testing method has changed, this may include reference ranges. MEAN CORPUSCULAR HEMOGLOBIN 2025-03-18 07:41 [facility] 22.8 pg (missing) CARBON DIOXIDE - CO2 2025-03-18 07:41 [facility] 28 mmol/l As of November 2022 testing method has changed, this may include reference ranges. ALBUMIN 2025-03-18 07:41 [facility] 3.0 g/dl As of November 2022 testing method has changed, this may include reference ranges. POTASSIUM 2025-03-18 07:41 [facility] 3.3 mmol/l As of November 2022 testing method has changed, this may include reference ranges. MEAN CORPUSCULAR HGB CONC 2025-03-18 07:41 [facility] 31.4 g/dl (missing) FERRITIN 2025-03-18 07:41 [facility] 35.2 ng/ml (missing) ANION GAP 2025-03-18 07:41 [facility] 5.0 (missing) (missing) TOTAL PROTEIN 2025-03-18 07:41 [facility] 5.9 g/dl As of November 2022 testing method has changed, this may include reference ranges. PLT - PLATELET COUNT 2025-03-18 07:41 [facility] 590 10 3/ul (missing) HGB - HEMOGLOBIN 2025-03-18 07:41 [facility] 6.1 g/dl Called to BRE Voss RN by Yris Morgan MLT([facility]) at 0807 03/18/25. Read back(Y/N)? Y MEAN CORPUSCULAR VOLUME 2025-03-18 07:41 [facility] 72.7 fl (missing) ALKALINE PHOSPHATASE 2025-03-18 07:41 [facility] 80 iu/l As of November 2022 testing method has changed, this may include reference ranges. WHITE BLOOD COUNT 2025-03-18 07:41 [facility] 9.8 x10 3/ul (missing) MEAN PLATELET VOLUME 2025-03-18 07:41 [facility] 9.9 fl (missing) CALCIUM 2025-03-18 07:41 [facility] 9.9 mg/dl As of November 2022 testing method has changed, this may include reference ranges. Result panel 5 GLUCOSE, WHOLE BLOOD 2025-03-18 07:42 [facility] 199 (missing) (missing) Result panel 6 CEA - CARCINOEMBRYONIC ANTIGEN 2025-03-18 08:33 [facility] 76.0 ng/ml CEA Refer ence Range: Adult nonsmokers: <2.5 ng/mL Adult smokers: <5.0 ng/mL Result panel 7 GLUCOSE, WHOLE BLOOD 2025-03-18 11:19 [facility] 240 (missing) (missing) Result panel 8 HCT - HEMATOCRIT 2025-03-18 16:22 [facility] 26.7 % (missing) HGB - HEMOGLOBIN 2025-03-18 16:22 [facility] 8.2 g /dl (missing) Result panel 9 GLUCOSE, WHOLE BLOOD 2025-03-18 16:41 [facility] 241 (missing) RN notified. Result panel 10 GLUCOSE, WHOLE BLOOD 2025-03-18 20:52 [facility] 303 (missing) RN notified. Result panel 11 BILIRUBIN,TOTAL 2025-03-19 04:07 [facility] 0.3 mg/dl As of November 2022 testing method has changed, this may include reference ranges. CREATININE 2025-03-19 04:07 [facility] 0.4 mg/dl As of November 2022 testing method has changed, this may include reference ranges. ALBUMIN/GLOBULIN RATIO 2025-03-19 04:07 [facility] 1.0 (missing) (missing) MAGNESIUM 2025-03-19 04:07 [facility] 1.7 mg/dl As of November 2022 testing method has changed, this may include reference ranges. CALCIUM 2025-03-19 04:07 [facility] 10.0 mg/dl As of November 2022 testing method has changed, this may include reference ranges. MEAN PLATELET VOLUME 2025-03-19 04:07 [facility] 10.3 fl (missing) CHLORIDE 2025-03-19 04:07 [facility] 100 mmol/l As of November 2022 testing method has changed, this may include reference ranges. AST ASPARTATE AMINOTRANSFERASE 2025-03-19 04:07 [facility] 11 iu/l As of November 2022 testing method has changed, this may include reference ranges. ALT ALANINE AMINOTRANSFERASE 2025-03-19 04:07 [facility] 11 iu/l As of November 2022 testing method has changed, this may include reference ranges. WHITE BLOOD COUNT 2025-03-19 04:07 [facility] 11.5 x10 3/ul (missing) SODIUM 2025-03-19 04:07 [facility] 135 mmol/l (missing) BUN - BLOOD UREA NITROGEN 2025-03-19 04:07 [facility] 14 mg/dl As of November 2022 testing method has changed, this may include reference ranges. RED CELL DISTRIBUTION WIDTH 2025-03-19 04:07 [facility] 14.6 % (missing) GFR - MDRD 2025-03-19 04:07 [facility] 209 (missing) The IDMS-traceable MDRD Study Equation [...] July 2011. MEAN CORPUSCULAR HEMOGLOBIN 2025-03-19 04:07 [facility] 23.6 pg (missing) HCT - HEMATOCRIT 2025-03-19 04:07 [facility] 24.0 % (missing) CARBON DIOXIDE - CO2 2025-03-19 04:07 [facility] 28 mmol/l As of November 2022 testing method has changed, this may include reference ranges. ALBUMIN 2025-03-19 04:07 [facility] 3.0 g/dl As of November 2022 testing method has changed, this may include reference ranges. GLOBULIN 2025-03-19 04:07 [facility] [employer] [facility] [employer] 3.1 g/dl (missing) RED BLOOD COUNT 2025-03-19 04:07 [facility] 3.22 10 6/ul (missing) POTASSIUM 2025-03-19 04:07 [facility] 3.5 mmol/l As of November 2022 testing method has changed, this may include reference ranges. MEAN CORPUSCULAR HGB CONC 2025-03-19 04:07 [facility] 31.7 g/dl (missing) GLUCOSE 2025-03-19 04:07 [facility] 382 mg/dl As of November 2022 testing method has changed, this may include reference ranges. TOTAL PROTEIN 2025-03-19 04:07 [facility] 6.1 g/dl As of November 2022 testing method has changed, this may include reference ranges. PLT - PLATELET COUNT 2025-03-19 04:07 [facility] 633 10 3/ul (missing) ANION GAP 2025-03-19 04:07 [facility] 7.0 (missing) (missing) HGB - HEMOGLOBIN 2025-03-19 04:07 [email or web address] 7.6 g/dl (missing) MEAN CORPUSCULAR VOLUME 2025-03-19 04:07 [email or web address] 74.5 fl (missing) ALKALINE PHOSPHATASE 2025-03-19 04:07 [email or web address] 92 iu/l As of November 2022 testing method has changed, this may include reference ranges. Result panel 12 GLUCOSE, WHOLE BLOOD 2025-03-19 07:34 [facility] 386 (missing) RN notified. Result panel 13 GLUCOSE, WHOLE BLOOD 2025-03-19 11:47 [facility] 405 (missing) RN notified. Result panel 14 GLUCOSE, WHOLE BLOOD 2025-03-19 16:40 [facility] 333 (missing) RN notified. Result panel 15 GLUCOSE, WHOLE BLOOD 2025-03-19 20:58 [facility] 230 (missing) (missing) Result panel 16 NUCLEATED RED BLOOD CELLS AUTO 2025-03-20 04:07 [email or web address] 0.0 /100wbc (missing) NRBC ABSOLUTE COUNT (AUTO) 2025-03-20 04:07 [facility] 0.00 x10 3/ul (missing) BASOPHILS # (AUTO) 2025-03-20 04:07 [facility] 0.1 10 3/ul (missing) EOSINOPHILS # (AUTO) 2025-03-20 04:07 [facility] 0.2 10 3/ul (missing) CREATININE 2025-03-20 04:07 [email or web address] 0.3 mg/dl As of November 2022 testing method has changed, this may include reference ranges. MONOCYTES # (AUTO) 2025-03-20 04:07 [facility] 0.7 10 3/ul (missing) LYMPHOCYTES # (AUTO) 2025-03-20 04:07 [facility] 1.5 10 3/ul (missing) CALCIUM 2025-03-20 04:07 [facility] [employer] 10.0 mg/dl As of November 2022 testing method has changed, this may include reference ranges. MEAN PLATELET VOLUME 2025-03-20 04:07 [facility] 10.4 fl (missing) CHLORIDE 2025-03-20 04:07 [facility] 102 mmol/l As of November 2022 testing method has changed, this may include reference ranges. SODIUM 2025-03-20 04:07 [facility] 134 mmol/l (missing) NEUTROPHILS # (AUTO) 2025-03-20 04:07 [facility] 14.2 10 3/ul (missing) GLUCOSE 2025-03-20 04:07 [facility] 140 mg/dl As of November 2022 testing method has changed, this may include reference ranges. RED CELL DISTRIBUTION WIDTH 2025-03-20 04:07 [facility] 15.1 % (mi ssing) WHITE BLOOD COUNT 2025-03-20 04:07 [facility] 16.7 x10 3/ul (missing) BUN - BLOOD UREA NITROGEN 2025-03-20 04:07 [facility] 20 mg/dl As of Nov testing method has changed, this may include reference ranges. MEAN CORPUSCULAR HEMOGLOBIN 2025-03-20 04:07 [facility] 23.1 pg (missing) HCT - HEMATOCRIT 2025-03-20 04:07 [facility] 24.5 % (missing) CARBON DIOXIDE - CO2 2025-03-20 04:07 [facility] 26 mmol/l As of November 2022 testing method has changed, this may include reference ranges. GFR - MDRD 2025-03-20 04:07 [facility] 291 (in g) The IDMS-traceable MDRD Study Equation [...] July 2011. RED BLOOD COUNT 2025-03-20 04:07 [facility] 3.21 10 6/ul (missing) POTASSIUM 2025-03-20 04:07 [facility] 3.3 mmol/l As of November 2022 testing method has changed, this may include reference ranges. MEAN CORPUSCULAR HGB CONC 2025-03-20 04:07 [facility] 30.2 g/dl (missing) ANION GAP 2025-03-20 04:07 [facility] 6.0 (missing ) (missing) PLT - PLATELET COUNT 2025-03-20 04:07 [facility] 658 10 3/ul (missing) HGB - HEMOGLOBIN 2025-03-20 04:07 [facility] 7.4 g /dl (missing) MEAN CORPUSCULAR VOLUME 2025-03-20 04:07 [facility] 76.3 fl (missing) Result panel 17 GLUCOSE, WHOLE BLOOD 2025-03-20 07:49 [facility] 169 (missing) RN notified. Result panel 18 GLUCOSE, WHOLE BLOOD 2025-03-20 11:18 [facility] 187 (missing) RN notified. Result panel 19 GLUCOSE, WHOLE BLOOD 2025-03-20 16:48 [facility] 168 (missing) (missing) Result panel 20 GLUCOSE, WHOLE BLOOD 2025-03-20 20:51 [facility] 200 (missing) RN notified. Result panel 21 CRYSTALS,URINE 2025-03-21 02:52 [facility] 0-2 Triple Phosphate /lpf (missing) WBC,URINE 2025-03-21 02:52 [facility] 0-3 /hpf (missing) RBC,URINE 2025-03-21 02:52 [facility] 0-5 /hpf (missing) UROBILINOGEN,URINE 2025-03-21 02:52 [facility] 0.2 (NORMAL) e.u./dl (missing) SPECIFIC GRAVITY,URINE 2025-03-21 02:52 [facility] 1.015 (missing) (missing) PROTEIN,URINE 2025-03-21 02:52 [facility] 30 mg/dl (missing) PH,URINE 2025-03-21 02:52 [facility] 6.0 ph (missing) CLARITY,URINE 2025-03-21 02:52 [facility] CLEAR (missing) (missing) LEUKOCYTE ESTERASE, URINE 2025-03-21 02:52 [facility] NEGATIVE (missing) (missing) NITRITE,URINE 2025-03-21 02:52 [facility] NEGATIVE (missing) (missing) OCCULT BLOOD,URINE 2025-03-21 [...] reference ranges. MONOCYTES # (AUTO) 2025-03-21 05:19 [facility] 0.6 10 3/ul (missing) LYMPHOCYTES # (AUTO) 2025-03-21 05:19 [facility] 1.5 10 3/ul (missing) MEAN PLATELET VOLUME 2025-03-21 05:19 [facility] 10.3 fl (missing) NEUTROPHILS # (AUTO) 2025-03-21 05:19 [email or web address] 10.9 10 3/ul (missing) CHLORIDE 2025-03-21 05:19 [facility] 104 mmol/l As of November 2022 testing method has changed, this may include reference ranges. WHITE BLOOD COUNT 2025-03-21 05:19 [facility] 13.4 x10 3/ul (missing) SODIUM 2025-03-21 05:19 [facility] 136 mmol/l (missing) RED CELL DISTRIBUTION WIDTH 2025-03-21 05:19 [facility] 15.7 % (missing) GLUCOSE 2025-03-21 05:19 [facility] 156 mg/dl As of November 2022 testing method has changed, this may include reference ranges. GFR - MDRD 2025-03-21 05: [facility] 209 (missing) The IDMS-traceable MDRD Study Equation [...] BUN - BLOOD UREA NITROGEN 2025-03-21 05:19 [facility] 23 mg/dl As of November 2022 testing method has changed, this may include reference ranges. HCT - HEMATOCRIT 2025-03-21 05:19 [facility] 23.3 % (missing) MEAN CORPUSCULAR HEMOGLOBIN 2025-03-21 05:19 [facility] 23.5 pg (missing) CARBON DIOXIDE - CO2 2025-03-21 05:19 [employer] 26 mmol/l As of November 2022 testing method has changed, this may include reference ranges. RED BLOOD COUNT 2025-03-21 05:19 [facility] 3.11 10 6/ul (missing) POTASSIUM 2025-03-21 05:19 [facility] 3.7 mmol/l As of November 2022 testing method has changed, this may include reference ranges. MEAN CORPUSCULAR HGB CONC 2025-03-21 05:19 [facility] 31.3 g/dl (missing) ANION GAP 2025-03-21 05:19 [facility] 6.0 (missing) (missing) PLT - PLATELET COUNT 2025-03-21 05:19 [employer] 603 10 3/ul (missing) HGB - HEMOGLOBIN 2025-03-21 05:19 [facility] 7.3 g/dl (missing) MEAN CORPUSCULAR VOLUME 2025-03-21 05:19 [facility] 74.9 fl (missing) CALCIUM 2025-03-21 05:19 [facility] [employer] [facility] 9.7 mg/dl As of November 2022 testing method has changed, this may include reference ranges. CULTURE, BLOOD #1 2025-03-21 05:[address] [employer] [facility] NG1DNO GROWTH AFTER 1 DAY (missing) (missing) CULTURE, BLOOD #1 2025-03-21 05:19 [facility] NG2DNO GROWTH AFTER 2 DAYS (missing) (missing) CULTURE, BLOOD #1 2025-03-21 05:19 [facility] NG5DNO GROWTH AFTER 5 DAYS (missing) (missing) Result panel 23 GLUCOSE, WHOLE BLOOD 2025-03-21 07:51 [facility] [employer] 161 (missing) (missing) Result panel 24 GLUCOSE, WHOLE BLOOD 2025-03-21 11:35 [facility] 110 (missing) RN notified. Result panel 25 GLUCOSE, WHOLE BLOOD 2025-03-21 16:52 [email or web address] 117 (missing) (missing) Result panel 26 GLUCOSE, WHOLE BLOOD 2025-03-21 21:03 [facility] 156 (missing) (missing) Result panel 27 NUCLEATED RED BLOOD CELLS AUTO 2025-03-22 05:09 [facility] 0.0 /100wbc (missing) NRBC ABSOLUTE COUNT (AUTO) 2025-03-22 05:09 [facility] 0.00 x10 3/ul (missing) BASOPHILS # (AUTO) 2025-03-22 05:09 [facility] 0.1 10 3/ul (missing) EOSINOPHILS # (AUTO) 2025-03-22 05:09 [facility] 0.2 10 3/ul (missing) CREATININE 2025-03-22 05:09 [facility] 0.5 mg/dl As of November 2022 testing method has changed, this may include reference ranges. MONOCYTES # (AUTO) 2025-03-22 05:09 [facility] 0.6 10 3/ul (missing) LYMPHOCYTES # (AUTO) 2025-03-22 05:09 [facility] 1.3 10 3/ul (missing) CALCIUM 2025-03-22 05:09 [facility] 10.0 mg/dl As of November 2022 testing method has changed, this may include reference ranges. MEAN PLATELET VOLUME 2025-03-22 05:09 [facility] 10.2 fl (missing) CHLORIDE 2025-03-22 05:09 [facility] 105 mmol/l As of November 2022 testing method has changed, this may include reference ranges. WHITE BLOOD COUNT 2025-03-22 05:09 [facility] 11.6 x10 3/ul (missing) SODIUM 2025-03-22 05:09 [facility] 138 mmol/l (missing) GLUCOSE 2025-03-22 05:09 [facility] 159 mg/dl As of November 2022 testing method has changed, this may include reference ranges. RED CELL DISTRIBUTION WIDTH 2025-03-22 05:09 [facility] 16.1 % (missing) GFR - MDRD 2025-03-22 05:09 [email or web address] 162 (missing) The IDMS-traceable MDRD Study Equation [...] patients older than 70. References: http://www.nkdep .nih.gov/lab-de stephanieantoine/gfr/crekeegan ortiz-dori mosherzation, last updated July 2011. BUN - BLOOD UREA NITROGEN 2025-03-22 05:09 [facility] 22 mg/dl As of November 2022 testing method has changed, this may include reference ranges. HCT - HEMATOCRIT 2025-03-22 05:09 [facility] 23.9 % (missing) MEAN CORPUSCULAR HEMOGLOBIN 2025-03-22 05:09 [facility] 23.9 pg (missing) CARBON DIOXIDE - CO2 2025-03-22 05:09 [facility] 27 mmol/l As of November 2022 testing method has changed, this may include reference ranges. RED BLOOD COUNT 2025-03-22 05:09 [facility] 3.14 10 6/ul (missing) POTASSIUM 2025-03-22 05:09 [facility] 3.8 mmol/l As of November 2022 testing method has changed, this may include reference ranges. MEAN CORPUSCULAR HGB CONC 2025-03-22 05:09 [facility] 31.4 g/dl (missing) PLT - PLATELET COUNT 2025-03-22 05:09 [facility] 586 10 3/ul (missing) ANION GAP 2025-03-22 05:09 [facility] 6.0 (missing) (missing) HGB - HEMOGLOBIN 2025-03-22 05:09 [facility] 7.5 g/dl (missing) MEAN CORPUSCULAR VOLUME 2025-03-22 05:09 [facility] 76.1 fl (missing) NEUTROPHILS # (AUTO) 2025-03-22 05:09 [facility] 9.3 10 3/ul (missing) CULTURE, BLOOD #2 2025-03-22 05:09 [facility] NG1DNO GROWTH AFTER 1 DAY (missing) (missing) CULTURE, BLOOD #2 2025-03-22 05:09 [facility] NG2DNO GROWTH AFTER 2 DAYS (missing) (missing) CULTURE, BLOOD #2 2025-03-22 05:09 [facility] NG5DNO GROWTH AFTER 5 DAYS (missing) (missing) Result panel 28 GLUCOSE, WHOLE BLOOD 2025-03-22 07:45 [facility] 154 (missing) RN notified. Result panel 29 GLUCOSE, WHOLE BLOOD 2025-03-22 11:43 [facility] 161 (missing) (missing) Result panel 30 GLUCOSE, WHOLE BLOOD 2025-03-22 17:06 [facility] 134 (missing) (missing) Result panel 31 GLUCOSE, WHOLE BLOOD 2025-03-22 20:24 [facility] 150 (missing) RN notified. Result panel 32 NUCLEATED RED BLOOD CELLS AUTO 2025-03-23 05:35 [facility] 0.0 /100wbc (missing) EOSINOPHILS # (AUTO) 2025-03-23 05:35 [facility] 0.0 10 3/ul (missing) NRBC ABSOLUTE COUNT (AUTO) 2025-03-23 05:35 [facility] 0.00 x10 3/ul (missing) BASOPHILS # (AUTO) 2025-03-23 05:35 [email or web address] 0.1 10 3/ul (missing) CREATININE 2025-03-23 05:35 [facility] 0.4 mg/dl As of November 2022 testing method has changed, this may include reference ranges. MONOCYTES # (AUTO) 2025-03-23 05:35 [facility] 0.6 10 3/ul (missing) LYMPHOCYTES # (AUTO) 2025-03-23 05:35 [facility] 1.1 10 3/ul (missing) CHLORIDE 2025-03-23 05:35 [email or web address] 104 mmol/l As of November 2022 testing method has changed, this may include reference ranges. SODIUM 2025-03-23 05:35 [facility] 137 mmol/l (missing) RED CELL DISTRIBUTION WIDTH 2025-03-23 05:35 [facility] 16.2 % (mi ssing) GLUCOSE 2025-03-23 05:35 [facility] 169 mg/dl As of November 2022 testing method has changed, this may include reference ranges. BUN - BLOOD UREA NITROGEN 2025-03-23 05:35 [facility] 18 mg/dl As of Nov testing method has changed, this may include reference ranges. RED BLOOD COUNT 2025-03-23 05:35 [facility] 2.72 10 6/ul (missing) HCT - HEMATOCRIT 2025-03-23 05:35 [facility] 20.4 % (missing) GFR - MDRD 2025-03-23 05:35 [facility] 209 (fabiola reese) The IDMS-traceable MDRD Study [...] July 2011. MEAN CORPUSCULAR HEMOGLOBIN 2025-03-23 05:35 [facility] 23.2 pg (missing) CARBON DIOXIDE - CO2 2025-03-23 05:35 [facility] 27 mmol/l As of November 2022 testing method has changed, this may include reference ranges. MEAN CORPUSCULAR HGB CONC 2025-03-23 05:35 [facility] 30.9 g/dl (missing) POTASSIUM 2025-03-23 05:35 [facility] 4.0 mmol/l As of November 2022 testing method has changed, this may include reference ranges. PLT - PLATELET COUNT 2025-03-23 05:35 [facility] 561 10 3/ul (missing) ANION GAP 2025-03-23 05:35 [facility] 6.0 (missing ) (missing) HGB - HEMOGLOBIN 2025-03-23 05:35 [facility] 6.3 g /dl Called to JELLY Crum (MS RN) by Xin Pantoja [facility] at 0547 03/23/25. Read back(Y/N)? Y NEUTROPHILS # (AUTO) 2025-03-23 05:35 [facility] 7.5 10 3/ul (missing) MEAN CORPUSCULAR VOLUME 2025-03-23 05:35 [facility] 75.0 fl (missing) WHITE BLOOD COUNT 2025-03-23 05:35 [facility] 9.2 x10 3/ul (missing) CALCIUM 2025-03-23 05:35 [facility] 9.5 mg/dl As of November 2022 [...] (missing) RED CELL DISTRIBUTION WIDTH 2025-03-23 13:04 [facility] 16.1 % (missing) MEAN CORPUSCULAR HEMOGLOBIN 2025-03-23 13:04 [facility] 24.6 pg (missing) HCT - HEMATOCRIT 2025-03-23 13:04 [facility] 25.4 % (missing) RED BLOOD COUNT 2025-03-23 13:04 [facility] 3.21 10 6/ul (missing) MEAN CORPUSCULAR HGB CONC 2025-03-23 13:04 [facility] 31 .1 g/dl (missing) PLT - PLATELET COUNT 2025-03-23 13:04 [facility] 657 10 3/ul (missing) HGB - HEMOGLOBIN 2025-03-23 13:04 [facility] 7.9 g /dl (missing) MEAN CORPUSCULAR VOLUME 2025-03-23 13:04 [facility] 79.1 fl (missing) WHITE BLOOD COUNT 2025-03-23 13:04 [facility] 8.5 x10 3/ul (missing) Result panel 36 GLUCOSE, WHOLE BLOOD 2025-03-23 16:43 [facility] 275 (missing) RN notified. Result panel 37 GLUCOSE, WHOLE BLOOD 2025-03-23 20:55 [facility] 230 (missing) RN notified. Result panel 38 NUCLEATED RED BLOOD CELLS AUTO 2025-03-24 05:47 [facility] 0.0 /100wbc (missing) NRBC ABSOLUTE COUNT (AUTO) 2025-03-24 05:47 [facility] 0.00 x10 3/ul (missing) BASOPHILS # (AUTO) 2025-03-24 05:47 [facility] 0.1 10 3/ul (missing) EOSINOPHILS # (AUTO) 2025-03-24 05:47 [facility] 0.2 10 3/ul (missing) CREATININE 2025-03-24 05:47 [facility] 0.4 mg/dl As of November 2022 testing method has changed, this may include reference ranges. MONOCYTES # (AUTO) 2025-03-24 05:47 [facility] 0.7 10 3/ul (missing) LYMPHOCYTES # (AUTO) 2025-03-24 05:47 [facility] 1.1 10 3/ul (missing) CALCIUM 2025-03-24 05:47 [facility] 10.0 mg/dl As of November 2022 testing method has changed, this may include reference ranges. MEAN PLATELET VOLUME 2025-03-24 05:47 [facility] 10.1 fl (missing) CHLORIDE 2025-03-24 05:47 [facility] 102 mmol/l As of November 2022 testing method has changed, this may include reference ranges. SODIUM 2025-03-24 05:47 [facility] 133 mmol/l (missing) BUN - BLOOD UREA NITROGEN 2025-03-24 05:47 [facility] 16 mg/dl As of Nov testing method has changed, this may include reference ranges. RED CELL DISTRIBUTION WIDTH 2025-03-24 05:47 [facility] 16.0 % (mi ssing) GLUCOSE 2025-03-24 05:47 [facility] 181 mg/dl As of November 2022 testing method has changed, this may include reference ranges. GFR - MDRD 2025-03-24 05:47 [facility] 209 (missin g) The IDMS-traceable MDRD Study [...] July 2011. MEAN CORPUSCULAR HEMOGLOBIN 2025-03-24 05:47 [facility] 23.5 pg (missing) HCT - HEMATOCRIT 2025-03-24 05:47 [facility] 23.9 % (missing) CARBON DIOXIDE - CO2 2025-03-24 05:47 [facility] 27 mmol/l As of November 2022 testing method has changed, this may include reference ranges. RED BLOOD COUNT 2025-03-24 05:47 [facility] 3.11 10 6/ul (missing) MEAN CORPUSCULAR HGB CONC 2025-03-24 05:47 [facility] 30.5 g/dl (missing) ANION GAP 2025-03-24 05:47 [facility] 4.0 (missing ) (missing) POTASSIUM 2025-03-24 05:47 [facility] 4.2 mmol/l As of November 2022 testing method has changed, this may include reference ranges. PLT - PLATELET COUNT 2025-03-24 05:47 [facility] 580 10 3/ul (missing) NEUTROPHILS # (AUTO) 2025-03-24 05:47 [facility] 6.7 10 3/ul (missing) HGB - HEMOGLOBIN 2025-03-24 05:47 [facility] [employer] 7.3 g /dl (missing) MEAN CORPUSCULAR VOLUME 2025-03-24 05:47 [facility] 76.8 fl (missing) WHITE BLOOD COUNT 2025-03-24 05:47 [facility] 8.8 x10 3/ul (missing) Result panel 39 GLUCOSE, WHOLE BLOOD 2025-03-24 07:42 [facility] 187 (missing) (missing) Result panel 40 GLUCOSE, WHOLE BLOOD 2025-03-24 11:22 [facility] 124 (missing) (missing) Result panel 41 GLUCOSE, WHOLE BLOOD 2025-03-24 16:46 [facility] 156 (missing) (missing) Result panel 42 GLUCOSE, WHOLE BLOOD 2025-03-24 19:28 [email or web address] 154 (missing) RN notified. Result panel 43 NUCLEATED RED BLOOD CELLS AUTO 2025-03-25 04:22 [facility] 0.0 /100wbc (missing) NRBC ABSOLUTE COUNT (AUTO) 2025-03-25 04:22 [facility] 0.00 x10 3/ul (missing) BASOPHILS # (AUTO) 2025-03-25 04:22 [email or web address] 0.1 10 3/ul (missing) EOSINOPHILS # (AUTO) 2025-03-25 04:22 [facility] 0.2 10 3/ul (missing) CREATININE 2025-03-25 04:22 [facility] 0.5 mg/dl As of November 2022 testing method has changed, this may include reference ranges. MONOCYTES # (AUTO) 2025-03-25 04:22 [facility] 0.6 10 3/ul (missing) LYMPHOCYTES # (AUTO) 2025-03-25 04:22 [facility] 1.4 10 3/ul (missing) CALCIUM 2025-03-25 04:22 [facility] 10.0 mg/dl As of November 2022 testing method has changed, this may include reference ranges. MEAN PLATELET VOLUME 2025-03-25 04:22 [facility] 10.1 fl (missing) CHLORIDE 2025-03-25 04:22 [facility] 102 mmol/l As of November 2022 testing method has changed, this may include reference ranges. WHITE BLOOD COUNT 2025-03-25 04:22 [facility] 11.9 x10 3/ul (missing) GLUCOSE 2025-03-25 04:22 [facility] 115 mg/dl As of November 2022 testing method has changed, this may include reference ranges. SODIUM 2025-03-25 04:22 [facility] 134 mmol/l (missing) RED CELL DISTRIBUTION WIDTH 2025-03-25 04:22 [facility] 16.4 % (mi ssing) GFR - MDRD 2025-03-25 04:22 [facility] 162 (missin g) The IDPA-traceable MDRD Study Equation has been validated extensively [...] BUN - BLOOD UREA NITROGEN 2025-03-25 04:22 [facility] 19 mg/dl As of Nov testing method has changed, this may include reference ranges. RED BLOOD COUNT 2025-03-25 04:22 [facility] 2.99 10 6/ul (missing) HCT - HEMATOCRIT 2025-03-25 04:22 [facility] 23.3 % (missing) MEAN CORPUSCULAR HEMOGLOBIN 2025-03-25 04:22 [facility] 23.7 pg (missing) CARBON DIOXIDE - CO2 2025-03-25 04:22 [facility] 28 mmol/l As of November 2022 testing method has changed, this may include reference ranges. MEAN CORPUSCULAR HGB CONC 2025-03-25 04:22 [facility] 30.5 g/dl (missing) ANION GAP 2025-03-25 04:22 [facility] 4.0 (missing ) (missing) POTASSIUM 2025-03-25 04:22 [facility] 4.4 mmol/l As of November 2022 testing method has changed, this may include reference ranges. PLT - PLATELET COUNT 2025-03-25 04:22 [facility] 651 10 3/ul (missing) HGB - HEMOGLOBIN 2025-03-25 04:22 [facility] 7.1 g /dl (missing) MEAN CORPUSCULAR VOLUME 2025-03-25 04:22 [facility] 77.9 fl (missing) NEUTROPHILS # (AUTO) 2025-03-25 04:22 [facility] 9.5 10 3/ul (missing) Result panel 44 GLUCOSE, WHOLE BLOOD 2025-03-25 07:36 [facility] 125 (missing) RN notified. Result panel 45 GLUCOSE, WHOLE BLOOD 2025-03-25 11:42 [facility] 106 (missing) RN notified. Result panel 46 RED CELL DISTRIBUTION WIDTH 2025-03-25 13:55 [facility] 16.5 % (missing) MEAN CORPUSCULAR HEMOGLOBIN 2025-03-25 13:55 [facility] 24.2 pg (missing) HCT - HEMATOCRIT 2025-03-25 13:55 [facility] 25.3 % (missing) RED BLOOD COUNT 2025-03-25 13:55 [facility] 3.22 10 6/ul (missing) MEAN CORPUSCULAR HGB CONC 2025-03-25 13:55 [facility] 30 .8 g/dl (missing) PLT - PLATELET COUNT 2025-03-25 13:55 [facility] 679 10 3/ul (missing) HGB - HEMOGLOBIN 2025-03-25 13:55 [facility] 7.8 g /dl (missing) MEAN [...] NUCLEATED RED BLOOD CELLS AUTO 2025-03-26 04:24 [facility] 0.0 /100wbc (missing) NRBC ABSOLUTE COUNT (AUTO) 2025-03-26 04:24 [facility] 0.00 x10 3/ul (missing) BASOPHILS # (AUTO) 2025-03-26 04:24 [facility] 0.1 10 3/ul (missing) EOSINOPHILS # (AUTO) 2025-03-26 04:24 [facility] 0.2 10 3/ul (missing) CREATININE 2025-03-26 04:24 [facility] 0.4 mg/dl As of November 2022 testing method has changed, this may include reference ranges. MONOCYTES # (AUTO) 2025-03-26 04:24 [facility] 0.5 10 3/ul (missing) LYMPHOCYTES # (AUTO) 2025-03-26 04:24 [facility] 1.0 10 3/ul (missing) MEAN PLATELET VOLUME 2025-03-26 04:24 [facility] 10.0 fl (missing) CALCIUM 2025-03-26 04:24 [facility] 10.1 mg/dl As of November 2022 testing method has changed, this may include reference ranges. CHLORIDE 2025-03-26 04:24 [facility] 102 mmol/l As of November 2022 testing method has changed, this may include reference ranges. SODIUM 2025-03-26 04:24 [facility] 135 mmol/l (missing) RED CELL DISTRIBUTION WIDTH 2025-03-26 04:24 [facility] 16.6 % (mi ssing) RED BLOOD COUNT 2025-03-26 04:24 [facility] 2.78 10 6/ul (missing) BUN - BLOOD UREA NITROGEN 2025-03-26 04:24 [facility] 20 mg/dl As of Nov testing method has changed, this may include reference ranges. GFR - MDRD 2025-03-26 04:24 [facility] 209 (in g) The IDMS-traceable MDRD Study [...] July 2011. HCT - HEMATOCRIT 2025-03-26 04:24 [facility] 21.8 % (missing) MEAN CORPUSCULAR HEMOGLOBIN 2025-03-26 04:24 [facility] 24.1 pg (missing) GLUCOSE 2025-03-26 04:24 [facility] mg/dl As of November 2022 testing method has changed, this may include reference ranges. CARBON DIOXIDE - CO2 2025-03-26 04:24 [facility] 29 mmol/l As of November 2022 testing method has changed, this may include reference ranges. MEAN CORPUSCULAR HGB CONC 2025-03-26 04:24 [facility] 30.7 g/dl (missing) ANION GAP 2025-03-26 04:24 [facility] 4.0 (missing ) (missing) POTASSIUM 2025-03-26 04:24 [facility] 4.2 mmol/l As of November 2022 testing method has changed, this may include reference ranges. HGB - HEMOGLOBIN 2025-03-26 04:24 [facility] 6.7 g /dl Called to / LAZ Manzano RN by Bridget Maria at 0514 03/26/25. Read back(Y/N)?Y PLT - PLATELET COUNT 2025-03-26 04:24 [facility] 632 10 3/ul (missing) MEAN CORPUSCULAR VOLUME 2025-03-26 04:24 [facility] 78.4 fl (missing) NEUTROPHILS # (AUTO) 2025-03-26 04:24 [facility] 8.1 10 3/ul (missing) WHITE BLOOD COUNT 2025-03-26 04:24 [facility] 9.9 x10 3/ul (missing) Result panel 50 GLUCOSE, WHOLE BLOOD 2025-03-26 08:06 [facility] 219 (missing) RN notified. Result panel 51 GLUCOSE, WHOLE BLOOD 2025-03-26 11:40 [facility] 194 (missing) RN notified. Result panel 52 GLUCOSE, WHOLE BLOOD 2025-03-26 16:46 [facility] 234 (missing) RN notified. Result panel 53 HCT - HEMATOCRIT 2025-03-26 17:44 [facility] 27.6 % (missing) HGB - HEMOGLOBIN 2025-03-26 17:44 [facility] 8.5 g /dl (missing) Result panel 54 GLUCOSE, WHOLE BLOOD 2025-03-26 20:40 [facility] 156 (missing) (missing) Result panel 55 NUCLEATED RED BLOOD CELLS AUTO 2025-03-27 04:45 [facility] 0.0 /100wbc (missing) NRBC ABSOLUTE COUNT (AUTO) 2025-03-27 04:45 [facility] 0.00 x10 3/ul (missing) BASOPHILS # (AUTO) 2025-03-27 04:45 [facility] 0.1 10 3/ul (missing) EOSINOPHILS # (AUTO) 2025-03-27 04:45 [facility] 0.2 10 3/ul (missing) CREATININE 2025-03-27 04:45 [facility] 0.3 mg/dl As of November 2022 testing method has changed, this may include reference ranges. MONOCYTES # (AUTO) 2025-03-27 04:45 [facility] 0.5 10 3/ul (missing) LYMPHOCYTES # (AUTO) 2025-03-27 04:45 [facility] 1.3 10 3/ul (missing) CALCIUM 2025-03-27 04:45 [facility] 10.1 mg/dl As of November 2022 testing method has changed, this may include reference ranges. WHITE BLOOD COUNT 2025-03-27 04:45 [facility] 10.4 x10 3/ul (missing) CHLORIDE 2025-03-27 04:45 [facility] 104 mmol/l As of November 2022 testing method has changed, this may include reference ranges. SODIUM 2025-03-27 04:45 [facility] 135 mmol/l (missing) BUN - BLOOD UREA NITROGEN 2025-03-27 04:45 [facility] 15 mg/dl As of Nov testing method has changed, this may include reference ranges. RED CELL DISTRIBUTION WIDTH 2025-03-27 04:45 [facility] 16.5 % (mi ssing) GLUCOSE 2025-03-27 04:45 [facility] 183 mg/dl As of November 2022 testing method has changed, this may include reference ranges. MEAN CORPUSCULAR HEMOGLOBIN 2025-03-27 04:45 [facility] 24.9 pg (missing) HCT - HEMATOCRIT 2025-03-27 04:45 [facility] 26.9 % (missing) CARBON DIOXIDE - CO2 2025-03-27 04:45 [facility] 27 mmol/l As of November 2022 testing method has changed, this may include reference ranges. GFR - MDRD 2025-03-27 04:45 [facility] 291 (fabiola reese) The IDMS-traceable MDRD Study Equation [...] July 2011. RED BLOOD COUNT 2025-03-27 04:45 [facility] 3.38 10 6/ul (missing) MEAN CORPUSCULAR HGB CONC 2025-03-27 04:45 [facility] 31.2 g/dl (missing) ANION GAP 2025-03-27 04:45 [facility] 4.0 (missing ) (missing) POTASSIUM 2025-03-27 04:45 [facility] 4.3 mmol/l As of November 2022 testing method has changed, this may include reference ranges. PLT - PLATELET COUNT 2025-03-27 04:45 [facility] 661 10 3/ul (missing) MEAN CORPUSCULAR VOLUME 2025-03-27 04:45 [facility] 79.6 fl (missing) NEUTROPHILS # (AUTO) 2025-03-27 04:45 [facility] 8.2 10 3/ul (missing) HGB - HEMOGLOBIN 2025-03-27 04:45 [facility] 8.4 g /dl (missing) MEAN PLATELET VOLUME 2025-03-27 04:45 [facility] 9.4 fl (missing) Result panel 56 GLUCOSE, WHOLE BLOOD 2025-03-27 08:07 [facility] 177 (missing) (missing) Result panel 57 GLUCOSE, WHOLE BLOOD 2025-03-27 11:45 [facility] 286 (missing) RN notified. Result panel 58 GLUCOSE, WHOLE BLOOD 2025-03-27 16:37 [facility] 206 (missing) RN notified. Result panel 59 GLUCOSE, WHOLE BLOOD 2025-03-27 20:56 [facility] 198 (missing) (missing) Result panel 60 CREATININE 2025-03-28 04:50 [facility] 0.4 mg/dl As of November 2022 testing method has changed, this may include reference ranges. MAGNESIUM 2025-03-28 04:50 [facility] 1.8 mg/dl As of November 2022 testing method has changed, this may include reference ranges. CALCIUM 2025-03-28 04:50 [facility] 10.1 mg/dl As of November 2022 testing method has changed, this may include reference ranges. WHITE BLOOD COUNT 2025-03-28 04:50 [facility] 10.2 x10 3/ul (missing) CHLORIDE 2025-03-28 04:50 [facility] 104 mmol/l As of November 2022 testing method has changed, this may include reference ranges. SODIUM 2025-03-28 04:50 [facility] 136 mmol/l (missing) RED CELL DISTRIBUTION WIDTH 2025-03-28 04:50 [facility] 17.2 % (mi ssing) BUN - BLOOD UREA NITROGEN 2025-03-28 04:50 [facility] 18 mg/dl As of Nov testing method has changed, this may include reference ranges. GLUCOSE 2025-03-28 04:50 [facility] 182 mg/dl As of November 2022 testing method has changed, this may include reference ranges. GFR - MDRD 2025-03-28 04:50 [facility] 209 (in g) The IDMS-traceable MDRD Study [...] July 2011. HCT - HEMATOCRIT 2025-03-28 04:50 [facility] 24.6 % (missing) MEAN CORPUSCULAR HEMOGLOBIN 2025-03-28 04:50 [facility] 25.0 pg (missing) CARBON DIOXIDE - CO2 2025-03-28 04:50 [facility] 26 mmol/l As of November 2022 testing method has changed, this may include reference ranges. RED BLOOD COUNT 2025-03-28 04:50 [facility] 3.12 10 6/ul (missing) POTASSIUM 2025-03-28 04:50 [facility] 3.8 mmol/l As of November 2022 testing method has changed, this may include reference ranges. MEAN CORPUSCULAR HGB CONC 2025-03-28 04:50 [facility] 31.7 g/dl (missing) ANION GAP 2025-03-28 04:50 [facility] 6.0 (missing ) (missing) PLT - PLATELET COUNT 2025-03-28 04:50 [facility] 657 10 3/ul (missing) HGB - HEMOGLOBIN 2025-03-28 04:50 [email or web address] 7.8 g /dl (missing) MEAN CORPUSCULAR VOLUME 2025-03-28 04:50 [facility] 78.8 fl (missing) MEAN PLATELET VOLUME 2025-03-28 04:50 [facility] 9.6 fl (missing) Result panel 61 GLUCOSE, WHOLE BLOOD 2025-03-28 07:42 [facility] 201 (missing) (missing) Result panel 62 GLUCOSE, WHOLE BLOOD 2025-03-28 11:56 [facility] 282 (missing) (missing) Result panel 63 NUCLEATED RED BLOOD CELLS AUTO 2025-04-10 11:00 [facility] 0.0 /100wbc (missing) BASOPHILS # (AUTO) 2025-04-10 11:00 [facility] 0.0 10 3/ul (missing) NRBC ABSOLUTE COUNT (AUTO) 2025-04-10 11:00 [facility] 0.00 x10 3/ul (missing) EOSINOPHILS # (AUTO) 2025-04-10 11:00 [facility] 0.2 10 3/ul (missing) MONOCYTES # (AUTO) 2025-04-10 11:00 [facility] 0.4 10 3/ul (missing) CREATININE 2025-04-10 11:00 [facility] 0.4 mg/dl As of November 2022 testing method has changed, this may include reference ranges. LYMPHOCYTES # (AUTO) 2025-04-10 11:00 [facility] 1.0 10 3/ul (missing) MEAN PLATELET VOLUME 2025-04-10 11:00 [facility] 10.5 fl (missing) CHLORIDE 2025-04-10 11:00 [facility] 109 mmol/l As of November 2022 testing method has changed, this may include reference ranges. GLUCOSE 2025-04-10 11:00 [facility] 125 mg/dl As of November 2022 testing method has changed, this may include reference ranges. SODIUM 2025-04-10 11:00 [facility] 142 mmol/l (missing) RED CELL DISTRIBUTION WIDTH 2025-04-10 11:00 [facility] 18.1 % (mi ssing) BUN - BLOOD UREA NITROGEN 2025-04-10 11:00 [facility] 19 mg/dl As of Nov testing method has changed, this may include reference ranges. RED BLOOD COUNT 2025-04-10 11:00 [facility] 2.65 10 6/ul (missing) GFR - MDRD 2025-04-10 11:00 [facility] 209 (fabiola g) The IDMS-traceable MDRD Study Equation [...] July 2011. HCT - HEMATOCRIT 2025-04-10 11:00 [facility] 21.4 % (missing) MEAN CORPUSCULAR HEMOGLOBIN 2025-04-10 11:00 [facility] 23.8 pg (missing) CARBON DIOXIDE - CO2 2025-04-10 11:00 [facility] 25 mmol/l As of November 2022 testing method has changed, this may include reference ranges. MEAN CORPUSCULAR HGB CONC 2025-04-10 11:00 [facility] 29.4 g/dl (missing) POTASSIUM 2025-04-10 11:00 [facility] 3.3 mmol/l As of November 2022 testing method has changed, this may include reference ranges. HGB - HEMOGLOBIN 2025-04-10 11:00 [facility] 6.3 g /dl Called to SURYA Crum RN [facility] by Karuna Drew M.T.([facility]) at 1154 04/10/25. Read back(Y/N)?Y PLT - PLATELET COUNT 2025-04-10 11:00 [facility] 680 10 3/ul (missing) NEUTROPHILS # (AUTO) 2025-04-10 11:00 [facility] 7.8 10 3/ul (missing) ANION GAP 2025-04-10 11:00 [facility] 8.0 (missing ) (missing) MEAN CORPUSCULAR VOLUME 2025-04-10 11:00 [facility] 80.8 fl (missing) WHITE BLOOD COUNT 2025-04-10 11:00 [facility] 9.6 x10 3/ul (missing) CALCIUM 2025-04-10 11:00 [facility] 9.8 mg/dl As of November 2022 testing method has changed, this may include reference ranges. Result panel 64 OCCULT BLOOD IN PAT. SINGLE 2025-04-10 13:10 [facility] 1ONE (missing) (missing) CAMPYLOBACTER CULTURE RESULT 1 2025-04-10 13:10 [facility] Comment (missing) No Campylobacter species isolated. SALMONELLA/SHIGEL LA RESULT 1 2025-04-10 13:10 [facility] Comment (missing) No Salmonella or Shigella recovered. Performed at: [facility] [address], [address], [place], [place] [id number] [employer] Helper: Fernie Li MD, Phone: [phone] CAMPYLOBACTER CULTURE 2025-04-10 13:10 [email or web address] Final report (missing) (missing) SALMONELLA/SHIGEL LA SCREEN 2025-04-10 13:10 [facility] Final report (missing) (missing) OCCULT BLOOD IN PAT. SINGLE 2025-04-10 13:10 [facility] NEGREFERENCE RANGE: NEGATIVE (missing) (missing) OCCULT BLOOD IN PAT. SINGLE 2025-04-10 13:10 [facility] [id number] OF CARDS (missing) (missing) E COLI SHIGA TOXIN EIA 2025-04-10 13:10 [facility] Negative (missing) Performed at: [facility] [address], [place], [place] [id number] [employer] Helper: Fernie Li MD, Phone: [phone] OCCULT BLOOD IN PAT. SINGLE 2025-04-10 13:10 [facility] OCCULTOCCULT BLOOD (missing) (missing) OCCULT BLOOD IN PAT. SINGLE 2025-04-10 13:10 [facility] PPOSITIVE (missing) (missing) OCCULT BLOOD IN PAT. SINGLE 2025-04-10 13:10 [facility] [id number] (missing) (missing) Result panel 65 INR 2025-04-10 13:30 [facility] 1.0 (missing ) Oral Anticoagulant Indication INR range Venous Thrombosis, P.E. 2.0 - 3.0 Mechanical Valve 2.5 - 3.5 PT - PROTHROMBIN TIME 2025-04-10 13:30 [facility] 11.5 secs (missing) Result panel 66 NUCLEATED RED BLOOD CELLS AUTO 2025-04-10 13:45 [facility] 0.0 /100wbc (missing) [facility]BC ABSOLUTE COUNT (AUTO) 2025-04-10 13:45 [facility] 0.00 x10 3/ul (missing) BASOPHILS # (AUTO) 2025-04-10 13:45 [facility] 0.1 10 3/ul (missing) EOSINOPHILS # (AUTO) 2025-04-10 13:45 [facility] 0.2 10 3/ul (missing) BILIRUBIN,TOTAL 2025-04-10 13:45 [facility] 0.2 mg/dl As of November 2022 testing method has changed, this may include reference ranges. CREATININE 2025-04-10 13:45 [facility] 0.4 mg/dl As of November 2022 testing method has changed, this may include reference ranges. MONOCYTES # (AUTO) 2025-04-10 13:45 [email or web address] 0.5 10 3/ul (missing) ALBUMIN/GLOBULIN RATIO 2025-04-10 13:45 [facility] 0.9 (missing) (missing) LYMPHOCYTES # (AUTO) 2025-04-10 13:45 [facility] 1.2 10 3/ul (missing) CALCIUM 2025-04-10 13:45 [facility] 10.0 mg/dl As of November 2022 testing method has changed, this may include reference ranges. MEAN PLATELET VOLUME 2025-04-10 13:45 [facility] 10.4 fl (missing) ALT ALANINE AMINOTRANSFERASE 2025-04-10 13:45 [facility] 11 iu/l As of November 2022 testing method has changed, this may include reference ranges. CHLORIDE 2025-04-10 13:45 [facility] 110 mmol/l As of November 2022 testing method has changed, this may include reference ranges. SODIUM 2025-04-10 13:45 [facility] 143 mmol/l (missing) ALKALINE PHOSPHATASE 2025-04-10 13:45 [facility] 148 iu/l As of November 2022 testing method has changed, this may include reference ranges. AST ASPARTATE AMINOTRANSFERASE 2025-04-10 13:45 [facility] 16 iu/l As of November 2022 testing method has changed, this may include reference ranges. RED CELL DISTRIBUTION WIDTH 2025-04-10 13:45 [facility] 18.2 % (missing) RED BLOOD COUNT 2025-04-10 13:45 [facility] 2.67 10 6/ul (missing) ALBUMIN 2025-04-10 13:45 [facility] 2.9 g/dl As of November 2022 testing method has changed, this may include reference ranges. BUN - BLOOD UREA NITROGEN 2025-04-10 13:45 [facility] 20 mg/dl As of November 2022 testing method has changed, this may include reference ranges. GFR - MDRD 2025-04-10 13:45 [facility] 209 (missing) The IDMS-traceable MDRD Study Equation [...] ation/gfr/creatin ine-stand ardization, last updated July 2011. HCT - HEMATOCRIT 2025-04-10 13:45 [facility] 21.9 % (missing) MEAN CORPUSCULAR HEMOGLOBIN 2025-04-10 13:45 [facility] 24.0 pg (missing) CARBON DIOXIDE - CO2 2025-04-10 13:45 [facility] 26 mmol/l As of November 2022 testing method has changed, this may include reference ranges. MEAN CORPUSCULAR HGB CONC 2025-04-10 13:45 [facility] 29.2 g/dl (missing) POTASSIUM 2025-04-10 13:45 [facility] 3.3 mmol/l As of November 2022 testing method has changed, this may include reference ranges. GLOBULIN 2025-04-10 13:45 [facility] 3.4 g/dl (missing) TOTAL PROTEIN 2025-04-10 13:45 [facility] 6.3 g/dl As of November 2022 testing method has changed, this may include reference ranges. HGB - HEMOGLOBIN 2025-04-10 13:45 [facility] 6.4 g/dl Called to KASSIE Hughes RN/ED by Amairani Hawkins M.T.([facility]) at 1359 04/10/25. Read back(Y/N)? YES PLT - PLATELET COUNT 2025-04-10 13:45 [facility] 639 10 3/ul (missing) ANION GAP 2025-04-10 13:45 [facility] 7.0 (missing) (missing) NEUTROPHILS # (AUTO) 2025-04-10 13:45 [facility] 7.2 10 3/ul (missing) MEAN CORPUSCULAR VOLUME 2025-04-10 13:45 [email or web address] 82.0 fl (missing) GLUCOSE 2025-04-10 13:45 [facility] 86 mg/dl As of November 2022 testing method has changed, this may include reference ranges. WHITE BLOOD COUNT 2025-04-10 13:45 [facility] 9.2 x10 3/ul (missing) Result panel 67 NUCLEATED RED BLOOD CELLS AUTO 2025-04-11 05:32 [facility] 0.0 /100wbc (missing) NRBC ABSOLUTE COUNT (AUTO) 2025-04-11 05:32 [facility] 0.00 x10 3/ul (missing) BASOPHILS # (AUTO) 2025-04-11 05:32 [facility] 0.1 10 3/ul (missing) EOSINOPHILS # (AUTO) 2025-04-11 05:32 [facility] 0.2 10 3/ul (missing) CREATININE 2025-04-11 05:32 [facility] 0.3 mg/dl As of November 2022 testing method has changed, this may include reference ranges. MONOCYTES # (AUTO) 2025-04-11 05:32 [facility] 0.7 10 3/ul (missing) LYMPHOCYTES # (AUTO) 2025-04-11 05:32 [facility] 1.1 10 3/ul (missing) MEAN PLATELET VOLUME 2025-04-11 05:32 [facility] 10.2 fl (missing) CHLORIDE 2025-04-11 05:32 [facility] 109 mmol/l As of November 2022 testing method has changed, this may include reference ranges. SODIUM 2025-04-11 05:32 [facility] 140 mmol/l (missing) GLUCOSE 2025-04-11 05:32 [facility] 150 mg/dl As of November 2022 testing method has changed, this may include reference ranges. BUN - BLOOD UREA NITROGEN 2025-04-11 05:32 [facility] 16 mg/dl As of Nov testing method has changed, this may include reference ranges. RED CELL DISTRIBUTION WIDTH 2025-04-11 05:32 [facility] 17.2 % (mi ssing) RED BLOOD COUNT 2025-04-11 05:32 [facility] 2.78 10 6/ul (missing) HCT - HEMATOCRIT 2025-04-11 05:32 [facility] 22.3 % (missing) MEAN CORPUSCULAR HEMOGLOBIN 2025-04-11 05:32 [facility] 24.5 pg (missing) CARBON DIOXIDE - CO2 2025-04-11 05:32 [facility] 25 mmol/l As of November 2022 testing method has changed, this may include reference ranges. GFR - MDRD 2025-04-11 05:32 [facility] 291 (fabiola reese) The IDMS-traceable MDRD Study Equation [...] ion/gfr/creatinine -stand ardization, last updated July 2011. POTASSIUM 2025-04-11 05:32 [facility] 3.3 mmol/l As of November 2022 testing method has changed, this may include reference ranges. MEAN CORPUSCULAR HGB CONC 2025-04-11 05:32 [facility] 30.5 g/dl (missing) PLT - PLATELET COUNT 2025-04-11 05:32 [facility] 596 10 3/ul (missing) ANION GAP 2025-04-11 05:32 [facility] 6.0 (missing ) (missing) HGB - HEMOGLOBIN 2025-04-11 05:32 [facility] 6.8 g /dl Called to JEREMIE Manzano RN/MS by Amairani Hawkins M.T.([facility]) at 0637 04/11/25. Read back(Y/N)? YES NEUTROPHILS # (AUTO) 2025-04-11 05:32 [facility] 7.0 10 3/ul (missing) MEAN CORPUSCULAR VOLUME 2025-04-11 05:32 [facility] 80.2 fl (missing) WHITE BLOOD COUNT 2025-04-11 05:32 [facility] 9.2 x10 3/ul (missing) CALCIUM 2025-04-11 05:32 [facility] 9.4 mg/dl As of November 2022 testing method has changed, this may include reference ranges. Result panel 68 HCT - HEMATOCRIT 2025-04-11 15:39 [facility] 29.5 % (missing) HGB - HEMOGLOBIN 2025-04-11 15:39 [email or web address] 9.2 g /dl (missing) Result panel 69 GLUCOSE, WHOLE BLOOD 2025-04-11 18:18 [facility] 161 (missing) (missing) Result panel 70 GLUCOSE, WHOLE BLOOD 2025-04-12 00:22 [facility] 138 (missing) (missing) Result panel 71 GLUCOSE, WHOLE BLOOD 2025-04-12 05:41 [facility] 128 (missing) (missing) Result panel 72 NUCLEATED RED BLOOD CELLS AUTO 2025-04-12 06:20 [email or web address] 0.0 /100wbc (missing) NRBC ABSOLUTE COUNT (AUTO) 2025-04-12 06:20 [email or web address] 0.00 x10 3/ul (missing) BASOPHILS # (AUTO) 2025-04-12 06:20 [facility] 0.1 10 3/ul (missing) EOSINOPHILS # (AUTO) 2025-04-12 06:20 [facility] 0.1 10 3/ul (missing) CREATININE 2025-04-12 06:20 [facility] 0.4 mg/dl As of November 2022 testing method has changed, this may include reference ranges. MONOCYTES # (AUTO) 2025-04-12 06:20 [facility] 0.5 10 3/ul (missing) LYMPHOCYTES # (AUTO) 2025-04-12 06:20 [facility] 0.9 10 3/ul (missing) CHLORIDE 2025-04-12 06:20 [facility] 108 mmol/l As of November 2022 testing method has changed, this may include reference ranges. BUN - BLOOD UREA NITROGEN 2025-04-12 06:20 [email or web address] 12 mg/dl As of Nov testing method has changed, this may include reference ranges. SODIUM 2025-04-12 06:20 [facility] 142 mmol/l (missing) GLUCOSE 2025-04-12 06:20 [facility] 160 mg/dl As of November 2022 testing method has changed, this may include reference ranges. RED CELL DISTRIBUTION WIDTH 2025-04-12 06:20 [facility] 17.2 % (mi ssing) GFR - MDRD 2025-04-12 06:20 [facility] 209 (fabiola g) The IDMS-traceable MDRD Study Equation [...] last updated July 2011. MEAN CORPUSCULAR HEMOGLOBIN 2025-04-12 06:20 [facility] 25.5 pg (missing) HCT - HEMATOCRIT 2025-04-12 06:20 [facility] 26.2 % (missing) CARBON DIOXIDE - CO2 2025-04-12: [facility] 27 mmol/l As of November 2022 testing method has changed, this may include reference ranges. RED BLOOD COUNT 2025-04-12 06:20 [facility] 3.21 10 6/ul (missing) POTASSIUM 2025-04-12 06:20 [facility] 3.4 mmol/l As of November 2022 testing method has changed, this may include reference ranges. MEAN CORPUSCULAR HGB CONC 2025-04-12 06:20 [facility] 31.3 g/dl (missing) NEUTROPHILS # (AUTO) 2025-04-12 06:20 [facility] 5.0 10 3/ul (missing) PLT - PLATELET COUNT 2025-04-12 06:20 [facility] 549 10 3/ul (missing) WHITE BLOOD COUNT 2025-04-12 06:20 [facility] 6.6 x10 3/ul (missing) ANION GAP 2025-04-12 06:20 [facility] 7.0 (missing ) (missing) HGB - HEMOGLOBIN 2025-04-12 06:20 [facility] 8.2 g /dl (missing) MEAN CORPUSCULAR VOLUME 2025-04-12 06:20 [facility] 81.6 fl (missing) MEAN PLATELET VOLUME 2025-04-12 06:20 [facility] 9.8 fl (missing) CALCIUM 2025-04-12 06:20 [facility] 9.8 mg/dl As of November 2022 testing method has changed, this may include reference ranges. Result panel 73 GLUCOSE, WHOLE BLOOD 2025-04-12 11:18 [facility] 175 (missing) RN notified. Result panel 74 GLUCOSE, WHOLE BLOOD 2025-04-12 17:59 [facility] 148 (missing) RN notified. Result panel 75 GLUCOSE, WHOLE BLOOD 2025-04-13 01:01 [facility] 117 (missing) (missing) Result panel 76 GLUCOSE, WHOLE BLOOD 2025-04-13 07:57 [facility] 128 (missing) RN notified. Result panel 77 GLUCOSE, WHOLE BLOOD 2025-04-13 11:44 [facility] 194 (missing) RN notified. Result panel 78 NUCLEATED RED BLOOD CELLS AUTO 2025-04-13 13:57 [facility] 0.0 /100wbc (missing) BASOPHILS # (AUTO) 2025-04-13 13:57 [facility] 0.0 10 3/ul (missing) NRBC ABSOLUTE COUNT (AUTO) 2025-04-13 13:57 [facility] 0.00 x10 3/ul (missing) EOSINOPHILS # (AUTO) 2025-04-13 13:57 [facility] 0.2 10 3/ul (missing) CREATININE 2025-04-13 13:57 [facility] 0.5 mg/dl As of November 2022 testing method has changed, this may include reference ranges. MONOCYTES # (AUTO) 2025-04-13 13:57 [facility] 0.6 10 3/ul (missing) LYMPHOCYTES # (AUTO) 2025-04-13 13:57 [facility] 0.9 10 3/ul (missing) CALCIUM 2025-04-13 13:57 [facility] 10.0 mg/dl As of November 2022 testing method has changed, this may include reference ranges. WHITE BLOOD COUNT 2025-04-13 13:57 [facility] 10.0 x10 3/ul (missing) MEAN PLATELET VOLUME 2025-04-13 13:57 [facility] 10.1 fl (missing) CHLORIDE 2025-04-13 13:57 [facility] 104 mmol/l As of November 2022 testing method has changed, this may include reference ranges. SODIUM 2025-04-13 13:57 [facility] 137 mmol/l (missing) GFR - MDRD 2025-04-13 13:57 [facility] 162 (missin g) The IDMS-traceable MDRD Study Equation [...] -stand ardization, last updated July 2011. RED CELL DISTRIBUTION WIDTH 2025-04-13 13:57 [facility] 17.7 % (mi ssing) GLUCOSE 2025-04-13 13:57 [facility] 211 mg/dl As of November 2022 testing method has changed, this may include reference ranges. MEAN CORPUSCULAR HEMOGLOBIN 2025-04-13 13:57 [facility] 25.8 pg (missing) CARBON DIOXIDE - CO2 2025-04-13 13:57 [facility] 26 mmol/l As of November 2022 testing method has changed, this may include reference ranges. HCT - HEMATOCRIT 2025-04-13 13:57 [facility] 29.8 % (missing) POTASSIUM 2025-04-13 13:57 [facility] 3.1 mmol/l As of November 2022 testing method has changed, this may include reference ranges. RED BLOOD COUNT 2025-04-13 13:57 [facility] 3.57 10 6/ul (missing) MEAN CORPUSCULAR HGB CONC 2025-04-13 13:57 [facility] 30.9 g/dl (missing) PLT - PLATELET COUNT 2025-04-13 13:57 [facility] 521 10 3/ul (missing) ANION GAP 2025-04-13 13:57 [facility] 7.0 (missing ) (missing) BUN - BLOOD UREA NITROGEN 2025-04-13 13:57 [facility] 8 mg/dl As of Nov testing method has changed, this may include reference ranges. NEUTROPHILS # (AUTO) 2025-04-13 13:57 [facility] 8.2 10 3/ul (missing) MEAN CORPUSCULAR VOLUME 2025-04-13 13:57 [facility] 83.5 fl (missing) HGB - HEMOGLOBIN 2025-04-13 13:57 [facility] 9.2 g /dl (missing) Result panel 79 GLUCOSE, WHOLE BLOOD 2025-04-13 16:22 [facility] 243 (missing) (missing) Result panel 80 GLUCOSE, WHOLE BLOOD 2025-04-13 20:54 [facility] 232 (missing) RN notified. Result panel 81 NUCLEATED RED BLOOD CELLS AUTO 2025-04-14 04:39 [facility] 0.0 /100wbc (missing) BASOPHILS # (AUTO) 2025-04-14 04:39 [facility] 0.0 10 3/ul (missing) NRBC ABSOLUTE COUNT (AUTO) 2025-04-14 04:39 [facility] 0.00 x10 3/ul (missing) EOSINOPHILS # (AUTO) 2025-04-14 04:39 [facility] 0.2 10 3/ul (missing) CREATININE 2025-04-14 04:39 [facility] 0.4 mg/dl As of November 2022 testing method has changed, this may include reference ranges. MONOCYTES # (AUTO) 2025-04-14 04:39 [facility] 0.7 10 3/ul (missing) LYMPHOCYTES # (AUTO) 2025-04-14 04:39 [facility] 0.9 10 3/ul (missing) MEAN PLATELET VOLUME 2025-04-14 04:39 [facility] 10.1 fl (missing) WHITE BLOOD COUNT 2025-04-14 04:39 [facility] 10.4 x10 3/ul (missing) CHLORIDE 2025-04-14 04:39 [facility] 105 mmol/l As of November 2022 testing method has changed, this may include reference ranges. BUN - BLOOD UREA NITROGEN 2025-04-14 04:39 [facility] 11 mg/dl As of Nov testing method has changed, this may include reference ranges. SODIUM 2025-04-14 04:39 [facility] 139 mmol/l (missing) RED CELL DISTRIBUTION WIDTH 2025-04-14 04:39 [facility] 17.6 % (mi ssing) GFR - MDRD 2025-04-14 04:39 [facility] 209 (fabiola g) The IDMS-traceable MDRD Study Equation [...] ion/gfr/creatinine -stand ardization, last updated July 2011. GLUCOSE 2025-04-14 04:39 [facility] 221 mg/dl As of November 2022 testing method has changed, this may include reference ranges. HCT - HEMATOCRIT 2025-04-14 04:39 [facility] 25.1 % (missing) MEAN CORPUSCULAR HEMOGLOBIN 2025-04-14 04:39 [facility] 25.2 pg (missing) CARBON DIOXIDE - CO2 2025-04-14 04:39 [facility] 29 mmol/l As of November 2022 testing method has changed, this may include reference ranges. RED BLOOD COUNT 2025-04-14 04:39 [facility] 3.13 10 6/ul (missing) POTASSIUM 2025-04-14 04:39 [facility] 3.6 mmol/l As of November 2022 testing method has changed, this may include reference ranges. MEAN CORPUSCULAR HGB CONC 2025-04-14 04:39 [facility] 31.5 g/dl (missing) ANION GAP 2025-04-14 04:39 [facility] 5.0 (missing ) (missing) PLT - PLATELET COUNT 2025-04-14 04:39 [facility] 507 10 3/ul (missing) HGB - HEMOGLOBIN 2025-04-14 04:39 [facility] 7.9 g /dl (missing) NEUTROPHILS # (AUTO) 2025-04-14 04:39 [email or web address] 8.5 10 3/ul (missing) MEAN CORPUSCULAR VOLUME 2025-04-14 04:39 [facility] 80.2 fl (missing) CALCIUM 2025-04-14 04:39 [email or web address] 9.6 mg/dl As of November 2022 testing method has changed, this may include reference ranges. Result panel 82 GLUCOSE, WHOLE BLOOD 2025-04-14 07:44 [facility] 215 (missing) RN notified. Result panel 83 GLUCOSE, WHOLE BLOOD 2025-04-14 11:42 [facility] 266 (missing) RN notified. Result panel 84 GLUCOSE, WHOLE BLOOD 2025-04-14 16:33 [facility] 241 (missing) RN notified. Result panel 85 NUCLEATED RED BLOOD CELLS AUTO 2025-04-15 04:06 [facility] 0.0 /100wbc (missing) NRBC ABSOLUTE COUNT (AUTO) 2025-04-15 04:06 [facility] 0.00 x10 3/ul (missing) BASOPHILS # (AUTO) 2025-04-15 04:06 [facility] 0.1 10 3/ul (missing) EOSINOPHILS # (AUTO) 2025-04-15 04:06 [facility] 0.3 10 3/ul (missing) CREATININE 2025-04-15 04:06 [facility] 0.3 mg/dl As of November 2022 testing method has changed, this may include reference ranges. MONOCYTES # (AUTO) 2025-04-15 04:06 [facility] 0.7 10 3/ul (missing) LYMPHOCYTES # (AUTO) 2025-04-15 04:06 [facility] 1.1 10 3/ul (missing) MEAN PLATELET VOLUME 2025-04-15 04:06 [facility] 10.2 fl (missing) CHLORIDE 2025-04-15 04:06 [facility] 105 mmol/l As of November 2022 testing method has changed, this may include reference ranges. SODIUM 2025-04-15 04:06 [facility] 138 mmol/l (missing) RED CELL DISTRIBUTION WIDTH 2025-04-15 04:06 [facility] 17.8 % (mi ssing) GLUCOSE 2025-04-15 04:06 [facility] 176 mg/dl As of November 2022 testing method has changed, this may include reference ranges. HCT - HEMATOCRIT 2025-04-15 04:06 [facility] 24.7 % (missing) MEAN CORPUSCULAR HEMOGLOBIN 2025-04-15 04:06 [facility] 25.7 pg (missing) CARBON DIOXIDE - CO2 2025-04-15 04:06 [facility] 29 mmol/l As of November 2022 testing method has changed, this may include reference ranges. GFR - MDRD 2025-04-15 04:06 [facility] 291 (in g) The IDPA-traceable MDRD Study Equation has been validated extensively [...] last updated July 2011. RED BLOOD COUNT 2025-04-15 04:06 [facility] 3.07 10 6/ul (missing) POTASSIUM 2025-04-15 04:06 [facility] 3.1 mmol/l As of November 2022 testing method has changed, this may include reference ranges. MEAN CORPUSCULAR HGB CONC 2025-04-15 04:06 [facility] 32.0 g/dl (missing) ANION GAP 2025-04-15 04:06 [facility] 4.0 (missing ) (missing) PLT - PLATELET COUNT 2025-04-15 04:06 [facility] 469 10 3/ul (missing) NEUTROPHILS # (AUTO) 2025-04-15 04:06 [facility] 6.6 10 3/ul (missing) HGB - HEMOGLOBIN 2025-04-15 04:06 [facility] 7.9 g /dl (missing) WHITE BLOOD COUNT 2025-04-15 04:06 [facility] 8.7 x10 3/ul (missing) MEAN CORPUSCULAR VOLUME 2025-04-15 04:06 [facility] 80.5 fl (missing) BUN - BLOOD UREA NITROGEN 2025-04-15 04:06 [facility] 9 mg/dl As of Nov testing method has changed, this may include reference ranges. CALCIUM 2025-04-15 04:06 [facility] 9.7 mg/dl As of November 2022 testing method has changed, this may include reference ranges. Result panel 86 GLUCOSE, WHOLE BLOOD 2025-04-15 07:50 [facility] 159 (missing) (missing) Result panel 87 GLUCOSE, WHOLE BLOOD 2025-04-15 11:23 [facility] 218 (missing) RN notified. Result panel 88 GLUCOSE, WHOLE BLOOD 2025-04-15 16:35 [facility] 247 (missing) RN notified. Result panel 89 GLUCOSE, WHOLE BLOOD 2025-04-15 20:28 [facility] 292 (missing) RN notified. Result panel 90 NUCLEATED RED BLOOD CELLS AUTO 2025-04-16 05:33 [facility] 0.0 /100wbc (missing) NRBC ABSOLUTE COUNT (AUTO) 2025-04-16 05:33 [facility] 0.00 x10 3/ul (missing) BASOPHILS # (AUTO) 2025-04-16 05:33 [facility] 0.1 10 3/ul (missing) EOSINOPHILS # (AUTO) 2025-04-16 05:33 [facility] 0.3 10 3/ul (missing) CREATININE 2025-04-16 05:33 [facility] 0.4 mg/dl As of November 2022 testing method has changed, this may include reference ranges. MONOCYTES # (AUTO) 2025-04-16 05:33 [facility] 0.8 10 3/ul (missing) LYMPHOCYTES # (AUTO) 2025-04-16 05:33 [facility] 1.2 10 3/ul (missing) MEAN PLATELET VOLUME 2025-04-16 05:33 [facility] 10.4 fl (missing) CHLORIDE 2025-04-16 05:33 [facility] 103 mmol/l As of November 2022 testing method has changed, this may include reference ranges. BUN - BLOOD UREA NITROGEN 2025-04-16 05:33 [facility] 11 mg/dl As of Nov testing method has changed, this may include reference ranges. SODIUM 2025-04-16 05: [facility] 137 mmol/l (missing) RED CELL DISTRIBUTION WIDTH 2025-04-16 05: [facility] 17.6 % (mi ssing) GLUCOSE 2025-04-16 05: [facility] 193 mg/dl As of November 2022 testing method has changed, this may include reference ranges. GFR - MDRD 2025-04-16 05: [facility] 209 (missin g) The IDMS-traceable MDRD Study [...] last updated July 2011. MEAN CORPUSCULAR HEMOGLOBIN 2025-04-16 05:33 [facility] 25.1 pg (missing) HCT - HEMATOCRIT 2025-04-16 05:33 [facility] 25.3 % (missing) CARBON DIOXIDE - CO2 2025-04-16 05:33 [facility] 29 mmol/l As of November 2022 testing method has changed, this may include reference ranges. RED BLOOD COUNT 2025-04-16 05:33 [facility] 3.11 10 6/ul (missing) POTASSIUM 2025-04-16 05:33 [facility] 3.6 mmol/l As of November 2022 testing method has changed, this may include reference ranges. MEAN CORPUSCULAR HGB CONC 2025-04-16 05:33 [facility] 30.8 g/dl (missing) PLT - PLATELET COUNT 2025-04-16 05:33 [facility] 499 10 3/ul (missing) ANION GAP 2025-04-16 05:33 [facility] 5.0 (missing ) (missing) NEUTROPHILS # (AUTO) 2025-04-16 05:33 [facility] 7.3 10 3/ul (missing) HGB - HEMOGLOBIN 2025-04-16 05:33 [facility] 7.8 g /dl (missing) MEAN CORPUSCULAR VOLUME 2025-04-16 05:33 [facility] 81.4 fl (missing) CALCIUM 2025-04-16 05:33 [facility] 9.7 mg/dl As of November 2022 testing method has changed, this may include reference ranges. WHITE BLOOD COUNT 2025-04-16 05:33 [facility] 9.7 x10 3/ul (missing) Result panel 91 GLUCOSE, WHOLE BLOOD 2025-04-16 07:40 [facility] 190 (missing) RN notified. Result panel 92 GLUCOSE, WHOLE BLOOD 2025-04-16 11:30 [facility] 295 (missing) RN notified. Result panel 93 GLUCOSE, WHOLE BLOOD 2025-04-16 16:32 [facility] 236 (missing) RN notified. Result panel 94 GLUCOSE, WHOLE BLOOD 2025-04-16 20:26 [facility] 246 (missing) RN notified. Result panel 95 NUCLEATED RED BLOOD CELLS AUTO 2025-04-17 05:26 [facility] 0.0 /100wbc (missing) NRBC ABSOLUTE COUNT (AUTO) 2025-04-17 05:26 [facility] 0.00 x10 3/ul (missing) BASOPHILS # (AUTO) 2025-04-17 05:26 [facility] 0.1 10 3/ul (missing) EOSINOPHILS # (AUTO) 2025-04-17 05:26 [facility] 0.3 10 3/ul (missing) CREATININE 2025-04-17 05:26 [facility] 0.3 mg/dl As of November 2022 testing method has changed, this may include reference ranges. MONOCYTES # (AUTO) 2025-04-17 05:26 [facility] 0.8 10 3/ul (missing) LYMPHOCYTES # (AUTO) 2025-04-17 05:26 [facility] 1.4 10 3/ul (missing) WHITE BLOOD COUNT 2025-04-17 05:26 [facility] 10.0 x10 3/ul (missing) MEAN PLATELET VOLUME 2025-04-17 05:26 [facility] 10.1 fl (missing) CHLORIDE 2025-04-17 05:26 [facility] 104 mmol/l As of November 2022 testing method has changed, this may include reference ranges. BUN - BLOOD UREA NITROGEN 2025-04-17 05:26 [facility] 11 mg/dl As of Nov testing method has changed, this may include reference ranges. SODIUM 2025-04-17 05:26 [facility] 137 mmol/l (missing) GLUCOSE 2025-04-17 05:26 [facility] 167 mg/dl As of November 2022 testing method has changed, this may include reference ranges. RED CELL DISTRIBUTION WIDTH 2025-04-17 05:26 [facility] 17.5 % (mi ssing) HCT - HEMATOCRIT 2025-04-17 05:26 [facility] 24.2 % (missing) MEAN CORPUSCULAR HEMOGLOBIN 2025-04-17 05:26 [facility] 25.2 pg (missing) CARBON DIOXIDE - CO2 2025-04-17 05:26 [facility] 29 mmol/l As of November 2022 testing method has changed, this may include reference ranges. GFR - MDRD 2025-04-17 05: [facility] 291 (missin g) The IDMS-traceable MDRD Study [...] last updated July 2011. RED BLOOD COUNT 2025-04-17 05:26 [facility] 3.01 10 6/ul (missing) POTASSIUM 2025-04-17 05:26 [facility] 3.5 mmol/l As of November 2022 testing method has changed, this may include reference ranges. MEAN CORPUSCULAR HGB CONC 2025-04-17 05:26 [facility] 31.4 g/dl (missing) ANION GAP 2025-04-17 05:26 [facility] 4.0 (missing ) (missing) PLT - PLATELET COUNT 2025-04-17 05:26 [facility] 480 10 3/ul (missing) NEUTROPHILS # (AUTO) 2025-04-17 05:26 [facility] 7.5 10 3/ul (missing) HGB - HEMOGLOBIN 2025-04-17 05:26 [facility] 7.6 g /dl (missing) MEAN CORPUSCULAR VOLUME 2025-04-17 05:26 [facility] 80.4 fl (missing) CALCIUM 2025-04-17 05:26 [facility] 9.7 mg/dl As of November 2022 testing method has changed, this may include reference ranges. Result panel 96 GLUCOSE, WHOLE BLOOD 2025-04-17 07:32 [facility] 160 (missing) RN notified. Result panel 97 GLUCOSE, WHOLE BLOOD 2025-04-17 11:19 [facility] 198 (missing) RN notified. Result panel 98 LIPASE 2025-04-21 02:14 [facility] < 10 u/l As of November 2022 testing method has changed, this may include reference ranges. NUCLEATED RED BLOOD CELLS AUTO 2025-04-21 02:14 [facility] 0.0 /100wbc (missing) NRBC ABSOLUTE COUNT (AUTO) 2025-04-21 02:14 [facility] 0.00 x10 3/ul (missing) BASOPHILS # (AUTO) 2025-04-21 02:14 [facility] 0.1 10 3/ul (missing) EOSINOPHILS # (AUTO) 2025-04-21 02:14 [facility] 0.2 10 3/ul (missing) BILIRUBIN,TOTAL 2025-04-21 02:14 [facility] 0.3 mg /dl As of November 2022 testing method has changed, this may include reference ranges. CREATININE 2025-04-21 02:14 [facility] 0.4 mg/dl As of November 2022 testing method has changed, this may include reference ranges. MONOCYTES # (AUTO) 2025-04-21 02:14 [facility] 0.5 10 3/ul (missing) ALBUMIN/GLOBULIN RATIO 2025-04-21 02:14 [facility] 1.0 (missing) (missing) LYMPHOCYTES # (AUTO) 2025-04-21 02:14 [facility] 1.2 10 3/ul (missing) MAGNESIUM 2025-04-21 02:14 [facility] 1.8 mg/dl As of November 2022 testing method has changed, this may include reference ranges. MEAN PLATELET VOLUME 2025-04-21 02:14 [facility] 10.3 fl (missing) CALCIUM 2025-04-21 02:14 [facility] 10.4 mg/dl As of November 2022 testing method has changed, this may include reference ranges. CHLORIDE 2025-04-21 02:14 [facility] 105 mmol/l As of November 2022 testing method has changed, this may include reference ranges. ALT ALANINE AMINOTRANSFERASE 2025-04-21 02:14 [facility] 11 iu/l As of November 2022 testing method has changed, this may include reference ranges. GLUCOSE 2025-04-21 02:14 [facility] 111 mg/dl As of November 2022 testing method has changed, this may include reference ranges. ALKALINE PHOSPHATASE 2025-04-21 02:14 [facility] 118 iu/l As of November 2022 testing method has changed, this may include reference ranges. SODIUM 2025-04-21 02:14 [facility] 139 mmol/l (missing) BUN - BLOOD UREA NITROGEN 2025-04-21 02:14 [facility] 14 mg/dl As of Nov testing method has changed, this may include reference ranges. AST ASPARTATE AMINOTRANSFERASE 2025-04-21 02:14 [facility] 16 iu/l As of November 2022 testing method has changed, this may include reference ranges. RED CELL DISTRIBUTION WIDTH 2025-04-21 02:14 [facility] 17.3 % (missing) GLOBULIN 2025-04-21 02:14 [facility] 2.9 g/dl (missing) ALBUMIN 2025-04-21 02:14 [facility] 2.9 g/dl As of November 2022 testing method has changed, this may include reference ranges. GFR - MDRD 2025-04-21 02:14 [facility] 209 (in g) The IDMS-traceable MDRD Study [...] last updated July 2011. MEAN CORPUSCULAR HEMOGLOBIN 2025-04-21 02:14 [facility] 24.7 pg (missing) HCT - HEMATOCRIT 2025-04-21 02:14 [facility] 24.8 % (missing) ANION GAP 2025-04-21 02:14 [facility] 3.0 (missing ) (missing) RED BLOOD COUNT 2025-04-21 02:14 [facility] 3.08 10 6/ul (missing) POTASSIUM 2025-04-21 02:14 [facility] 3.4 mmol/l As of November 2022 testing method has changed, this may include reference ranges. MEAN CORPUSCULAR HGB CONC 2025-04-21 02:14 [facility] 30.6 g/dl (missing) CARBON DIOXIDE - CO2 2025-04-21 02:14 [facility] 31 mmol/l As of November 2022 testing method has changed, this may include reference ranges. NEUTROPHILS # (AUTO) 2025-04-21 02:14 [facility] 5.4 10 3/ul (missing) TOTAL PROTEIN 2025-04-21 02:14 [facility] 5.8 g/dl As of November 2022 testing method has changed, this may include reference ranges. PLT - PLATELET COUNT 2025-04-21 02:14 [facility] 506 10 3/ul (missing) WHITE BLOOD COUNT 2025-04-21 02:14 [facility] 7.5 x10 3/ul (missing) HGB - HEMOGLOBIN 2025-04-21 02:14 [facility] 7.6 g /dl (missing) MEAN CORPUSCULAR VOLUME 2025-04-21 02:14 [facility] 80.5 fl (missing) Social History date description facility
[2025-04-21] MEDS: AMOX/CLAV 875 MG/125 MG TABLET PO STA (04:47)
[2025-04-21] MEDS ORDERED: SODIUM CHLORIDE FLUSH 0.9% 10 ML SYRINGE IVP PRN (05:46)
--- NOTE | 2025-04-21 06:05 | HISTORY & PHYSICAL EXAMINATION ---
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 Telemedicine service provided via a HIPAA-compliant platform, utilizing audio/visual equipment certified under [facility] for security, confidentiality, and privacy controls. Service Date: Service Type: Initial H&P / SOUND Tele-Hospitalist Patient Location: [place], [place] Physician / Location: Rajan Daniels MD @ [place], [place] Participants in TeleHealth session: Myself, Patient, Bedside nurse Patient consent obtained: Yes The patient is a 75-year-old male, well known to this service with multiple recent admissions, with a past medical history significant for type 2 diabetes mellitus, GERD, and a mood disorder. He was recently diagnosed with a rectal mass, status post biopsy confirming adenocarcinoma. Per prior documentation, he has discussed treatment options with surgery and palliative care and is currently undecided regarding definitive treatment. He has not yet undergone oncology evaluation. The patient was sent from his facility for recurrent episodes of bright red blood per rectum. He denies melena. He reports soft stools without diarrhea, with ongoing BRBPR. He denies cough, fever, chills, nausea, vomiting, shortness of breath, dysuria, falls, syncope, trauma, or chest pain. His primary complaints are worsening appetite, fatigue, generalized malaise, and failure to thrive. Emergency department evaluation demonstrated stable vital signs and hemoglobin at his baseline. However, given ongoing bleeding, the decision was made to admit the patient for monitoring, hemoglobin trending, and transfusion as clinically indicated. The plan of care was discussed with the patient, who is agreeable and has no additional questions or concerns at this time. Assessment and plan are outlined below. Meds/Allgy Home Medications Ambulatory Orders Medication Instructions Recorded Confirmed acetaminophen 500 mg tablet 1,000 mg (2 x 500 mg) PO T ID #90 03/28/25 04/21/25 (Tylenol Extra Strength) tabs aspirin 81 mg tablet 162 mg (2 x 81 mg) PO DAILY 24 03/28/25 04/21/25 days #48 tabs insulin glargine-yfgn 100 unit/mL 12 unit (0.12 mL) tian bcut 03/28/25 04/21/25 (3 mL) subcutaneous pen QDBREAKFAST #15 mL insulin lispro 100 unit/mL 5 unit (0.05 mL) subcut TID WM #15 03/28/25 04/21/25 subcutaneous pen (Humalog KwikPen mL (U-100) Insulin) lidocaine 4 % topical patch 1 patch topical DAILY #30 ea 03/28/25 04/21/25 mirtazapine 15 mg tablet 15 mg PO QPM #30 tabs 04/21/25 gcycxvlqsbla-mknzguzu-umkg 1 tab PO DAILYWM #30 tabs 1 05/28/24 04/21/25 fumarate 19 mg-folic acid 400 mcg tablet (Therapeutic-M) docusate sodium 250 mg capsule 250 mg PO DAILY 5 04/21/25 ferrous sulfate 325 mg (65 mg 325 mg PO DAILYWM 04/21/25 iron) tablet insulin lispro 100 unit/mL 1 - 9 unit subcut 04/11/25 04/21/25 subcutaneous pen (Humalog KwikPen 0800,1200,1700,2100 (U-100) Insulin) pantoprazole 40 mg tablet,delayed 40 mg PO BIDAC 04/1104/21/25 release buspirone 5 mg tablet 5 mg PO BID #60 tabs 5 04/21/25 loperamide 2 mg capsule 2 mg PO QID PRN Diarrhea #60 caps 04/17/25 04/21/25 Allergies Allergies Allergy/AdvReac Type Severity Reaction Status Date / Time No Known Drug Allergies Allergy Verified 04/10/25 13:04 PFSH Active Problems All Active Problems Anemia (Chronic) Acute lower gastrointestinal bleeding (Acute) Anxiety about health (Acute) Diarrhea (Acute) Guaiac positive stools (Acute) Post-operative state (Acute) Closed intertrochanteric fracture of right hip (Acute) Malnutrition (Acute) Closed right hip fracture (Acute) Type 2 diabetes mellitus (Acute) Closed T12 fracture (Acute) Closed T11 fracture (Acute) Intractable back pain (Acute) Anemia, iron deficiency (Acute) Rectal mass (Acute) Compression fracture of vertebral column (Acute) Cachexia (Acute) Leg pain, right (Acute) Ground-level fall (Acute) Medical History Medical History Anemia Counseling regarding advanced care planning and goals of care Insomnia Urinary incontinence Skin cancer No pertinent past medical history Surgical History Surgical History History of repair of hip fracture Hx of flexible sigmoidoscopy (~03/22/25) [facility] DR. 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 Social History Social History Smoking Status: Never smoker Do you dip or chew tobacco?: No Do you vape?: No Living arrangement: Assisted living Living Condition: Alone Support Person: Yes Living Situation Details: Recently moved to [place]; is there under Medicaid Has a Durable Power of Burr Picker for Health Care?: Yes Name / Relationship: Carmina Ribeiro [phone] DPOA on file?: Yes Level: Assisted Physical - Functional Details: Functional status has been declining Do you feel safe in your home environment?: Yes History of physical, verbal, emotional, or financial abuse?: No ETOH Use: Beer Frequency: Daily Number of drinks/day: 1 Substance Use: cannabis (any form) 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 POLST Patient has POLST: Yes POLST on file?: Yes POLST CPR Status: Do Not Attempt Resuscitation (DNAR) / Allow Natural Review of Systems ROS Except for what's mentioned above, all other systems reviewed and are negative for any further pertinent positive or negatives Status of ROS: 10 or more systems reviewed and unremarkable except as noted in history and below and See HPI Exam Exam Vital Signs: Vital Signs x48h Temp Pulse Resp BP Pulse Ox 04/21/25 05:08 78 179/92 H 97 04/21/25 04:08 76 16 168/78 H 96 04/21/25 03:17 70 16 165/94 H 97 04/21/25 02:39 74 16 197/93 H 100 04/21/25 01:58 36.5 C 71 18 162/126 H 98 PHYSICAL EXAM Telemedicine physical exam conducted with hospital staff assisting in patient interaction and observation, guiding the patient through steps and providing necessary observations to the clinician. . VITAL SIGNS: Trend reviewed GENERAL: No acute distress. HEENT: NC/AT; PERRLA CHEST: Chest wall nontender. No obvious trauma. No labored breathing HEART: S1S2 (+) RRR. No obvious murmur LUNGS: B/L air entry. No obvious wheeze, rales, rhonchi. No conversational dyspnea. ABDOMEN: BS (+). Soft. Nontender. No visible guarding. No s/o obvious trauma. RECTAL: Deferred GENITAL: Deferred. SKIN: No obvious rash / jaundice. EXTREMITIES/MSK: No cyanosis Or signs of trauma/infection. Appropriate ROM (+) NEUROLOGIC: Cranial nerves II-XII grossly intact Constitutional abnormal general appearance (frail appearing) and abnormal body habitus (cachectic) and (thin) Neck/C-Spine supple Lymph no lymphadenopathy noted Respiratory normal respiratory effort and clear to auscultation bilaterally Cardiovascular normal heart rate noted and regular rhythm noted Gastrointestinal abdomen soft to palpation, nontender to palpation, nondistended and rectal exam abnormal (heme positive stool) (frankly bloody amount in adult diaper.), (mass) and (tenderness) Psychiatry mental status grossly normal, orientation abnormal (disoriented to time) and affect normal Conclusion/Plan Problem List (1) Anemia: Qualifiers: Anemia type: unspecified type Qualified Code(s): D64.9 - Anemia, unspecified (2) Acute lower gastrointestinal bleeding: (3) Type 2 diabetes mellitus: Qualifiers: Diabetes mellitus longterm insulin use: without terminal computer operator use Diabetes mellitus complication status: with hyperglycemia Qualified Code(s): E11.65 - Type 2 diabetes mellitus with hyperglycemia (4) Anemia, iron deficiency: Qualifiers: Iron deficiency anemia type: inadequate dietary iron intake Qualified Code(s): D50.8 - Other iron deficiency anemias (5) Rectal mass: (6) Cachexia: Plan Assessment / Plan: 1. Lower GI Bleed / BRBPR * Sent from facility for recurrent episodes * Hemoglobin and vital signs currently stable and at patients baseline * Given ongoing bleeding episodes, decision made to admit for monitoring, hemoglobin trending, and transfusion as needed * Hold daily aspirin 162 mg * Repeat CBC at noon to trend hemoglobin 2. Anemia * Likely secondary to lower GI bleeding in the setting of known rectal malignancy, with a possible component of iron deficiency * Hemoglobin currently at baseline * Management as outlined above * Resume ferrous sulfate 3. Rectal Mass, Biopsy-Proven Adenocarcinoma * Per prior documentation, surgical intervention has been recommended; patient remains undecided * Palliative care previously consulted and goals of care discussed * Patient has not yet been evaluated by oncology for treatment options 4. Type 2 Diabetes Mellitus * Patient reports poor appetite and minimal oral intake * Hold home Lantus 12 units for now * Monitor glucose with insulin sliding scale ACHS 5. GERD * Resume proton pump inhibitor twice daily 6. Mood Disorder * Continue buspirone and mirtazapine Medication Reconciliation: Completed and reviewed, with updates as noted above Code Status: DNR; patient is agreeable to intubation DVT Prophylaxis: Sequential compression devices GI Prophylaxis: Proton pump inhibitor Disposition: Pending medical stability Admit status: Observation: Given the patient's current condition and anticipated short-term course, observation status is appropriate. The patient requires monitoring, diagnostic testing, and/or treatment to assess the need for inpatient admission but is not expected to require care spanning two or more midnights. Status may be re-evaluated based on pending workup and reassessment by the incoming provider team Please Note: This document was created using Digital Speech to Text technology; grammatical errors may happen. Please reach out for any clarification. Thank you. Lab Results Lab results reviewed: Yes 04/21/25 02:14 04/21/25 02:14 Other Lab Results: Labs / Diagnostic workup I have personally reviewed labs, imaging and other accessory data along with the official reports currently available. My interpretation is reflected in the assessment and plan below.
[2025-04-21] MEDS ORDERED: INSULIN LISPRO 300 UNIT/3 ML PEN SUBQ SCH (08:00)
--- NOTE | 2025-04-21 08:09 | CT Report ---
PROCEDURE: CT Abdomen/Pelvis W INDICATIONS: loose stool; rectal bleeding; h/o divertic/mass CONTRAST: 100 ML OMNI 300 TECHNIQUE: After the administration of intravenous contrast, a CT scan of the abdomen and pelvis was performed. Images were recorded and evaluated at appropriate window settings. Reformats: coronal and sagittal. For radiation dose reduction, the following was used: automated exposure control, adjustment of mA and/or kV according to patient size. COMPARISON: 03/17/2025 FINDINGS: Image quality: Diagnostic. Lower chest: There is moderate coronary calcification. Liver: No solid mass. Gallbladder: Within normal limits. Biliary tree: No intrahepatic or extrahepatic dilation, accounting for age. Spleen: No splenomegaly. Pancreas: No pancreatic ductal dilation. Adrenals: No adrenal nodule. Kidneys and ureters: No hydronephrosis. There is a 9 cm right renal cyst seen laterally. Stomach, bowel and peritoneum: A rectal mass is again seen, measuring 8 cm. Surrounding inflammatory change can be seen within this region. Diverticulosis can be seen, without karla findings of active diverticulitis. The more proximal colon demonstrates no significant abnormality. No dilated loops of small bowel are seen. Lymph nodes: No central or retroperitoneal adenopathy. Vessels: No infrarenal aortic aneurysm. Patent portal vein. Atherosclerotic calcification is seen. PELVIS Reproductive organs: Unremarkable. Bladder: No abnormal wall thickening. Pelvic lymph nodes: No pelvic adenopathy by size criteria. Bones: No aggressive osseous abnormality. There is a remote, healing right lateral rib fracture, as on series 9 image 57. There is a remote T12 fracture, with focal T11-T12 degenerative change. Mild dextroconvex scoliotic curvature is seen. Right femoral hardware is partially seen. Other: No significant ventral or inguinal hernia. IMPRESSION: A rectal mass is again seen, with surrounding inflammatory change. No karla findings of metastatic disease can be seen. Additional findings: Right renal cyst Remote right rib fracture Remote T12 fracture Note: No significant discrepancy from the preliminary report. Reviewed by: Joe Pineda MD on 04/21/2025 7:06 AM [facility] Approved by: Joe Pineda MD on 04/21/2025 7:06 AM [facility] Station ID: [id number]
[2025-04-21] MEDS: MULTIVITAMIN W/MINERALS TABLET PO SCH (09:08)
[2025-04-21] MEDS: FERROUS SULFATE 325 MG TABLET PO SCH (09:08)
[2025-04-21] MEDS: SODIUM CHLORIDE FLUSH 0.9% 10 ML SYRINGE IVP SCH (09:08)
[2025-04-21] MEDS: PANTOPRAZOLE 40 MG TABLET PO SCH (09:09)
[2025-04-21] MEDS: ACETAMINOPHEN 500 MG TABLET PO SCH (09:09)
[2025-04-21] MEDS: INSULIN LISPRO 300 UNIT/3 ML PEN SUBQ SCH ×3 (09:13→17:05)
[2025-04-21 10:00] LABS: HCT - HEMATOCRIT 25.8 % (42.0-52.0); HGB - HEMOGLOBIN 7.7 g/dL (14.0-18.0); MEAN PLATELET VOLUME 10.2 fL (7.4-11.4); PLT - PLATELET COUNT 518.0 10^3/uL (130-450); RED CELL DISTRIBUTION WIDTH 17.5 % (12.0-15.0)
--- NOTE | 2025-04-21 13:44 | PROVIDER PROGRESS NOTE ---
Subjective Prog Note Date Prog Note Date: 04/21/25 Prog Note Time: 13:36 Subjective Subjective: Brief progress note of this patient as he was just admitted a few hours ago. Patient confirms that he has had no symptom changes. He reportedly has been having bloody stools per the patient and his sister every day since his discharge. This is expected with the setting of his rectal mass. He was told that he had "uncontrollable rectal bleeding" by the staff at [facility] prior to his admission. Patient looks and feels well. He is interested in watching the football game later today. Eating a normal diet. Current Medications Current Medications Current Medications: Current Medications Generic Name Dose Route Start Last Admin Trade Name Freq PRN Reason Stop Dose Admin Acetaminophen 1,000 mg 04/21/25 07:35 04/21/25 13:10 Acetaminophen 500 Mg Tablet PO 1,000 mg TID JUJU Administration Buspirone HCl 5 mg 04/21/25 09:00 04/21/25 09:08 Buspirone 5 Mg Tablet PO 5 mg BID JUJU Administration Ferrous Sulfate 325 mg 04/21/25 08:00 04/21/25 09:08 Ferrous Sulfate 325 Mg Tablet PO 325 mg DAILYWM JUJU Administration Insulin Human Lispro 1 - 9 unit 04/21/25 08:00 04/21/25 12:15 Insulin Lispro 300 Unit/3 Ml Pen SUBQ 3 unit 0800,1200,1700,2100 JUJU Administration Protocol Insulin Human Lispro 5 unit 04/21/25 08:00 04/21/25 12:30 Insulin Lispro 300 Unit/3 Ml Pen SUBQ 5 unit TIDWM JUJU Administration Lidocaine 1 patch 04/21/25 09:00 04/21/25 09:06 Lidocaine Patch 4% TOP 1 patch DAILY JUJU Administration Mirtazapine 15 mg 04/21/25 21:00 Mirtazapine 15 Mg Tablet PO QPM JUJU Multivitamins/Minerals 1 tab 04/21/25 08:00 04/21/25 09:08 Multivitamin W/Minerals Tablet PO 1 tab DAILYWM JUJU Administration Pantoprazole Sodium 40 mg 04/21/25 09:00 04/21/25 09:09 Pantoprazole 40 Mg Tablet PO 40 mg BID JUJU Administration Sodium Chloride 10 ml 04/21/25 05:46 Sodium Chloride Flush 0.9% 10 Ml Syringe IVP PRN PRN NEEDED PER PROVIDER ORDERS Sodium Chloride 10 ml 04/21/25 09:00 04/21/25 09:08 Sodium Chloride Flush 0.9% 10 Ml Syringe IVP 10 ml 0100,0900,1700 [facility] Administration Objective Vital Signs/Intake & Output Reviewed Vital Signs: Yes Vital Signs: Vital Signs x48h Temp Pulse Pulse Resp BP BP Pulse Ox 04/21/25 11:47 36.7 C 83 16 132/65 H 96 04/21/25 08:00 36.6 C 79 16 154/80 H 96 04/21/25 06:57 36.4 C L 77 14 165/78 H 97 04/21/25 06:08 78 16 157/77 H 97 04/21/25 05:38 80 16 163/84 H 97 Intake & Output: Intake & Output 04/18/25 04/19/25 04/20/25 04/21/25 23:59 23:59 23:59 23:59 Intake Total 720 / 720 Output Total 375 / 375 Balance 345 / 345 Weight (kg) 61 kg Objective Comments/Other: GEN: No acute distress. Frail and cachectic. HEENT: NC/AT, normal appearance of external ears and nose. Hearing baseline. Cardiac: Regular rate and rhythm, no murmurs. Generally euvolemic. Palpable distal pulses. Normal cap refill Pulm: Lungs CTA bilaterally, no cough, no wheezes. Normal effort on room air. Abdomen: Soft, nontender, nondistended. No rebound or guarding Extremities: Moves all 4 extremities equally. Neuro: Face symmetric, CN II through XII intact grossly. No focal neurologic deficits Psych: Mood euthymic with congruent affect. Reasonable historian. Judgment baseline Lab Results 04/21/25 09:49 04/21/25 02:14 Other Labs: Lab Results x24hrs 04/21/25 04/21/25 04/21/25 Range/Units 11:35 09:49 07:44 WBC 8.4 (4.8-10.8) x10^3/uL RBC 3.14 L (4.70-6.10) 10^6/uL Hgb 7.7 L (14.0-18.0) g/dL Hct 25.8 L (42.0-52.0) % MCV 82.2 (80.0-94.0) fL MCH 24.5 L (27.0-31.0) pg MCHC 29.8 L (32.0-36.0) g/dL RDW 17.5 H (12.0-15.0) % Plt Count 518 H (130-450) 10^3/uL MPV 10.2 (7.4-11.4) fL Neut # (Auto) (1.5-6.6) 10^3/uL Lymph # (Auto) (1.5-3.5) 10^3/uL [place] # (Auto) (0.0-1.0) 10^3/uL Eos # (Auto) (0.0-0.7) 10^3/uL Baso # (Auto) (0.0-0.1) 10^3/uL Absolute Nucleated RBC x10^3/uL Nucleated RBC % /100WBC Sodium (135-145) mmol/L Potassium (3.5-4.5) mmol/L Chloride (101-111) mmol/L Carbon Dioxide (21-32) mmol/L Anion Gap (6-13) BUN (6-20) mg/dL Creatinine (0.6-1.3) mg/dL Estimated GFR (MDRD) (>89) Glucose (74-104) mg/dL POC Whole Bld Glucose 210 124 (70-100) mg/dL Calcium (8.5-10.3) mg/dL Magnesium (1.7-2.3) mg/dL Total Bilirubin (0.2-1.0) mg/dL AST (10-42) IU/L ALT (10-60) IU/L Alkaline Phosphatase (42-121) IU/L Total Protein (6.4-8.9) g/dL Albumin (3.2-5.5) g/dL Globulin (2.1-4.2) g/dL Albumin/Globulin Ratio (1.0-2.2) Lipase (11-82) U/L Blood Type Antibody Screen 04/21/25 Range/Units 02:14 WBC 7.5 (4.8-10.8) x10^3/uL RBC 3.08 L (4.70-6.10) 10^6/uL Hgb 7.6 L (14.0-18.0) g/dL Hct 24.8 L (42.0-52.0) % MCV 80.5 (80.0-94.0) fL MCH 24.7 L (27.0-31.0) pg MCHC 30.6 L (32.0-36.0) g/dL RDW 17.3 H (12.0-15.0) % Plt Count 506 H (130-450) 10^3/uL MPV 10.3 (7.4-11.4) fL Neut # (Auto) 5.4 (1.5-6.6) 10^3/uL Lymph # (Auto) 1.2 L (1.5-3.5) 10^3/uL [place] # (Auto) 0.5 (0.0-1.0) 10^3/uL Eos # (Auto) 0.2 (0.0-0.7) 10^3/uL Baso # (Auto) 0.1 (0.0-0.1) 10^3/uL Absolute Nucleated RBC 0.00 x10^3/uL Nucleated RBC % 0.0 /100WBC Sodium 139 (135-145) mmol/L Potassium 3.4 L (3.5-4.5) mmol/L Chloride 105 (101-111) mmol/L Carbon Dioxide 31 (21-32) mmol/L Anion Gap 3.0 L (6-13) BUN 14 (6-20) mg/dL Creatinine 0.4 L (0.6-1.3) mg/dL Estimated GFR (MDRD) 209 (>89) Glucose 111 H (74-104) mg/dL POC Whole Bld Glucose (70-100) mg/dL Calcium 10.4 H (8.5-10.3) mg/dL Magnesium 1.8 (1.7-2.3) mg/dL Total Bilirubin 0.3 (0.2-1.0) mg/dL AST 16 (10-42) IU/L ALT 11 (10-60) IU/L Alkaline Phosphatase 118 (42-121) IU/L Total Protein 5.8 L (6.4-8.9) g/dL Albumin 2.9 L (3.2-5.5) g/dL Globulin 2.9 (2.1-4.2) g/dL Albumin/Globulin Ratio 1.0 (1.0-2.2) Lipase < 10 L (11-82) U/L Blood Type O POSITIVE Antibody Screen NEGATIVE Assessment/Plan Problem List (1) Anemia: Qualifiers: Anemia type: unspecified type Qualified Code(s): D64.9 - Anemia, unspecified (2) Anemia, iron deficiency: Qualifiers: Iron deficiency anemia type: inadequate dietary iron intake Qualified Code(s): D50.8 - Other iron deficiency anemias (3) Acute lower gastrointestinal bleeding: Impression: Patient with persistent anemia. I have opted to recheck his blood counts 1 time earlier today at 11. He is hemoglobin is actually increased from when he was admitted. It is now 7.7. Within the margin of error for the lab. He has not received any blood products. He has not had any bloody bowel movements since he has been here - Will recheck his hemoglobin 1 more time in the morning, likely can discharge back to [facility] - He will continue to have bloody bowel movements given his malignancy - He should get his blood counts checked weekly as recommended at discharge last time - He may be transfusion dependent moving forward but he can get this done in the ER. - Discussed curbside with general surgery as below (4) Type 2 diabetes mellitus: Impression: Has been started on insulin since his prolonged hospitalization earlier this year. He continues on insulin. Continue his home dose of insulin at this time. He is eating and drinking a carb controlled diet. He did not receive his glargine this morning, his blood sugars are rising. - Continue sliding scale - Will give 5 units glargine now - Resume 12 units glargine every morning tomorrow Qualifiers: Diabetes mellitus group home insulin use: without watermaster use Diabetes mellitus complication status: with hyperglycemia Qualified Code(s): E11.65 - Type 2 diabetes mellitus with hyperglycemia (5) Rectal mass: Impression: Patient has a known history of rectal mass that has been bleeding. Anemia as above. He had a biopsy endoscopically done on 04/12. This is finally resulted as of 04/17. The family was unaware of the diagnosis. 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 They have not yet heard back from general surgery - I have asked general surgery to make sure they are scheduled for follow-up, this will be done tomorrow on 04/22 when the office opens - Patient will need to follow-up with oncology and general surgery - Case will be discussed at tumor board this week or next (6) Cachexia: Impression: Patient continues to eat fairly robustly. He has muscle wasting and signs of malnutrition in the setting of his malignancy. He is actually put on some weight since his hospitalization. He is improving appropriately. - Nutrition following
[2025-04-21] MEDS: INSULIN GLARGINE-YFGN 300 UNIT/3 ML PEN SUBQ ONE (14:00)
[2025-04-21] MEDS: MIRTAZAPINE 15 MG TABLET PO SCH (21:55)
[2025-04-22 05:49] LABS: HCT - HEMATOCRIT 24.2 % (42.0-52.0); HGB - HEMOGLOBIN 7.3 g/dL (14.0-18.0); MEAN PLATELET VOLUME 10.5 fL (7.4-11.4); PLT - PLATELET COUNT 507.0 10^3/uL (130-450); RED CELL DISTRIBUTION WIDTH 17.5 % (12.0-15.0)
[2025-04-22] MEDS ORDERED: INSULIN GLARGINE-YFGN 300 UNIT/3 ML PEN SUBQ SCH (07:00)
--- NOTE | 2025-04-22 07:24 | Discharge Summary ---
Discharge Summary Admit Date: 04/21/25 Discharge Date: 04/22/25 Discharging Provider: Johnathon Dumont Primary Care Provider: Kathia Red Code Status: Do Not Attempt Resuscitation Discharge Facility Name: [facility] DIAGNOSES Discharge Diagnoses with Status of Each Condition: Blood counts are stable. Within the margin of error for the lab. Continues to need every week CBC and may need intermittent transfusion. I expect he will continue to have hematochezia given his bleeding rectal mass. Discussed with patient, will keep him on a daily MiraLAX to keep his stool soft. ALLERGIES Allergies Allergy/AdvReac Type Severity Reaction Status Date / Time No Known Drug Allergies Allergy Verified 04/10/25 13:04 MEDICATIONS Ambulatory Orders Medication Instructions Recorded Confirmed acetaminophen 500 mg tablet 1,000 mg (2 x 500 mg) PO T ID #90 03/28/25 04/21/25 (Tylenol Extra Strength) tabs aspirin 81 mg tablet 162 mg (2 x 81 mg) PO DAILY 24 03/28/25 04/21/25 days #48 tabs insulin glargine-yfgn 100 unit/mL 12 unit (0.12 mL) tian bcut 03/28/25 04/21/25 (3 mL) subcutaneous pen QDBREAKFAST #15 mL insulin lispro 100 unit/mL 5 unit (0.05 mL) subcut TID WM #15 03/28/25 04/21/25 subcutaneous pen (Humalog KwikPen mL (U-100) Insulin) lidocaine 4 % topical patch 1 patch topical DAILY #30 ea 03/28/25 04/21/25 mirtazapine 15 mg tablet 15 mg PO QPM #30 tabs 04/21/25 iupyjlomkcvs-vsfclzfd-kkns 1 tab PO DAILYWM #30 tabs 1 05/28/24 04/21/25 fumarate 19 mg-folic acid 400 mcg tablet (Therapeutic-M) docusate sodium 250 mg capsule 250 mg PO DAILY 5 04/21/25 ferrous sulfate 325 mg (65 mg 325 mg PO DAILYWM 04/21/25 iron) tablet insulin lispro 100 unit/mL 1 - 9 unit subcut 04/11/25 04/21/25 subcutaneous pen (Humalog KwikPen 0800,1200,1700,2100 (U-100) Insulin) pantoprazole 40 mg tablet,delayed 40 mg PO BIDAC 04/1104/21/25 release buspirone 5 mg tablet 5 mg PO BID #60 tabs 5 04/21/25 loperamide 2 mg capsule 2 mg PO QID PRN Diarrhea #60 caps 04/17/25 04/21/25 PHYSICAL EXAM AT DISCHARGE Vital Signs: Vital Signs x48h Temp Pulse Resp BP Pulse Ox 04/22/25 04:07 36.5 C 75 16 172/93 H 97 04/22/25 00:29 36.7 C 70 14 161/80 H 96 LABS 04/22/25 05:23 04/21/25 02:14 Discharge Plan Discharge Condition: Stable Prescriptions: No Action acetaminophen [Tylenol Extra Strength] 500 mg Tablet 1,000 mg PO TID Qty: 90 0RF insulin glargine-yfgn 100 unit/mL (3 mL) Insulin Pen 12 unit subcut QDBREAKFAST Qty: 15 0RF insulin lispro [Humalog KwikPen Insulin] 100 unit/mL Insulin Pen 5 unit subcut TIDWM Qty: 15 0RF lidocaine 4 % Adhesive Patch,Medicated 1 patch topical DAILY Qty: 30 0RF mirtazapine 15 mg Tablet 15 mg PO QPM Qty: 30 0RF Therapeutic-M 19 mg iron- 400 mcg Tablet 1 tab PO DAILYWM Qty: 30 0RF aspirin 81 mg tablet 162 mg PO DAILY 24 Days Qty: 48 0RF pantoprazole 40 mg Tablet,Delayed Release (Dr/Ec) 40 mg PO BIDAC Rx Instructions: with breakfast and dinner ferrous sulfate 325 mg (65 mg iron) Tablet 325 mg PO DAILYWM Rx Instructions: Give with Breakfast docusate sodium 250 mg Capsule 250 mg PO DAILY insulin lispro [Humalog KwikPen Insulin] 100 unit/mL Insulin Pen 1 - 9 unit subcut 0800,1200,1700,2100 Rx Instructions: 0-140= 0 141-180 1 unit 181-225= 3 units 226-275= 5 units 276-325= 7 units 326-375= 9 units 376-500= Call buspirone 5 mg Tablet 5 mg PO BID Qty: 60 0RF loperamide 2 mg Capsule 2 mg PO QID PRN (Reason: Diarrhea) Qty: 60 0RF Print Language: Stateless Stand Alone Forms: PCP List Follow-up Care: Kathia Red MD [Primary Care Provider, Standards Analyst] Vitals documented within 30 minutes of discharge?: Yes
[2025-04-22] MEDS: INSULIN GLARGINE-YFGN 300 UNIT/3 ML PEN SUBQ SCH (08:23)
[2025-04-22] MEDS: INSULIN LISPRO 300 UNIT/3 ML PEN SUBQ SCH (08:24)
--- NOTE | 2025-04-22 12:46 | PHARMACY PROGRESS NOTE ---
Best Possible Medication History Admit Date and Time: 04/21/25 [id number] Home Medications Medication Instructions Recorded Confirmed Type acetaminophen 500 mg tablet 1,000 mg (2 x 500 mg) PO T ID #90 03/28/25 04/21/25 Rx (Tylenol Extra Strength) tabs insulin glargine-yfgn 100 unit/mL 12 unit (0.12 mL) tian bcut 03/28/25 04/21/25 Rx (3 mL) subcutaneous pen QDBREAKFAST #15 mL insulin lispro 100 unit/mL 5 unit (0.05 mL) subcut TID WM #15 03/28/25 04/21/25 Rx subcutaneous pen (Humalog KwikPen mL (U-100) Insulin) lidocaine 4 % topical patch 1 patch topical DAILY #30 ea 03/28/25 04/21/25 Rx mirtazapine 15 mg tablet 15 mg PO QPM #30 tabs 04/21/25 Rx menyptkytrmw-azovpxtp-qxhj 1 tab PO DAILYWM #30 tabs 1 05/28/24 04/21/25 Rx fumarate 19 mg-folic acid 400 mcg tablet (Therapeutic-M) docusate sodium 250 mg capsule 250 mg PO DAILY 5 04/21/25 History ferrous sulfate 325 mg (65 mg 325 mg PO DAILYWM 04/21/25 History iron) tablet insulin lispro 100 unit/mL 1 - 9 unit subcut 04/11/25 04/21/25 History subcutaneous pen (Humalog KwikPen 0800,1200,1700,2100 (U-100) Insulin) pantoprazole 40 mg tablet,delayed 40 mg PO BIDAC 04/1104/21/25 History release buspirone 5 mg tablet 5 mg PO BID #60 tabs 04/17/2 5 04/21/25 Rx loperamide 2 mg capsule 2 mg PO QID PRN Diarrhea #60 caps 04/17/25 04/21/25 Rx aspirin 81 mg tablet 81 mg PO BID 04/22/25 History bisacodyl 10 mg rectal suppository 10 mg W[place] DAILY PRN constipation 04/22/25 04/22/25 History (Dulcolax (bisacodyl)) dextrose 40 % oral gel (Glutose-15) 15 g PO Q15M PRN h ypoglycemia 04/22/25 04/22/25 History glucagon 1 mg solution for 1 mg IM Q20M PRN hypoglycem ia 04/22/25 04/22/25 History injection (Glucagon Emergency Kit) mineral oil (Fleet Mineral Oil 118 ml [place] DAILY PRN con stipation 04/22/25 History enema) naloxone 4 mg/actuation nasal 4 mg intranasal Q2M PRN opioid 04/22/25 04/22/25 History spray (Narcan) overdose oxycodone 5 mg tablet 5 mg PO Q4H PRN pain 5 04/22/25 History polyethylene glycol 3350 17 17 g PO DAILY PRN constipa tion 04/22/25 04/22/25 History gram/dose oral powder (Miralax) sennosides 8.6 mg tablet (senna) 17.2 mg PO DAILY PRN constipation 04/22/25 04/22/25 History Processed by: Pharmacy Medications reviewed in ED?: No Medication History completed: Yes Patient Interview: Pt unable to participate Secondary Source(s): Facility [facility] as ONLY source (Medication list from [facility]) [facility] Statement: As the person ultimately responsible for medication therapy, providers are able to order a medication from an existing home medication list in [facility] via the "Reconcile Routine" prior to Confirmation of that medication by product support analyst. Such practice is discouraged except when the physician, in their clinical judgment, deems that a medical need exists for a medication without regard to previous use.
--- NOTE | 2025-04-22 12:58 | PT Plan of Care ---
PT Inpatient Plan of Care DIAGNOSIS Diagnosis: anemia Referring Provider: Johnathon Dumont Patient Status: Observation CHIEF COMPLAINT Chief Complaint: weakness Onset of Chief Complaint: IMCU SPECIALIST on 04/21/25 MEDICAL/SURGICAL HISTORY Medical History Anemia Counseling regarding advanced care planning and goals of care Insomnia Urinary incontinence Skin cancer No pertinent past medical history Surgical History History of repair of hip fracture Hx of flexible sigmoidoscopy (~03/22/25) [facility] DR. 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 PMH includes R hip IM nail on 04/04/[address] Moya and a recently noted rectal mass, please see chart for complete medical hx. The pt was received resting comfortably supine in bed and presented today with decreased B UE and LE strength, decreased activity to lerance, and impaired standing balance all of which limited his tolerance with functional mobility. At this time recommend continued skilled PT intervention while in the acute setting and DC back to SNF for further rehab once pt medically stable as the pt's instability continues to be profound enough to limit him safely returning to prior [facility]. This plan was discussed with the pt and he was in agreement with this, although he voiced that he would prefer to return to [facility]. At the end of the session the pt was sitting up in a chair with call light in reach and all needs met. RN, FBI SHARPSHOOTER, and MD all updated on pt's status and DC rec. PATIENT/FAMILY GOALS Patient/Family Goals: To get strong enough to go back to [facility] GOALS Improve supine to sit to:: Independent Improve sit to stand to:: Standby Assist Improve pivot transfer ability to:: Standby Assist Improve sit to supine to:: Independent Improve gait ability to:: CGA Advance Assistive Device to:: Front Wheeled Walker Increase distance walked to (in feet):: 100 Other Balance Goal:: with FWW PLAN Frequency: 1-2x/day Duration: Until goals are met DISCHARGE RECOMMENDATIONS [facility]charge Location: [facility] Support/Services Needed: With assist Other Discharge Equipment: TBD Transport Needs at Discharge: Personal vehicle
[2025-04-22] MEDS: PANTOPRAZOLE 40 MG TABLET PO SCH (17:06)
--- NOTE | 2025-04-22 18:16 | PROVIDER PROGRESS NOTE ---
Subjective Prog Note Date Prog Note Date: 04/22/25 Prog Note Time: 18:05 Subjective Subjective: No acute events overnight. Patient's blood counts were stable overnight. Patient feels well this morning. Plan today was to get him back to her [facility]. No word from them yet today. He also worked with PT today. There is still an ongoing need for SNF. We will continue to pursue getting back to [facility]. Patient denies any fevers or chills. Denies lightheadedness or dizziness. Denies presyncopal or vertiginous symptoms. Has not seen any blood in his stool as of yet. Reports that his stools are soft and diarrhea-like often times. His vital signs remained stable otherwise. Current Medications Current Medications Current Medications: Current Medications Generic Name Dose Route Start Last Admin Trade Name Romie PRN Reason Stop Dose Admin Acetaminophen 1,000 mg 04/21/25 07:35 04/22/25 13:02 Acetaminophen 500 Mg Tablet PO 1,000 mg TID JUJU Administration Buspirone HCl 5 mg 04/21/25 09:00 04/22/25 08:26 Buspirone 5 Mg Tablet PO 5 mg BID JUJU Administration Ferrous Sulfate 325 mg 04/21/25 08:00 04/22/25 08:26 Ferrous Sulfate 325 Mg Tablet PO 325 mg DAILYWM JUJU Administration Insulin Glargine-yfgn 12 unit 04/22/25 08:00 04/22/25 08:23 Insulin Glargine-Yfgn 300 Unit/3 Ml Pen SUBQ 12 unit 0800 JUJU Administration Insulin Human Lispro 5 unit 04/21/25 17:00 04/22/25 17:03 Insulin Lispro 300 Unit/3 Ml Pen SUBQ 5 unit TIDWM JUJU Administration Insulin Human Lispro 3 - 11 unit 04/22/25 08:00 04/22/25 17:04 Insulin Lispro 300 Unit/3 Ml Pen SUBQ 3 unit 0800,1200,1700,2100 JUJU Administration Protocol Lidocaine 1 patch 04/21/25 09:00 04/22/25 08:26 Lidocaine Patch 4% TOP 1 patch DAILY JUJU Administration Mirtazapine 15 mg 04/21/25 21:00 04/21/25 21:55 Mirtazapine 15 Mg Tablet PO 15 mg QPM JUJU Administration Multivitamins/Minerals 1 tab 04/21/25 08:00 04/22/25 08:26 Multivitamin W/Minerals Tablet PO 1 tab DAILYWM JUJU Administration Pantoprazole Sodium 40 mg 04/22/25 16:00 04/22/25 17:06 Pantoprazole 40 Mg Tablet PO 40 mg BIDAC JUJU Administration Sodium Chloride 10 ml 04/21/25 05:46 Sodium Chloride Flush 0.9% 10 Ml Syringe IVP PRN PRN NEEDED PER PROVIDER ORDERS Sodium Chloride 10 ml 04/21/25 09:00 04/22/25 17:06 Sodium Chloride Flush 0.9% 10 Ml Syringe IVP 10 ml 0100,0900,1700 JUJU Administration Objective Vital Signs/Intake & Output Reviewed Vital Signs: Yes Vital Signs: Vital Signs x48h Temp Pulse Resp BP BP Pulse Ox 04/22/25 16:00 36.6 C 91 18 114/64 98 04/22/25 11:06 36.8 C 76 18 143/66 H 97 Intake & Output: Intake & Output 04/19/25 04/20/25 04/21/25 04/22/25 23:59 23:59 23:59 23:59 Intake Total 1431 / 1431 600 / 600 Output Total 675 / 675 1250 / 1250 Balance 756 / 756 -650 / -650 Weight (kg) 61 kg Objective Comments/Other: GEN: No acute distress. Frail and cachectic. HEENT: NC/AT, normal appearance of external ears and nose. Hearing baseline. Cardiac: Regular rate and rhythm, no murmurs. Generally euvolemic. Palpable distal pulses. Normal cap refill Pulm: Lungs CTA bilaterally, no cough, no wheezes. Normal effort on room air. Abdomen: Soft, nontender, nondistended. No rebound or guarding Extremities: Moves all 4 extremities equally. Neuro: Face symmetric, CN II through XII intact grossly. No focal neurologic deficits Psych: Mood euthymic with congruent affect. Reasonable historian. Judgment baseline Lab Results 04/22/25 05:23 04/21/25 02:14 Other Labs: Lab Results x24hrs 04/22/25 04/22/25 04/22/25 Range/Units 16:28 11:05 07:41 WBC (4.8-10.8) x10^3/uL RBC (4.70-6.10) 10^6/uL Hgb (14.0-18.0) g/dL Hct (42.0-52.0) % MCV (80.0-94.0) fL MCH (27.0-31.0) pg MCHC (32.0-36.0) g/dL RDW (12.0-15.0) % Plt Count (130-450) 10^3/uL MPV (7.4-11.4) fL POC Whole Bld Glucose 159 192 169 (70-100) mg/dL 04/22/25 04/21/25 Range/Units 05:23 21:06 WBC 7.2 (4.8-10.8) x10^3/uL RBC 2.97 L (4.70-6.10) 10^6/uL Hgb 7.3 L (14.0-18.0) g/dL Hct 24.2 L (42.0-52.0) % MCV 81.5 (80.0-94.0) fL MCH 24.6 L (27.0-31.0) pg MCHC 30.2 L (32.0-36.0) g/dL RDW 17.5 H (12.0-15.0) % Plt Count 507 H (130-450) 10^3/uL MPV 10.5 (7.4-11.4) fL POC Whole Bld Glucose 302 (70-100) mg/dL Assessment/Plan Problem List (1) Anemia, iron deficiency: Qualifiers: Iron deficiency anemia type: inadequate dietary iron intake Qualified Code(s): D50.8 - Other iron deficiency anemias (2) Acute lower gastrointestinal bleeding: Impression: Hemoglobin is stable this morning. Within margin of error of the lab. Recall the patient presented after having hematochezia at his residential facility. Hgb on arrival was identical to his last discharge Hgb. Hemoglobin remained stable on short interval trending on hospital day 1. Trended again on hospital day 2. Remained stable. Did not receive any transfusion. He has not had any bloody bowel movements since he has been here - Trend H/H again in 1 week, around 12/8. - He will continue to have bloody bowel movements given his malignancy - He should get his blood counts checked weekly as recommended at discharge last time - He may be transfusion dependent moving forward but he can get this done in the ER. - Discussed curbside with general surgery as below (3) Type 2 diabetes mellitus: Impression: Blood sugar stabilized after resuming his glargine and nightly insulin. Ranging 160-200 today. Appetite is good. Has been started on insulin since his prolonged hospitalization earlier this year. He continues on insulin. Continue his home dose of insulin at this time. He is eating and drinking a carb controlled diet. 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 Patient has a known history of rectal mass that has been bleeding. Anemia as above. He had a biopsy endoscopically done on 04/12. This is finally resulted as of 04/17. The family was unaware of the diagnosis. 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 They have not yet heard back from general surgery - General surgery will schedule follow-up for the patient, had been scheduled for 04/17. - Patient will need to follow-up with oncology and general surgery, Cancer coordinator has been notified. - Case will be discussed at tumor board this week or next (5) Closed intertrochanteric fracture of right hip: (6) Cachexia: Impression: In addition to muscle wasting from his cancer, the patient also fell and had a significant right intertrochanteric hip fracture. This was repaired over a month ago. He has been on ASA for VTE prophylaxis which may be contributing to his ongoing rectal bleeding. He has been in rehabilitation at [facility] following his fall and hospitalization. Patient continues to eat fairly robustly. He has muscle wasting and signs of malnutrition in the setting of his malignancy. He is actually put on some weight since his hospitalization. He is improving appropriately. - Nutrition following - PT reevaluated today, would benefit from ongoing rehab. - Plan to discharge back to [facility] - Will not resume ASA at discharge, Out of window for empiric VTE prophylaxis I spent a total of 39 minutes in the care of this patient today. This time was spent reviewing labs, vital signs, imaging, interviewing and examining the patient, and discussing plan of care with them and their other care providers. Management of a chronic condition that poses a real threat to life. Data review as above. Prescription drug management as above. [id number]
--- NOTE | 2025-04-23 11:55 | Discharge Summary ---
"Discharge Summary Admit Date: 04/21/25 Discharge Date: 04/23/25 Discharging Provider: Johnathon Dumont Primary Care Provider: Not yet established Code Status: Do Not Attempt Resuscitation Discharge Facility Name: [facility] DIAGNOSES Discharge Diagnoses with Status of Each Condition: ## Anemia, iron deficiency ## Acute lower gastrointestinal bleeding Recall the patient presented after having hematochezia at his shelter facility. Hgb on arrival was identical to his last discharge Hgb. Hemoglobin remained stable on short interval trending on hospital day 1. Trended again on hospital day 2. Remained stable. Did not receive any transfusion. He has not had any bloody bowel movements since he has been here - Trend H/H again in 1 week, around 04/29 - Return to ER for transfusion for Hgb<7 - He will continue to have bloody bowel movements given his malignancy - Discussed curbside with general surgery as below ## Type 2 diabetes mellitus Blood sugar stabilized after resuming his glargine and nightly insulin. Ranging 160-200 today. Appetite is good. Has been started on insulin since his prolonged hospitalization earlier this year. He continues on insulin. Continue his home dose of insulin at this time. He is eating and drinking a carb controlled diet. - 12 units glargine every morning - 5 units lispro with meals, - Carbohydrate controlled diet with correction insulin ## Rectal mass Patient has a known history of rectal mass that has been bleeding. Anemia as above. He had a biopsy endoscopically done on 04/12. This is finally resulted as of 04/17. The family was unaware of the diagnosis. Stable no further rectal bleeding seen throughout this hospitalization. 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 They have not yet heard back from general surgery - General surgery will schedule follow-up for the patient - Patient will need to follow-up with oncology and general surgery, Cancer coordinator has been notified. - Case will be discussed at tumor board this week or next ## Closed intertrochanteric fracture of right hip: ## Cachexia: In addition to muscle wasting from his cancer, the patient also fell and had a significant right intertrochanteric hip fracture. This was repaired over a month ago. He has been on ASA for VTE prophylaxis which may be contributing to his ongoing rectal bleeding. He has been in rehabilitation at [facility] following his fall and hospitalization. Patient continues to eat fairly robustly. He has muscle wasting and signs of malnutrition in the setting of his malignancy. He is actually put on some weight since his hospitalization. He is improving appropriately. - PT Evaluation during this hospitalization, patient continues to benefit from ongoing rehab. He is not safe yet for independent living. - Plan to discharge back to [facility] - Will not resume ASA at discharge, Out of window for empiric VTE prophylaxis HPI History of Present Illness: The patient is a 75-year-old male, well known to this service with multiple recent admissions, with a past medical history significant for type 2 diabetes mellitus, GERD, and a mood disorder. He was recently diagnosed with a rectal mass, status post biopsy confirming adenocarcinoma. Per prior documentation, he has discussed treatment options with surgery and palliative care and is currently undecided regarding definitive treatment. He has not yet undergone oncology evaluation. The patient was sent from his facility for recurrent episodes of bright red blood per rectum. He denies melena. He reports soft stools without diarrhea, with ongoing BRBPR. He denies cough, fever, chills, nausea, vomiting, shortness of breath, dysuria, falls, syncope, trauma, or chest pain. His primary complaints are worsening appetite, fatigue, generalized malaise, and failure to thrive. Emergency department evaluation demonstrated stable vital signs and hemoglobin at his baseline. However, given ongoing bleeding, the decision was made to admit the patient for monitoring, hemoglobin trending, and transfusion as clinically indicated. The plan of care was discussed with the patient, who is agreeable and has no additional questions or concerns at this time. Assessment and plan are outlined below. CONSULTS | PROCEDURES Consultations: None Procedures: CT abdomen pelvis 04/21 HOSPITAL COURSE Hospital Course: 75-year-old male well-known to our service. Admitted for hematochezia that was noted at his shelter facility. He has had no symptoms of worsened anemia. No loss of consciousness. No progressive fatigue. He does not have any pallor. His hemoglobin on arrival was identical to what it was when he last left this hospital at 7.6. Trended up slightly to 7.7 on repeat. He is not demonstrating any further hematochezia during this hospitalization. The patient will continue to have hematochezia in the setting of his bleeding rectal mass. He has been stopped on ASA during this hospitalization as he is no longer needing it. He is far enough out from his hip surgery. He should continue to be monitored weekly with CBC. He may need to come back to the ED for transfusion if Hgb less than 7. Continue to monitor clinically for any symptoms of lightheadedness, presyncopal symptoms, vertiginous symptoms, or pallor. If his rectal bleeding picks up significantly, would recommend him to come back to the ER for consideration of transfusion. There is nothing acute that can be done about his rectal bleeding at this time. Tumor board will meet this week or next about his case. They may opt for resection and colostomy to manage his symptoms. Further decisions to be made by his outpatient surgery and oncology teams. Patient was seen and evaluated on the day of discharge. He is feeling well. He has been eating well. He remembers working with PT yesterday. He is fairly optimistic that his progress that he has made with therapy at [facility]. He is not yet safe to go home per therapy's evaluation, and would benefit from ongoing rehab. He discharges back to [facility] in stable condition on 04/23. Discussed with patient's sister. Her questions were answered. ALLERGIES Allergies Allergy/AdvReac Type Severity Reaction Status Date / Time No Known Drug Allergies Allergy Verified 04/10/25 13:04 MEDICATIONS Ambulatory Orders Medication Instructions Recorded Confirmed acetaminophen 500 mg tablet 1,000 mg (2 x 500 mg) PO T ID #90 03/28/25 04/21/25 (Tylenol Extra Strength) tabs insulin glargine-yfgn 100 unit/mL 12 unit (0.12 mL) tian bcut 03/28/25 04/21/25 (3 mL) subcutaneous pen QDBREAKFAST #15 mL insulin lispro 100 unit/mL 5 unit (0.05 mL) subcut TID WM #15 03/28/25 04/21/25 subcutaneous pen (Humalog KwikPen mL (U-100) Insulin) lidocaine 4 % topical patch 1 patch topical DAILY #30 ea 03/28/25 04/21/25 mirtazapine 15 mg tablet 15 mg PO QPM #30 tabs 04/21/25 fblnmhjjblcn-dxxcljsz-tbth 1 tab PO DAILYWM #30 tabs 1 05/28/24 04/21/25 fumarate 19 mg-folic acid 400 mcg tablet (Therapeutic-M) docusate sodium 250 mg capsule 250 mg PO DAILY 5 04/21/25 ferrous sulfate 325 mg (65 mg 325 mg PO DAILYWM 04/21/25 iron) tablet insulin lispro 100 unit/mL 1 - 9 unit subcut 04/11/25 04/21/25 subcutaneous pen (Humalog KwikPen 0800,1200,1700,2100 (U-100) Insulin) pantoprazole 40 mg tablet,delayed 40 mg PO BIDAC 04/1104/21/25 release buspirone 5 mg tablet 5 mg PO BID #60 tabs 5 04/21/25 loperamide 2 mg capsule 2 mg PO QID PRN Diarrhea #60 caps 04/17/25 04/21/25 dextrose 40 % oral gel (Glutose-15) 15 g PO Q15M PRN h ypoglycemia 04/22/25 04/22/25 glucagon 1 mg solution for 1 mg IM Q20M PRN hypoglycem ia 04/22/25 04/22/25 injection (Glucagon Emergency Kit) mineral oil (Fleet Mineral Oil 118 ml [place] DAILY PRN con stipation 04/22/25 04/22/25 enema) naloxone 4 mg/actuation nasal 4 mg intranasal Q2M PRN opioid 04/22/25 04/22/25 spray (Narcan) overdose oxycodone 5 mg tablet 5 mg PO Q4H PRN pain 5 04/22/25 polyethylene glycol 3350 17 17 g PO DAILY PRN constipa tion 04/22/25 04/22/25 gram/dose oral powder (Miralax) sennosides 8.6 mg tablet (senna) 17.2 mg PO DAILY PRN constipation 04/22/25 04/22/25 PHYSICAL EXAM AT DISCHARGE Vital Signs: Vital Signs x48h Temp Pulse Resp BP Pulse Ox 04/23/25 11:19 36.8 C 74 16 137/64 H 96 04/23/25 07:36 36.6 C 76 18 157/79 H 98 04/23/25 05:10 36.9 C 82 16 167/91 H 97 LABS 04/22/25 05:23 04/21/25 02:14 DIAGNOSTIC IMAGING Diagnostic Imaging Results: Final report reviewed and Read independently Diagnostic Imaging Results Comments: CT Abdomen Pelvis 04/21: A rectal mass is again seen, with surrounding inflammatory change. No karla findings of metastatic disease can be seen. FOLLOW UP Follow Up: Needs f/u with general surgery Will need to establish with oncology Needs PCP intake after SNF to manage DM TIME SPENT Time Spent in Discharge (Minutes): 38 Discharge Plan Discharge Patient Disposition: 03 SNF DC/Xfer Condition: Stable Medically Cleared Date:: 04/22/25 Prescriptions: Continued acetaminophen [Tylenol Extra Strength] 500 mg Tablet 1,000 mg PO TID Qty: 90 0RF insulin glargine-yfgn 100 unit/mL (3 mL) Insulin Pen 12 unit subcut QDBREAKFAST Qty: 15 0RF insulin lispro [Humalog KwikPen Insulin] 100 unit/mL Insulin Pen 5 unit subcut TIDWM Qty: 15 0RF lidocaine 4 % Adhesive Patch,Medicated 1 patch topical DAILY Qty: 30 0RF mirtazapine 15 mg Tablet 15 mg PO QPM Qty: 30 0RF Therapeutic-M 19 mg iron- 400 mcg Tablet 1 tab PO DAILYWM Qty: 30 0RF pantoprazole 40 mg Tablet,Delayed Release (Dr/Ec) 40 mg PO BIDAC Rx Instructions: with breakfast and dinner ferrous sulfate 325 mg (65 mg iron) Tablet 325 mg PO DAILYWM Rx Instructions: Give with Breakfast docusate sodium 250 mg Capsule 250 mg PO DAILY insulin lispro [Humalog KwikPen Insulin] 100 unit/mL Insulin Pen 1 - 9 unit subcut 0800,1200,1700,2100 Rx Instructions: 0-140= 0 141-180 1 unit 181-225= 3 units 226-275= 5 units 276-325= 7 units 326-375= 9 units 376-500= Call buspirone 5 mg Tablet 5 mg PO BID Qty: 60 0RF loperamide 2 mg Capsule 2 mg PO QID PRN (Reason: Diarrhea) Qty: 60 0RF oxycodone 5 mg tablet 5 mg PO Q4H PRN (Reason: pain) Patient Comments: 5 mg orally every 4 hours As Needed for Pain 5 to 7 Glucagon Emergency Kit (human) 1 mg recon soln 1 mg IM Q20M PRN (Reason: hypoglycemia) Rx Instructions: until target blood sugar attained dextrose [Glutose-15] 40 % gel 15 g PO Q15M PRN (Reason: hypoglycemia) Rx Instructions: until symptoms of low blood sugar are controlled mineral oil [Fleet Mineral Oil] Enema 118 ml IL DAILY PRN (Reason: constipation) Rx Instructions: day 6 of no bm polyethylene glycol 3350 [Miralax] 17 gram/dose powder 17 g PO DAILY PRN (Reason: constipation) Rx Instructions: day 3 of no bm naloxone [Narcan] 4 mg/actuation spray,non-aerosol 4 mg intranasal Q2M PRN (Reason: opioid overdose) Rx Instructions: spray 1 dose into ONE nostril; alternate nostrils w each dose until help arrives sennosides [senna] 8.6 mg tablet 17.2 mg PO DAILY PRN (Reason: constipation) Rx Instructions: day 4 of no bm Discontinued bisacodyl [Dulcolax (bisacodyl)] 10 mg suppository 10 mg [place] DAILY PRN (Reason: constipation) Rx Instructions: day 5 of no bm aspirin 81 mg tablet 81 mg PO BID Diet: Diabetic Interventions: Belongings Inventory Last Done: 04/22/25 02:00 Health Concerns: You were admitted to the hospital withbleeding from a mass in your rectum(the last part of your large intestine). Your blood count (hemoglobin) has remained stable, and you are now ready to go home. You will need to have your blood count checked weekly and follow up with your doctor for further evaluation. Please follow these instructions carefully. What to Expect at Home * You may continue to have some rectal bleeding. This is expected, but you should monitor it closely. * I have asked the fine folks at [facility] to keep an eye on your blood counts at least weekly * You may feel tired or weak. This is common after bleeding episodes. * Your bowel movements may vary in frequency and consistency. Diet and Eating * Eat a well-balanced diet with plenty of fruits, vegetables, and whole grains to help keep your bowel movements soft and regular. * Drink at least 4 glasses of water per day to stay hydrated and prevent constipation. * Avoid straining during bowel movements, as this can worsen bleeding. * If you find you are straining for bowel movements, you have medicines to help keep your stool soft including MiraLAX and docusate * Consider adding fiber supplements if recommended by your doctor. Activity * You may resume your normal daily activities as tolerated. * Avoid heavy lifting (more than 10-15 pounds) for at least one week. * Get plenty of rest and listen to your body. Medications * Take all medications exactly as prescribed by your doctor. * Your aspirin has been discontinued, you no longer need this medicine * Avoid nonsteroidal anti-inflammatory drugs (NSAIDs) like ibuprofen or naproxen unless specifically approved by your doctor, as these can increase bleeding risk.NEJM Important Follow-Up Care * Follow-up with the surgeons * Follow-up with oncology Weekly Blood Count Monitoring You need to have yourcomplete blood count (CBC) checked every weekto monitor your hemoglobin level and ensure you are not developing anemia from ongoing bleeding. You may need to come back to the ED for transfusions. Warning Signs - Seek Immediate Medical Attention If You Experience: * Heavy or increased rectal bleeding(soaking through toilet paper quickly, large amounts of blood in the toilet bowl, or blood clots) * Dizziness, lightheadedness, or fainting * Rapid heartbeat or chest pain * Severe abdominal pain or cramping * Black, tarry stools(this can indicate bleeding higher up in your digestive system) * Vomiting bloodor material that looks like coffee grounds * Extreme weakness or confusion * Shortness of breath * Pale skin or feeling very cold These symptoms may indicate significant blood loss requiring immediate evaluation.NEJM+ 1 When to Call Your Doctor (Non-Emergency) * Any increase in the amount or frequency of rectal bleeding * Persistent diarrhea or constipation * Lightheadedness or dizziness, progressive weakness with mobility * Changes in your bowel habits * Fever above 100.4F (38C) It has been a pleasure taking care of you. I hope you continue to do well. Print Language: Polish Patient Instructions: Rectal Bleeding Tx Stand Alone Forms: SNF Discharge Follow-up Care: Ambrose Goldsmith MD [Provider Admit Priv/Credential, Surgery, General] Ankita Paz MD [Provider Admit Priv/Credential, Oncology/Hematology] Kathia Red MD [Primary Care Provider, Manufacturing Assembler] Vitals documented within 30 minutes of discharge?: Yes"
[2025-04-23 13:42] VITALS: BP 152/76; TEMP 97.7; O2SAT 99
== END 2025-04-23 13:44 ==
LOC: MS2 01:51 → ED 01:51 → SUATTDRO 05:51 → MS2 06:25
PROVIDERS: ADMIT Internal Medicine; ATTEND Student in an Organized Health Care Education/Training Program

== ENCOUNTER 2025-04-29 19:45 | Inpatient (IN) ==
--- NOTE | 2025-04-29 19:59 | ED Physician Documentation ---
History of Present Illness Stated complaint Stated Complaint: ABNORMAL LABS Chief complaint Chief Complaint: General History obtained from History obtained from: Patient Additonal information Additional information: Patient is a 75-year-old male who lives at [facility]. He has a known rectal mass with continued rectal bleeding. He states he does not know what the plan is regarding this. He states that he had his blood drawn today and it was 6.6 so they referred him here for a blood transfusion. His usual hemoglobin is about 7.3-7.5. He is asymptomatic. No abdominal pain, nausea, vomiting. No fevers. No chills. Review of Systems Constitutional Denies: Fever or Chills Respiratory Denies: Cough Gastrointestinal Denies: Abdominal pain or Vomiting Genitourinary Denies: Painful urination Meds/Allgy Home Medications Ambulatory Orders Medication Instructions Recorded Confirmed acetaminophen 500 mg tablet 1,000 mg (2 x 500 mg) PO T ID #90 03/28/25 04/24/25 (Tylenol Extra Strength) tabs insulin glargine-yfgn 100 unit/mL 12 unit (0.12 mL) tian bcut 03/28/25 04/24/25 (3 mL) subcutaneous pen QDBREAKFAST #15 mL insulin lispro 100 unit/mL 5 unit (0.05 mL) subcut TID WM #15 03/28/25 04/24/25 subcutaneous pen (Humalog KwikPen mL (U-100) Insulin) lidocaine 4 % topical patch 1 patch topical DAILY #30 ea 03/28/25 04/24/25 mirtazapine 15 mg tablet 15 mg PO QPM #30 tabs 04/24/25 ajmerrubqnig-ltygfqrh-[id number] 1 tab PO DAILYWM #30 tabs 1 05/28/24 04/24/25 fumarate 19 mg-folic acid 400 mcg tablet (Therapeutic-M) docusate sodium 250 mg capsule 250 mg PO DAILY 5 04/24/25 ferrous sulfate 325 mg (65 mg 325 mg PO DAILYWM 04/24/25 iron) tablet insulin lispro 100 unit/mL 1 - 9 unit subcut 04/11/25 04/24/25 subcutaneous pen (Humalog KwikPen 0800,1200,1700,2100 (U-100) Insulin) pantoprazole 40 mg tablet,delayed 40 mg PO BIDAC 04/1104/24/25 release buspirone 5 mg tablet 5 mg PO BID #60 tabs 5 04/24/25 loperamide 2 mg capsule 2 mg PO QID PRN Diarrhea #60 caps 04/17/25 04/24/25 dextrose 40 % oral gel (Glutose-15) 15 g PO Q15M PRN h ypoglycemia 04/22/25 04/24/25 glucagon 1 mg solution for 1 mg IM Q20M PRN hypoglycem ia 04/22/25 04/24/25 injection (Glucagon Emergency Kit) mineral oil (Fleet Mineral Oil 118 ml [place] DAILY PRN con stipation 04/22/25 04/24/25 enema) naloxone 4 mg/actuation nasal 4 mg intranasal Q2M PRN opioid 04/22/25 04/24/25 spray (Narcan) overdose oxycodone 5 mg tablet 5 mg PO Q4H PRN pain 5 04/24/25 polyethylene glycol 3350 17 17 g PO DAILY PRN constipa tion 04/22/25 04/24/25 gram/dose oral powder (Miralax) sennosides 8.6 mg tablet (senna) 17.2 mg PO DAILY PRN constipation 04/22/25 04/24/25 mirtazapine 15 mg tablet 15 mg PO QDAY 04/24/2504/24 oxycodone 5 mg tablet 5 mg PO Q4H PRN 04/24/2508/14 pantoprazole 40 mg tablet,delayed 40 mg PO QDAY 04/24/25 release sennosides 8.6 mg capsule (senna) 8.6 mg PO QDAY PRN 1 06/25/24 04/24/25 Allergies Allergies Allergy/AdvReac Type Severity Reaction Status Date / Time No Known Drug Allergies Allergy Verified 04/29/25 19:53 PFSH Active Problems All Active Problems (Updated 04/29/25 @ 20:26 by Alen Hines MD) Symptomatic anemia (Acute) ABLA (acute blood loss anemia) (Acute) Rectal adenocarcinoma (Acute) Anemia (Chronic) Anxiety about health (Acute) Guaiac positive stools (Acute) Post-operative state (Acute) Closed intertrochanteric fracture of right hip (Acute) Malnutrition (Acute) Closed right hip fracture (Acute) Type 2 diabetes mellitus (Acute) Closed T12 fracture (Acute) Closed T11 fracture (Acute) Intractable back pain (Acute) Anemia, iron deficiency (Acute) Rectal mass (Acute) Compression fracture of vertebral column (Acute) Cachexia (Acute) Leg pain, right (Acute) Ground-level fall (Acute) Medical History Medical History Anemia Counseling regarding advanced care planning and goals of care Insomnia Urinary incontinence Skin cancer No pertinent past medical history Surgical History Surgical History History of repair of hip fracture Hx of flexible sigmoidoscopy (~03/22/25) [facility] DR. 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 (Date/Year): 1969 Number of Years Smoked: 3 How many cigarettes a day do you smoke? (20 cigarettes=1 Pk): 20 Second hand tobacco smoke exposure: Yes Do you dip or chew tobacco?: No Do you vape?: No Initiate information on smoking cessation: No Living arrangement: Assisted living Living Condition: Alone Support Person: Yes Living Situation Details: Recently moved to [place]; is there under Medicaid Has a Durable Power of Cardiology Consultant for Health Care?: Yes Name / Relationship: Carmina Ribeiro [phone] DPOA on file?: Yes Level: Assisted Physical - Functional Details: Functional status has been declining Do you feel safe in your home environment?: Yes History of physical, verbal, emotional, or financial abuse?: No ETOH Use: Beer Frequency: Daily Number of drinks/day: 1 Substance Use: denies use 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 POLST Patient has POLST: Yes POLST on file?: Yes POLST CPR Status: Do Not Attempt Resuscitation (DNAR) / Allow Natural Exam Exam Vital Signs: Vital Signs x48h Temp Pulse Resp BP Pulse Ox 04/29/25 20:00 76 16 97 04/29/25 19:53 37 C 68 14 161/85 H 99 Constitutional normal general appearance and no apparent distress Pale appearing HENMT head/scalp atraumatic Eyes PERRL Pale conjunctiva Neck/C-Spine trachea midline Respiratory breath sounds equal bilaterally and normal respiratory effort Cardiovascular normal heart rate noted and regular rhythm noted Gastrointestinal abdomen soft to palpation, nontender to palpation and nondistended Extremities normal to inspection and normal to palpation Psychiatry oriented x3 Skin Pale Results Vitals Vitals: Vital Signs - 24 hr 04/29/25 19:53 04/29/25 20:00 Temperature 37 C Temperature Source Temporal Artery Scan Pulse Rate 68 76 Respiratory Rate 14 16 Blood Pressure 161/85 H O2 Saturation 99 97 O2 Source Room air Room air Pain Intensity 0 Oxygen O2 Source Room air Labs Labs: Laboratory Tests 04/29/25 20:01 WBC 12.0 H RBC 2.62 L Hgb 6.3 L* Hct 21.3 L MCV 81.3 MCH 24.0 L MCHC 29.6 L RDW 17.3 H Plt Count 620 H MPV 10.0 Neut # (Auto) 9.4 H Lymph # (Auto) 1.5 [place] # (Auto) 0.8 Eos # (Auto) 0.2 Baso # (Auto) 0.1 Absolute Nucleated RBC 0.00 Nucleated RBC % 0.0 PD Medical Decision Making ED course Complexity details: reviewed results, re-evaluated patient, considered differen tial and d/w patient ED course: 75-year-old male with a known rectal mass and continued rectal bleeding. No indication for repeat CT scan at this time. Hemoglobin is dropped from 7.7 down to 6.3. Likely will need at least 2 units of blood. Will likely need a repeat H&H to ensure that he does not need any further blood transfusion. Discussed with Dr. Goldsmith, general surgery who knows this patient well and will follow, but does not anticipate any needs inpatient. Also discussed with the hospitalist who accepts. This document was made in part using voice recognition software. While efforts are made to proofread this document, sound alike and grammatical errors may occur. Discharge Plan Discharge Patient Disposition: ED Place in Observation Condition: Stable Clinical Impression: Symptomatic anemia, Rectal mass Prescriptions: No Action acetaminophen [Tylenol Extra Strength] 500 mg Tablet 1,000 mg PO TID Qty: 90 0RF insulin glargine-yfgn 100 unit/mL (3 mL) Insulin Pen 12 unit subcut QDBREAKFAST Qty: 15 0RF insulin lispro [Humalog KwikPen Insulin] 100 unit/mL Insulin Pen 5 unit subcut TIDWM Qty: 15 0RF lidocaine 4 % Adhesive Patch,Medicated 1 patch topical DAILY Qty: 30 0RF mirtazapine 15 mg Tablet 15 mg PO QPM Qty: 30 0RF Therapeutic-M 19 mg iron- 400 mcg Tablet 1 tab PO DAILYWM Qty: 30 0RF pantoprazole 40 mg Tablet,Delayed Release (Dr/Ec) 40 mg PO BIDAC Rx Instructions: with breakfast and dinner ferrous sulfate 325 mg (65 mg iron) Tablet 325 mg PO DAILYWM Rx Instructions: Give with Breakfast docusate sodium 250 mg Capsule 250 mg PO DAILY insulin lispro [Humalog KwikPen Insulin] 100 unit/mL Insulin Pen 1 - 9 unit subcut 0800,1200,1700,2100 Rx Instructions: 0-140= 0 141-180 1 unit 181-225= 3 units 226-275= 5 units 276-325= 7 units 326-375= 9 units 376-500= Call buspirone 5 mg Tablet 5 mg PO BID Qty: 60 0RF loperamide 2 mg Capsule 2 mg PO QID PRN (Reason: Diarrhea) Qty: 60 0RF oxycodone 5 mg tablet 5 mg PO Q4H PRN (Reason: pain) Patient Comments: 5 mg orally every 4 hours As Needed for Pain 5 to 7 Glucagon Emergency Kit (human) 1 mg recon soln 1 mg IM Q20M PRN (Reason: hypoglycemia) Rx Instructions: until target blood sugar attained dextrose [Glutose-15] 40 % gel 15 g PO Q15M PRN (Reason: hypoglycemia) Rx Instructions: until symptoms of low blood sugar are controlled mineral oil [Fleet Mineral Oil] Enema 118 ml [place] DAILY PRN (Reason: constipation) Rx Instructions: day 6 of no bm polyethylene glycol 3350 [Miralax] 17 gram/dose powder 17 g PO DAILY PRN (Reason: constipation) Rx Instructions: day 3 of no bm naloxone [Narcan] 4 mg/actuation spray,non-aerosol 4 mg intranasal Q2M PRN (Reason: opioid overdose) Rx Instructions: spray 1 dose into ONE nostril; alternate nostrils w each dose until help arrives sennosides [senna] 8.6 mg tablet 17.2 mg PO DAILY PRN (Reason: constipation) Rx Instructions: day 4 of no bm pantoprazole 40 mg tablet,delayed release (DR/EC) 40 mg PO QDAY mirtazapine 15 mg tablet 15 mg PO QDAY oxycodone 5 mg tablet 5 mg PO Q4H PRN senna 8.6 mg capsule 8.6 mg PO QDAY PRN Print Language: Congolese Stand Alone Forms: PCP List
[2025-04-29 20:09] LABS: HCT - HEMATOCRIT 21.3 % (42.0-52.0); MEAN PLATELET VOLUME 10.0 fL (7.4-11.4); NRBC ABSOLUTE COUNT (AUTO) 0.00 x10^3/uL; NUCLEATED RED BLOOD CELLS AUTO 0.0 /100WBC; PLT - PLATELET COUNT 620 10^3/uL (130-450); RED CELL DISTRIBUTION WIDTH 17.3 % (12.0-15.0)
[2025-04-29 20:11] LABS: HGB - HEMOGLOBIN 6.3 g/dL (14.0-18.0)
[2025-04-29] MEDS ORDERED: ONDANSETRON ODT 4 MG TABLET TL PRN (20:44)
[2025-04-29] MEDS ORDERED: ONDANSETRON 4 MG/2 ML VIAL IVP PRN (20:44)
[2025-04-29 20:46] LABS: ALT ALANINE AMINOTRANSFERASE 9.0 IU/L (10-60); AST ASPARTATE AMINOTRANSFERASE 14.0 IU/L (10-42); BUN - BLOOD UREA NITROGEN 19.0 mg/dL (6-20); CARBON DIOXIDE - CO2 29.0 mmol/L (21-32); CREATININE 0.5 mg/dL (0.6-1.3); GFR - MDRD 162.0 (>89)
--- NOTE | 2025-04-29 21:01 | HISTORY & PHYSICAL EXAMINATION ---
Chief Complaint Chief Complaint Chief Complaint: Anemia History of Present Illness Admitted From Admitted From:: [facility] History Obtained From History obtained from: Chart review Exam Limitations: Patient is poor historian History of Present Illness HPI Comment/Other: 75-year-old male past medical history significant for type 2 diabetes, GERD, iron deficiency anemia, rectal mass presumed to be cancerous has had multiple admissions to this hospital for anemia. He was sent over by [facility] due to lab work performed today which revealed a hemoglobin of 6.6. Patient denies any problems, but he is known to be a poor historian and very uninvolved in his own care In the ED, repeat lab work was performed which showed hemoglobin of 6.3. Patient is noted to still be having bloody bowel movements. General surgery was contacted by ED provider, and plans were made for hospitalist to place in observation for acute blood loss anemia due to lower GI bleeding Meds/Allgy Home Medications Ambulatory Orders Medication Instructions Recorded Confirmed acetaminophen 500 mg tablet 1,000 mg (2 x 500 mg) PO T ID #90 03/28/25 04/24/25 (Tylenol Extra Strength) tabs insulin glargine-yfgn 100 unit/mL 12 unit (0.12 mL) tian bcut 03/28/25 04/24/25 (3 mL) subcutaneous pen QDBREAKFAST #15 mL insulin lispro 100 unit/mL 5 unit (0.05 mL) subcut TID WM #15 03/28/25 04/24/25 subcutaneous pen (Humalog KwikPen mL (U-100) Insulin) lidocaine 4 % topical patch 1 patch topical DAILY #30 ea 03/28/25 04/24/25 mirtazapine 15 mg tablet 15 mg PO QPM #30 tabs 04/24/25 uvqqxgsznifp-uaesbtus-vxph 1 tab PO DAILYWM #30 tabs 1 05/28/24 04/24/25 fumarate 19 mg-folic acid 400 mcg tablet (Therapeutic-M) docusate sodium 250 mg capsule 250 mg PO DAILY 5 04/24/25 ferrous sulfate 325 mg (65 mg 325 mg PO DAILYWM 04/24/25 iron) tablet insulin lispro 100 unit/mL 1 - 9 unit subcut 04/11/25 04/24/25 subcutaneous pen (Humalog KwikPen 0800,1200,1700,2100 (U-100) Insulin) pantoprazole 40 mg tablet,delayed 40 mg PO BIDAC 04/1104/24/25 release buspirone 5 mg tablet 5 mg PO BID #60 tabs 5 04/24/25 loperamide 2 mg capsule 2 mg PO QID PRN Diarrhea #60 caps 04/17/25 04/24/25 dextrose 40 % oral gel (Glutose-15) 15 g PO Q15M PRN h ypoglycemia 04/22/25 04/24/25 glucagon 1 mg solution for 1 mg IM Q20M PRN hypoglycem ia 04/22/25 04/24/25 injection (Glucagon Emergency Kit) mineral oil (Fleet Mineral Oil 118 ml [place] DAILY PRN con stipation 04/22/25 04/24/25 enema) naloxone 4 mg/actuation nasal 4 mg intranasal Q2M PRN opioid 04/22/25 04/24/25 spray (Narcan) overdose oxycodone 5 mg tablet 5 mg PO Q4H PRN pain 5 04/24/25 polyethylene glycol 3350 17 17 g PO DAILY PRN constipa tion 04/22/25 04/24/25 gram/dose oral powder (Miralax) sennosides 8.6 mg tablet (senna) 17.2 mg PO DAILY PRN constipation 04/22/25 04/24/25 mirtazapine 15 mg tablet 15 mg PO QDAY 04/24/2504/24 oxycodone 5 mg tablet 5 mg PO Q4H PRN 04/24/2508/14 pantoprazole 40 mg tablet,delayed 40 mg PO QDAY 04/24/25 release sennosides 8.6 mg capsule (senna) 8.6 mg PO QDAY PRN 1 06/25/24 04/24/25 Allergies Allergies Allergy/AdvReac Type Severity Reaction Status Date / Time No Known Drug Allergies Allergy Verified 04/29/25 19:53 PFSH Active Problems All Active Problems (Updated 04/29/25 @ 20:26 by Alen Hines MD) Symptomatic anemia (Acute) ABLA (acute blood loss anemia) (Acute) Rectal adenocarcinoma (Acute) Anemia (Chronic) Anxiety about health (Acute) Guaiac positive stools (Acute) Post-operative state (Acute) Closed intertrochanteric fracture of right hip (Acute) Malnutrition (Acute) Closed right hip fracture (Acute) Type 2 diabetes mellitus (Acute) Closed T12 fracture (Acute) Closed T11 fracture (Acute) Intractable back pain (Acute) Anemia, iron deficiency (Acute) Rectal mass (Acute) Compression fracture of vertebral column (Acute) Cachexia (Acute) Leg pain, right (Acute) Ground-level fall (Acute) Medical History Medical History Anemia Counseling regarding advanced care planning and goals of care Insomnia Urinary incontinence Skin cancer No pertinent past medical history Surgical History Surgical History History of repair of hip fracture Hx of flexible sigmoidoscopy (~03/22/25) [facility] DR. 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 (Date/Year): 1970 Number of Years Smoked: 3 How many cigarettes a day do you smoke? (20 cigarettes=1 Pk): 20 Second hand tobacco smoke exposure: Yes Do you dip or chew tobacco?: No Do you vape?: No Initiate information on smoking cessation: No Living arrangement: Assisted living Living Condition: Alone Support Person: Yes Living Situation Details: Recently moved to [place]; is there under Medicaid Has a Durable Power of Fare Enforcement Officer for Health Care?: Yes Name / Relationship: Carmina Ribeiro [phone] DPOA on file?: Yes Level: Assisted Physical - Functional Details: Functional status has been declining Do you feel safe in your home environment?: Yes History of physical, verbal, emotional, or financial abuse?: No ETOH Use: Beer Frequency: Daily Number of drinks/day: 1 Substance Use: denies use 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 Patient has POLST: Yes POLST on file?: Yes POLST CPR Status: Do Not Attempt Resuscitation (DNAR) / Allow Natural Review of Systems Status of ROS: 10 or more systems reviewed and unremarkable except as noted in history and below Exam Exam Vital Signs: Vital Signs x48h Temp Pulse Resp BP Pulse Ox 04/29/25 20:00 76 16 97 04/29/25 19:53 98.6 F 68 14 161/85 H 99 Constitutional Elderly, cachectic male in no acute distress HENMT head/scalp atraumatic Respiratory breath sounds equal bilaterally and normal respiratory effort Cardiovascular normal heart rate noted and regular rhythm noted Gastrointestinal abdomen normal to inspection Extremities normal to inspection Neurology GCS 15 Psychiatry oriented x3 Skin Pale Conclusion/Plan Problem List (1) ABLA (acute blood loss anemia): (2) Rectal adenocarcinoma: (3) Anemia, iron deficiency: Plan: Plan is for all of the above History of adenocarcinoma diagnosed on colonoscopy 04/12 Patient is to go before tumor board tomorrow General Surgery following ED provider ordered 1 unit PRBC Recheck H&H after transfusion Check hemoglobin every 8 hours thereafter Restart home dose iron supplementation Qualifiers: Iron deficiency anemia type: inadequate dietary iron intake Qualified Code(s): D50.8 - Other iron deficiency anemias (4) Type 2 diabetes mellitus: Plan: SSI Qualifiers: Diabetes mellitus supervisor long goods insulin use: without supervisor long goods use Diabetes mellitus complication status: with hyperglycemia Qualified Code(s): E11.65 - Type 2 diabetes mellitus with hyperglycemia (5) Malnutrition: Plan: Known history of malnutrition Continue home dose of mirtazapine Nutrition consult Qualifiers: Malnutrition type: protein-calorie malnutrition Protein-calorie malnutrition severity: severe Qualified Code(s): E43 - Unspecified severe protein-calorie malnutrition Plan Place in observation DNR His sister is his surrogate decision maker Lab Results Lab results reviewed: Yes 04/29/25 20:01 04/29/25 20:01 Core Measures Anticipated LOS I expect patient to be DC'd or transferred within 96 hours.: Yes DVT/VTE - Prophylaxis VTE/DVT Device ordered at admit?: Yes
[2025-04-29] MEDS: MIRTAZAPINE 15 MG TABLET PO SCH (21:37)
[2025-04-30] MEDS: SODIUM CHLORIDE FLUSH 0.9% 10 ML SYRINGE IVP SCH (00:11)
[2025-04-30] MEDS ORDERED: SODIUM CHLORIDE 0.9% 1,000 ML IV SCH (04:00)
[2025-04-30] MEDS ORDERED: COD LIVER OIL/ZINC OXIDE 113 GM TUBE TOP PRN (06:07)
[2025-04-30] MEDS: INSULIN LISPRO 300 UNIT/3 ML PEN SUBQ SCH (08:02)
[2025-04-30] MEDS: FERROUS SULFATE 325 MG TABLET PO SCH (08:02)
--- NOTE | 2025-04-30 08:15 | PHARMACY PROGRESS NOTE ---
Best Possible Medication History Admit Date and Time: 04/29/252021 Home Medications Medication Instructions Recorded Confirmed Type acetaminophen 500 mg tablet 1,000 mg (2 x 500 mg) PO T ID #90 03/28/25 04/30/25 Rx (Tylenol Extra Strength) tabs insulin glargine-yfgn 100 unit/mL 12 unit (0.12 mL) tian bcut 03/28/25 04/30/25 Rx (3 mL) subcutaneous pen QDBREAKFAST #15 mL insulin lispro 100 unit/mL 5 unit (0.05 mL) subcut TID WM #15 03/28/25 04/30/25 Rx subcutaneous pen (Humalog KwikPen mL (U-100) Insulin) lidocaine 4 % topical patch 1 patch topical DAILY #30 ea 03/28/25 04/30/25 Rx mirtazapine 15 mg tablet 15 mg PO QPM #30 tabs 04/30/25 Rx vnruiasfqwsq-plpcgxzk-qqqt 1 tab PO DAILYWM #30 tabs 1 05/28/24 04/30/25 Rx fumarate 19 mg-folic acid 400 mcg tablet (Therapeutic-M) docusate sodium 250 mg capsule 250 mg PO DAILY 5 04/30/25 History ferrous sulfate 325 mg (65 mg 325 mg PO DAILYWM 04/30/25 History iron) tablet insulin lispro 100 unit/mL 1 - 9 unit subcut 04/11/25 04/30/25 History subcutaneous pen (Humalog KwikPen 0800,1200,1700,2100 (U-100) Insulin) pantoprazole 40 mg tablet,delayed 40 mg PO BIDAC 04/1104/30/25 History release buspirone 5 mg tablet 5 mg PO BID #60 tabs 2 5 04/30/25 Rx loperamide 2 mg capsule 2 mg PO QID PRN Diarrhea #60 caps 04/17/25 04/30/25 Rx dextrose 40 % oral gel (Glutose-15) 15 g PO Q15M PRN h ypoglycemia 04/22/25 04/30/25 History glucagon 1 mg solution for 1 mg IM Q20M PRN hypoglycem ia 04/22/25 04/30/25 History injection (Glucagon Emergency Kit) mineral oil (Fleet Mineral Oil 118 ml [place] DAILY PRN con stipation 04/22/25 04/30/25 History enema) naloxone 4 mg/actuation nasal 4 mg intranasal Q2M PRN opioid 04/22/25 04/30/25 History spray (Narcan) overdose polyethylene glycol 3350 17 17 g PO DAILY PRN constipa tion 04/22/25 04/30/25 History gram/dose oral powder (Miralax) sennosides 8.6 mg tablet (senna) 17.2 mg PO DAILY PRN constipation 04/22/25 04/30/25 History oxycodone 5 mg tablet 5 mg PO Q4H PRN pain 5 04/30/25 History bisacodyl 10 mg rectal suppository 10 mg [place] DAILY PRN constipation 04/30/25 04/30/25 History (Dulcolax (bisacodyl)) Processed by: Pharmacy Medications reviewed in ED?: No Medication History completed: Yes Patient Interview: Pt unable to participate Secondary Source(s): Facility MAR as ONLY source (Medication list from [facility]) [facility] Statement: As the person ultimately responsible for medication therapy, providers are able to order a medication from an existing home medication list in [facility] via the "Reconcile Routine" prior to Confirmation of that medication by office support clerk. Such practice is discouraged except when the physician, in their clinical judgment, deems that a medical need exists for a medication without regard to previous use.
[2025-04-30 08:20] LABS: HCT - HEMATOCRIT 27.9 % (42.0-52.0); HGB - HEMOGLOBIN 8.7 g/dL (14.0-18.0); MEAN PLATELET VOLUME 9.3 fL (7.4-11.4); NRBC ABSOLUTE COUNT (AUTO) 0.00 x10^3/uL; NUCLEATED RED BLOOD CELLS AUTO 0.0 /100WBC; PLT - PLATELET COUNT 587 10^3/uL (130-450); RED CELL DISTRIBUTION WIDTH 18.3 % (12.0-15.0)
[2025-04-30 08:36] LABS: BUN - BLOOD UREA NITROGEN 14.0 mg/dL (6-20); CARBON DIOXIDE - CO2 29.0 mmol/L (21-32); CREATININE 0.4 mg/dL (0.6-1.3); GFR - MDRD 209.0 (>89)
--- NOTE | 2025-04-30 09:33 | PROVIDER PROGRESS NOTE ---
<Statement entered by Avel Hylton DNP - 04/30/25 14:08> Patient was seen and examined by me with a separate encounter after being seen by SIRISHA student. I reviewed the student's documentation including patient history, physical examination, laboratory, imaging, clinical assessment and treatment plan. I have discussed the management of the patient with the student, and with the patient. There are no changes. I placed the patient in observation last night for acute blood loss anemia secondary to GI bleeding from rectal adenocarcinoma. Patient's hemoglobin improved nicely overnight with 2 units of PRBC. I was initially getting him ready to discharge back to SNF when he had 2 more large bloody bowel movements. In the interest of patient's safety I am holding him for 1 more day to continue to trend hemoglobin Subjective Prog Note Date Prog Note Date: 04/30/25 Prog Note Time: 09:33 Subjective Pt reports feeling: Improved and No change Subjective: Pt relates feeling slightly better, but relates ongoing diarrhea/loose stools and some continued hematochezic nature. Asked nursing staff for an antidiarrheal, but no antidiarrheals approved for use with cooccurring lower GI bleeding. Pt also relates L rib pain ~6th-7th rib after leaning onto a furniture item at home the other day. This is not interfering with his respiration. Pt denies any abd pain, syncope or near syncope, palpitations, heart racing, diaphoresis, CP, or SOA. Current Medications Current Medications Current Medications: Current Medications Generic Name Dose Route Start Last Admin Trade Name Freq PRN Reason Stop Dose Admin Acetaminophen 650 mg 04/29/25 20:44 Acetaminophen 325 Mg Tablet PO Q4HR PRN Pain 1 to 4, or Fever Ferrous Sulfate 325 mg 04/30/25 08:00 04/30/25 08:02 Ferrous Sulfate 325 Mg Tablet PO 325 mg DAILYWM JUJU Administration Sodium Chloride 1,000 mls @ 0 mls/hr 04/30/25 04:00 Normal Saline 0.9% IV .Q0M JUJU TKO Insulin Human Lispro 1 - 5 unit 04/30/25 08:00 04/30/25 08:02 Insulin Lispro 300 Unit/3 Ml Pen SUBQ 2 unit 0800,1200,1700,2100 JUJU Administration Protocol Mirtazapine 15 mg 04/29/25 22:00 04/30/25 08:12 Mirtazapine 15 Mg Tablet PO 15 mg DAILY JUJU Administration Ondansetron HCl 4 mg 04/29/25 20:44 Ondansetron Odt 4 Mg Tablet TL Q6HR PRN Nausea / Vomiting Ondansetron HCl 4 mg 04/29/25 20:44 Ondansetron 4 Mg/2 Ml Vial IVP Q6HR PRN Nausea / Vomiting Sodium Chloride 10 ml 04/29/25 20:44 Sodium Chloride Flush 0.9% 10 Ml Syringe IVP PRN PRN NEEDED PER PROVIDER ORDERS Sodium Chloride 10 ml 04/30/25 01:00 04/30/25 08:03 Sodium Chloride Flush 0.9% 10 Ml Syringe IVP 10 ml 0100,0900,1700 JUJU Administration Zinc Oxide 113 gm 04/30/25 06:07 Cod Liver Oil/Zinc Oxide 113 Gm Tube TOP PRN PRN Skin Care Objective Vital Signs/Intake & Output Reviewed Vital Signs: Yes Vital Signs: Vital Signs x48h Temp Pulse Resp BP Pulse Ox 04/30/25 07:52 37.0 C 84 20 152/86 H 98 04/30/25 07:36 37.0 C 85 20 146/85 H 97 04/30/25 04:29 36.5 C 86 18 171/88 H 98 04/30/25 04:13 36.4 C L 88 16 161/89 H 96 04/30/25 04:03 36.4 C L 87 16 161/89 H 94 Intake & Output: Intake & Output 04/27/25 04/28/25 04/29/25 04/30/25 23:59 23:59 23:59 23:59 Intake Total 1080 / 1080 Output Total 1050 / 1050 Balance Weight (kg) 61.5 kg Objective General Appearance: positive No acute distress and Alert Eyes Bilateral: positive Normal inspection Neck: positive Nml inspection Respiratory: positive No respiratory distress and Breath sounds nml; negative Chest non-tender (L sided ~6th/7th rib tenderness due to minor injury at home.) Cardiovascular: positive Regular rate & rhythm Abdomen: positive Non-tender and Nml bowel sounds Skin: positive Warm, Dry and Pallor; negative Cyanosis or Diaphoresis Extremities: positive Non-tender and No pedal edema; negative Luci's sign/cords Neurologic/Psychiatric: positive Oriented x3 Lab Results 04/30/25 12:18 04/30/25 08:09 Other Labs: Lab Results x24hrs 04/30/25 04/30/25 04/30/25 Range/Units 08:09 07:31 02:28 WBC 11.4 H (4.8-10.8) x10^3/uL RBC 3.51 L (4.70-6.10) 10^6/uL Hgb 8.7 L 6.7 L* (14.0-18.0) g/dL Hct 27.9 L (42.0-52.0) % MCV 79.5 L (80.0-94.0) fL MCH 24.8 L (27.0-31.0) pg MCHC 31.2 L (32.0-36.0) g/dL RDW 18.3 H (12.0-15.0) % Plt Count 587 H (130-450) 10^3/uL MPV 9.3 (7.4-11.4) fL Neut # (Auto) 9.3 H (1.5-6.6) 10^3/uL Lymph # (Auto) 1.2 L (1.5-3.5) 10^3/uL [place] # (Auto) 0.6 (0.0-1.0) 10^3/uL Eos # (Auto) 0.2 (0.0-0.7) 10^3/uL Baso # (Auto) 0.1 (0.0-0.1) 10^3/uL Absolute Nucleated RBC 0.00 x10^3/uL Nucleated RBC % 0.0 /100WBC Sodium 139 (135-145) mmol/L Potassium 3.8 (3.5-4.5) mmol/L Chloride 107 (101-111) mmol/L Carbon Dioxide 29 (21-32) mmol/L Anion Gap 3.0 L (6-13) BUN 14 (6-20) mg/dL Creatinine 0.4 L (0.6-1.3) mg/dL Estimated GFR (MDRD) 209 (>89) Glucose 185 H (74-104) mg/dL POC Whole Bld Glucose 182 (70-100) mg/dL Calcium 10.0 (8.5-10.3) mg/dL Total Bilirubin (0.2-1.0) mg/dL AST (10-42) IU/L ALT (10-60) IU/L Alkaline Phosphatase (42-121) IU/L Total Protein (6.4-8.9) g/dL Albumin (3.2-5.5) g/dL Globulin (2.1-4.2) g/dL Albumin/Globulin Ratio (1.0-2.2) Blood Type Antibody Screen Crossmatch IS Only 04/29/25 Range/Units 20:01 WBC 12.0 H (4.8-10.8) x10^3/uL RBC 2.62 L (4.70-6.10) 10^6/uL Hgb 6.3 L* (14.0-18.0) g/dL Hct 21.3 L (42.0-52.0) % MCV 81.3 (80.0-94.0) fL MCH 24.0 L (27.0-31.0) pg MCHC 29.6 L (32.0-36.0) g/dL RDW 17.3 H (12.0-15.0) % Plt Count 620 H (130-450) 10^3/uL MPV 10.0 (7.4-11.4) fL Neut # (Auto) 9.4 H (1.5-6.6) 10^3/uL Lymph # (Auto) 1.5 (1.5-3.5) 10^3/uL [place] # (Auto) 0.8 (0.0-1.0) 10^3/uL Eos # (Auto) 0.2 (0.0-0.7) 10^3/uL Baso # (Auto) 0.1 (0.0-0.1) 10^3/uL Absolute Nucleated RBC 0.00 x10^3/uL Nucleated RBC % 0.0 /100WBC Sodium 141 (135-145) mmol/L Potassium 3.6 (3.5-4.5) mmol/L Chloride 107 (101-111) mmol/L Carbon Dioxide 29 (21-32) mmol/L Anion Gap 5.0 L (6-13) BUN 19 (6-20) mg/dL Creatinine 0.5 L (0.6-1.3) mg/dL Estimated GFR (MDRD) 162 (>89) Glucose 155 H (74-104) mg/dL POC Whole Bld Glucose (70-100) mg/dL Calcium 9.8 (8.5-10.3) mg/dL Total Bilirubin 0.2 (0.2-1.0) mg/dL AST 14 (10-42) IU/L ALT 9 L (10-60) IU/L Alkaline Phosphatase 116 (42-121) IU/L Total Protein 6.2 L (6.4-8.9) g/dL Albumin 2.9 L (3.2-5.5) g/dL Globulin 3.3 (2.1-4.2) g/dL Albumin/Globulin Ratio 0.9 L (1.0-2.2) Blood Type O POSITIVE Antibody Screen NEGATIVE Crossmatch IS Only See Detail Diagnostic Imaging Diagnostic Imaging Results: positive Final report reviewed and Read independently Diagnostic Imaging Comments: ~8 cm rectal mass Assessment/Plan Problem List (1) ABLA (acute blood loss anemia): (2) Rectal adenocarcinoma: (3) Anemia, iron deficiency: Impression: Plan is for all of the above History of adenocarcinoma diagnosed on colonoscopy 04/12 Patient is to go before tumor board tomorrow General Surgery following ED provider ordered 1 unit PRBC Hgb is 8.7, Hct is 27.9 this AM after an additionl infusion, bringing total units to 2 during this hospital encounter. Check hemoglobin q8 Restart home dose iron supplementation Qualifiers: Iron deficiency anemia type: inadequate dietary iron intake Qualified Code(s): D50.8 - Other iron deficiency anemias (4) Type 2 diabetes mellitus: Impression: SSI, approved for normal diet per Nutrition consult. Will adjust SSI further or add adjunctive glycemic control if needed. Qualifiers: Diabetes mellitus complication status: with hyperglycemia Diabetes mellitus longterm insulin use: without ocean transportation intermediary use Qualified Code(s): E11.65 - Type 2 diabetes mellitus with hyperglycemia (5) Malnutrition: Impression: Known history of malnutrition Continue home dose of Mirtazapine Nutrition consult indicates he is approved for normal diet, Reglan not considered due to serotonin syndrome risk with Mirtazapine. Qualifiers: Malnutrition type: protein-calorie malnutrition Protein-calorie malnutrition severity: severe Qualified Code(s): E43 - Unspecified severe protein-calorie malnutrition
[2025-04-30 09:44] LABS: FECAL OCCULT BLOOD (FIT) POSITIVE (NEGATIVE)
--- NOTE | 2025-04-30 12:11 | Discharge Summary ---
"<Statement entered by Avel Hylton DNP - 05/08/25 14:25> This is a draft of a discharge summary that was canceled. The decision was made to keep him inpatient, and he actually discharged on 05/02. See discharge summary from 05/02 by Claudette Bianchi Discharge Summary Admit Date: 04/29/25 Discharge Date: 04/30/25 Discharging Provider: Avel Hylton DNP Primary Care Provider: Kathia Red Code Status: Do Not Attempt Resuscitation Discharge Facility [facility]: [facility] DIAGNOSES Admission Diagnoses: Acute Blood Loss Anemia, lower GI malignancy, Iron deficiency anemia, Diabetes Mellitus, Malnutrition Discharge Diagnoses with Status of Each Condition: Acute Blood Loss Anemia Pt presented with ABLA, history of same, due to chronic GI malignancy. Pt responded well to PRBC infusion, with much improved H/H and stable vital signs. Lower GI malignancy Pt has hx of rectal adenocarcinoma, diagnosed 04/12. Treatment plan still pending on part of oncology, and tumor board recommendations for appropriate chemo or radiation. Iron deficiency anemia Pt continuing oral iron supplementation. 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 He was sent over by [facility] due to lab work performed today which revealed a hemoglobin of 6.6. Patient denies any problems, but he is known to be a poor historian and very uninvolved in his own care In the ED, repeat lab work was performed which showed hemoglobin of 6.3. Patient is noted to still be having bloody bowel movements. General surgery was contacted by ED provider, and plans were made for hospitalist to place in observation for acute blood loss anemia due to lower GI bleeding. CONSULTS | PROCEDURES Consultations: GenSurg, oncology Procedures: PRBC infusion x2 HOSPITAL COURSE Hospital Course: Pt presented with ABLA in the setting of diagnosed rectal adenocarcinoma with an established history of slow chronic rectal bleeding. During this visit, pt was found to have acutely anemic HGB to 6.4, and Hct 21.3 which improved after a total of 2 units of PRBC were transfused. Pt care plan is ongoing with oncology and tumor board, with decisions for his oncology course still pending surgical or medical therapies. Per surgical staff today, there is not a current plan to operate at this time before a broader care decision is reached, recommend medical clearance and discharge back to [facility] for further monitoring for any conditional changes. At time of discharge, pt is vitally stable and has demonstrated improved H/H at 8.3/27.8, with no subjective complaints of shock. Pt does report continued small volume of blood loss with stooling, but given the unconfirmed nature of definitive care at this time, pt is being discharged for continued observation pending full care plan. ALLERGIES Allergies Allergy/AdvReac Type Severity Reaction Status Date / Time No Known Drug Allergies Allergy Verified 04/29/25 19:53 MEDICATIONS Ambulatory Orders Medication Instructions Recorded Confirmed acetaminophen 500 mg tablet 1,000 mg (2 x 500 mg) PO T ID #90 03/28/25 04/30/25 (Tylenol Extra Strength) tabs insulin glargine-yfgn 100 unit/mL 12 unit (0.12 mL) tian bcut 03/28/25 04/30/25 (3 mL) subcutaneous pen QDBREAKFAST #15 mL insulin lispro 100 unit/mL 5 unit (0.05 mL) subcut TID WM #15 03/28/25 04/30/25 subcutaneous pen (Humalog KwikPen mL (U-100) Insulin) lidocaine 4 % topical patch 1 patch topical DAILY #30 ea 03/28/25 04/30/25 mirtazapine 15 mg tablet 15 mg PO QPM #30 tabs 04/30/25 kvoaswjsbjxo-baectkhx-loiu 1 tab PO DAILYWM #30 tabs 1 05/28/24 04/30/25 fumarate 19 mg-folic acid 400 mcg tablet (Therapeutic-M) docusate sodium 250 mg capsule 250 mg PO DAILY 5 04/30/25 ferrous sulfate 325 mg (65 mg 325 mg PO DAILYWM 04/30/25 iron) tablet insulin lispro 100 unit/mL 1 - 9 unit subcut 04/11/25 04/30/25 subcutaneous pen (Humalog KwikPen 0800,1200,1700,2100 (U-100) Insulin) pantoprazole 40 mg tablet,delayed 40 mg PO BIDAC 04/1104/30/25 release buspirone 5 mg tablet 5 mg PO BID #60 tabs 5 04/30/25 loperamide 2 mg capsule 2 mg PO QID PRN Diarrhea #60 caps 04/17/25 04/30/25 dextrose 40 % oral gel (Glutose-15) 15 g PO Q15M PRN h ypoglycemia 04/22/25 04/30/25 glucagon 1 mg solution for 1 mg IM Q20M PRN hypoglycem ia 04/22/25 04/30/25 injection (Glucagon Emergency Kit) mineral oil (Fleet Mineral Oil 118 ml CO DAILY PRN con stipation 04/22/25 04/30/25 enema) naloxone 4 mg/actuation nasal 4 mg intranasal Q2M PRN opioid 04/22/25 04/30/25 spray (Narcan) overdose polyethylene glycol 3350 17 17 g PO DAILY PRN constipa tion 04/22/25 04/30/25 gram/dose oral powder (Miralax) sennosides 8.6 mg tablet (senna) 17.2 mg PO DAILY PRN constipation 04/22/25 04/30/25 oxycodone 5 mg tablet 5 mg PO Q4H PRN pain 5 04/30/25 bisacodyl 10 mg rectal suppository 10 mg CO DAILY PRN constipation 04/30/25 04/30/25 (Dulcolax (bisacodyl)) PHYSICAL EXAM AT DISCHARGE Vital Signs: Vital Signs x48h Temp Pulse Resp BP Pulse Ox 04/30/25 11:20 36.6 C 86 20 153/78 H 96 04/30/25 07:52 37.0 C 84 20 152/86 H 98 04/30/25 07:36 37.0 C 85 20 146/85 H 97 General Appearance: positive No acute distress and Alert Eyes Bilateral: positive Normal inspection Neck: positive Nml inspection Respiratory: negative Chest non-tender (6th/7th rib tenderness on L side due to mechanical injury at [facility]) Cardiovascular: positive Regular rate & rhythm Peripheral Pulses: positive 2+ Abdomen: positive Non-tender and Nml bowel sounds Rectal: positive Stool - heme POS and Bloody stool Skin: positive Color nml, No rash, Warm and Dry Extremities: positive Non-tender Neurologic/Psychiatric: positive Oriented x3 LABS 04/30/25 12:18 04/30/25 08:09 DIAGNOSTIC IMAGING Diagnostic Imaging Results: Final report reviewed and Read independently FOLLOW UP Follow Up: Plan to follow up with PCP, oncology, GenSurg about continued care plan for malignancy. Continue to monitor blood loss, receive follow-up H/H labs every three days at minimum, and closely follow bleeding and GI status. TIME SPENT Time Spent in Discharge (Minutes): 37 Discharge Plan Discharge Patient Disposition: 03 [facility] DC/Xfer Condition: Stable Medically Cleared Date:: 04/30/25 Medically Cleared Comments:: At time of discharge, pt is vitally stable and has demonstrated improved H/H at 8.3/27.8, with no subjective complaints of shock. Pt does report continued small volume of blood loss with stooling, but given the unconfirmed nature of definitive care at this time, pt is being discharged for continued observation pending full care plan. Prescriptions: Continued acetaminophen [Tylenol Extra Strength] 500 mg Tablet 1,000 mg PO TID Qty: 90 0RF insulin glargine-yfgn 100 unit/mL (3 mL) Insulin Pen 12 unit subcut QDBREAKFAST Qty: 15 0RF insulin lispro [Humalog KwikPen Insulin] 100 unit/mL Insulin Pen 5 unit subcut TIDWM Qty: 15 0RF lidocaine 4 % Adhesive Patch,Medicated 1 patch topical DAILY Qty: 30 0RF mirtazapine 15 mg Tablet 15 mg PO QPM Qty: 30 0RF Therapeutic-M 19 mg iron- 400 mcg Tablet 1 tab PO DAILYWM Qty: 30 0RF pantoprazole 40 mg Tablet,Delayed Release (Dr/Ec) 40 mg PO BIDAC Rx Instructions: with breakfast and dinner ferrous sulfate 325 mg (65 mg iron) Tablet 325 mg PO DAILYWM Rx Instructions: Give with Breakfast docusate sodium 250 mg Capsule 250 mg PO DAILY insulin lispro [Humalog KwikPen Insulin] 100 unit/mL Insulin Pen 1 - 9 unit subcut 0800,1200,1700,2100 Rx Instructions: 0-140= 0 141-180 1 unit 181-225= 3 units 226-275= 5 units 276-325= 7 units 326-375= 9 units 376-500= Call buspirone 5 mg Tablet 5 mg PO BID Qty: 60 0RF loperamide 2 mg Capsule 2 mg PO QID PRN (Reason: Diarrhea) Qty: 60 0RF Glucagon Emergency Kit (human) 1 mg recon soln 1 mg IM Q20M PRN (Reason: hypoglycemia) Rx Instructions: until target blood sugar attained dextrose [Glutose-15] 40 % gel 15 g PO Q15M PRN (Reason: hypoglycemia) Rx Instructions: until symptoms of low blood sugar are controlled mineral oil [Fleet Mineral Oil] Enema 118 ml CO DAILY PRN (Reason: constipation) Rx Instructions: day 6 of no bm polyethylene glycol 3350 [Miralax] 17 gram/dose powder 17 g PO DAILY PRN (Reason: constipation) Rx Instructions: day 3 of no bm naloxone [Narcan] 4 mg/actuation spray,non-aerosol 4 mg intranasal Q2M PRN (Reason: opioid overdose) Rx Instructions: spray 1 dose into ONE nostril; alternate nostrils w each dose until help arrives sennosides [senna] 8.6 mg tablet 17.2 mg PO DAILY PRN (Reason: constipation) Rx Instructions: day 4 of no bm bisacodyl [Dulcolax (bisacodyl)] 10 mg suppository 10 mg CO DAILY PRN (Reason: constipation) Rx Instructions: DAY 5 OF NO BM oxycodone 5 mg tablet 5 mg PO Q4H PRN (Reason: pain) Diet: Regular Health Concerns: You came into the hospital because you were anemic again. This is because of a known adenocarcinoma in your rectum. Your case was discussed at tumor board today, and recommendation was made for outpatient follow-up with oncology. We gave you 2 units of blood and your hemoglobin level corrected. I would like for your facility to check your hemoglobin levels every 3 days. Please follow-up with your PCP as well as with oncology Plan of Treatment: Close follow up with extended care team (Oncology, GenSurg, PCP), close monitoring of anemia, H/H labs at least every three days to assess ongoing bleeding, return to ER if hemoglobin drops below 7. Print Language: Ukrainian Stand Alone Forms: SNF Discharge, PCP List Follow-up Care: Kathia Red MD [Primary Care Provider, [employer]atics Lifeguard] Vitals documented within 30 minutes of discharge?: Yes"
[2025-04-30 12:22] LABS: HCT - HEMATOCRIT 27.8 % (42.0-52.0); HGB - HEMOGLOBIN 8.6 g/dL (14.0-18.0)
[2025-05-01 06:01] LABS: HCT - HEMATOCRIT 21.9 % (42.0-52.0); MEAN PLATELET VOLUME 10.0 fL (7.4-11.4); NRBC ABSOLUTE COUNT (AUTO) 0.00 x10^3/uL; NUCLEATED RED BLOOD CELLS AUTO 0.0 /100WBC; PLT - PLATELET COUNT 545 10^3/uL (130-450); RED CELL DISTRIBUTION WIDTH 17.8 % (12.0-15.0)
[2025-05-01 06:05] LABS: HGB - HEMOGLOBIN 6.6 g/dL (14.0-18.0)
[2025-05-01 06:17] LABS: BUN - BLOOD UREA NITROGEN 13.0 mg/dL (6-20); CARBON DIOXIDE - CO2 26.0 mmol/L (21-32); CREATININE 0.3 mg/dL (0.6-1.3); GFR - MDRD 291.0 (>89)
--- NOTE | 2025-05-01 08:42 | PROVIDER PROGRESS NOTE ---
Subjective Prog Note Date Prog Note Date: 05/01/25 Prog Note Time: 10:16 Subjective Pt reports feeling: Improved Subjective: Pt reports feeling subjectively improved and "more clear than he has in a while". This is a change since last evening, when he had expressed to provider Warner and PA student a desire to "just get a lethal injection" the night before, expressed desire to know more about what the plan was for his malignancy treatment, and was declining further IV placement for ongoing blood transfusions, and expressed interest in hospice. Provider Warner last night also spoke to pt's sister who is DPOA, and the oncologist managing the pt's care, and consult planned when oncologist available to clarify medical management for his malignancy. After speaking with the hospitalist doctor this AM is more amenable to continuing with PRN blood transfusions to correct ABLA, and willing to undergo US-guided IV placement. ROS: Pt denies any syncope or near syncope, CP, SOA, NVD, abd pn, fever/rigors/myalgias, but does relate ongoing karla bleeding with bowel movements. Current Medications Current Medications Current Medications: Current Medications Generic Name Dose Route Start Last Admin Trade Name Freq PRN Reason Stop Dose Admin Acetaminophen 650 mg 04/29/25 20:44 Acetaminophen 325 Mg Tablet PO Q4HR PRN Pain 1 to 4, or Fever Ferrous Sulfate 325 mg 04/30/25 08:00 05/01/25 08:28 Ferrous Sulfate 325 Mg Tablet PO 325 mg DAILYWM JUJU Administration Sodium Chloride 1,000 mls @ 0 mls/hr 04/30/25 04:00 Normal Saline 0.9% IV .Q0M JUJU TKO Insulin Human Lispro 1 - 5 unit 04/30/25 08:00 05/01/25 08:28 Insulin Lispro 300 Unit/3 Ml Pen SUBQ 3 unit 0800,1200,1700,2100 JUJU Administration Protocol Mirtazapine 15 mg 04/29/25 22:00 05/01/25 08:28 Mirtazapine 15 Mg Tablet PO 15 mg DAILY JUJU Administration Ondansetron HCl 4 mg 04/29/25 20:44 Ondansetron Odt 4 Mg Tablet TL Q6HR PRN Nausea / Vomiting Ondansetron HCl 4 mg 04/29/25 20:44 Ondansetron 4 Mg/2 Ml Vial IVP Q6HR PRN Nausea / Vomiting Sodium Chloride 10 ml 04/29/25 20:44 Sodium Chloride Flush 0.9% 10 Ml Syringe IVP PRN PRN NEEDED PER PROVIDER ORDERS Sodium Chloride 10 ml 04/30/25 01:00 05/01/25 01:17 Sodium Chloride Flush 0.9% 10 Ml Syringe IVP Not Given 0100,0900,1700 JUJU Zinc Oxide 113 gm 04/30/25 06:07 Cod Liver Oil/Zinc Oxide 113 Gm Tube TOP PRN PRN Skin Care Objective Vital Signs/Intake & Output Reviewed Vital Signs: Yes Vital Signs: Vital Signs x48h Temp Pulse Pulse Resp BP Pulse Ox 05/01/25 07:31 36.7 C 83 20 145/77 H 95 05/01/25 03:30 36.7 C 76 16 176/93 H 97 05/01/25 01:31 18 Intake & Output: Intake & Output 04/28/25 04/29/25 04/30/25 05/01/25 23:59 23:59 23:59 23:59 Intake Total 2370 / 2370 Output Total 1950 / 1950 300 / 300 Balance 420 / 420 -300 / -300 Weight (kg) 61.5 kg Objective General Appearance: positive No acute distress and Alert Eyes Bilateral: positive Normal inspection and PERRL Neck: positive Nml inspection Respiratory: positive Chest non-tender, No respiratory distress and Breath sounds nml Cardiovascular: positive Regular rate & rhythm Abdomen: positive Non-tender and No distention Skin: positive Warm and Dry; negative Color nml (Slight pallor ) Extremities: positive Non-tender and No pedal edema Neurologic/Psychiatric: negative Oriented x3 (Pt alert to self, place, transiently aware of day but usually knows month.) Lab Results 05/01/25 05:54 05/01/25 05:54 Other Labs: Lab Results x24hrs 05/01/25 05/01/25 04/30/25 Range/Units 07:26 05:54 22:09 WBC 11.7 H (4.8-10.8) x10^3/uL RBC 2.74 L (4.70-6.10) 10^6/uL Hgb 6.6 L* 6.8 L* (14.0-18.0) g/dL Hct 21.9 L (42.0-52.0) % MCV 79.9 L (80.0-94.0) fL MCH 24.1 L (27.0-31.0) pg MCHC 30.1 L (32.0-36.0) g/dL RDW 17.8 H (12.0-15.0) % Plt Count 545 H (130-450) 10^3/uL MPV 10.0 (7.4-11.4) fL Neut # (Auto) 9.1 H (1.5-6.6) 10^3/uL Lymph # (Auto) 1.4 L (1.5-3.5) 10^3/uL [place] # (Auto) 0.9 (0.0-1.0) 10^3/uL Eos # (Auto) 0.2 (0.0-0.7) 10^3/uL Baso # (Auto) 0.1 (0.0-0.1) 10^3/uL Absolute Nucleated RBC 0.00 x10^3/uL Nucleated RBC % 0.0 /100WBC Sodium 136 (135-145) mmol/L Potassium 3.6 (3.5-4.5) mmol/L Chloride 106 (101-111) mmol/L Carbon Dioxide 26 (21-32) mmol/L Anion Gap 4.0 L (6-13) BUN 13 (6-20) mg/dL Creatinine 0.3 L (0.6-1.3) mg/dL Estimated GFR (MDRD) 291 (>89) Glucose 245 H (74-104) mg/dL POC Whole Bld Glucose 227 (70-100) mg/dL Calcium 9.3 (8.5-10.3) mg/dL Stl Occult Blood (IFOB) (NEGATIVE) Blood Type Antibody Screen Crossmatch IS Only 04/30/25 04/30/25 04/30/25 Range/Units 12:18 11:17 09:03 WBC (4.8-10.8) x10^3/uL RBC (4.70-6.10) 10^6/uL Hgb 8.6 L (14.0-18.0) g/dL Hct 27.8 L (42.0-52.0) % MCV (80.0-94.0) fL MCH (27.0-31.0) pg MCHC (32.0-36.0) g/dL RDW (12.0-15.0) % Plt Count (130-450) 10^3/uL MPV (7.4-11.4) fL Neut # (Auto) (1.5-6.6) 10^3/uL Lymph # (Auto) (1.5-3.5) 10^3/uL [place] # (Auto) (0.0-1.0) 10^3/uL Eos # (Auto) (0.0-0.7) 10^3/uL Baso # (Auto) (0.0-0.1) 10^3/uL Absolute Nucleated RBC x10^3/uL Nucleated RBC % /100WBC Sodium (135-145) mmol/L Potassium (3.5-4.5) mmol/L Chloride (101-111) mmol/L Carbon Dioxide (21-32) mmol/L Anion Gap (6-13) BUN (6-20) mg/dL Creatinine (0.6-1.3) mg/dL Estimated GFR (MDRD) (>89) Glucose (74-104) mg/dL POC Whole Bld Glucose 291 (70-100) mg/dL Calcium (8.5-10.3) mg/dL Stl Occult Blood (IFOB) POSITIVE A (NEGATIVE) Blood Type Antibody Screen Crossmatch IS Only 04/29/25 Range/Units 20:01 WBC (4.8-10.8) x10^3/uL RBC (4.70-6.10) 10^6/uL Hgb (14.0-18.0) g/dL Hct (42.0-52.0) % MCV (80.0-94.0) fL MCH (27.0-31.0) pg MCHC (32.0-36.0) g/dL RDW (12.0-15.0) % Plt Count (130-450) 10^3/uL MPV (7.4-11.4) fL Neut # (Auto) (1.5-6.6) 10^3/uL Lymph # (Auto) (1.5-3.5) 10^3/uL [place] # (Auto) (0.0-1.0) 10^3/uL Eos # (Auto) (0.0-0.7) 10^3/uL Baso # (Auto) (0.0-0.1) 10^3/uL Absolute Nucleated RBC x10^3/uL Nucleated RBC % /100WBC Sodium (135-145) mmol/L Potassium (3.5-4.5) mmol/L Chloride (101-111) mmol/L Carbon Dioxide (21-32) mmol/L Anion Gap (6-13) BUN (6-20) mg/dL Creatinine (0.6-1.3) mg/dL Estimated GFR (MDRD) (>89) Glucose (74-104) mg/dL POC Whole Bld Glucose (70-100) mg/dL Calcium (8.5-10.3) mg/dL Stl Occult Blood (IFOB) (NEGATIVE) Blood Type O POSITIVE Antibody Screen NEGATIVE Crossmatch IS Only See Detail Diagnostic Imaging Diagnostic Imaging Results: positive Final report reviewed and Read independently Assessment/Plan Problem List (1) ABLA (acute blood loss anemia): (2) Rectal adenocarcinoma: (3) Anemia, iron deficiency: Impression: Plan is for all of the above History of adenocarcinoma diagnosed on colonoscopy 04/12 Patient case went before tumor board on 04/30, care plan unk at this time. General Surgery following. ED provider ordered 1 unit PRBC; pt received another on MedSurg yesterday, and Hgb had come up to 8.7 after the 2 units. Today, Hgb is back down to 6.6, Hct is 21.9 this AM. -Pt seems amenable once more to receiving therapeutic transfusion, will work on US-guided IV access or possible port placement, but pt may be poor surgical candidate until his anemia is corrected. -Goal to transfuse another ~2 units today. -Continue to check hemoglobin q8. -Restart home dose iron supplementation. -Continue to work with Onc, Surg, PCP, sister/DPOA and pt to refine care plan and better assess dispo. Qualifiers: Iron deficiency anemia type: inadequate dietary iron intake Qualified Code(s): D50.8 - Other iron deficiency anemias (4) Type 2 diabetes mellitus: Impression: SSI, approved for normal diet per Nutrition consult. Will adjust SSI further or add adjunctive glycemic control if needed. Qualifiers: Diabetes mellitus complication status: with hyperglycemia Diabetes mellitus chcf insulin use: without terminal gauger use Qualified Code(s): E11.65 - Type 2 diabetes mellitus with hyperglycemia (5) Malnutrition: Impression: Known history of malnutrition Continue home dose of Mirtazapine. Nutrition consult indicates he is approved for normal diet, Reglan not considered due to serotonin syndrome risk with Mirtazapine. Pt eating today, and reports improved appetite. Continue to work with Nutrition and monitor oral intake. Qualifiers: Malnutrition type: protein-calorie malnutrition Protein-calorie malnutrition severity: severe Qualified Code(s): E43 - Unspecified severe protein-calorie malnutrition
[2025-05-01] MEDS: INSULIN LISPRO 300 UNIT/3 ML PEN SUBQ SCH (11:42)
--- NOTE | 2025-05-01 16:44 | CONSULTATION NOTE ---
Referring Provider Name of Referring Provider:: Dr. Anupam Dumont Consult Date: 05/01/25 Chief Complaint Chief Complaint Chief Complaint: Rectal bleeding History of Present Illness History of Present Illness HPI Comment/Other: 75 yo M well known to general surgery with past medical history significant for type 2 diabetes, GERD, iron deficiency anemia and rectal adenocarcinoma who has had multiple admissions to the hospital for anemia from rectal bleeding. He was sent over by [facility] due to lab work performed which revealed a hemoglobin of 6.6. Patient denied any problems, but he is known to be a poor historian and very uninvolved in his own care. In the ED, repeat lab work was performed which showed hemoglobin of 6.3. Patient was noted to still be having bloody bowel movements. He was admitted to the hospital for close monitoring and transfusion as needed. He was planned for oncology outpatient evaluation but had not yet been able to see them. He has undergone multiple endoscopies with general surgery leading to his cancer diagnosis and continued to bleed despite multiple treatments. General surgery was consulted today due to his persistent bleeding and drop of Hgb as well as poor venous access. Upon my arrival into the room he had another bloody bowel movement and was oriented but feeling weak and tired. I arrived at the same time as the PACU nurse and we were quickly able to place bilateral 18G IV's to allow for transfusion. [facility] Active Problems All Active Problems (Updated 04/29/25 @ 20:26 by Alen Hines MD) Symptomatic anemia (Acute) ABLA (acute blood loss anemia) (Acute) Rectal adenocarcinoma (Acute) Anemia (Chronic) Anxiety about health (Acute) Guaiac positive stools (Acute) Post-operative state (Acute) Closed intertrochanteric fracture of right hip (Acute) Malnutrition (Acute) Closed right hip fracture (Acute) Type 2 diabetes mellitus (Acute) Closed T12 fracture (Acute) Closed T11 fracture (Acute) Intractable back pain (Acute) Anemia, iron deficiency (Acute) Rectal mass (Acute) Compression fracture of vertebral column (Acute) Cachexia (Acute) Leg pain, right (Acute) Ground-level fall (Acute) Medical History Medical History Anemia Counseling regarding advanced care planning and goals of care Insomnia Urinary incontinence Skin cancer No pertinent past medical history Surgical History Surgical History History of repair of hip fracture Hx of flexible sigmoidoscopy (~03/22/25) [facility] DR. 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 (Date/Year): 1970 Number of Years Smoked: 3 How many cigarettes a day do you smoke? (20 cigarettes=1 Pk): 20 Second hand tobacco smoke exposure: No Do you dip or chew tobacco?: No Do you vape?: No Initiate information on smoking cessation: No Living arrangement: Assisted living Living Condition: Alone Support Person: Yes Living Situation Details: Recently moved to [place]; is there under Medicaid Has a Durable Power of Art Sales Consultant for Health Care?: Yes Name / Relationship: Carmina Ribeiro [phone] DPOA on file?: Yes Level: Assisted Home Mobility Equipment: Walker and Wheeled walker Physical - Functional Details: Functional status has been declining Do you feel safe in your home environment?: Yes History of physical, verbal, emotional, or financial abuse?: No ETOH Use: Beer Frequency: Daily Number of drinks/day: 1 Substance Use: denies use 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: 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 POLST Patient has POLST: Yes POLST on file?: Yes POLST CPR Status: Do Not Attempt Resuscitation (DNAR) / Allow Natural Meds/Allgy Home Medications Ambulatory Orders Medication Instructions Recorded Confirmed acetaminophen 500 mg tablet 1,000 mg (2 x 500 mg) PO T ID #90 03/28/25 04/30/25 (Tylenol Extra Strength) tabs insulin glargine-yfgn 100 unit/mL 12 unit (0.12 mL) tian bcut 03/28/25 04/30/25 (3 mL) subcutaneous pen QDBREAKFAST #15 mL insulin lispro 100 unit/mL 5 unit (0.05 mL) subcut TID WM #15 03/28/25 04/30/25 subcutaneous pen (Humalog KwikPen mL (U-100) Insulin) lidocaine 4 % topical patch 1 patch topical DAILY #30 ea 03/28/25 04/30/25 mirtazapine 15 mg tablet 15 mg PO QPM #30 tabs 04/30/25 eejtqntlubsn-fvinztoj-ljwo 1 tab PO DAILYWM #30 tabs 1 05/28/24 04/30/25 fumarate 19 mg-folic acid 400 mcg tablet (Therapeutic-M) docusate sodium 250 mg capsule 250 mg PO DAILY 5 04/30/25 ferrous sulfate 325 mg (65 mg 325 mg PO DAILYWM 04/30/25 iron) tablet insulin lispro 100 unit/mL 1 - 9 unit subcut 04/11/25 04/30/25 subcutaneous pen (Humalog KwikPen 0800,1200,1700,2100 (U-100) Insulin) pantoprazole 40 mg tablet,delayed 40 mg PO BIDAC 04/1104/30/25 release buspirone 5 mg tablet 5 mg PO BID #60 tabs 5 04/30/25 loperamide 2 mg capsule 2 mg PO QID PRN Diarrhea #60 caps 04/17/25 04/30/25 dextrose 40 % oral gel (Glutose-15) 15 g PO Q15M PRN h ypoglycemia 04/22/25 04/30/25 glucagon 1 mg solution for 1 mg IM Q20M PRN hypoglycem ia 04/22/25 04/30/25 injection (Glucagon Emergency Kit) mineral oil (Fleet Mineral Oil 118 ml [place] DAILY PRN con stipation 04/22/25 04/30/25 enema) naloxone 4 mg/actuation nasal 4 mg intranasal Q2M PRN opioid 04/22/25 04/30/25 spray (Narcan) overdose polyethylene glycol 3350 17 17 g PO DAILY PRN constipa tion 04/22/25 04/30/25 gram/dose oral powder (Miralax) sennosides 8.6 mg tablet (senna) 17.2 mg PO DAILY PRN constipation 04/22/25 04/30/25 oxycodone 5 mg tablet 5 mg PO Q4H PRN pain 5 04/30/25 bisacodyl 10 mg rectal suppository 10 mg [place] DAILY PRN constipation 04/30/25 04/30/25 (Dulcolax (bisacodyl)) Allergies Allergies Allergy/AdvReac Type Severity Reaction Status Date / Time No Known Drug Allergies Allergy Verified 04/29/25 19:53 Results Lab Results Lab results reviewed: Yes 05/01/25 14:26 05/01/25 05:54 Other Lab Results: Lab Results x24hrs 05/01/25 05/01/25 05/01/25 Range/Units 14:26 11:12 07:26 WBC (4.8-10.8) x10^3/uL RBC (4.70-6.10) 10^6/uL Hgb 7.1 L (14.0-18.0) g/dL Hct (42.0-52.0) % MCV (80.0-94.0) fL MCH (27.0-31.0) pg MCHC (32.0-36.0) g/dL RDW (12.0-15.0) % Plt Count (130-450) 10^3/uL MPV (7.4-11.4) fL Neut # (Auto) (1.5-6.6) 10^3/uL Lymph # (Auto) (1.5-3.5) 10^3/uL [place] # (Auto) (0.0-1.0) 10^3/uL Eos # (Auto) (0.0-0.7) 10^3/uL Baso # (Auto) (0.0-0.1) 10^3/uL Absolute Nucleated RBC x10^3/uL Nucleated RBC % /100WBC Sodium (135-145) mmol/L Potassium (3.5-4.5) mmol/L Chloride (101-111) mmol/L Carbon Dioxide (21-32) mmol/L Anion Gap (6-13) BUN (6-20) mg/dL Creatinine (0.6-1.3) mg/dL Estimated GFR (MDRD) (>89) Glucose (74-104) mg/dL POC Whole Bld Glucose 291 227 (70-100) mg/dL Calcium (8.5-10.3) mg/dL Blood Type Antibody Screen Crossmatch IS Only 05/01/25 04/30/25 04/29/25 Range/Units 05:54 22:09 20:01 WBC 11.7 H (4.8-10.8) x10^3/uL RBC 2.74 L (4.70-6.10) 10^6/uL Hgb 6.6 L* 6.8 L* (14.0-18.0) g/dL Hct 21.9 L (42.0-52.0) % MCV 79.9 L (80.0-94.0) fL MCH 24.1 L (27.0-31.0) pg MCHC 30.1 L (32.0-36.0) g/dL RDW 17.8 H (12.0-15.0) % Plt Count 545 H (130-450) 10^3/uL MPV 10.0 (7.4-11.4) fL Neut # (Auto) 9.1 H (1.5-6.6) 10^3/uL Lymph # (Auto) 1.4 L (1.5-3.5) 10^3/uL [place] # (Auto) 0.9 (0.0-1.0) 10^3/uL Eos # (Auto) 0.2 (0.0-0.7) 10^3/uL Baso # (Auto) 0.1 (0.0-0.1) 10^3/uL Absolute Nucleated RBC 0.00 x10^3/uL Nucleated RBC % 0.0 /100WBC Sodium 136 (135-145) mmol/L Potassium 3.6 (3.5-4.5) mmol/L Chloride 106 (101-111) mmol/L Carbon Dioxide 26 (21-32) mmol/L Anion Gap 4.0 L (6-13) BUN 13 (6-20) mg/dL Creatinine 0.3 L (0.6-1.3) mg/dL Estimated GFR (MDRD) 291 (>89) Glucose 245 H (74-104) mg/dL POC Whole Bld Glucose (70-100) mg/dL Calcium 9.3 (8.5-10.3) mg/dL Blood Type O POSITIVE Antibody Screen NEGATIVE Crossmatch IS Only See Detail Review of Systems Status of ROS: 10 or more systems reviewed and unremarkable except as noted in history and below Exam Exam Vital Signs: Vital Signs x48h Temp Pulse Pulse Resp BP BP Pulse Ox 05/01/25 16:20 36.7 C 87 18 164/80 H 97 12/10/25 15:59 36.7 C 84 16 158/75 H 97 05/01/25 15:59 36.7 C 84 16 158/75 H 97 05/01/25 13:00 36.7 C 83 20 165/83 H 96 Constitutional abnormal general appearance (disheveled) and (chronically ill) and abnormal body habitus (cachectic) HENMT normocephalic and head/scalp atraumatic Eyes conjunctivae normal and no scleral icterus Neck/C-Spine visual inspection normal Chest palpation of chest normal Respiratory normal respiratory effort Cardiovascular normal heart rate noted and regular rhythm noted Gastrointestinal abdomen normal to inspection and abdomen soft to palpation Back/Pelvis TIMOTHY done with dark blood noted on the glove, the prior rectal mass is still present but less appreciable after his most recent endoscopic resection. Extremities normal to inspection Psychiatry cooperative and affect normal Skin skin color abnormal (pale) Conclusion/Plan Problem List (1) ABLA (acute blood loss anemia): (2) Rectal adenocarcinoma: (3) Anemia, iron deficiency: Qualifiers: Iron deficiency anemia type: inadequate dietary iron intake Qualified Code(s): D50.8 - Other iron deficiency anemias (4) Type 2 diabetes mellitus: Qualifiers: Diabetes mellitus complication status: with hyperglycemia Diabetes mellitus long line teamster insulin use: without halfway use Qualified Code(s): E11.65 - Type 2 diabetes mellitus with hyperglycemia (5) Malnutrition: Qualifiers: Malnutrition type: protein-calorie malnutrition Protein-calorie malnutrition severity: severe Qualified Code(s): E43 - Unspecified severe protein-calorie malnutrition Plan 75 yo M well known to general surgery with past medical history significant for type 2 diabetes, GERD, iron deficiency anemia and rectal adenocarcinoma who has had multiple admissions to the hospital for anemia from rectal bleeding. He was sent over by [facility] due to lab work performed which revealed a hemoglobin of 6.6. Patient denied any problems, but he is known to be a poor historian and very uninvolved in his own care. In the ED, repeat lab work was performed which showed hemoglobin of 6.3. Patient was noted to still be having bloody bowel movements. He was admitted to the hospital for close monitoring and transfusion as needed. He was planned for oncology outpatient evaluation but had not yet been able to see them. He has undergone multiple endoscopies with general surgery leading to his cancer diagnosis and continued to bleed despite multiple treatments. During my exam today he was noted to have bloody bowel movement and blood was noted on the finger during TIMOTHY. Hemostatic absorbable foam was placed into the rectum during the TIMOTHY. With his rectal cancer, possible bone mets seen on CT chest, malnutrition and cachexia he is a poor surgical candidate. Furthermore initial treatment for his rectal cancer would include chemoradiation therapy, not surgical resection. Transfer to another facility for more complete and comprehensive approach to his care should be considered, such as possible chemoradiation, IR embolization or colorectal surgery evaluation. - Continue to transfuse as needed - Can repeat hemostatic foam placement into the rectum as needed - Consider transfer for further management - Discussed with primary Lab Results Lab results reviewed: Yes 05/01/25 14:26 05/01/25 05:54
[2025-05-01] MEDS: ACETAMINOPHEN 325 MG TABLET PO PRN (21:50)
[2025-05-02] MEDS: SODIUM CHLORIDE FLUSH 0.9% 10 ML SYRINGE IVP PRN (00:04)
[2025-05-02 05:45] LABS: HCT - HEMATOCRIT 28.6 % (42.0-52.0); HGB - HEMOGLOBIN 9.0 g/dL (14.0-18.0); MEAN PLATELET VOLUME 10.1 fL (7.4-11.4); NRBC ABSOLUTE COUNT (AUTO) 0.00 x10^3/uL; NUCLEATED RED BLOOD CELLS AUTO 0.0 /100WBC; PLT - PLATELET COUNT 516 10^3/uL (130-450); RED CELL DISTRIBUTION WIDTH 17.2 % (12.0-15.0)
[2025-05-02 06:05] LABS: BUN - BLOOD UREA NITROGEN 16.0 mg/dL (6-20); CARBON DIOXIDE - CO2 25.0 mmol/L (21-32); CREATININE 0.3 mg/dL (0.6-1.3); GFR - MDRD 291.0 (>89)
[2025-05-02] MEDS: INSULIN LISPRO 300 UNIT/3 ML PEN SUBQ SCH ×2 (07:57→11:54)
[2025-05-02 08:25] LABS: HCT - HEMATOCRIT 31.3 % (42.0-52.0); HGB - HEMOGLOBIN 10.0 g/dL (14.0-18.0)
[2025-05-02] MEDS: INSULIN GLARGINE-YFGN 300 UNIT/3 ML PEN SUBQ SCH (09:40)
--- NOTE | 2025-05-02 11:47 | Discharge Summary ---
Discharge Summary Admit Date: 04/29/25 Discharge Date: 05/02/25 Discharging Provider: Claudette Bianchi PA-C Primary Care Provider: Kathia Red MD Code Status: Do Not Attempt Resuscitation DIAGNOSES Discharge Diagnoses with Status of Each Condition: Rectal adenocarcinoma Acute blood loss anemia Iron deficiency anemia Type 2 diabetes mellitus Malnutrition HPI History of Present Illness: 75-year-old male past medical history significant for type 2 diabetes, GERD, iron deficiency anemia, rectal mass presumed to be cancerous has had multiple admissions to this hospital for anemia. He was sent over by [facility] due to lab work performed today which revealed a hemoglobin of 6.6. Patient denies any problems, but he is known to be a poor historian and very uninvolved in his own care In the ED, repeat lab work was performed which showed hemoglobin of 6.3. Patient is noted to still be having bloody bowel movements. General surgery was contacted by ED provider, and plans were made for hospitalist to place in observation for acute blood loss anemia due to lower GI bleeding HOSPITAL COURSE Hospital Course: Rectal adenocarcinoma: Admissions related to this diagnosis at this facility: 04/17/2025 - 03/28/2025 04/10/2025 - 04/17/2025 04/21/2025 - 04/23/2025 04/29/2025 - 05/02/2025 diagnosed via colonoscopy on 04/[address] Eliel Hendrix. EGD performed that day as well. EGD findings: First portion of the duodenum, second portion of the duodenum, and duodenal bulb were normal. Normal mucosa was found in the entire examined stomach. Very large J shaped stomach. The Z-line was regular and found at 38 cm from the incisors. A small hiatal hernia was present. Sliding. Colonoscopy findings: Many large mouth and medium mouth and small mouth diverticula were found in the entire colon. There was narrowing of the colon in associated with the diverticular opening. There was no evidence of diverticular bleeding. Much more profound on the left side but present bilaterally. Fungating ulcerated polypoid and infiltrative partially obstructing large mass was found from 6 to 15 cm proximal to the anus. The mass was circumferential. The mass measured 9 cm in length. This was biopsied with cold forceps and a hot snare for histology. Internal nonbleeding nonthrombosed Nahm prolapsed hemorrhoids were found during retroflexion. The hemorrhoids were grade 2 (internal hemorrhoids that prolapse but reduce spontaneously) and grade 3 (internal hemorrhoids that prolapse but require manual reduction). ABLA (acute blood loss anemia): due to bleeding rectal adenocarcinoma. Patient has received 4u PRBCs this admssion. Please see below Hgb trends. Laboratory Tests 04/29/25 04/29/25 04/30/25 13:24 20:01 02:28 Hgb 6.6 L* 6.3 L* 6.7 L* 04/30/25 04/30/25 04/30/25 08:09 12:18 22:09 Hgb 8.7 L 8.6 L 6.8 L* 05/01/25 05/01/25 05/02/25 05:54 14:26 05:05 Hgb 6.6 L* 7.1 L 9.0 L 05/02/25 08:11 Hgb 10.0 L He is continuing to bleed from this rectal mass and require transfusions. We have had some success intermittently packing the rectum with Gelfoam slightly moistened with saline. Anemia, iron deficiency: Secondary to blood loss. He is on daily oral iron. Type 2 diabetes mellitus: Glargine 12u QAM, LIspro 5u with meals. plus SSI. 2 03/17/25 03:17 Hemoglobin A1c % 9.0 H Malnutrition: Moderate degree malnutrition. On mirtazapine 15 mg at at bedtime. Patient shows muscle wasting, loss of subcutaneous fat, reduced functional capacity and weight reduction from 64 to 54 kg in 1 month, now back up to 61 kg. General notes regarding his care: Discussed at [facility] on 04/30 and oncology plans to offer the patient palliative chemotherapy. Patient is inquiring about with dignity. He does not seem to have a good understanding of exactly what this means. His sister would really like for him to have oncology consult prior to making a decision to transition care to comfort measures only. For this reason, I pursued transfer to OSH. We seem to be struggling with recurrent rectal bleeding related to the cancer which is causing anemia which is causing the need for hospitalizations and transfusions. In the meantime, patient is not getting timely consultation for prospective treatment for his rectal adenocarcinoma. Discussed with staff for oncology 05/01, oncologist is unable to come into the hospital to see the patient. Furthermore, their outpatient consultation schedule is running into May. This patient needs treatment in a more timely manner. Discussed with [facility] transfer center. All films and path reports pushed. I am concerned that digital images did not transfer. Sending patient w CD of images. Discussed with Dr Lore Arrieta of [facility]. Discussed with Dr Levin, medical hospitalist as well. Dr Levin agress to accept this pt in transfer to [facility]. This patient will be able to get oncology, general surgery consultations which will assist with decision making treatment of his cancer. This patient is a difficult IV access. He would benefit from early port placement should he decide to pursue palliative chemo. I did explain to patient and family that should he elect to proceed with comfort measures only, vascular access device likely not needed. Discussed with Dr. Santiago general surgery, who saw the patient 05/01 and packed the rectum with Gelfoam. We are in agreement that the patient probably needs to go to a center where he can receive comprehensive care. He requires immediate oncology consultation, he may require radiation therapy and he may also require IR embolization. Patient's sister is in agreement with this plan of care. This patient leans heavily on his sister, Kayla Stiles ([phone] Home) for assistance with his medical decision making. ALLERGIES Allergies Allergy/AdvReac Type Severity Reaction Status Date / Time No Known Drug Allergies Allergy Verified 04/29/25 19:53 MEDICATIONS Ambulatory Orders Medication Instructions Recorded Confirmed acetaminophen 500 mg tablet 1,000 mg (2 x 500 mg) PO T ID #90 03/28/25 04/30/25 (Tylenol Extra Strength) tabs insulin glargine-yfgn 100 unit/mL 12 unit (0.12 mL) tian bcut 03/28/25 04/30/25 (3 mL) subcutaneous pen QDBREAKFAST #15 mL insulin lispro 100 unit/mL 5 unit (0.05 mL) subcut TID WM #15 03/28/25 04/30/25 subcutaneous pen (Humalog KwikPen mL (U-100) Insulin) lidocaine 4 % topical patch 1 patch topical DAILY #30 ea 03/28/25 04/30/25 mirtazapine 15 mg tablet 15 mg PO QPM #30 tabs 04/30/25 kprgdhppzmqb-[id number] 1 tab PO DAILYWM #30 tabs 1 05/28/24 04/30/25 fumarate 19 mg-folic acid 400 mcg tablet (Therapeutic-M) docusate sodium 250 mg capsule 250 mg PO DAILY 5 04/30/25 ferrous sulfate 325 mg (65 mg 325 mg PO DAILYWM 04/30/25 iron) tablet insulin lispro 100 unit/mL 1 - 9 unit subcut 04/11/25 04/30/25 subcutaneous pen (Humalog KwikPen 0800,1200,1700,2100 (U-100) Insulin) pantoprazole 40 mg tablet,delayed 40 mg PO BIDAC 04/1104/30/25 release buspirone 5 mg tablet 5 mg PO BID #60 tabs 5 04/30/25 loperamide 2 mg capsule 2 mg PO QID PRN Diarrhea #60 caps 04/17/25 04/30/25 dextrose 40 % oral gel (Glutose-15) 15 g PO Q15M PRN h ypoglycemia 04/22/25 04/30/25 glucagon 1 mg solution for 1 mg IM Q20M PRN hypoglycem ia 04/22/25 04/30/25 injection (Glucagon Emergency Kit) mineral oil (Fleet Mineral Oil 118 ml GA DAILY PRN con stipation 04/22/25 04/30/25 enema) naloxone 4 mg/actuation nasal 4 mg intranasal Q2M PRN opioid 04/22/25 04/30/25 spray (Narcan) overdose polyethylene glycol 3350 17 17 g PO DAILY PRN constipa tion 04/22/25 04/30/25 gram/dose oral powder (Miralax) sennosides 8.6 mg tablet (senna) 17.2 mg PO DAILY PRN constipation 04/22/25 04/30/25 oxycodone 5 mg tablet 5 mg PO Q4H PRN pain 5 04/30/25 bisacodyl 10 mg rectal suppository 10 mg GA DAILY PRN constipation 04/30/25 04/30/25 (Dulcolax (bisacodyl)) PHYSICAL EXAM AT DISCHARGE Vital Signs: Vital Signs x48h Temp Pulse Resp BP Pulse Ox 05/02/25 15:49 36.7 C 91 18 140/77 H 96 General Appearance: positive No acute distress, Alert and Other (appears chronically ill. ) Eyes Bilateral: positive Conjunctivae nml ENT: positive ENT inspection nml Neck: positive Nml inspection Respiratory: positive No respiratory distress and Breath sounds nml Cardiovascular: positive Regular rate & rhythm Abdomen: positive No distention Skin: positive Other (multiple SK) Extremities: positive No pedal edema Neurologic/Psychiatric: positive Oriented x3 LABS 05/02/25 08:11 05/02/25 05:05 FOLLOW UP Follow Up: transfer to [facility]. Patient and family express desire to return back to [facility] post recommendations and consultations. He has been at [facility] for [facility] rehab and likely could return there regardless of disposition (decision for palliative chemo vs comfort measures only) TIME SPENT Time Spent in Discharge (Minutes): 55 Discharge Plan Discharge Patient Disposition: 02 Transfer Acute Care Hosp Condition: Stable Medically Cleared Date:: 04/30/25 Prescriptions: Continued acetaminophen [Tylenol Extra Strength] 500 mg Tablet 1,000 mg PO TID Qty: 90 0RF insulin glargine-yfgn 100 unit/mL (3 mL) Insulin Pen 12 unit subcut QDBREAKFAST Qty: 15 0RF insulin lispro [Humalog KwikPen Insulin] 100 unit/mL Insulin Pen 5 unit subcut TIDWM Qty: 15 0RF lidocaine 4 % Adhesive Patch,Medicated 1 patch topical DAILY Qty: 30 0RF mirtazapine 15 mg Tablet 15 mg PO QPM Qty: 30 0RF Therapeutic-M 19 mg iron- 400 mcg Tablet 1 tab PO DAILYWM Qty: 30 0RF pantoprazole 40 mg Tablet,Delayed Release (Dr/Ec) 40 mg PO BIDAC Rx Instructions: with breakfast and dinner ferrous sulfate 325 mg (65 mg iron) Tablet 325 mg PO DAILYWM Rx Instructions: Give with Breakfast docusate sodium 250 mg Capsule 250 mg PO DAILY insulin lispro [Humalog KwikPen Insulin] 100 unit/mL Insulin Pen 1 - 9 unit subcut 0800,1200,1700,2100 Rx Instructions: 0-140= 0 141-180 1 unit 181-225= 3 units 226-275= 5 units 276-325= 7 units 326-375= 9 units 376-500= Call buspirone 5 mg Tablet 5 mg PO BID Qty: 60 0RF loperamide 2 mg Capsule 2 mg PO QID PRN (Reason: Diarrhea) Qty: 60 0RF Glucagon Emergency Kit (human) 1 mg recon soln 1 mg IM Q20M PRN (Reason: hypoglycemia) Rx Instructions: until target blood sugar attained dextrose [Glutose-15] 40 % gel 15 g PO Q15M PRN (Reason: hypoglycemia) Rx Instructions: until symptoms of low blood sugar are controlled mineral oil [Fleet Mineral Oil] Enema 118 ml GA DAILY PRN (Reason: constipation) Rx Instructions: day 6 of no bm polyethylene glycol 3350 [Miralax] 17 gram/dose powder 17 g PO DAILY PRN (Reason: constipation) Rx Instructions: day 3 of no bm naloxone [Narcan] 4 mg/actuation spray,non-aerosol 4 mg intranasal Q2M PRN (Reason: opioid overdose) Rx Instructions: spray 1 dose into ONE nostril; alternate nostrils w each dose until help arrives sennosides [senna] 8.6 mg tablet 17.2 mg PO DAILY PRN (Reason: constipation) Rx Instructions: day 4 of no bm bisacodyl [Dulcolax (bisacodyl)] 10 mg suppository 10 mg GA DAILY PRN (Reason: constipation) Rx Instructions: DAY 5 OF NO BM oxycodone 5 mg tablet 5 mg PO Q4H PRN (Reason: pain) Activity Restrictions: Activity as Tolerated Diet: Regular Health Concerns: You came into the hospital because you were anemic again. This is because of a known adenocarcinoma in your rectum. Your case was discussed at tumor board today, and recommendation was made for outpatient follow-up with oncology. We gave you 4 units of blood and your hemoglobin level corrected. you are continuing to bleed and we are transferring for expert consultation. Plan of Treatment: . Print Language: German Follow-up Care: Kathia Red MD [Primary Care Provider, Industrial Arts Teacher] Vitals documented within 30 minutes of discharge?: Yes
[2025-05-02] MEDS: MULTIVITAMIN W/MINERALS TABLET PO SCH (11:55)
[2025-05-02 15:50] VITALS: O2SAT 96
[2025-05-02] MEDS: PANTOPRAZOLE 40 MG TABLET PO SCH (15:58)
[2025-05-02 20:09] VITALS: BP 143/86; TEMP 98.2
[2025-05-02] MEDS ORDERED: MIRTAZAPINE 15 MG TABLET PO SCH (21:00)
[2025-05-03] MEDS ORDERED: MIRTAZAPINE 15 MG TABLET PO SCH (21:00)
== END 2025-05-02 19:50 | disposition short-term general hospital (02) | DRG 811 ==
LOC: ED 19:45 → MS2 19:45
PROVIDERS: ADMIT Nurse Practitioner Acute Care; ATTEND Nurse Practitioner Acute Care
DX: Z87.891 Personal history of nicotine dependence; C20 Malignant neoplasm of rectum; D62 Acute posthemorrhagic anemia; Z79.899 Other long term (current) drug therapy; E11.65 Type 2 diabetes mellitus with hyperglycemia; K21.9 Gastro-esophageal reflux disease without esophagitis; Z66 Do not resuscitate; Z79.4 Long term (current) use of insulin; Z68.20 Body mass index [BMI] 20.0-20.9, adult; E43 Unspecified severe protein-calorie malnutrition